=== PATIENT | female | born 1935 | race Caucasian/White ===

== ENCOUNTER 2017-03-27 09:31 | Emergency (ER) | payer OTHER ==
[2017-03-27 09:56] VITALS: BMI 31.4
[2017-03-27] MEDS ORDERED: SODIUM CHLORIDE 1,000 ML IV STA (10:22)
--- NOTE | 2017-03-27 10:27 | PDOC ---
History of Present Illness - General History Source: Patient Exam Limitations: No Limitations - History of Present Illness Initial Comments: 03/27/17 10:41 The patient is an 82 year old female with past medical history of hypertension, CAD, HI s/p stents and [employer] defibrillator who presents to the ED after feeling a shock from her defibrillator while in the shower this morning. The patient states that the shock occurred while she was in the shower after she felt lightheaded. She states that a similar episode occurred three years ago where the patient was reportedly shocked six times. In the ED, the patient is asymptomatic and has no complaints. She denies any illness, fever, chills, nausea, vomiting, diarrhea, cough, SOB, chest pain, or urinary symptoms. PCP: [facility] [employer] Teacher: Talon Marquis <Zakia Bar - Last Filed: 03/27/17 15:28> - General History Source: Patient, Old Records Exam Limitations: No Limitations <Jeremy Kc - Last Filed: 03/27/17 18:46> - General Chief Complaint: Tachycardia Stated Complaint: ANXIETY Time Seen by Provider: 03/27/17 09:46 Past History <Zakia Bar - Last Filed: 03/27/17 15:28> - Past Medical History Anemia: No Asthma: No Cancer: No Cardiac Disorders: Yes (mi 4/10 stents) CVA: Yes (2011) COPD: No CHF: No Dementia: No Diabetes: No GI Disorders: No Disorders: No HTN: Yes Hypercholesterolemia: Yes Liver Disease: No Seizures: No Thyroid Disease: No - Surgical History Abdominal Surgery: No Appendectomy: No Cardiac Surgery: Yes (defibrillator) Cholecystectomy: No Lung Surgery: No Neurologic Surgery: No Orthopedic Surgery: No - Immunization History Immunization Up to Date: Yes - Psycho/Social/Smoking Cessation Hx Anxiety: No Suicidal Ideation: No Smoking Status: No Smoking History: Never smoked Have you smoked in the past 12 months: No Number of Cigarettes Smoked Daily: 0 Information on smoking cessation initiated: No Hx Alcohol Use: No Drug/Substance Use Hx: No Substance Use Type: None Hx Substance Use Treatment: No <Jeremy Kc - Last Filed: 03/27/17 18:46> - Past Medical History Allergies/Adverse Reactions: Allergies Allergy/AdvReac Type Severity Reaction Status Date / Time No Known Allergies Allergy Verified 03/27/17 09:48 Home Medications: Ambulatory Orders Lisinopril [Prinivil -] 2.5 mg PO DAILY 11/23/15 Rivaroxaban [Xarelto -] 10 mg PO DAILY 11/23/15 Sennosides [Senna] 2 tab PO HS 11/23/15 Simvastatin [Zocor -] 10 mg PO HS 11/23/15 Spironolactone 25 mg PO DAILY 11/23/15 Magnesium Oxide 400 mg PO DAILY #30 tablet 11/27/15 Magnesium Oxide 400 mg PO BID #30 tablet 03/27/17 Metoprolol Succinate [Toprol XL -] 50 mg PO BID #60 tablet 03/27/17 Review of Systems - Review of Systems Able to Perform ROS?: Yes Comments:: 03/27/17 10:41 GENERAL/CONSTITUTIONAL: No fever or chills. No weakness. HEAD, EYES, EARS, NOSE AND THROAT: No change in vision. No ear pain or discharge. No sore throat. CARDIOVASCULAR: No chest pain or shortness of breath. RESPIRATORY: No cough, wheezing, or hemoptysis. GASTROINTESTINAL: No nausea, vomiting, diarrhea or constipation. GENITOURINARY: No dysuria, frequency, or change in urination. MUSCULOSKELETAL: No joint or muscle swelling or pain. No neck or back pain. SKIN: No rash NEUROLOGIC: No headache, vertigo, loss of consciousness, or change in strength/ sensation. ENDOCRINE: No increased thirst. No abnormal weight change. HEMATOLOGIC/LYMPHATIC: No anemia, easy bleeding, or history of blood clots. ALLERGIC/IMMUNOLOGIC: No hives or skin allergy. All Other Systems: Reviewed and Negative <Zakia Bar - Last Filed: 03/27/17 15:28> *Physical Exam - Vital Signs Last Vital Signs Temp Pulse Resp BP Pulse Ox 97.5 F L 113 H 16 113/94 93 L 03/27/17 09:35 03/27/17 09:35 03/27/17 09:35 03/27/17 09:35 03/27/17 09:35 - Physical Exam Comments: 03/27/17 10:43 GENERAL: Awake, alert, and fully oriented, in no acute distress HEAD: No signs of trauma EYES: PERRLA, EOMI, sclera anicteric, conjunctiva clear ENT: Auricles normal inspection, hearing grossly normal, nares patent, oropharynx clear without exudates. Moist mucosa NECK: Normal ROM, supple, no lymphadenopathy, JVD, or masses LUNGS: Breath sounds equal, clear to auscultation bilaterally. No wheezes, and no crackles HEART: Tachycardic, defibrillator, normal S1 and S2, no murmurs, rubs or gallops ABDOMEN: Soft, nontender, normoactive bowel sounds. No guarding, no rebound. No masses EXTREMITIES: Normal range of motion, no edema. No clubbing or cyanosis. No cords, erythema, or tenderness NEUROLOGICAL: Cranial nerves II through XII grossly intact. Normal speech, normal gait SKIN: Warm, Dry, normal turgor, no rashes or lesions noted. <Zakia Bar - Last Filed: 03/27/17 15:28> - Vital Signs Last Vital Signs Temp Pulse Resp BP Pulse Ox 97.5 F L 113 H 16 113/94 93 L 03/27/17 09:35 03/27/17 09:35 03/27/17 09:35 03/27/17 09:35 03/27/17 09:35 <Jeremy Kc - Last Filed: 03/27/17 18:46> Heart Score/ECG Review #1 ECG reviewed & interpreted by me at: 10:00 03/27/17 10:23 NSR 116, left axis deviation, LVH, Q wave V1-V4, avF (new from November 2015), no RUBEN/STD, QTC 439 msec <Jeremy Kc - Last Filed: 03/27/17 18:46> ED Treatment Course - LABORATORY CBC & Chemistry Diagram: 03/27/17 10:28 03/27/17 10:28 - RADIOLOGY Radiograph Interpretation: 03/27/17 12:05 Chest X-ray as reviewed by Dr. Kay reports no active pulmonary disease <Zakia Bar - Last Filed: 03/27/17 15:28> - LABORATORY CBC & Chemistry Diagram: 03/27/17 10:28 03/27/17 10:28 - RADIOLOGY Radiology Studies Ordered: Category Date Time Status CHEST X-RAY PORTABLE* [RAD] Stat Radiology 03/27/17 10:14 Ordered <Jeremy Kc - Last Filed: 03/27/17 18:46> Medical Decision Making - Medical Decision Making 03/27/17 10:20 Phone call placed to [employer] [facility]. A termite control representative will be alerted and will call us at [phone]. 10:35 Phone call received from termite control representative from [employer] who will be arriving at 2:00 pm to inspect the defibrillator. 03/27/17 15:28 Another phone call placed to [employer]. Awaiting call back from termite control representative. <Zakia Bar - Last Filed: 03/27/17 15:28> - Medical Decision Making 03/27/17 10:24 A portion of this note was documented by scribe services under my direction. I have reviewed the details of the note, within reason, and agree with the documentation with the following case summary and management plan written by me. Patient treated in the ED. Nursing notes are reviewed and incorporated into the medical decision-making. Vital signs reviewed. Peripheral IV access obtained by the nurse, laboratory studies are drawn and sent, reviewed and interpreted by myself. Vital Signs Temp Pulse Resp BP Pulse Ox 97.5 F L 113 H 16 113/94 93 L 03/27/17 09:35 03/27/17 09:35 03/27/17 09:35 03/27/17 09:35 03/27/17 09:35 82-year-old female with past medical history of hypertension, coronary disease status post HI and stents, [employer] pacemaker and defibrillator presents with reported shock of the defibrillator. Patient reports that she was showering [place] she felt a shock. She denied chest pain or shortness of breath. Denies recent illnesses, fevers, chills, cough, vomiting. Reports cancer medications. She follows up with etl manager DR. Concepcion. EKG demonstrates new changes from November 2015. However, we'll need to send troponin and touch base with patient's etl manager. Given the potential shock, we'll contact to the company to interrogate the pacemaker and to send blood work including lites like troponin. Chest x-ray. ekg monitor tech. Disposition pending workup and patient's etl manager discussion. 03/27/17 18:34 CBC, BMP 03/27/17 10:28 03/27/17 10:28 CMP Sodium 142 mmol/L (136-145) 03/27/17 10:28 Potassium 4.8 mmol/L (3.5-5.1) 03/27/17 10:28 Chloride 107 mmol/L (98-107) 03/27/17 10:28 Carbon Dioxide 26 mmol/L (21-32) 03/27/17 10:28 Anion Gap 9 (8-16) 03/27/17 10:28 BUN 15 mg/dL (7-18) D 03/27/17 10:28 Creatinine 0.9 mg/dL (0.55-1.02) 03/27/17 10:28 Creat Clearance w eGFR > 60 (>60) 03/27/17 10:28 Random Glucose 117 mg/dL (74-106) H 03/27/17 10:28 Calcium 9.0 mg/dL (8.5-10.1) 03/27/17 10:28 Phosphorus 2.9 mg/dL (2.5-4.9) D 03/27/17 10:28 Magnesium 1.7 mg/dL (1.8-2.4) L 03/27/17 10:28 Total Bilirubin 0.8 mg/dL (0.2-1.0) D 03/27/17 10:28 AST 38 U/L (15-37) H D 03/27/17 10:28 ALT 18 U/L (12-78) 03/27/17 10:28 Alkaline Phosphatase 108 U/L (45-117) 03/27/17 10:28 Creatine Kinase 87 IU/L (26-192) 03/27/17 15:14 Troponin I < 0.02 ng/ml (0.00-0.05) 03/27/17 15:14 Total Protein 6.7 g/dl (6.4-8.2) 03/27/17 10:28 Albumin 3.2 g/dl (3.4-5.0) L 03/27/17 10:28 The patient was interrogated which demonstrated tachycardia that initially was over paced but shocked. This was noted by the termite control representative. I had spoken in reviewed the case with Dr. Marquis. He suspects and the represent a suspects that this may be an atrial tachycardia but even if ventricular rhythm, patient has a defibrillator. Patient has [address] Marquis requests that we increase her metoprolol 50 mg extended release daily 2 twice a day. Also requests that we write a prescription for magnesium oxide and have her follow-up as an outpatient. The etl manager did stop by and see the patient. The patient family will pick up man the patient and the patient is agreeable to go home. I discussed the physical exam findings, ancillary test results and final diagnoses with the patient. I answered all of the patient's questions. The patient was satisfied with the care received and felt comfortable with the discharge plan and treatment plan. The patient will call their primary care physician within 24 hours to arrange follow-up and will return to the Emergency Department with any new, persistant or worsening symptoms. <Jeremy Kc - Last Filed: 03/27/17 18:46> *DC/Admit/Observation/Transfer - Attestations Scribe Attestion: 03/27/17 10:45 Documentation prepared by Zakia Bar, acting as medical surgery nurse for Jeremy Kc MD. <Zakia Bar - Last Filed: 03/27/17 15:28> - Discharge Dispostion Admit: No <Jeremy Kc - Last Filed: 03/27/17 18:46> Diagnosis at time of Disposition: Defibrillator discharge - Discharge Dispostion Disposition: HOME Condition at time of disposition: Good - Prescriptions Prescriptions: Magnesium Oxide 400 mg PO BID #30 tablet Metoprolol Succinate [Toprol XL -] 50 mg PO BID #60 tablet - Referrals Referrals: Juju Chanel MD [Primary Care Provider] - Talon Marquis MD [Staff Physician] - - Patient Instructions Printed Discharge Instructions: DI for Automatic Cardioverter/Defibrillator Implantation Additional Instructions: Your defibrillator did fire once. Dr. Marquis came and examined you. At this time, you are safe and cleared for discharge. Dr. Marquis is increasing your dose of metoprolol to 50 mg every 12 hours. Please also take your magnesium oxide pills as well. Please call and schedule an appointment with Dr. Marquis.
[2017-03-27 10:49] LABS: BASOPHIL 0.3 % (0-2.0); EOSINOPHIL 0.7 % (0-4.5); MCH 29.3 pg (25.7-33.7); MCHC 33.2 g/dl (32.0-36.0); MEAN CELL VOLUME 88.2 fl (80-96); MEAN PLT VOLUME 8.5 fl (7.5-11.1); NEUTROPHILS 75.7 % (42.8-82.8); PLATELET COUNT 204 K/MM3 (134-434); RDW 13.9 % (11.6-15.6); WHITE BLOOD COUNT 9.1 K/mm3 (4.0-10.0)
[2017-03-27 11:18] LABS: ALBUMIN 3.2 g/dl (3.4-5.0); ANION GAP 9 (8-16); CO2 26 mmol/L (21-32); CREATININE 0.9 mg/dL (0.55-1.02); GLUCOSE,RANDOM 117 mg/dL (74-106); PHOSPHOROUS 2.9 mg/dL (2.5-4.9); SGPT/ALT 18 U/L (12-78)
[2017-03-27 11:22] LABS: ALK PHOS 108 U/L (45-117); BILIRUBIN,TOTAL 0.8 mg/dL (0.2-1.0); TOT PROT 6.7 g/dl (6.4-8.2); TROPONIN I < 0.02 ng/ml (0.00-0.05)
[2017-03-27 11:25] LABS: INR 1.11 (0.82-1.09); MAGNESIUM 1.7 mg/dL (1.8-2.4); PROTHROMBIN TIME (PATIENT) 12.2 SEC (9.98-11.88); SGOT/AST 38 U/L (15-37)
[2017-03-27 11:52] LABS: URINE APPEARANCE SLCLOUDY; URINE BILIRUBIN NEGATIVE (NEGATIVE); URINE BLOOD NEGATIVE (NEGATIVE); URINE COLOR AMBER; URINE GLUCOSE (UA) NEGATIVE (NEGATIVE); URINE KETONE NEGATIVE (NEGATIVE); URINE NITRITE NEGATIVE (NEGATIVE)
[2017-03-27 12:14] LABS: URINE LEUK ESTERASE 2+ (NEGATIVE); URINE PROTEIN 1+ (NEGATIVE)
[2017-03-27 12:29] LABS: URINE BACTERIA RARE /hpf (NONE SEEN); URINE MUCUS MANY; URINE WBC 7 /hpf (3-5)
--- NOTE | 2017-03-27 13:50 | EKG ---
Test Reason : Blood Pressure : / mmHG Vent. Rate : 116 BPM Atrial Rate : 116 BPM P-R Int : 180 ms QRS Dur : 078 ms QT Int : 316 ms P-R-T Axes : 020 -40 070 degrees QTc Int : 439 ms SINUS TACHYCARDIA LEFT ANTERIOR FASCICULAR BLOCK MINIMAL VOLTAGE CRITERIA FOR LVH, MAY BE NORMAL VARIANT ANTEROSEPTAL INFARCT , AGE UNDETERMINED ST-T ABNORMALITIES ABNORMAL ECG WHEN COMPARED WITH ECG OF 02-DEC-2015 16:38, ANTEROSEPTAL INFARCT IS NOW PRESENT ST-T ABNORMALITIES IN aVL REPEAT TRACING INDICATED Confirmed by SEB DAVILA MD ([id number]) on 03/27/2017 1:50:28 PM Referred By: Confirmed By:SEB DAVILA MD
[2017-03-27] MEDS ORDERED: MAGNESIUM SULF 50% (8.12 MEQ/2 ML-1 GM VIAL) IVPB ONE (14:27)
[2017-03-27] MEDS ORDERED: MAGNESIUM SULF 50% (8.12 MEQ/2 ML-1 GM VIAL) ONE (14:54)
[2017-03-27 16:17] LABS: TROPONIN I < 0.02 ng/ml (0.00-0.05)
[2017-03-27 18:51] VITALS: BP 115/67; PULSE 76; TEMP 97.6
--- NOTE | 2017-03-28 01:04 | CON.CARD ---
Consult Consult Specialty:: cardiology Reason for Consultation:: ?ICD shock - History of Present Illness History of Present Illness: The patient is an 82 year old female with past medical history of hypertension, CAD, [place] s/p stents; severe systolic CHF--> [employer] defibrillator who presents to the ED after feeling a shock from her defibrillator while in the shower this morning. The patient states that the shock occurred while she was in the shower after she felt lightheaded. She states that a similar episode occurred three years ago where the patient was reportedly shocked six times. In the ED, the patient is asymptomatic and has no complaints. She denies any illness, fever, chills, nausea, vomiting, diarrhea, cough, SOB, chest pain, or urinary symptoms. PCP: [facility] [employer] Maker: Talon Marquis - History Source History Provided By: Patient, Medical Record Limitations to Obtaining History: No Limitations - Past Medical History Cardio/Vascular: Yes: AFIB, CAD (s/p stent), CHF (s/p AICD), HTN, Hyperlipdemia Reproductive: Yes: Postmenopausal ...: No - Past Surgical History Past Surgical History: Yes: AICD, Permanent Pacemaker, Stent - Alcohol/Substance Use Hx Alcohol Use: No - Smoking History Smoking history: Never smoked Have you smoked in the past 12 months: No Aproximately how many cigarettes per day: 0 - Social History Usual Living Arrangement: Alone ADL: Independent History of Recent Travel: No Home Medications - Allergies Allergies/Adverse Reactions: Allergies Allergy/AdvReac Type Severity Reaction Status Date / Time No Known Allergies Allergy Verified 03/27/17 09:48 - Home Medications Home Medications: Ambulatory Orders Lisinopril [Prinivil -] 2.5 mg PO DAILY 11/23/15 Rivaroxaban [Xarelto -] 10 mg PO DAILY 11/23/15 Sennosides [Senna] 2 tab PO HS 11/23/15 Simvastatin [Zocor -] 10 mg PO HS 11/23/15 Spironolactone 25 mg PO DAILY 11/23/15 Magnesium Oxide 400 mg PO DAILY #30 tablet 11/27/15 Magnesium Oxide 400 mg PO BID #30 tablet 03/27/17 Metoprolol Succinate [Toprol XL -] 50 mg PO BID #60 tablet 03/27/17 Family Disease History - Family Disease History Family History: Denies Review of Systems - Review of Systems Constitutional: reports: Weakness Eyes: reports: No Symptoms HENT: reports: No Symptoms, Ringing in Ears Cardiovascular: reports: Other (shock from ICD) Respiratory: reports: No Symptoms Gastrointestinal: reports: No Symptoms Genitourinary: reports: No Symptoms Breasts: reports: No Symptoms Reported Musculoskeletal: reports: Muscle Weakness Integumentary: reports: No Symptoms Neurological: reports: No Symptoms Endocrine: reports: No Symptoms Hematology/Lymphatic: reports: No Symptoms Psychiatric: reports: Anxiety, Depression - Risk Factors Known Risk Factors: Yes: Age, Physical Inactivity, Other (severe systolic CHF--> ICD; CAD-->PCI) Vital Signs: Vital Signs Temperature 97.6 F 03/27/17 18:49 Pulse Rate 76 03/27/17 18:49 Respiratory Rate 16 03/27/17 18:49 Blood Pressure 115/67 03/27/17 18:49 O2 Sat by Pulse Oximetry (%) 99 03/27/17 18:49 Constitutional: Yes: Anxious Eyes: Yes: WNL HENT: Yes: WNL Neck: Yes: WNL Respiratory: Yes: WNL Gastrointestinal: Yes: Soft Renal/: No: Anuria Cardiovascular: Yes: Regular Rate and Rhythm JVD: No Carotid Bruit: No PMI: Displaced Heart Sounds: Yes: S1, Split S2 Murmur: Yes: Systolic Murmur, Grade 2 Musculoskeletal: Yes: Joint Stiffness Extremities: Yes: WNL Edema: No Peripheral Pulses WNL: Yes Integumentary: Yes: WNL Neurological: Yes: Alert, Oriented, Weakness Psychiatric: Yes: Other - Other Data Labs, Other Data: CBC, BMP 03/27/17 10:28 03/27/17 10:28 INR, PTT INR 1.11 (0.82-1.09) 03/27/17 10:28 Troponin, BNP 03/27/17 03/27/17 10:28 15:14 Troponin I < 0.02 < 0.02 Troponin, BNP 03/27/17 03/27/17 10:28 15:14 Troponin I < 0.02 < 0.02 Abnormal Lab Results 03/27/17 03/27/17 10:28 11:00 Random Glucose 117 H Magnesium 1.7 L AST 38 H D Albumin 3.2 L Urine Protein 1+ H Urine Urobilinogen 2.0 H Ur Leukocyte Esterase 2+ H Ejection Fraction %: LVEF < 40 % Imaging - Results Chest X-ray: Image Reviewed (no acute pathology) EKG: Image Reviewed (sinus tachycardia; LAFB) Problem List - Problems (1) Cardiac arrhythmia Code(s): I49.9 - CARDIAC ARRHYTHMIA, UNSPECIFIED Qualifiers: Arrhythmia type: unspecified cardiac arrhythmia Qualified Code(s): I49.9 - Cardiac arrhythmia, unspecified (2) Chronic systolic (congestive) heart failure Assessment/Plan: On metoprolol and lisinopril. Add spironolactone if BUN/Cr and electrolytes allow. Code(s): I50.22 - CHRONIC SYSTOLIC (CONGESTIVE) HEART FAILURE (3) Defibrillator discharge Assessment/Plan: TNI < 0.02 x 2. single chamber VVI/ICD interrogation: shock received during prolonged arrhythmia that was likely PSVT, not VT or VF. Magnesium was low (1.7) Plan: Modify parameters/thresholds to attempt to prevent further shocks on non- ventricular arrhythmia. Increase metoprolol ER from 50 to 100 mg daily. Continue lisinopril, and increase dose in the future as tolerated. Decrease weight; increase exercise. Replete magnesium; check all electrolytes, and maintain serial checks when outpatient. Code(s): Z45.02 - ENCNTR FOR ADJUST AND MGMT OF AUTOMATIC IMPLNTBL CARD DEFIB (4) HTN (hypertension) Code(s): I10 - ESSENTIAL (PRIMARY) HYPERTENSION (5) Hyperlipidemia Code(s): E78.5 - HYPERLIPIDEMIA, UNSPECIFIED (6) Intertrochanteric fracture of left hip Code(s): S72.142A - DISPLACED INTERTROCHANTERIC FRACTURE OF LEFT FEMUR, INIT Qualifiers: Encounter type: initial encounter Fracture type: closed Qualified Code(s): S72.142A - Displaced intertrochanteric fracture of left femur, initial encounter for closed fracture
[2017-03-28 16:58] LABS: FREE T4 1.74 ng/dl (0.76-1.46)
== END 2017-03-27 20:43 | disposition home or self-care (01) ==
LOC: JER 09:31
PROC: 3E0337Z Introduction of Electrolytic and Water Balance Substance into Peripheral Vein, Percutaneous Approach (ICD-10-PCS; principal; 2017-03-27)
PROC: 3E033GC Introduction of Other Therapeutic Substance into Peripheral Vein, Percutaneous Approach (ICD-10-PCS; 2017-03-27)
DX: Z45.02 Encounter for adjustment and management of automatic implantable cardiac defibrillator (principal); I25.2 Old myocardial infarction; I25.10 Atherosclerotic heart disease of native coronary artery without angina pectoris; I11.0 Hypertensive heart disease with heart failure; Z95.5 Presence of coronary angioplasty implant and graft; E78.5 Hyperlipidemia, unspecified; Z86.73 Personal history of transient ischemic attack (TIA), and cerebral infarction without residual deficits
CPT/HCPCS: 36415; 71010-TC; 80053; 81003; 81015; 82550; 83735; 84100; 84439; 84484; 85025; 85610; 85730; 93005; 93010; 96361; 96374; 99285-25

== ENCOUNTER 2017-12-31 | Observation (INO) | payer OTHER | END 2017-12-31 15:00 | disposition home or self-care (01) | PROVIDERS: ADMIT Internal Medicine | PROC: 3E033GC Introduction of Other Therapeutic Substance into Peripheral Vein, Percutaneous Approach (ICD-10-PCS; principal; 2017-12-31) | CPT/HCPCS: 36415; 71045-TC-FY; 80053; 82550; 83735; 84443; 84484; 85025; 85610; 93005; 93010; 96374; 99285-25; G0378 ==

== ENCOUNTER 2018-02-11 11:44 | Inpatient (IN) | payer OTHER ==
[2018-02-11] MEDS ORDERED: DEXAMETHASONE SOD PHOSPHATE 10 MG/1 ML VIAL ONE (11:53)
[2018-02-11] MEDS ORDERED: ALBUTEROL SO4 2.5/IPRATROPIUM 0.5 INH SOL 3 ML VIAL.NEB. NEB ONE ×2 (11:53→13:24)
--- NOTE | 2018-02-11 12:44 | PDOC ---
History of Present Illness - General Chief Complaint: Shortness of Breath Stated Complaint: Shortness of Breath Time Seen by Provider: 02/11/18 12:02 - History of Present Illness Initial Comments: 02/11/18 13:24 The patient is an 83 year old female with a history of afib, HTN, HLD, CHF who presents for evaluation of SOB. The patient is accompanied by family who assist in providing the history. They note that the patient began experiencing severe SOB earlier today prompting her presentation to the ED for further evaluation. EMS was called and the patient received 2 duonebs, 10mg decadron, and 2g of Magnesium en route to the ED with improvement in her symptoms. The patient denies a history of COPD, or asthma and is not a smoker. She otherwise denies fevers, chills, cough, chest pain, nausea, vomiting, abdominal pain, or changes with urination or bowel movements. Past History - Past Medical History Allergies/Adverse Reactions: Allergies Allergy/AdvReac Type Severity Reaction Status Date / Time No Known Allergies Allergy Verified 02/11/18 11:51 Home Medications: Ambulatory Orders Atorvastatin Ca [Lipitor] 20 mg PO DAILY 12/30/17 Escitalopram Oxalate [Lexapro -] 10 mg PO DAILY 12/30/17 Magnesium 250 mg PO BID 12/30/17 Metoprolol Succinate 50 mg PO DAILY 12/30/17 Rivaroxaban [Xarelto -] 10 mg PO DAILY 12/30/17 Linaclotide [Linzess] 72 mcg PO DAILY 02/11/18 Omeprazole 20 mg PO DAILY 02/11/18 Ranitidine [Zantac -] 150 mg PO DAILY 02/11/18 Anemia: No Asthma: No Cancer: No Cardiac Disorders: Yes (mi 12/11 stents, defibrillator) CVA: Yes (2011) COPD: No CHF: No Dementia: No Diabetes: No GI Disorders: No Disorders: No HTN: Yes Hypercholesterolemia: Yes Liver Disease: No Seizures: No Thyroid Disease: No - Surgical History Abdominal Surgery: No Appendectomy: No Cardiac Surgery: Yes (defibrillator) Cholecystectomy: No Lung Surgery: No Neurologic Surgery: No Orthopedic Surgery: No - Immunization History Immunization Up to Date: Yes - Suicide/Smoking/Psychosocial Hx Smoking Status: No Smoking History: Never smoked Have you smoked in the past 12 months: No Number of Cigarettes Smoked Daily: 0 Information on smoking cessation initiated: No Hx Alcohol Use: No Drug/Substance Use Hx: No Substance Use Type: None Hx Substance Use Treatment: No Review of Systems - Review of Systems Comments:: 02/11/18 13:27 Constitutional: No fevers, chills, fatigue, malaise HEENT: No Rhinorrhea, nasal congestion, visual changes Cardiovascular: No chest pain, syncope, palpitations, lightheadedness Respiratory: SOB. No Cough, Hemoptysis, Gastrointestinal: No Abdominal pain, Nausea, Vomiting, Constipation, Diarrhea, Melena Genitourinary: No Dysuria, Frequency, Urgency, Hesitancy, Hematuria, Flank pain Musculoskeletal: No Myalgia, arthralgia Skin: No rashes, itching, bruising, pallor Neurologic: No Headache, Dizziness, Numbness, Weakness, or Tingling Psychiatric: No Hallucinations. No SI or HI *Physical Exam - Vital Signs Last Vital Signs Temp Pulse Resp BP Pulse Ox 98 F 91 H 22 126/72 91 L 02/11/18 11:51 02/11/18 11:51 02/11/18 11:51 02/11/18 11:51 02/11/18 11:51 - Physical Exam Comments: 02/11/18 13:31 General Appearance: Nourished. No Apparent Distress HEENT: EOMI, FELIX. No Pharyngeal Erythema, Tonsillar Exudate, Tonsillar Erythema Neck: No Cervical Lymphadenopathy Respiratory/Chest: Lungs Clear, Normal Breath Sounds. Crackles noted at the left lower lung base. No Rhonchi, Wheezing Cardiovascular: Tachycardic and irregularly irregular. No Murmur, Gallops, Rubs Gastrointestinal/Abdominal: Normal Bowel Sounds, Soft. No Guarding, Rebound, Tenderness Musculoskeletal: No CVA Tenderness Extremity: Normal Capillary Refill Integumentary: Normal Color, Dry, Warm Neurologic: Fully Oriented, Alert, Normal Mood/Affect, Normal Response, Heart Score/ECG Review #1 ECG reviewed & interpreted by me at: 13:27 (Afib with RVR with a rate of 110) General ECG Interpretation: Normal Intervals, No acute ischemic changes ED Treatment Course - LABORATORY CBC & Chemistry Diagram: 02/11/18 13:25 02/11/18 13:25 - RADIOLOGY Radiology Studies Ordered: Category Date Time Status CHEST X-RAY PORTABLE* [RAD] Stat Radiology 02/11/18 12:12 Completed Medical Decision Making - Medical Decision Making 02/11/18 13:31 The patient is an 83 year old female with a history of afib, HTN, HLD, CHF who presents for evaluation of SOB. Differential includes but is not limited to: ACS, Afib, Pneumonia, Infectious, Metabolic Derangement. The patient was noted to be in afib with RVR here in the ED with a rate of 110. She notes that she did not take her metoprolol today and we will treat her with her home dose of metoprolol. Chest plain film demonstrates a possible left lower lobe infiltrate as read by our radiologist. We will obtain a cbc, cmp, bnp, troponin , blood cultures to evaluate further for possible etiologies. We will continue to monitor and reassess while here in the ED. 02/11/18 23:31 CBC, cmp, bnp, troponin are unremarkable. Chest plain film demonstrates a possible left lower lobe infiltrate as read by our radiologist. The patient's symptoms are likely due to afib with rvr and pneumonia. She will require admission for further management at this time. We discussed the case with the admitting team who accepted the patient for admission. We placed a page out for Dr. Marquis the patient's rail setter. *DC/Admit/Observation/Transfer Diagnosis at time of Disposition: Shortness of breath, Atrial fibrillation with RVR Pneumonia Qualifiers: Pneumonia type: due to unspecified organism Laterality: unspecified laterality Lung location: unspecified part of lung Qualified Code(s): J18.9 - Pneumonia, unspecified organism - Discharge Dispostion Condition at time of disposition: Stable Decision to Admit order: Yes - Referrals - Patient Instructions - Post Discharge Activity
[2018-02-11] MEDS ORDERED: DEXAMETHASONE SOD PHOSPHATE 10 MG/1 ML VIAL IVPUSH ONE (13:24)
[2018-02-11 13:45] LABS: BASO % 0.6 % (0-2.0); HEMATOCRIT 38.6 % (32.4-45.2); HEMOGLOBIN 12.5 GM/dL (10.7-15.3); LYMPH % 12.5 % (8-40); MCH 27.4 pg (25.7-33.7); MCHC 32.4 g/dl (32.0-36.0); MEAN CELL VOLUME 84.7 fl (80-96); MEAN PLT VOLUME 8.8 fl (7.5-11.1); MONO % 2.6 % (3.8-10.2); NEUT % 84.3 % (42.8-82.8); PLATELET COUNT 241 K/MM3 (134-434); RBC 4.56 M/mm3 (3.60-5.2); RDW 14.6 % (11.6-15.6); WHITE BLOOD COUNT 7.1 K/mm3 (4.0-10.0)
[2018-02-11] MEDS ORDERED: VANCOMYCIN 1,250 MG in DEXTROSE 5%-WATER - 250 ML IVPB ONE (13:59)
[2018-02-11] MEDS ORDERED: PIPERACILLIN/TAZOB 4.5 GM 4.5 GM in DEXTROSE 5%-WATER 100 ML IVPB ONE (13:59)
[2018-02-11] MEDS ORDERED: PIPERACILLIN/TAZOB 4.5 GM 4.5 GM/100 ML BAG IVPB ONE (14:07)
[2018-02-11 14:20] LABS: ALBUMIN 3.5 g/dl (3.4-5.0); ANION GAP 9 (8-16); BILIRUBIN,TOTAL 0.8 mg/dL (0.2-1.0); BLOOD UREA NITROGEN 26 mg/dL (7-18); CALCIUM 8.4 mg/dL (8.5-10.1); CHLORIDE 110 mmol/L (98-107); CO2 21 mmol/L (21-32); CREATININE 0.9 mg/dL (0.55-1.02); GLUCOSE,RANDOM 121 mg/dL (74-106); POTASSIUM 4.4 mmol/L (3.5-5.1); SGOT/AST 149 U/L (15-37); SGPT/ALT 117 U/L (12-78); SODIUM 140 mmol/L (136-145); TOT PROT 6.6 g/dl (6.4-8.2)
[2018-02-11 14:23] LABS: ALK PHOS 166 U/L (45-117); N-TERMINAL BNP 3414.23 pg/ml (5-450)
--- NOTE | 2018-02-11 14:51 | PDOC ---
Attending Attestation - Resident Resident Name: Ramesh Kaminski - ED Attending Attestation I have performed the following: I have examined & evaluated the patient, The case was reviewed & discussed with the resident, I agree w/resident's findings & plan, Exceptions are as noted - HPI HPI: 02/11/18 15:08 The patient is an 83-year-old female, with a past medical history of afib, CAD, CHF, HTN, hyperlipidemia, who presents to the ED with shortness of breath that began earlier today. The patient states that she was unable to catch her breath and called EMS. While en route to the ED, the patient received 2 duonebs, 10mg decadron, and 2g magnesium. The patient denies having these symptoms in the past. Pt reports feeling very warm during interview, rectal temp 100. The patient denies any chills, cough, CP, nausea, vomiting, diarrhea, or abdominal pain. Reports compliance with medications but ran out of xarelto 3 days ago. Did not take metoprolol yet today. Allergies: NKA - Physicial Exam PE: 02/11/18 15:09 GENERAL: Awake, alert, and fully oriented, in no acute distress HEAD: No signs of trauma EYES: PERRLA, EOMI, sclera anicteric, conjunctiva clear ENT: Auricles normal inspection, hearing grossly normal, nares patent, oropharynx clear without exudates. Moist mucosa NECK: Normal ROM, supple, no lymphadenopathy, JVD, or masses LUNGS: (+)Crackles and diminshed BS at the left lung base. No wheezes. HEART: tachy, irregularly irregular, normal S1 and S2, no murmurs, rubs or gallops ABDOMEN: Soft, nontender, normoactive bowel sounds. No guarding, no rebound. No masses EXTREMITIES: Normal range of motion, no edema. No clubbing or cyanosis. No cords, erythema, or tenderness BACK: No midline spinal tenderness in cervical/thoracic/lumbar region NEUROLOGICAL: Normal speech, cranial nerves intact, negative pronator drift, 5/ 5 strength in all 4 extremities, normal sensation to light touch in all 4 extremities, normal cerebellar exam, normal gait, normal reflexes and tone SKIN: Warm, Dry, normal turgor, no rashes or lesions noted. - Medical Decision Making 02/11/18 15:10 83yo F w MMP presents to the ED with SOB, subjective fevers. Vitals with temp 100, tachycardia 117, O2 sat 91%. Exam with L base crackles and diminished BS. Concern for PNA, given fever, sob, exam. CXR with possible L sided infiltrate. DDx also includes CHF vs CAD vs PE - unlikely PE as pt has only missed 2 days of xarelto (her pharmacy could not refill on Sunday). Will cover for HCAP given recent admission, and admit. Heart Score/ECG Review #1 02/11/18 15:13 Twelve-lead EKG was performed and reviewed by me. Atrial fibrillation with rapid ventricular response, rate 119. Normal axis. No ST elevations.
[2018-02-11] MEDS ORDERED: ALBUTEROL SO4 2.5/IPRATROPIUM 0.5 INH SOL 3 ML VIAL.NEB. NEB PRN (16:21)
--- NOTE | 2018-02-11 16:22 | HP ---
Admitting History and Physical - Primary Care Physician PCP: Alfred Duarte - Admission Chief Complaint: sob History of Present Illness: pt seen/ examined in er chart reviewed case discussed with er resident/ attending pt found to be in rapid afib-- missed doses of meds also given broad spectrum abx for pneumonia pt feels better to be admitted to tele History Source: Patient, Family Member, Medical Record - Past Medical History Cardiovascular: Yes: AFIB, CAD (s/p stent), CHF (s/p AICD), HTN, Hyperlipdemia - Past Surgical History Past Surgical History: Yes: AICD, Permanent Pacemaker, Stent - Smoking History Smoking history: Never smoked Have you smoked in the past 12 months: No Aproximately how many cigarettes per day: 0 - Alcohol/Substance Use Hx Alcohol Use: No - Social History ADL: Independent History of Recent Travel: No Home Medications - Allergies Allergies/Adverse Reactions: Allergies Allergy/AdvReac Type Severity Reaction Status Date / Time No Known Allergies Allergy Verified 02/11/18 11:51 - Home Medications Home Medications: Ambulatory Orders Atorvastatin Ca [Lipitor] 20 mg PO DAILY 12/30/17 Escitalopram Oxalate [Lexapro -] 10 mg PO DAILY 12/30/17 Magnesium 250 mg PO BID 12/30/17 Metoprolol Succinate 50 mg PO DAILY 12/30/17 Rivaroxaban [Xarelto -] 10 mg PO DAILY 12/30/17 Linaclotide [Linzess] 72 mcg PO DAILY 02/11/18 Omeprazole 20 mg PO DAILY 02/11/18 Ranitidine [Zantac -] 150 mg PO DAILY 02/11/18 Review of Systems - Review of Systems Constitutional: reports: Weakness Eyes: reports: No Symptoms Neck: reports: No Symptoms Cardiovascular: reports: Shortness of Breath Respiratory: reports: SOB Gastrointestinal: reports: No Symptoms Genitourinary: reports: No Symptoms Neurological: reports: No Symptoms Physical Examination Vital Signs: Vital Signs Temperature 100 F H 02/11/18 13:31 Pulse Rate 110 H 02/11/18 14:42 Respiratory Rate 20 02/11/18 14:42 Blood Pressure 108/65 02/11/18 14:42 O2 Sat by Pulse Oximetry (%) 97 02/11/18 14:42 Constitutional: Yes: No Distress, Calm, Obese Eyes: Yes: Conjunctiva Clear Neck: Yes: Supple Cardiovascular: Yes: Pulse Irregular Respiratory: Yes: Diminished Gastrointestinal: Yes: Soft Edema: No Neurological: Yes: Alert Psychiatric: Yes: Alert Labs: CBC, BMP 02/11/18 13:25 02/11/18 13:25 Imaging - Results Chest X-ray: Report Reviewed EKG: Report Reviewed Problem List - Problems (1) Elevated LFTs Code(s): R79.89 - OTHER SPECIFIED ABNORMAL FINDINGS OF BLOOD CHEMISTRY (2) Atrial fibrillation with RVR Code(s): I48.91 - UNSPECIFIED ATRIAL FIBRILLATION (3) Pneumonia Code(s): J18.9 - PNEUMONIA, UNSPECIFIED ORGANISM Qualifiers: Pneumonia type: due to unspecified organism Laterality: unspecified laterality Lung location: unspecified part of lung Qualified Code(s): J18.9 - Pneumonia, unspecified organism (4) Shortness of breath Code(s): R06.02 - SHORTNESS OF BREATH (5) HTN (hypertension) Code(s): I10 - ESSENTIAL (PRIMARY) HYPERTENSION (6) Hyperlipidemia Code(s): E78.5 - HYPERLIPIDEMIA, UNSPECIFIED Assessment/Plan admit to tele meds / orders written abx nebulizer treatment not in copd exac/ or chf Hold Statin due to elevated lfts monitor cardiology already consulted by er will follow time spend approx 38 min in examining/ documenting.
--- NOTE | 2018-02-11 16:25 | EKG ---
Test Reason : Blood Pressure : / mmHG Vent. Rate : 119 BPM Atrial Rate : 136 BPM P-R Int : 000 ms QRS Dur : 074 ms QT Int : 338 ms P-R-T Axes : 000 -22 173 degrees QTc Int : 475 ms ATRIAL FIBRILLATION WITH RAPID VENTRICULAR RESPONSE WITH PREMATURE VENTRICULAR OR ABERRANTLY CONDUCTED COMPLEXES SEPTAL INFARCT (CITED ON OR BEFORE 27-MAR-2017) ABNORMAL ECG WHEN COMPARED WITH ECG OF 30-DEC-2017 14:04, ATRIAL FIBRILLATION HAS REPLACED SINUS RHYTHM Confirmed by STEVENSON FOWLER MD ([id number]) on 02/11/2018 4:24:59 PM Referred By: Confirmed By:STEVENSON FOWLER MD
[2018-02-11] MEDS: RIVAROXABAN 10 MG TABLET PO SCH (18:02)
[2018-02-11 18:38] VITALS: BMI 33.5
--- NOTE | 2018-02-11 20:27 | CON.CARD ---
Consult Consult Specialty:: Cardiology Reason for Consultation:: af - History of Present Illness History of Present Illness: The patient is an 83 year old female with a history of afib, HTN, HLD, CHF who presents for evaluation of SOB. The patient is accompanied by family who assist in providing the history. They note that the patient began experiencing severe SOB earlier today prompting her presentation to the ED for further evaluation. EMS was called and the patient received 2 duonebs, 10mg decadron, and 2g of Magnesium en route to the ED with improvement in her symptoms. The patient denies a history of COPD, or asthma and is not a smoker. She otherwise denies fevers, chills, cough, chest pain, nausea, vomiting, abdominal pain, or changes with urination or bowel movements. [facility] Proximal LAD stent (JACE) 01/10 during admission for ID s/p ICD 02/10 atrial fibrillation Congestive heart failure (systolic); s/p coronary stent and ICD depression HTN hypercholesterolemia insomnia Myocardial infarction 01/10; led to prox LAD stent; one month later, she felt a shock from the life-vest she was wearing because of severe LV dysfunction, resulting in ICD implant 02/10 obesity sedentary lifestyle - History Source History Provided By: Patient, Medical Record - Past Medical History Cardio/Vascular: Yes: AFIB, CAD (s/p stent), CHF (s/p AICD), HTN, Hyperlipdemia - Past Surgical History Past Surgical History: Yes: AICD, Permanent Pacemaker, Stent - Alcohol/Substance Use Hx Alcohol Use: No - Smoking History Smoking history: Never smoked Have you smoked in the past 12 months: No Aproximately how many cigarettes per day: 0 - Social History Usual Living Arrangement: Alone ADL: Independent History of Recent Travel: No Home Medications - Allergies Allergies/Adverse Reactions: Allergies Allergy/AdvReac Type Severity Reaction Status Date / Time No Known Allergies Allergy Verified 02/11/18 11:51 - Home Medications Home Medications: Ambulatory Orders Atorvastatin Ca [Lipitor] 20 mg PO DAILY 12/30/17 Escitalopram Oxalate [Lexapro -] 10 mg PO DAILY 12/30/17 Magnesium 250 mg PO BID 12/30/17 Metoprolol Succinate 50 mg PO DAILY 12/30/17 Rivaroxaban [Xarelto -] 10 mg PO DAILY 12/30/17 Linaclotide [Linzess] 72 mcg PO DAILY 02/11/18 Omeprazole 20 mg PO DAILY 02/11/18 Ranitidine [Zantac -] 150 mg PO DAILY 02/11/18 Review of Systems - Review of Systems Constitutional: reports: No Symptoms Eyes: reports: No Symptoms HENT: reports: No Symptoms Neck: reports: No Symptoms Cardiovascular: reports: Shortness of Breath Respiratory: reports: SOB, SOB on Exertion Gastrointestinal: reports: No Symptoms Genitourinary: reports: No Symptoms Breasts: reports: No Symptoms Reported Musculoskeletal: reports: No Symptoms Integumentary: reports: No Symptoms Neurological: reports: No Symptoms Endocrine: reports: No Symptoms Hematology/Lymphatic: reports: No Symptoms Psychiatric: reports: No Symptoms Vital Signs: Vital Signs Temperature 98.6 F 02/11/18 20:11 Pulse Rate 101 H 02/11/18 20:11 Respiratory Rate 20 02/11/18 20:11 Blood Pressure 104/76 02/11/18 20:11 O2 Sat by Pulse Oximetry (%) 95 02/11/18 20:20 Constitutional: Yes: Well Nourished, No Distress, Calm Eyes: Yes: WNL, Conjunctiva Clear, EOM Intact HENT: Yes: WNL, Atraumatic, Normocephalic Neck: Yes: WNL, Supple, Trachea Midline Respiratory: Yes: WNL, Regular, CTA Bilaterally Gastrointestinal: Yes: WNL, Normal Bowel Sounds Renal/: Yes: WNL Cardiovascular: Yes: Pulse Irregular Musculoskeletal: Yes: WNL Extremities: Yes: WNL Integumentary: Yes: WNL Neurological: Yes: WNL, Alert, Oriented ...Motor Strength: WNL Psychiatric: Yes: WNL, Alert, Oriented - Other Data Labs, Other Data: CBC, BMP 02/11/18 13:25 02/11/18 13:25 Troponin, BNP 02/11/18 13:25 Troponin I < 0.02 B-Natriuretic Peptide 3414.23 H Troponin, BNP 02/11/18 13:25 Troponin I < 0.02 B-Natriuretic Peptide 3414.23 H Imaging - Results Chest X-ray: Image Reviewed (no i/e) EKG: Image Reviewed (af rvr septal infarct) Problem List - Problems (1) Atrial fibrillation with RVR Code(s): I48.91 - UNSPECIFIED ATRIAL FIBRILLATION (2) Elevated LFTs Code(s): R79.89 - OTHER SPECIFIED ABNORMAL FINDINGS OF BLOOD CHEMISTRY (3) Pneumonia Code(s): J18.9 - PNEUMONIA, UNSPECIFIED ORGANISM Qualifiers: Pneumonia type: due to unspecified organism Laterality: unspecified laterality Lung location: unspecified part of lung Qualified Code(s): J18.9 - Pneumonia, unspecified organism (4) Shortness of breath Code(s): R06.02 - SHORTNESS OF BREATH (5) Afib Code(s): I48.91 - UNSPECIFIED ATRIAL FIBRILLATION (6) Cardiac arrhythmia Code(s): I49.9 - CARDIAC ARRHYTHMIA, UNSPECIFIED Qualifiers: Arrhythmia type: unspecified cardiac arrhythmia Qualified Code(s): I49.9 - Cardiac arrhythmia, unspecified (7) Chronic systolic (congestive) heart failure Code(s): I50.22 - CHRONIC SYSTOLIC (CONGESTIVE) HEART FAILURE (8) Defibrillator discharge Code(s): Z45.02 - ENCNTR FOR ADJUST AND MGMT OF AUTOMATIC IMPLNTBL CARD DEFIB (9) Discomfort in chest Code(s): R07.89 - OTHER CHEST PAIN (10) HTN (hypertension) Code(s): I10 - ESSENTIAL (PRIMARY) HYPERTENSION (11) Hyperlipidemia Code(s): E78.5 - HYPERLIPIDEMIA, UNSPECIFIED (12) Intertrochanteric fracture of left hip Code(s): S72.142A - DISPLACED INTERTROCHANTERIC FRACTURE OF LEFT FEMUR, INIT Qualifiers: Encounter type: initial encounter Fracture type: closed Qualified Code(s) : S72.142A - Displaced intertrochanteric fracture of left femur, initial encounter for closed fracture (13) On amiodarone therapy Code(s): Z79.899 - OTHER SPIRITUAL COUNSELOR (CURRENT) DRUG THERAPY (14) Palpitations Code(s): R00.2 - PALPITATIONS Assessment/Plan atrial fibrillation with RVR Proximal LAD stent (JACE) 01/10 during admission for ID s/p ICD 02/10 Congestive heart failure (systolic); s/p coronary stent and ICD depression HTN hypercholesterolemia insomnia Myocardial infarction 01/10; led to prox LAD stent; one month later, she felt a shock from the life-vest she was wearing because of severe LV dysfunction, resulting in ICD implant 02/10 obesity sedentary lifestyle Plan telemetry rate controll cont AC
[2018-02-11] MEDS ORDERED: PATIENT'S OWN MEDICATION (NON-FORMULARY) (Magnesium [Magnesium] 250 MG) PO SCH (22:00)
[2018-02-12 07:20] LABS: BASO % 0.2 % (0-2.0); HEMATOCRIT 37.5 % (32.4-45.2); HEMOGLOBIN 12.3 GM/dL (10.7-15.3); LYMPH % 11.8 % (8-40); MCH 27.7 pg (25.7-33.7); MCHC 32.8 g/dl (32.0-36.0); MEAN CELL VOLUME 84.5 fl (80-96); MEAN PLT VOLUME 9.1 fl (7.5-11.1); MONO % 5.5 % (3.8-10.2); NEUT % 82.5 % (42.8-82.8); PLATELET COUNT 234 K/MM3 (134-434); RBC 4.43 M/mm3 (3.60-5.2); RDW 14.2 % (11.6-15.6); WHITE BLOOD COUNT 9.3 K/mm3 (4.0-10.0)
[2018-02-12 07:52] LABS: CHLORIDE 108 mmol/L (98-107); POTASSIUM 4.6 mmol/L (3.5-5.1); SODIUM 141 mmol/L (136-145)
[2018-02-12 08:25] LABS: ALBUMIN 3.2 g/dl (3.4-5.0); ALK PHOS 142 U/L (45-117); ANION GAP 11 (8-16); BILIRUBIN,TOTAL 0.7 mg/dL (0.2-1.0); BLOOD UREA NITROGEN 32 mg/dL (7-18); CALCIUM 8.6 mg/dL (8.5-10.1); CO2 22 mmol/L (21-32); CREATININE 0.9 mg/dL (0.55-1.02); GLUCOSE,RANDOM 139 mg/dL (74-106); MAGNESIUM 2.1 mg/dL (1.8-2.4); SGOT/AST 96 U/L (15-37); SGPT/ALT 103 U/L (12-78); TOT PROT 6.3 g/dl (6.4-8.2)
[2018-02-12] MEDS ORDERED: PT OWN MED DRAWER 7, Y5N ONE ×2 (09:19→17:02)
[2018-02-12] MEDS: ESCITALOPRAM OXALATE 10 MG TABLET (FP) PO SCH (09:40)
[2018-02-12] MEDS: AZITHROMYCIN IVPB 500 MG in DEXTROSE 5%-WATER - 250 ML IVPB SCH (09:41)
[2018-02-12] MEDS: RANITIDINE HCL 150 MG TABLET (FP) PO SCH (09:41)
[2018-02-12] MEDS ORDERED: PATIENT'S OWN MEDICATION (NON-FORMULARY) (Linaclotide [Linzess] 72 MCG) PO SCH (10:00)
--- NOTE | 2018-02-12 10:42 | PN ---
Progress Note, Physician Chief Complaint: No complaints No SOB, no dizziness, no palpitations wants to go home - Current Medication List Current Medications: Active Medications Albuterol/Ipratropium (Duoneb -) 1 amp NEB Q6H PRN PRN Reason: SHORTNESS OF BREATH Escitalopram Oxalate (Lexapro -) 10 mg PO DAILY [facility] Last Admin: 02/12/18 09:40 Dose: 10 mg Azithromycin 500 mg/ Dextrose 250 mls @ 250 mls/hr IVPB DAILY [facility] Last Admin: 02/12/18 09:41 Dose: 250 mls/hr Ceftriaxone Sodium 1 gm/ (Dextrose) 100 mls @ 200 mls/hr IVPB DAILY [facility]; Protocol Metoprolol Succinate (Toprol Xl -) 50 mg PO DAILY [facility] Last Admin: 02/12/18 09:40 Dose: 50 mg Non-Formulary Medication (Linaclotide [Linzess]) 72 mcg PO DAILY [facility] Non-Formulary Medication (Magnesium [Magnesium]) 250 mg PO BID [facility] Ranitidine HCl (Zantac -) 150 mg PO DAILY [facility] Last Admin: 02/12/18 09:41 Dose: 150 mg Rivaroxaban (Xarelto -) 10 mg PO DAILY@1800 [facility] Last Admin: 02/11/18 18:02 Dose: 10 mg - Objective Vital Signs: Vital Signs Temperature 98 F 02/12/18 08:32 Pulse Rate 107 H 02/12/18 08:32 Respiratory Rate 20 02/12/18 08:32 Blood Pressure 104/72 02/12/18 08:32 O2 Sat by Pulse Oximetry (%) 97 02/12/18 08:29 Constitutional: Yes: No Distress, Calm Cardiovascular: Yes: Pulse Irregular Respiratory: Yes: Diminished Gastrointestinal: Yes: Normal Bowel Sounds, Soft. No: Tenderness Edema: No Labs: CBC, BMP 02/12/18 06:00 02/12/18 06:00 Problem List - Problems (1) Atrial fibrillation with RVR Code(s): I48.91 - UNSPECIFIED ATRIAL FIBRILLATION (2) Elevated LFTs Code(s): R79.89 - OTHER SPECIFIED ABNORMAL FINDINGS OF BLOOD CHEMISTRY (3) Pneumonia Code(s): J18.9 - PNEUMONIA, UNSPECIFIED ORGANISM Qualifiers: Pneumonia type: due to unspecified organism Laterality: unspecified laterality Lung location: unspecified part of lung Qualified Code(s): J18.9 - Pneumonia, unspecified organism (4) Shortness of breath Code(s): R06.02 - SHORTNESS OF BREATH Assessment/Plan PLAN Rate is controlled with Toprol On Xarelto Check liver sono for elevated LFT-- likely due to statins which a e on hold Urine antigens negative continue with antibiotics tele monitoring Cardiology eval noted
--- NOTE | 2018-02-12 11:54 | PN ---
Progress Note, Physician Chief Complaint: Pt A&Ox3; no shortness of breath or chest pain; no palpitations. History of Present Illness: The patient is an 83 year old female with a history of afib, HTN, HLD, CHF who presents for evaluation of SOB. The patient is accompanied by family who assist in providing the history. They note that the patient began experiencing severe SOB earlier today prompting her presentation to the ED for further evaluation. EMS was called and the patient received 2 duonebs, 10mg decadron, and 2g of Magnesium en route to the ED with improvement in her symptoms. The patient denies a history of COPD, or asthma and is not a smoker. She otherwise denies fevers, chills, cough, chest pain, nausea, vomiting, abdominal pain, or changes with urination or bowel movements. - Current Medication List Current Medications: Active Medications Albuterol/Ipratropium (Duoneb -) 1 amp NEB Q6H PRN PRN Reason: SHORTNESS OF BREATH Escitalopram Oxalate (Lexapro -) 10 mg PO DAILY [facility] Last Admin: 02/12/18 09:40 Dose: 10 mg Azithromycin 500 mg/ Dextrose 250 mls @ 250 mls/hr IVPB DAILY [facility] Last Admin: 02/12/18 09:41 Dose: 250 mls/hr Ceftriaxone Sodium 1 gm/ (Dextrose) 100 mls @ 200 mls/hr IVPB DAILY [facility]; Protocol Metoprolol Succinate (Toprol Xl -) 50 mg PO DAILY [facility] Last Admin: 02/12/18 09:40 Dose: 50 mg Non-Formulary Medication (Linaclotide [Linzess]) 72 mcg PO DAILY [facility] Non-Formulary Medication (Magnesium [Magnesium]) 250 mg PO BID [facility] Ranitidine HCl (Zantac -) 150 mg PO DAILY [facility] Last Admin: 02/12/18 09:41 Dose: 150 mg Rivaroxaban (Xarelto -) 10 mg PO DAILY@1800 [facility] Last Admin: 02/11/18 18:02 Dose: 10 mg - Objective Vital Signs: Vital Signs Temperature 98 F 02/12/18 08:32 Pulse Rate 107 H 02/12/18 08:32 Respiratory Rate 20 02/12/18 08:32 Blood Pressure 104/72 02/12/18 08:32 O2 Sat by Pulse Oximetry (%) 97 02/12/18 08:29 Constitutional: Yes: Calm Eyes: Yes: WNL HENT: Yes: WNL Neck: Yes: WNL Cardiovascular: Yes: Pulse Irregular, S1 (varies in intensity), S2 Respiratory: Yes: Diminished (right base) Gastrointestinal: Yes: Soft, Abdomen, Obese ...Rectal Exam: Yes: Deferred Genitourinary: No: Anuria Breast(s): Yes: WNL Musculoskeletal: Yes: Muscle Weakness Extremities: Yes: Cool Edema: Yes Edema: LLE: Trace, RLE: Trace Peripheral Pulses WNL: Yes Neurological: Yes: WNL Psychiatric: Yes: Other (anxiety) Labs: CBC, BMP 02/12/18 06:00 02/12/18 06:00 Problem List - Problems (1) Atrial fibrillation with RVR Assessment/Plan: on metoprolol ER for HR control. On rivaroxaban; would change to 20 mg daily (Cr Cl is adequate). Code(s): I48.91 - UNSPECIFIED ATRIAL FIBRILLATION (2) Pneumonia Code(s): J18.9 - PNEUMONIA, UNSPECIFIED ORGANISM Qualifiers: Pneumonia type: due to unspecified organism Laterality: unspecified laterality Lung location: unspecified part of lung Qualified Code(s): J18.9 - Pneumonia, unspecified organism (3) Shortness of breath Code(s): R06.02 - SHORTNESS OF BREATH (4) HTN (hypertension) Assessment/Plan: on metoprolol, lisinopril, and furosemide. If LVEF remains significantly reduced, would start spironolactone. Code(s): I10 - ESSENTIAL (PRIMARY) HYPERTENSION (5) Hyperlipidemia Assessment/Plan: f/u lipid panel Code(s): E78.5 - HYPERLIPIDEMIA, UNSPECIFIED (6) Acute on chronic systolic (congestive) heart failure Assessment/Plan: On metoprolol. Add lisinopril 2.5 mg daily. F/u BUN/Cr, electrolytes, daily weight, Is and Os. ECHO pending. Code(s): I50.23 - ACUTE ON CHRONIC SYSTOLIC (CONGESTIVE) HEART FAILURE
[2018-02-12] MEDS: LISINOPRIL 5 MG TABLET (FP) PO SCH (13:21)
[2018-02-12] MEDS: RIVAROXABAN 10 MG TABLET PO SCH (17:04)
[2018-02-13 07:03] LABS: CHLORIDE 107 mmol/L (98-107); POTASSIUM 4.3 mmol/L (3.5-5.1); SODIUM 143 mmol/L (136-145)
[2018-02-13 07:16] LABS: ALBUMIN 3.1 g/dl (3.4-5.0); ALK PHOS 135 U/L (45-117); ANION GAP 10 (8-16); BILIRUBIN,TOTAL 0.5 mg/dL (0.2-1.0); BLOOD UREA NITROGEN 38 mg/dL (7-18); CALCIUM 8.5 mg/dL (8.5-10.1); CO2 26 mmol/L (21-32); GLUCOSE,RANDOM 84 mg/dL (74-106); SGOT/AST 117 U/L (15-37); SGPT/ALT 119 U/L (12-78); TOT PROT 5.9 g/dl (6.4-8.2)
[2018-02-13] MEDS ORDERED: PT OWN MED DRAWER 7, Y5N ONE ×2 (09:31→10:57)
--- NOTE | 2018-02-13 09:40 | EKG ---
Test Reason : Blood Pressure : / mmHG Vent. Rate : 107 BPM Atrial Rate : 101 BPM P-R Int : 000 ms QRS Dur : 076 ms QT Int : 346 ms P-R-T Axes : 000 -18 -47 degrees QTc Int : 461 ms ATRIAL FIBRILLATION WITH RAPID VENTRICULAR RESPONSE SEPTAL INFARCT (CITED ON OR BEFORE 27-MAR-2017) ABNORMAL ECG WHEN COMPARED WITH ECG OF 11-FEB-2018 11:55, NO SIGNIFICANT CHANGE WAS FOUND Confirmed by ELIZABETH GOSS MD ([id number]) on 02/13/2018 9:40:10 AM Referred By: HENRY YOUNG DR Confirmed By:ELIZABETH GOSS MD
[2018-02-13] MEDS: RANITIDINE HCL 150 MG TABLET (FP) PO SCH (09:44)
[2018-02-13] MEDS: LISINOPRIL 5 MG TABLET (FP) PO SCH (09:44)
[2018-02-13] MEDS: ESCITALOPRAM OXALATE 10 MG TABLET (FP) PO SCH (09:44)
--- NOTE | 2018-02-13 11:29 | PN ---
Progress Note, Physician Chief Complaint: Had a short episode of Vtach this morning No distress no pain No SOB Has cough+ - Current Medication List Current Medications: Active Medications Albuterol/Ipratropium (Duoneb -) 1 amp NEB Q6H PRN PRN Reason: SHORTNESS OF BREATH Last Admin: 02/12/18 13:36 Dose: 1 amp Escitalopram Oxalate (Lexapro -) 10 mg PO DAILY [facility] Last Admin: 02/13/18 09:44 Dose: 10 mg Azithromycin 500 mg/ Dextrose 250 mls @ 250 mls/hr IVPB DAILY [facility] Last Admin: 02/12/18 09:41 Dose: 250 mls/hr Ceftriaxone Sodium 1 gm/ (Dextrose) 100 mls @ 200 mls/hr IVPB DAILY [facility]; Protocol Lisinopril (Prinivil) 2.5 mg PO DAILY [facility] Last Admin: 02/13/18 09:44 Dose: 2.5 mg Metoprolol Succinate (Toprol Xl -) 50 mg PO DAILY [facility] Last Admin: 02/13/18 09:44 Dose: 50 mg Non-Formulary Medication (Linaclotide [Linzess]) 72 mcg PO DAILY [facility] Non-Formulary Medication (Magnesium [Magnesium]) 250 mg PO BID [facility] Ranitidine HCl (Zantac -) 150 mg PO DAILY [facility] Last Admin: 02/13/18 09:44 Dose: 150 mg Rivaroxaban (Xarelto -) 20 mg PO DAILY@1800 [facility] Spironolactone (Aldactone -) 12.5 mg PO DAILY [facility] - Objective Vital Signs: Vital Signs Temperature 98.7 F 02/13/18 08:29 Pulse Rate 77 02/13/18 08:29 Respiratory Rate 18 02/13/18 09:00 Blood Pressure 104/48 02/13/18 08:29 O2 Sat by Pulse Oximetry (%) 99 02/13/18 09:00 Constitutional: Yes: No Distress Cardiovascular: Yes: Pulse Irregular Respiratory: Yes: Diminished Gastrointestinal: Yes: Normal Bowel Sounds, Soft. No: Tenderness Edema: No Labs: CBC, BMP 02/12/18 06:00 02/13/18 05:30 Problem List - Problems (1) Atrial fibrillation with RVR Code(s): I48.91 - UNSPECIFIED ATRIAL FIBRILLATION (2) Elevated LFTs Code(s): R79.89 - OTHER SPECIFIED ABNORMAL FINDINGS OF BLOOD CHEMISTRY (3) Pneumonia Code(s): J18.9 - PNEUMONIA, UNSPECIFIED ORGANISM Qualifiers: Pneumonia type: due to unspecified organism Laterality: unspecified laterality Lung location: unspecified part of lung Qualified Code(s): J18.9 - Pneumonia, unspecified organism (4) Shortness of breath Code(s): R06.02 - SHORTNESS OF BREATH Assessment/Plan PLAN Rate control with Toprol On Xarelto abd luciao noted-- pt is asymptomatic Urine antigens negative continue with antibiotics tele monitoring Cardiology eval noted
[2018-02-13 13:20] LABS: CHOLESTEROL 124 mg/dL (50-200); HDL CHOLESTEROL 36 mg/dL (40-60); TRIGLYCERIDES 105 mg/dL (35-160)
--- NOTE | 2018-02-13 13:55 | PN ---
Progress Note, Physician History of Present Illness: The patient is an 83 year old female with a history of afib, HTN, HLD, CHF who presents for evaluation of SOB. The patient is accompanied by family who assist in providing the history. They note that the patient began experiencing severe SOB earlier today prompting her presentation to the ED for further evaluation. EMS was called and the patient received 2 duonebs, 10mg decadron, and 2g of Magnesium en route to the ED with improvement in her symptoms. The patient denies a history of COPD, or asthma and is not a smoker. She otherwise denies fevers, chills, cough, chest pain, nausea, vomiting, abdominal pain, or changes with urination or bowel movements. [facility] Proximal LAD stent (JACE) 01/10 during admission for [place] s/p ICD 02/10 atrial fibrillation Congestive heart failure (systolic); s/p coronary stent and ICD depression HTN hypercholesterolemia insomnia Myocardial infarction 01/10; led to prox LAD stent; one month later, she felt a shock from the life-vest she was wearing because of severe LV dysfunction, resulting in ICD implant 02/10 obesity sedentary lifestyle - Current Medication List Current Medications: Active Medications Albuterol/Ipratropium (Duoneb -) 1 amp NEB Q6H PRN PRN Reason: SHORTNESS OF BREATH Last Admin: 02/12/18 13:36 Dose: 1 amp Escitalopram Oxalate (Lexapro -) 10 mg PO DAILY [facility] Last Admin: 02/13/18 09:44 Dose: 10 mg Azithromycin 500 mg/ Dextrose 250 mls @ 250 mls/hr IVPB DAILY [facility] Last Admin: 02/12/18 09:41 Dose: 250 mls/hr Ceftriaxone Sodium 1 gm/ (Dextrose) 50 mls @ 100 mls/hr IVPB DAILY [facility]; Protocol Lisinopril (Prinivil) 2.5 mg PO DAILY [facility] Last Admin: 02/13/18 09:44 Dose: 2.5 mg Metoprolol Succinate (Toprol Xl -) 50 mg PO DAILY [facility] Last Admin: 02/13/18 09:44 Dose: 50 mg Ranitidine HCl (Zantac -) 150 mg PO DAILY [facility] Last Admin: 02/13/18 09:44 Dose: 150 mg Rivaroxaban (Xarelto -) 20 mg PO DAILY@1800 [facility] Spironolactone (Aldactone -) 12.5 mg PO DAILY [facility] - Objective Vital Signs: Vital Signs Temperature 98.7 F 02/13/18 08:29 Pulse Rate 77 02/13/18 08:29 Respiratory Rate 18 02/13/18 09:00 Blood Pressure 104/48 02/13/18 08:29 O2 Sat by Pulse Oximetry (%) 99 02/13/18 09:00 Eyes: Yes: WNL, Conjunctiva Clear, EOM Intact HENT: Yes: WNL, Atraumatic, Normocephalic Neck: Yes: WNL, Supple, Trachea Midline Cardiovascular: Yes: Pulse Irregular, S1, S2 Respiratory: Yes: WNL, Regular, CTA Bilaterally Gastrointestinal: Yes: WNL, Normal Bowel Sounds Genitourinary: Yes: WNL Musculoskeletal: Yes: WNL Extremities: Yes: WNL Edema: No Integumentary: Yes: WNL Neurological: Yes: WNL, Alert, Oriented ...Motor Strength: WNL Psychiatric: Yes: WNL Labs: CBC, BMP 02/12/18 06:00 02/13/18 05:30 Problem List - Problems (1) Atrial fibrillation with RVR Code(s): I48.91 - UNSPECIFIED ATRIAL FIBRILLATION (2) Elevated LFTs Code(s): R79.89 - OTHER SPECIFIED ABNORMAL FINDINGS OF BLOOD CHEMISTRY (3) Pneumonia Code(s): J18.9 - PNEUMONIA, UNSPECIFIED ORGANISM Qualifiers: Pneumonia type: due to unspecified organism Laterality: unspecified laterality Lung location: unspecified part of lung Qualified Code(s): J18.9 - Pneumonia, unspecified organism (4) Shortness of breath Code(s): R06.02 - SHORTNESS OF BREATH (5) Afib Code(s): I48.91 - UNSPECIFIED ATRIAL FIBRILLATION (6) Cardiac arrhythmia Code(s): I49.9 - CARDIAC ARRHYTHMIA, UNSPECIFIED Qualifiers: Arrhythmia type: unspecified cardiac arrhythmia Qualified Code(s): I49.9 - Cardiac arrhythmia, unspecified (7) Chronic systolic (congestive) heart failure Code(s): I50.22 - CHRONIC SYSTOLIC (CONGESTIVE) HEART FAILURE (8) Defibrillator discharge Code(s): Z45.02 - ENCNTR FOR ADJUST AND MGMT OF AUTOMATIC IMPLNTBL CARD DEFIB (9) Discomfort in chest Code(s): R07.89 - OTHER CHEST PAIN (10) HTN (hypertension) Code(s): I10 - ESSENTIAL (PRIMARY) HYPERTENSION (11) Hyperlipidemia Code(s): E78.5 - HYPERLIPIDEMIA, UNSPECIFIED (12) Intertrochanteric fracture of left hip Code(s): S72.142A - DISPLACED INTERTROCHANTERIC FRACTURE OF LEFT FEMUR, INIT Qualifiers: Encounter type: initial encounter Fracture type: closed Qualified Code(s) : S72.142A - Displaced intertrochanteric fracture of left femur, initial encounter for closed fracture (13) On amiodarone therapy Code(s): Z79.899 - OTHER ENGAGEMENT SPECIALIST (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 On rivaroxaban; would change to 20 mg daily (Cr Cl is adequate). Code(s): I48.91 - UNSPECIFIED ATRIAL FIBRILLATION (2) Pneumonia Code(s): J18.9 - PNEUMONIA, UNSPECIFIED ORGANISM Qualifiers: Pneumonia type: due to unspecified organism Laterality: unspecified laterality Lung location: unspecified part of lung Qualified Code(s): J18.9 - Pneumonia, unspecified organism (3) Shortness of breath Code(s): R06.02 - SHORTNESS OF BREATH (4) HTN (hypertension) Assessment/Plan: on metoprolol, lisinopril, and furosemide. If LVEF remains significantly reduced, would start spironolactone. Code(s): I10 - ESSENTIAL (PRIMARY) HYPERTENSION (5) Hyperlipidemia Assessment/Plan: f/u lipid panel Code(s): E78.5 - HYPERLIPIDEMIA, UNSPECIFIED (6) Acute on chronic systolic (congestive) heart failure Assessment/Plan: On metoprolol. Add lisinopril 2.5 mg daily. F/u BUN/Cr, electrolytes, daily weight, Is and Os. ECHO pending. Code(s): I50.23 - ACUTE ON CHRONIC SYSTOLIC (CONGESTIVE) HEART FAILURE
[2018-02-13] MEDS: SPIRONOLACTONE 25 MG TABLET (FP) PO SCH (14:08)
[2018-02-13] MEDS: AZITHROMYCIN IVPB 500 MG in DEXTROSE 5%-WATER - 250 ML IVPB SCH (14:09)
[2018-02-13] MEDS: CEFTRIAXONE 1 GM in DEXTROSE 5%-WATER - 50 ML IVPB SCH (14:09)
[2018-02-13] MEDS: RIVAROXABAN 20 MG TABLET PO SCH (18:05)
[2018-02-14 08:57] LABS: ALK PHOS 174 U/L (45-117); ANION GAP 8 (8-16); BILIRUBIN,TOTAL 0.5 mg/dL (0.2-1.0); BLOOD UREA NITROGEN 34 mg/dL (7-18); CALCIUM 8.4 mg/dL (8.5-10.1); CHLORIDE 109 mmol/L (98-107); CO2 26 mmol/L (21-32); CREATININE 0.8 mg/dL (0.55-1.02); GLUCOSE,RANDOM 87 mg/dL (74-106); POTASSIUM 4.2 mmol/L (3.5-5.1); SGOT/AST 148 U/L (15-37); SGPT/ALT 159 U/L (12-78); SODIUM 143 mmol/L (136-145); TOT PROT 5.7 g/dl (6.4-8.2)
[2018-02-14] MEDS ORDERED: cefTRIAXone SODIUM 1 GM VIAL ONE (09:08)
[2018-02-14] MEDS ORDERED: DEXTROSE 5%-WATER - 50 ML IVPB ONE (09:08)
[2018-02-14] MEDS ORDERED: PT OWN MED DRAWER 7, Y5N ONE (09:08)
[2018-02-14] MEDS: CEFTRIAXONE 1 GM in DEXTROSE 5%-WATER - 50 ML IVPB SCH (09:57)
[2018-02-14] MEDS: AZITHROMYCIN IVPB 500 MG in DEXTROSE 5%-WATER - 250 ML IVPB SCH (09:58)
[2018-02-14] MEDS: ESCITALOPRAM OXALATE 10 MG TABLET (FP) PO SCH (09:59)
[2018-02-14] MEDS: RANITIDINE HCL 150 MG TABLET (FP) PO SCH (09:59)
[2018-02-14] MEDS: LISINOPRIL 5 MG TABLET (FP) PO SCH (10:00)
[2018-02-14] MEDS: SPIRONOLACTONE 25 MG TABLET (FP) PO SCH (10:00)
--- NOTE | 2018-02-14 11:09 | PN ---
Progress Note, Physician Chief Complaint: feels SOB today coughing+ - Current Medication List Current Medications: Active Medications Albuterol/Ipratropium (Duoneb -) 1 amp NEB Q6H PRN PRN Reason: SHORTNESS OF BREATH Last Admin: 02/12/18 13:36 Dose: 1 amp Escitalopram Oxalate (Lexapro -) 10 mg PO DAILY [facility] Last Admin: 02/14/18 09:59 Dose: 10 mg Azithromycin 500 mg/ Dextrose 250 mls @ 250 mls/hr IVPB DAILY [facility] Last Admin: 02/14/18 09:58 Dose: 250 mls/hr Ceftriaxone Sodium 1 gm/ (Dextrose) 50 mls @ 100 mls/hr IVPB DAILY [facility]; Protocol Last Admin: 02/14/18 09:57 Dose: 100 mls/hr Lisinopril (Prinivil) 2.5 mg PO DAILY [facility] Last Admin: 02/13/18 09:44 Dose: 2.5 mg Metoprolol Succinate (Toprol Xl -) 50 mg PO DAILY [facility] Last Admin: 02/13/18 09:44 Dose: 50 mg Ranitidine HCl (Zantac -) 150 mg PO DAILY [facility] Last Admin: 02/14/18 09:59 Dose: 150 mg Rivaroxaban (Xarelto -) 20 mg PO DAILY@1800 [facility] Last Admin: 02/13/18 18:05 Dose: 20 mg Spironolactone (Aldactone -) 12.5 mg PO DAILY [facility] Last Admin: 02/13/18 14:08 Dose: 12.5 mg - Objective Vital Signs: Vital Signs Temperature 97.8 F 02/14/18 10:00 Pulse Rate 60 02/14/18 10:00 Respiratory Rate 18 02/14/18 10:00 Blood Pressure 97/48 02/14/18 10:00 O2 Sat by Pulse Oximetry (%) 94 L 02/13/18 20:52 Constitutional: Yes: No Distress Cardiovascular: Yes: Regular Rate and Rhythm Respiratory: Yes: Diminished, Rales Gastrointestinal: Yes: Normal Bowel Sounds, Soft. No: Tenderness Edema: No Labs: CBC, BMP 02/12/18 06:00 02/14/18 06:00 Problem List - Problems (1) Atrial fibrillation with RVR Code(s): I48.91 - UNSPECIFIED ATRIAL FIBRILLATION (2) Elevated LFTs Code(s): R79.89 - OTHER SPECIFIED ABNORMAL FINDINGS OF BLOOD CHEMISTRY (3) Pneumonia Code(s): J18.9 - PNEUMONIA, UNSPECIFIED ORGANISM Qualifiers: Pneumonia type: due to unspecified organism Laterality: unspecified laterality Lung location: unspecified part of lung Qualified Code(s): J18.9 - Pneumonia, unspecified organism (4) Shortness of breath Code(s): R06.02 - SHORTNESS OF BREATH Assessment/Plan PLAN Rate control with Toprol On Xarelto LFT elevated-- GI eval abd sono noted-- pt is asymptomatic Start IV Lasix check renal function Echo noted Urine antigens negative continue with antibiotics tele monitoring
[2018-02-14] MEDS: FUROSEMIDE 40 MG/4 ML INJECTABLE VIAL IVPUSH SCH (12:00)
[2018-02-14] MEDS: RIVAROXABAN 20 MG TABLET PO SCH (18:03)
--- NOTE | 2018-02-14 22:29 | CON.GI ---
Consult Consult Specialty:: Gastroenterology Referred by:: Bebe Ma MD Reason for Consultation:: Abnormal LFTs - History of Present Illness Chief Complaint: Palpitations History of Present Illness: 83F BIBA for dyspnea and found to be in AYDE. She denies abdominal pain and liver disease. Sonogram reveals gallstones and a slightly dilated CBD. She tells me that she had an EGD and colonoscopy with Dr Levi and referred me to him for the results as she cannot recall them. She is on Linzess and ranitidine - History Source History Provided By: Patient Limitations to Obtaining History: Language Barrier - Past Medical History Cardio/Vascular: Yes: AFIB (AICD), CAD (s/p LAD JACE stent 02/10), CHF (severe hypokinesis), HTN, Hyperlipdemia, PR (02/10), Mitral Insufficiency Hepatobiliary: Yes: Cholelithiasis - Past Surgical History Past Surgical History: Yes: AICD, Colonoscopy, Permanent Pacemaker, Stent, Upper Endoscopy Additional Surgical History: Left hip fracture gamma nail 10/19 - Alcohol/Substance Use Hx Alcohol Use: No - Smoking History Smoking history: Never smoked Have you smoked in the past 12 months: No Aproximately how many cigarettes per day: 0 - Social History Usual Living Arrangement: Alone ADL: Independent History of Recent Travel: No Home Medications - Allergies Allergies/Adverse Reactions: Allergies Allergy/AdvReac Type Severity Reaction Status Date / Time No Known Allergies Allergy Verified 02/11/18 11:51 - Home Medications Home Medications: Ambulatory Orders Atorvastatin Ca [Lipitor] 20 mg PO DAILY 12/30/17 Escitalopram Oxalate [Lexapro -] 10 mg PO DAILY 12/30/17 Magnesium 250 mg PO BID 12/30/17 Metoprolol Succinate 50 mg PO DAILY 12/30/17 Rivaroxaban [Xarelto -] 10 mg PO DAILY 12/30/17 Linaclotide [Linzess] 72 mcg PO DAILY 02/11/18 Omeprazole 20 mg PO DAILY 02/11/18 Ranitidine [Zantac -] 150 mg PO DAILY 02/11/18 Family Disease History - Family Disease History Family History: Unable to Obtain (language barrier) Review of Systems Unable to obtain ROS, reason: language barrier Physical Exam-GI Vital Signs: Vital Signs Temperature 97.8 F 02/14/18 17:00 Pulse Rate 82 02/14/18 17:00 Respiratory Rate 20 02/14/18 17:00 Blood Pressure 107/77 02/14/18 17:00 O2 Sat by Pulse Oximetry (%) 93 L 02/14/18 09:00 CBC,CMP WBC 9.3 K/mm3 (4.0-10.0) D 02/12/18 06:00 RBC 4.43 M/mm3 (3.60-5.2) 02/12/18 06:00 Hgb 12.3 GM/dL (10.7-15.3) 02/12/18 06:00 Hct 37.5 % (32.4-45.2) 02/12/18 06:00 MCV 84.5 fl (80-96) 02/12/18 06:00 MCH 27.7 pg (25.7-33.7) 02/12/18 06:00 MCHC 32.8 g/dl (32.0-36.0) 02/12/18 06:00 RDW 14.2 % (11.6-15.6) 02/12/18 06:00 Plt Count 234 K/MM3 (134-434) 02/12/18 06:00 MPV 9.1 fl (7.5-11.1) 02/12/18 06:00 Absolute Neuts (auto) 7.7 # 02/12/18 06:00 Neutrophils % 82.5 % (42.8-82.8) 02/12/18 06:00 Lymphocytes % 11.8 % (8-40) 02/12/18 06:00 Monocytes % 5.5 % (3.8-10.2) D 02/12/18 06:00 Eosinophils % 0.0 % (0-4.5) 02/12/18 06:00 Basophils % 0.2 % (0-2.0) 02/12/18 06:00 Nucleated RBC % 0 % (0-0) 02/12/18 06:00 Sodium 143 mmol/L (136-145) 02/14/18 06:00 Potassium 4.2 mmol/L (3.5-5.1) 02/14/18 06:00 Chloride 109 mmol/L (98-107) H 02/14/18 06:00 Carbon Dioxide 26 mmol/L (21-32) 02/14/18 06:00 Anion Gap 8 (8-16) 02/14/18 06:00 BUN 34 mg/dL (7-18) H 02/14/18 06:00 Creatinine 0.8 mg/dL (0.55-1.02) 02/14/18 06:00 Creat Clearance w eGFR > 60 (>60) 02/14/18 06:00 Random Glucose 87 mg/dL (74-106) 02/14/18 06:00 Calcium 8.4 mg/dL (8.5-10.1) L 02/14/18 06:00 Magnesium 2.1 mg/dL (1.8-2.4) 02/12/18 06:00 Total Bilirubin 0.5 mg/dL (0.2-1.0) 02/14/18 06:00 AST 148 U/L (15-37) H 02/14/18 06:00 ALT 159 U/L (12-78) H 02/14/18 06:00 Alkaline Phosphatase 174 U/L (45-117) H 02/14/18 06:00 Creatine Kinase 69 IU/L (26-192) 02/12/18 06:00 Troponin I 0.00 ng/ml (0.00-0.05) 02/12/18 06:00 B-Natriuretic Peptide 3414.23 pg/ml (5-450) H 02/11/18 13:25 Total Protein 5.7 g/dl (6.4-8.2) L 02/14/18 06:00 Albumin 3.0 g/dl (3.4-5.0) L 02/14/18 06:00 Triglycerides Cancelled 02/13/18 09:45 Cholesterol Cancelled 02/13/18 09:45 Total LDL Cholesterol Cancelled 02/13/18 09:45 HDL Cholesterol Cancelled 02/13/18 09:45 TSH 0.87 uIU/ml (0.358-3.74) 02/12/18 12:00 Free T4 1.62 ng/dl (0.76-1.46) H 02/12/18 12:00 Current Medications Generic Name Dose Route Start Last Admin Trade Name Freq PRN Reason Stop Dose Admin Albuterol/Ipratropium 1 amp 02/11/18 16:21 02/12/18 13:36 Duoneb - NEB 1 amp Q6H PRN Administration SHORTNESS OF BREATH Azithromycin 500 mg 02/15/18 10:00 Zithromax - PO DAILY [facility] Escitalopram Oxalate 10 mg 02/12/18 10:00 02/14/18 09:59 Lexapro - PO 10 mg DAILY [facility] Administration Furosemide 40 mg 02/14/18 11:30 02/14/18 12:00 Lasix Injection - IVPUSH 40 mg DAILY [facility] Administration Ceftriaxone Sodium 1 gm/ 50 mls @ 100 mls/hr 02/13/18 12:30 02/14/18 09:57 Dextrose IVPB 100 mls/hr DAILY [facility] Administration Protocol Lisinopril 2.5 mg 02/12/18 13:00 02/14/18 10:00 Prinivil PO Not Given DAILY [facility] Metoprolol Succinate 50 mg 02/12/18 10:00 02/14/18 13:06 Toprol Xl - PO 50 mg DAILY [facility] Administration Ranitidine HCl 150 mg 02/12/18 10:00 02/14/18 09:59 Zantac - PO 150 mg DAILY [facility] Administration Rivaroxaban 20 mg 02/13/18 18:00 02/14/18 18:03 Xarelto - PO 20 mg DAILY@1800 [facility] D Administration Spironolactone 12.5 mg 02/13/18 11:15 02/14/18 10:00 Aldactone - PO Not Given DAILY [facility] Constitutional: Yes: No Distress Eyes: Yes: Conjunctiva Clear HENT: Yes: Normocephalic Neck: Yes: Supple Cardiovascular: Yes: Pulse Irregular, Murmur (2/6 ROSSY at apex), Other (left lateral subclavian AICD) Respiratory: Yes: CTA Bilaterally Gastrointestinal Inspection: Yes: Distention ...Auscultate: Yes: Normoactive Bowel Sounds ...Palpate: Yes: Soft, Other (nontender) ...Rectal Exam: Yes: Deferred (refused as she told me Dr Levi does this for her) Neurological: Yes: Alert Labs: CBC, BMP 02/12/18 06:00 02/14/18 06:00 Laboratory Tests 02/11/18 02/12/18 02/13/18 13:25 06:00 05:30 Total Bilirubin 0.8 D AST 149 H 96 H 117 H ALT 117 H 103 H 119 H Alkaline Phosphatase 166 H 142 H 135 H Albumin 02/14/18 06:00 Total Bilirubin 0.5 AST 148 H ALT 159 H Alkaline Phosphatase 174 H Albumin 3.0 L Imaging - Results Ultrasound: Report Reviewed (Aimee Vieira Name: NATHALY AD[facility] DEPARTMENT OF RADIOLOGY Phys: Bebe Ma MD : 1935 Age: 83 Sex: F [facility] Acct: [id number] Loc: [address] Exam Date: 02/12/18 Status: [place] [address] Unit Number: [id number] EXAM#: TYPE/EXAM: RESULT: 104 US/ABDOMEN US -LIMITED Elevated liver function tests. Right upper abdomen ultrasound. The liver is within normal limits in size measuring 16.5 cm in sagittal length with slight increase echotexture. Gallbladder is adequately distended without intraluminal stones and without wall thickening or pericholecystic free fluid. No intrahepatic bile duct dilatation is seen. Dilated common bile duct measuring 8 mm. The right kidney measures 11 cm sagittal length and appears unremarkable. Visualized portion of the pancreas appears unremarkable Visualized portion of the proximal abdominal aorta and inferior vena cava appear unremarkable. Normal flow in the main portal vein. Impression: Gallstones without sonographic evidence of acute cholecystitis. Dilated common bile duct measuring 8 mm that may be within normal limits in size considering the patient's age. Correlate clinically for further evaluation. Right pleural effusion IMPRESSION: Unremarkable examination . Reported By: Manuel Shepard MD 02/12/18 [id number] Technologist: Kinga Burks Transcribed Date/Time: 02/12/182314 Braze Operator: Manuel Shepard Printed Date/Time: By: Signed by: Manuel Shepard Signed on: 12-Feb-2018 23:16) Problem List - Problems (1) Elevated LFTs Assessment/Plan: Although she has gallstones and a dilated duct I suspect that these slight LFT abnormalities are more likely due to congestive hepatopathy as her AYDE further compromised her already severe congestive heart failure. This could be a reactive hepatopathy to the right lower basilar pneumonia reported on CXR. Unfortunately her AICD precludes having an MRCP to exclude CBD stones so if biliary colic ensues or the LFTs continue to rise a CT should be obtained as this may reveal CBD stones. Unfortunately we do not offer EUS. ERCP will be reserved for strong clinical suspicion of CBD stones or cholangitis given her comorbid conditions and the need to interrupt her anticoagulation. I will order studies to look for other hepatitis etiologies that can be obtained as an inpatient. Please consult Dr Levi when he returns from vacation as Nathaly has expressed her clinical relationship with him. Dr. Feliciano will be covering tomorrow and Dr Serrano on 02/16 & 02/17. Code(s): R79.89 - OTHER SPECIFIED ABNORMAL FINDINGS OF BLOOD CHEMISTRY (2) Gallstone Code(s): K80.20 - CALCULUS OF GALLBLADDER W/O CHOLECYSTITIS W/O OBSTRUCTION Qualifiers: Cholecystitis presence: without cholecystitis (3) Dilated bile duct Code(s): K83.8 - OTHER SPECIFIED DISEASES OF BILIARY TRACT
[2018-02-15 07:06] LABS: ANION GAP 7 (8-16); BLOOD UREA NITROGEN 26 mg/dL (7-18); CALCIUM 8.4 mg/dL (8.5-10.1); CHLORIDE 107 mmol/L (98-107); CO2 29 mmol/L (21-32); CREATININE 0.8 mg/dL (0.55-1.02); GLUCOSE,RANDOM 98 mg/dL (74-106); SODIUM 143 mmol/L (136-145)
[2018-02-15] MEDS ORDERED: cefTRIAXone SODIUM 1 GM VIAL ONE (09:58)
[2018-02-15] MEDS ORDERED: DEXTROSE 5%-WATER - 50 ML IVPB ONE (09:59)
[2018-02-15] MEDS: RANITIDINE HCL 150 MG TABLET (FP) PO SCH (10:01)
[2018-02-15] MEDS: ESCITALOPRAM OXALATE 10 MG TABLET (FP) PO SCH (10:02)
[2018-02-15] MEDS: AZITHROMYCIN 250 MG TABLET PO SCH (10:03)
[2018-02-15] MEDS: POLYETHYLENE GLYCOL 3350 119 GM BTL PO SCH ×2 (10:03→10:12)
[2018-02-15] MEDS: CEFTRIAXONE 1 GM in DEXTROSE 5%-WATER - 50 ML IVPB SCH (10:03)
[2018-02-15] MEDS: FUROSEMIDE 40 MG/4 ML INJECTABLE VIAL IVPUSH SCH (10:12)
[2018-02-15] MEDS: LISINOPRIL 5 MG TABLET (FP) PO SCH (10:16)
[2018-02-15] MEDS: SPIRONOLACTONE 25 MG TABLET (FP) PO SCH (10:16)
--- NOTE | 2018-02-15 10:19 | PN ---
Progress Note (short form) - Note Progress Note: Pt seen/ examined. chart reviewed awake. comfortable not fully cooperative with exam denies pain all f/u noted Vital Signs Temp 98 F 02/15/18 09:00 Pulse 99 H 02/15/18 09:00 Resp 20 02/15/18 09:00 BP 98/55 02/15/18 09:00 Pulse Ox 95 02/15/18 09:00 Intake & Output 02/14/18 02/14/18 02/15/18 11:59 23:59 11:59 Intake Total 310 180 Balance 310 180 Weight 178 lb 8 oz Intake: IV 10 saline lock 10 Oral 300 180 Other: Voiding Method Toilet Toilet Toilet # Unmeasured Voids Void 2 1 Bowel Movement Yes Weight Measurement Method Standing Scale Active Medications Albuterol/Ipratropium (Duoneb -) 1 amp NEB Q6H PRN PRN Reason: SHORTNESS OF BREATH Last Admin: 02/12/18 13:36 Dose: 1 amp Azithromycin (Zithromax -) 500 mg PO DAILY [facility] Last Admin: 02/15/18 10:03 Dose: 500 mg Escitalopram Oxalate (Lexapro -) 10 mg PO DAILY [facility] Last Admin: 02/15/18 10:02 Dose: 10 mg Furosemide (Lasix Injection -) 40 mg IVPUSH DAILY [facility] Last Admin: 02/15/18 10:12 Dose: Not Given Ceftriaxone Sodium 1 gm/ (Dextrose) 50 mls @ 100 mls/hr IVPB DAILY [facility]; Protocol Last Admin: 02/15/18 10:03 Dose: 100 mls/hr Lisinopril (Prinivil) 2.5 mg PO DAILY [facility] Last Admin: 02/15/18 10:16 Dose: 2.5 mg Metoprolol Succinate (Toprol Xl -) 50 mg PO DAILY [facility] Last Admin: 02/15/18 10:16 Dose: 50 mg Polyethylene Glycol (Miralax (For Daily Use) -) 17 gm PO DAILY [facility] Last Admin: 02/15/18 10:12 Dose: Not Given Ranitidine HCl (Zantac -) 150 mg PO DAILY [facility] Last Admin: 02/15/18 10:01 Dose: 150 mg Rivaroxaban (Xarelto -) 20 mg PO DAILY@1800 [facility] Last Admin: 02/14/18 18:03 Dose: 20 mg Spironolactone (Aldactone -) 12.5 mg PO DAILY [facility] Last Admin: 02/15/18 10:16 Dose: 12.5 mg CBC,CMP WBC 9.3 K/mm3 (4.0-10.0) D 02/12/18 06:00 RBC 4.43 M/mm3 (3.60-5.2) 02/12/18 06:00 Hgb 12.3 GM/dL (10.7-15.3) 02/12/18 06:00 Hct 37.5 % (32.4-45.2) 02/12/18 06:00 MCV 84.5 fl (80-96) 02/12/18 06:00 MCH 27.7 pg (25.7-33.7) 02/12/18 06:00 MCHC 32.8 g/dl (32.0-36.0) 02/12/18 06:00 RDW 14.2 % (11.6-15.6) 02/12/18 06:00 Plt Count 234 K/MM3 (134-434) 02/12/18 06:00 MPV 9.1 fl (7.5-11.1) 02/12/18 06:00 Absolute Neuts (auto) 7.7 # 02/12/18 06:00 Neutrophils % 82.5 % (42.8-82.8) 02/12/18 06:00 Lymphocytes % 11.8 % (8-40) 02/12/18 06:00 Monocytes % 5.5 % (3.8-10.2) D 02/12/18 06:00 Eosinophils % 0.0 % (0-4.5) 02/12/18 06:00 Basophils % 0.2 % (0-2.0) 02/12/18 06:00 Nucleated RBC % 0 % (0-0) 02/12/18 06:00 Sodium 143 mmol/L (136-145) 02/15/18 05:30 Potassium 4.0 mmol/L (3.5-5.1) 02/15/18 05:30 Chloride 107 mmol/L (98-107) 02/15/18 05:30 Carbon Dioxide 29 mmol/L (21-32) 02/15/18 05:30 Anion Gap 7 (8-16) L 02/15/18 05:30 BUN 26 mg/dL (7-18) H 02/15/18 05:30 Creatinine 0.8 mg/dL (0.55-1.02) 02/15/18 05:30 Creat Clearance w eGFR > 60 (>60) 02/14/18 06:00 Random Glucose 98 mg/dL (74-106) 02/15/18 05:30 Calcium 8.4 mg/dL (8.5-10.1) L 02/15/18 05:30 Magnesium 2.1 mg/dL (1.8-2.4) 02/12/18 06:00 Ferritin 16.3 ng/ml (6.9-282.5) 02/15/18 05:30 Total Bilirubin 0.5 mg/dL (0.2-1.0) 02/14/18 06:00 AST 148 U/L (15-37) H 02/14/18 06:00 ALT 159 U/L (12-78) H 02/14/18 06:00 Alkaline Phosphatase 174 U/L (45-117) H 02/14/18 06:00 Creatine Kinase 69 IU/L (26-192) 02/12/18 06:00 Troponin I 0.00 ng/ml (0.00-0.05) 02/12/18 06:00 C-Reactive Protein 0.5 MG/DL (0.00-0.3) H 02/15/18 05:30 B-Natriuretic Peptide 3414.23 pg/ml (5-450) H 02/11/18 13:25 Total Protein 5.7 g/dl (6.4-8.2) L 02/14/18 06:00 Albumin 3.0 g/dl (3.4-5.0) L 02/14/18 06:00 Triglycerides Cancelled 02/13/18 09:45 Cholesterol Cancelled 02/13/18 09:45 Total LDL Cholesterol Cancelled 02/13/18 09:45 HDL Cholesterol Cancelled 02/13/18 09:45 TSH 0.87 uIU/ml (0.358-3.74) 02/12/18 12:00 Free T4 1.62 ng/dl (0.76-1.46) H 02/12/18 12:00 Microbiology 02/11/18 13:31 Blood Culture - Preliminary Blood - Peripheral Venous NO GROWTH OBTAINED AFTER 72 HOURS, INCUBATION TO CONTINUE FOR 2 DAYS. 02/11/18 13:31 Blood Culture - Preliminary Blood - Peripheral Venous NO GROWTH OBTAINED AFTER 72 HOURS, INCUBATION TO CONTINUE FOR 2 DAYS. cxr -- noted Physical Constitutional: Yes: No Distress. comfortable Cardiovascular: Yes: Regular Rate and Rhythm Respiratory: Yes: Diminished . Gastrointestinal: Yes: Normal Bowel Sounds, Soft. No: Tenderness Edema: No Problem List - Problems (1) Atrial fibrillation with RVR Code(s): I48.91 - UNSPECIFIED ATRIAL FIBRILLATION (2) Elevated LFTs Code(s): R79.89 - OTHER SPECIFIED ABNORMAL FINDINGS OF BLOOD CHEMISTRY (3) Pneumonia Code(s): J18.9 - PNEUMONIA, UNSPECIFIED ORGANISM Qualifiers: Pneumonia type: due to unspecified organism Laterality: unspecified laterality Lung location: unspecified part of lung Qualified Code(s): J18.9 - Pneumonia, unspecified organism (4) Shortness of breath Code(s): R06.02 - SHORTNESS OF BREATH Assessment/Plan clinically stable Rate control with Toprol On Xarelto LFT elevated-- GI eval- noted will request Dr. Serrano to follow continue with antibiotics monitor labs d/c tele- if ok with cardiology daily oob - chair. will follow discusased with nursing stafff Problem List - Problems (1) Elevated LFTs Code(s): R79.89 - OTHER SPECIFIED ABNORMAL FINDINGS OF BLOOD CHEMISTRY (2) Atrial fibrillation with RVR Code(s): I48.91 - UNSPECIFIED ATRIAL FIBRILLATION (3) Pneumonia Code(s): J18.9 - PNEUMONIA, UNSPECIFIED ORGANISM Qualifiers: Pneumonia type: due to unspecified organism Laterality: unspecified laterality Lung location: unspecified part of lung Qualified Code(s): J18.9 - Pneumonia, unspecified organism (4) Shortness of breath Code(s): R06.02 - SHORTNESS OF BREATH (5) HTN (hypertension) Code(s): I10 - ESSENTIAL (PRIMARY) HYPERTENSION (6) Hyperlipidemia Code(s): E78.5 - HYPERLIPIDEMIA, UNSPECIFIED
--- NOTE | 2018-02-15 10:43 | PN ---
Progress Note, Physician Chief Complaint: Pt A&Ox3;no cheat pain or dyspnea; no palpitations. History of Present Illness: The patient is an 83 year old female with a history of afib, HTN, HLD, CHF who presents for evaluation of SOB. The patient is accompanied by family who assist in providing the history. They note that the patient began experiencing severe SOB earlier today prompting her presentation to the ED for further evaluation. EMS was called and the patient received 2 duonebs, 10mg decadron, and 2g of Magnesium en route to the ED with improvement in her symptoms. The patient denies a history of COPD, or asthma and is not a smoker. She otherwise denies fevers, chills, cough, chest pain, nausea, vomiting, abdominal pain, or changes with urination or bowel movements. - Current Medication List Current Medications: Active Medications Albuterol/Ipratropium (Duoneb -) 1 amp NEB Q6H PRN PRN Reason: SHORTNESS OF BREATH Last Admin: 02/12/18 13:36 Dose: 1 amp Azithromycin (Zithromax -) 500 mg PO DAILY [facility] Last Admin: 02/15/18 10:03 Dose: 500 mg Escitalopram Oxalate (Lexapro -) 10 mg PO DAILY [facility] Last Admin: 02/15/18 10:02 Dose: 10 mg Furosemide (Lasix Injection -) 40 mg IVPUSH DAILY [facility] Last Admin: 02/15/18 10:12 Dose: Not Given Ceftriaxone Sodium 1 gm/ (Dextrose) 50 mls @ 100 mls/hr IVPB DAILY [facility]; Protocol Last Admin: 02/15/18 10:03 Dose: 100 mls/hr Lisinopril (Prinivil) 2.5 mg PO DAILY [facility] Last Admin: 02/15/18 10:16 Dose: 2.5 mg Metoprolol Succinate (Toprol Xl -) 50 mg PO DAILY [facility] Last Admin: 02/15/18 10:16 Dose: 50 mg Polyethylene Glycol (Miralax (For Daily Use) -) 17 gm PO DAILY [facility] Last Admin: 02/15/18 10:12 Dose: Not Given Ranitidine HCl (Zantac -) 150 mg PO DAILY [facility] Last Admin: 02/15/18 10:01 Dose: 150 mg Rivaroxaban (Xarelto -) 20 mg PO DAILY@1800 [facility] Last Admin: 02/14/18 18:03 Dose: 20 mg Spironolactone (Aldactone -) 12.5 mg PO DAILY [facility] Last Admin: 02/15/18 10:16 Dose: 12.5 mg - Objective Vital Signs: Vital Signs Temperature 98 F 02/15/18 09:00 Pulse Rate 99 H 02/15/18 09:00 Respiratory Rate 20 02/15/18 09:00 Blood Pressure 98/55 02/15/18 09:00 O2 Sat by Pulse Oximetry (%) 95 02/15/18 09:00 Constitutional: Yes: No Distress Eyes: Yes: WNL HENT: Yes: WNL Neck: Yes: WNL Cardiovascular: Yes: Rub Respiratory: Yes: Regular Gastrointestinal: Yes: Soft, Abdomen, Obese ...Rectal Exam: Yes: Deferred Genitourinary: No: Anuria Breast(s): Yes: WNL Musculoskeletal: Yes: Muscle Weakness Extremities: Yes: WNL Edema: No Peripheral Pulses WNL: Yes Integumentary: Yes: WNL Neurological: Yes: WNL Psychiatric: Yes: Other Labs: CBC, BMP 02/12/18 06:00 02/15/18 05:30 Abnormal Lab Results 02/15/18 02/15/18 05:30 05:30 Anion Gap 7 L BUN 26 H Calcium 8.4 L C-Reactive Protein 0.5 H Problem List - Problems (1) Atrial fibrillation with RVR Assessment/Plan: on metoprolol ER for HR control. On rivaroxaban 20 mg daily. Code(s): I48.91 - UNSPECIFIED ATRIAL FIBRILLATION (2) Pneumonia Assessment/Plan: on antibiotics. Code(s): J18.9 - PNEUMONIA, UNSPECIFIED ORGANISM Qualifiers: Pneumonia type: due to unspecified organism Laterality: unspecified laterality Lung location: unspecified part of lung Qualified Code(s): J18.9 - Pneumonia, unspecified organism (3) Shortness of breath Code(s): R06.02 - SHORTNESS OF BREATH (4) HTN (hypertension) Assessment/Plan: on metoprolol, lisinopril, and furosemide. On spironolactone.for markedly reduced LVEF. Code(s): I10 - ESSENTIAL (PRIMARY) HYPERTENSION (5) Hyperlipidemia Assessment/Plan: statin; keep LDL cholesterol < 70 mg/dL. Code(s): E78.5 - HYPERLIPIDEMIA, UNSPECIFIED (6) Acute on chronic systolic (congestive) heart failure Assessment/Plan: On metoprolol. Add lisinopril 2.5 mg daily; aldactone. F/u BUN/Cr, electrolytes, daily weight, Is and Os. ECHO : LVEF severely reduced. Code(s): I50.23 - ACUTE ON CHRONIC SYSTOLIC (CONGESTIVE) HEART FAILURE
--- NOTE | 2018-02-15 11:54 | PN ---
Progress Note, Physician History of Present Illness: The patient is an 83 year old female with a history of afib, HTN, HLD, CHF who presents for evaluation of SOB. The patient is accompanied by family who assist in providing the history. They note that the patient began experiencing severe SOB earlier today prompting her presentation to the ED for further evaluation. EMS was called and the patient received 2 duonebs, 10mg decadron, and 2g of Magnesium en route to the ED with improvement in her symptoms. The patient denies a history of COPD, or asthma and is not a smoker. She otherwise denies fevers, chills, cough, chest pain, nausea, vomiting, abdominal pain, or changes with urination or bowel movements. PMH Proximal LAD stent (JACE) 01/10 during admission for [place] s/p ICD 02/10 atrial fibrillation Congestive heart failure (systolic); s/p coronary stent and ICD depression HTN hypercholesterolemia insomnia Myocardial infarction 01/10; led to prox LAD stent; one month later, she felt a shock from the life-vest she was wearing because of severe LV dysfunction, resulting in ICD implant 02/10 obesity sedentary lifestyle - Current Medication List Current Medications: Active Medications Albuterol/Ipratropium (Duoneb -) 1 amp NEB Q6H PRN PRN Reason: SHORTNESS OF BREATH Last Admin: 02/12/18 13:36 Dose: 1 amp Azithromycin (Zithromax -) 500 mg PO DAILY [facility] Last Admin: 02/15/18 10:03 Dose: 500 mg Escitalopram Oxalate (Lexapro -) 10 mg PO DAILY [facility] Last Admin: 02/15/18 10:02 Dose: 10 mg Furosemide (Lasix Injection -) 40 mg IVPUSH DAILY [facility] Last Admin: 02/15/18 10:12 Dose: Not Given Ceftriaxone Sodium 1 gm/ (Dextrose) 50 mls @ 100 mls/hr IVPB DAILY [facility]; Protocol Last Admin: 02/15/18 10:03 Dose: 100 mls/hr Lisinopril (Prinivil) 2.5 mg PO DAILY [facility] Last Admin: 02/15/18 10:16 Dose: 2.5 mg Metoprolol Succinate (Toprol Xl -) 50 mg PO DAILY [facility] Last Admin: 02/15/18 10:16 Dose: 50 mg Polyethylene Glycol (Miralax (For Daily Use) -) 17 gm PO DAILY [facility] Last Admin: 02/15/18 10:12 Dose: Not Given Ranitidine HCl (Zantac -) 150 mg PO DAILY [facility] Last Admin: 02/15/18 10:01 Dose: 150 mg Rivaroxaban (Xarelto -) 20 mg PO DAILY@1800 [facility] Last Admin: 02/14/18 18:03 Dose: 20 mg Spironolactone (Aldactone -) 12.5 mg PO DAILY [facility] Last Admin: 02/15/18 10:16 Dose: 12.5 mg - Objective Vital Signs: Vital Signs Temperature 98 F 02/15/18 09:00 Pulse Rate 99 H 02/15/18 09:00 Respiratory Rate 20 02/15/18 09:00 Blood Pressure 98/55 02/15/18 09:00 O2 Sat by Pulse Oximetry (%) 95 02/15/18 09:00 Eyes: Yes: WNL, Conjunctiva Clear, EOM Intact HENT: Yes: WNL, Atraumatic, Normocephalic Neck: Yes: WNL, Supple, Trachea Midline Cardiovascular: Yes: Pulse Irregular, S1, S2 Respiratory: Yes: WNL, Regular, CTA Bilaterally Gastrointestinal: Yes: WNL, Normal Bowel Sounds Genitourinary: Yes: WNL Musculoskeletal: Yes: WNL Extremities: Yes: WNL Edema: No Integumentary: Yes: WNL Neurological: Yes: WNL, Alert, Oriented ...Motor Strength: WNL Psychiatric: Yes: WNL Labs: CBC, BMP 02/12/18 06:00 02/15/18 05:30 Problem List - Problems (1) Atrial fibrillation with RVR Code(s): I48.91 - UNSPECIFIED ATRIAL FIBRILLATION (2) Elevated LFTs Code(s): R79.89 - OTHER SPECIFIED ABNORMAL FINDINGS OF BLOOD CHEMISTRY (3) Pneumonia Code(s): J18.9 - PNEUMONIA, UNSPECIFIED ORGANISM Qualifiers: Pneumonia type: due to unspecified organism Laterality: unspecified laterality Lung location: unspecified part of lung Qualified Code(s): J18.9 - Pneumonia, unspecified organism (4) Shortness of breath Code(s): R06.02 - SHORTNESS OF BREATH (5) Afib Code(s): I48.91 - UNSPECIFIED ATRIAL FIBRILLATION (6) Cardiac arrhythmia Code(s): I49.9 - CARDIAC ARRHYTHMIA, UNSPECIFIED Qualifiers: Arrhythmia type: unspecified cardiac arrhythmia Qualified Code(s): I49.9 - Cardiac arrhythmia, unspecified (7) Chronic systolic (congestive) heart failure Code(s): I50.22 - CHRONIC SYSTOLIC (CONGESTIVE) HEART FAILURE (8) Defibrillator discharge Code(s): Z45.02 - ENCNTR FOR ADJUST AND MGMT OF AUTOMATIC IMPLNTBL CARD DEFIB (9) Discomfort in chest Code(s): R07.89 - OTHER CHEST PAIN (10) HTN (hypertension) Code(s): I10 - ESSENTIAL (PRIMARY) HYPERTENSION (11) Hyperlipidemia Code(s): E78.5 - HYPERLIPIDEMIA, UNSPECIFIED (12) Intertrochanteric fracture of left hip Code(s): S72.142A - DISPLACED INTERTROCHANTERIC FRACTURE OF LEFT FEMUR, INIT Qualifiers: Encounter type: initial encounter Fracture type: closed Qualified Code(s) : S72.142A - Displaced intertrochanteric fracture of left femur, initial encounter for closed fracture (13) On amiodarone therapy Code(s): Z79.899 - OTHER ASSISTED (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 On rivaroxaban 20 mg daily. Code(s): I48.91 - UNSPECIFIED ATRIAL FIBRILLATION (2) Pneumonia Assessment/Plan: on antibiotics. Code(s): J18.9 - PNEUMONIA, UNSPECIFIED ORGANISM Qualifiers: Pneumonia type: due to unspecified organism Laterality: unspecified laterality Lung location: unspecified part of lung Qualified Code(s): J18.9 - Pneumonia, unspecified organism (3) Shortness of breath Code(s): R06.02 - SHORTNESS OF BREATH (4) HTN (hypertension) Assessment/Plan: on metoprolol, lisinopril, and furosemide. On spironolactone.for markedly reduced LVEF. Code(s): I10 - ESSENTIAL (PRIMARY) HYPERTENSION (5) Hyperlipidemia Assessment/Plan: statin; keep LDL cholesterol < 70 mg/dL. Code(s): E78.5 - HYPERLIPIDEMIA, UNSPECIFIED (6) Acute on chronic systolic (congestive) heart failure Assessment/Plan: On metoprolol. Add lisinopril 2.5 mg daily; aldactone. F/u BUN/Cr, electrolytes, daily weight, Is and Os. ECHO : LVEF severely reduced. Code(s): I50.23 - ACUTE ON CHRONIC SYSTOLIC (CONGESTIVE) HEART FAILURE
--- NOTE | 2018-02-15 11:58 | PN ---
Progress Note (short form) - Note Progress Note: Please see Dr. Cardoza's consultation dated 02/14/18.
[2018-02-15 13:26] LABS: ALBUMIN 3.1 g/dl (3.4-5.0); BILIRUBIN,DIRECT 0.3 mg/dL (0.0-0.2); BILIRUBIN,TOTAL 0.5 mg/dL (0.2-1.0); TOT PROT 5.9 g/dl (6.4-8.2)
[2018-02-15] MEDS: RIVAROXABAN 20 MG TABLET PO SCH (17:25)
[2018-02-16 07:21] LABS: BILIRUBIN,DIRECT 0.2 mg/dL (0.0-0.2); BILIRUBIN,TOTAL 0.7 mg/dL (0.2-1.0); TOT PROT 5.8 g/dl (6.4-8.2)
--- NOTE | 2018-02-16 08:49 | PN ---
Progress Note, Physician History of Present Illness: The patient is an 83 year old female with a history of afib, HTN, HLD, CHF who presents for evaluation of SOB. The patient is accompanied by family who assist in providing the history. They note that the patient began experiencing severe SOB earlier today prompting her presentation to the ED for further evaluation. EMS was called and the patient received 2 duonebs, 10mg decadron, and 2g of Magnesium en route to the ED with improvement in her symptoms. The patient denies a history of COPD, or asthma and is not a smoker. She otherwise denies fevers, chills, cough, chest pain, nausea, vomiting, abdominal pain, or changes with urination or bowel movements. PMH Proximal LAD stent (JACE) 01/10 during admission for [place] s/p ICD 02/10 atrial fibrillation Congestive heart failure (systolic); s/p coronary stent and ICD depression HTN hypercholesterolemia insomnia Myocardial infarction 01/10; led to prox LAD stent; one month later, she felt a shock from the life-vest she was wearing because of severe LV dysfunction, resulting in ICD implant 02/10 obesity sedentary lifestyle - Current Medication List Current Medications: Active Medications Albuterol/Ipratropium (Duoneb -) 1 amp NEB Q6H PRN PRN Reason: SHORTNESS OF BREATH Last Admin: 02/12/18 13:36 Dose: 1 amp Azithromycin (Zithromax -) 500 mg PO DAILY [facility] Last Admin: 02/15/18 10:03 Dose: 500 mg Escitalopram Oxalate (Lexapro -) 10 mg PO DAILY [facility] Last Admin: 02/15/18 10:02 Dose: 10 mg Furosemide (Lasix Injection -) 40 mg IVPUSH DAILY [facility] Last Admin: 02/15/18 10:12 Dose: Not Given Ceftriaxone Sodium 1 gm/ (Dextrose) 50 mls @ 100 mls/hr IVPB DAILY [facility]; Protocol Last Admin: 02/15/18 10:03 Dose: 100 mls/hr Lisinopril (Prinivil) 2.5 mg PO DAILY [facility] Last Admin: 02/15/18 10:16 Dose: 2.5 mg Metoprolol Succinate (Toprol Xl -) 50 mg PO DAILY [facility] Last Admin: 02/15/18 10:16 Dose: 50 mg Polyethylene Glycol (Miralax (For Daily Use) -) 17 gm PO DAILY [facility] Last Admin: 02/15/18 10:12 Dose: Not Given Ranitidine HCl (Zantac -) 150 mg PO DAILY [facility] Last Admin: 02/15/18 10:01 Dose: 150 mg Rivaroxaban (Xarelto -) 20 mg PO DAILY@1800 [facility] Last Admin: 02/15/18 17:25 Dose: 20 mg Spironolactone (Aldactone -) 12.5 mg PO DAILY [facility] Last Admin: 02/15/18 10:16 Dose: 12.5 mg - Objective Vital Signs: Vital Signs Temperature 98.4 F 02/16/18 08:07 Pulse Rate 110 H 02/16/18 08:07 Respiratory Rate 18 02/16/18 08:07 Blood Pressure 92/45 02/16/18 08:07 O2 Sat by Pulse Oximetry (%) 93 L 02/16/18 08:06 Eyes: Yes: WNL, Conjunctiva Clear, EOM Intact HENT: Yes: WNL, Atraumatic, Normocephalic Neck: Yes: WNL, Supple, Trachea Midline Cardiovascular: Yes: Pulse Irregular, S1, S2 Respiratory: Yes: WNL, Regular, CTA Bilaterally Gastrointestinal: Yes: WNL, Normal Bowel Sounds Genitourinary: Yes: WNL Musculoskeletal: Yes: WNL Extremities: Yes: WNL Edema: No Integumentary: Yes: WNL Neurological: Yes: WNL, Alert, Oriented ...Motor Strength: WNL Psychiatric: Yes: WNL Labs: CBC, BMP 02/12/18 06:00 02/15/18 05:30 Problem List - Problems (1) Atrial fibrillation with RVR Code(s): I48.91 - UNSPECIFIED ATRIAL FIBRILLATION (2) Elevated LFTs Code(s): R79.89 - OTHER SPECIFIED ABNORMAL FINDINGS OF BLOOD CHEMISTRY (3) Pneumonia Code(s): J18.9 - PNEUMONIA, UNSPECIFIED ORGANISM Qualifiers: Pneumonia type: due to unspecified organism Laterality: unspecified laterality Lung location: unspecified part of lung Qualified Code(s): J18.9 - Pneumonia, unspecified organism (4) Shortness of breath Code(s): R06.02 - SHORTNESS OF BREATH (5) Afib Code(s): I48.91 - UNSPECIFIED ATRIAL FIBRILLATION (6) Cardiac arrhythmia Code(s): I49.9 - CARDIAC ARRHYTHMIA, UNSPECIFIED Qualifiers: Arrhythmia type: unspecified cardiac arrhythmia Qualified Code(s): I49.9 - Cardiac arrhythmia, unspecified (7) Chronic systolic (congestive) heart failure Code(s): I50.22 - CHRONIC SYSTOLIC (CONGESTIVE) HEART FAILURE (8) Defibrillator discharge Code(s): Z45.02 - ENCNTR FOR ADJUST AND MGMT OF AUTOMATIC IMPLNTBL CARD DEFIB (9) Discomfort in chest Code(s): R07.89 - OTHER CHEST PAIN (10) HTN (hypertension) Code(s): I10 - ESSENTIAL (PRIMARY) HYPERTENSION (11) Hyperlipidemia Code(s): E78.5 - HYPERLIPIDEMIA, UNSPECIFIED (12) Intertrochanteric fracture of left hip Code(s): S72.142A - DISPLACED INTERTROCHANTERIC FRACTURE OF LEFT FEMUR, INIT Qualifiers: Encounter type: initial encounter Fracture type: closed Qualified Code(s) : S72.142A - Displaced intertrochanteric fracture of left femur, initial encounter for closed fracture (13) On amiodarone therapy Code(s): Z79.899 - OTHER SENIOR CARE (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 On rivaroxaban 20 mg daily. Code(s): I48.91 - UNSPECIFIED ATRIAL FIBRILLATION (2) Pneumonia Assessment/Plan: on antibiotics. Code(s): J18.9 - PNEUMONIA, UNSPECIFIED ORGANISM Qualifiers: Pneumonia type: due to unspecified organism Laterality: unspecified laterality Lung location: unspecified part of lung Qualified Code(s): J18.9 - Pneumonia, unspecified organism (3) Shortness of breath Code(s): R06.02 - SHORTNESS OF BREATH (4) HTN (hypertension) Assessment/Plan: on metoprolol, lisinopril, and furosemide. On spironolactone.for markedly reduced LVEF. Code(s): I10 - ESSENTIAL (PRIMARY) HYPERTENSION (5) Hyperlipidemia Assessment/Plan: statin; keep LDL cholesterol < 70 mg/dL. Code(s): E78.5 - HYPERLIPIDEMIA, UNSPECIFIED (6) Acute on chronic systolic (congestive) heart failure Assessment/Plan: On metoprolol. Add lisinopril 2.5 mg daily; aldactone. F/u BUN/Cr, electrolytes, daily weight, Is and Os. ECHO : LVEF severely reduced. Code(s): I50.23 - ACUTE ON CHRONIC SYSTOLIC (CONGESTIVE) HEART FAILURE
[2018-02-16] MEDS ORDERED: cefTRIAXone SODIUM 1 GM VIAL ONE (09:11)
[2018-02-16] MEDS ORDERED: DEXTROSE 5%-WATER - 50 ML IVPB ONE (09:12)
[2018-02-16] MEDS: LISINOPRIL 5 MG TABLET (FP) PO SCH (09:16)
[2018-02-16] MEDS: AZITHROMYCIN 250 MG TABLET PO SCH (09:16)
[2018-02-16] MEDS: ESCITALOPRAM OXALATE 10 MG TABLET (FP) PO SCH (09:16)
[2018-02-16] MEDS: RANITIDINE HCL 150 MG TABLET (FP) PO SCH (09:16)
[2018-02-16] MEDS: POLYETHYLENE GLYCOL 3350 119 GM BTL PO SCH (09:17)
[2018-02-16] MEDS: SPIRONOLACTONE 25 MG TABLET (FP) PO SCH (09:17)
[2018-02-16] MEDS: FUROSEMIDE 40 MG/4 ML INJECTABLE VIAL IVPUSH SCH (09:17)
[2018-02-16] MEDS: CEFTRIAXONE 1 GM in DEXTROSE 5%-WATER - 50 ML IVPB SCH (09:19)
--- NOTE | 2018-02-16 11:13 | PN ---
Progress Note (short form) - Note Progress Note: Pt seen/ examined . feels ok mood pleasant today tachy-- sometimes in 150s Vital Signs Temp 98.4 F 02/16/18 08:07 Pulse 110 H 02/16/18 08:07 Resp 18 02/16/18 08:07 BP 92/45 02/16/18 08:07 Pulse Ox 93 L 02/16/18 08:06 Intake & Output 02/15/18 02/15/18 02/16/18 11:59 23:59 11:59 Intake Total 180 700 Balance 180 700 Weight 178 lb 8 oz 177 lb Intake: IV 10 saline lock 10 IVPB 50 Oral 180 640 Other: Voiding Method Toilet Toilet Toilet # Unmeasured Voids Void 1 1 1 Bowel Movement Yes Weight Measurement Method Standing Scale Standing Scale Active Medications Albuterol/Ipratropium (Duoneb -) 1 amp NEB Q6H PRN PRN Reason: SHORTNESS OF BREATH Last Admin: 02/12/18 13:36 Dose: 1 amp Azithromycin (Zithromax -) 500 mg PO DAILY [facility] Last Admin: 02/16/18 09:16 Dose: 500 mg Escitalopram Oxalate (Lexapro -) 10 mg PO DAILY [facility] Last Admin: 02/16/18 09:16 Dose: 10 mg Furosemide (Lasix Injection -) 40 mg IVPUSH DAILY [facility] Last Admin: 02/16/18 09:17 Dose: Not Given Ceftriaxone Sodium 1 gm/ (Dextrose) 50 mls @ 100 mls/hr IVPB DAILY [facility]; Protocol Last Admin: 02/16/18 09:19 Dose: 100 mls/hr Lisinopril (Prinivil) 2.5 mg PO DAILY [facility] Last Admin: 02/16/18 09:16 Dose: 2.5 mg Metoprolol Succinate (Toprol Xl -) 75 mg PO DAILY [facility] Polyethylene Glycol (Miralax (For Daily Use) -) 17 gm PO DAILY [facility] Last Admin: 02/16/18 09:17 Dose: Not Given Ranitidine HCl (Zantac -) 150 mg PO DAILY [facility] Last Admin: 02/16/18 09:16 Dose: 150 mg Rivaroxaban (Xarelto -) 20 mg PO DAILY@1800 [facility] Last Admin: 02/15/18 17:25 Dose: 20 mg Spironolactone (Aldactone -) 12.5 mg PO DAILY [facility] Last Admin: 02/16/18 09:17 Dose: 12.5 mg CBC, BMP 02/12/18 06:00 02/15/18 05:30 Physical Constitutional: Yes: No Distress. comfortable Cardiovascular: Yes: Regular Rate and Rhythm Respiratory: Yes: Diminished at bases Gastrointestinal: Yes: Normal Bowel Sounds, Soft. No: Tenderness Edema: No Problem List - Problems (1) Atrial fibrillation with RVR Code(s): I48.91 - UNSPECIFIED ATRIAL FIBRILLATION (2) Elevated LFTs Code(s): R79.89 - OTHER SPECIFIED ABNORMAL FINDINGS OF BLOOD CHEMISTRY (3) Pneumonia Code(s): J18.9 - PNEUMONIA, UNSPECIFIED ORGANISM Qualifiers: Pneumonia type: due to unspecified organism Laterality: unspecified laterality Lung location: unspecified part of lung Qualified Code(s): J18.9 - Pneumonia, unspecified organism (4) Shortness of breath Code(s): R06.02 - SHORTNESS OF BREATH Assessment/Plan clinically stable Rate control with Toprol increase metoprolol On Xarelto LFT better continue with antibiotics monitor labs will follow discussed with nursing staff Problem List - Problems (1) Elevated LFTs Code(s): R79.89 - OTHER SPECIFIED ABNORMAL FINDINGS OF BLOOD CHEMISTRY (2) Atrial fibrillation with RVR Code(s): I48.91 - UNSPECIFIED ATRIAL FIBRILLATION (3) Pneumonia Code(s): J18.9 - PNEUMONIA, UNSPECIFIED ORGANISM Qualifiers: Pneumonia type: due to unspecified organism Laterality: unspecified laterality Lung location: unspecified part of lung Qualified Code(s): J18.9 - Pneumonia, unspecified organism (4) Shortness of breath Code(s): R06.02 - SHORTNESS OF BREATH (5) HTN (hypertension) Code(s): I10 - ESSENTIAL (PRIMARY) HYPERTENSION (6) Hyperlipidemia Code(s): E78.5 - HYPERLIPIDEMIA, UNSPECIFIED
[2018-02-16] MEDS ORDERED: INSULIN (NOVOLOG) ASPART 100 UNITS/ML 10ML VIAL ONE (11:53)
[2018-02-16 16:13] LABS: HBSAG SCREEN Negative (Negative); HEP A AB, IGM Negative (Negative); HEP B CORE AB, TOT Negative (Negative)
[2018-02-16] MEDS: RIVAROXABAN 20 MG TABLET PO SCH (17:26)
[2018-02-17 06:37] LABS: SERUM IRON SATURATION 8 % (15-55); TOTAL IRON BINDING CAPACITY 351 ug/dL (250-450); UIBC 322 ug/dL (118-369)
[2018-02-17 08:17] LABS: ALBUMIN 2.9 g/dl (3.4-5.0); BILIRUBIN,DIRECT 0.2 mg/dL (0.0-0.2); BILIRUBIN,TOTAL 0.6 mg/dL (0.2-1.0); TOT PROT 5.6 g/dl (6.4-8.2)
--- NOTE | 2018-02-17 09:05 | PN ---
Progress Note, Physician History of Present Illness: The patient is an 83 year old female with a history of afib, HTN, HLD, CHF who presents for evaluation of SOB. The patient is accompanied by family who assist in providing the history. They note that the patient began experiencing severe SOB earlier today prompting her presentation to the ED for further evaluation. EMS was called and the patient received 2 duonebs, 10mg decadron, and 2g of Magnesium en route to the ED with improvement in her symptoms. The patient denies a history of COPD, or asthma and is not a smoker. She otherwise denies fevers, chills, cough, chest pain, nausea, vomiting, abdominal pain, or changes with urination or bowel movements. [facility] Proximal LAD stent (JACE) 01/10 during admission for PR s/p ICD 02/10 atrial fibrillation Congestive heart failure (systolic); s/p coronary stent and ICD depression HTN hypercholesterolemia insomnia Myocardial infarction 01/10; led to prox LAD stent; one month later, she felt a shock from the life-vest she was wearing because of severe LV dysfunction, resulting in ICD implant 02/10 obesity sedentary lifestyle - Current Medication List Current Medications: Active Medications Azithromycin (Zithromax -) 500 mg PO DAILY [facility] Last Admin: 02/16/18 09:16 Dose: 500 mg Escitalopram Oxalate (Lexapro -) 10 mg PO DAILY [facility] Last Admin: 02/16/18 09:16 Dose: 10 mg Furosemide (Lasix Injection -) 40 mg IVPUSH DAILY [facility] Last Admin: 02/16/18 09:17 Dose: Not Given Ceftriaxone Sodium 1 gm/ (Dextrose) 50 mls @ 100 mls/hr IVPB DAILY [facility]; Protocol Last Admin: 02/16/18 09:19 Dose: 100 mls/hr Lisinopril (Prinivil) 2.5 mg PO DAILY [facility] Last Admin: 02/16/18 09:16 Dose: 2.5 mg Metoprolol Succinate (Toprol Xl -) 75 mg PO DAILY [facility] Polyethylene Glycol (Miralax (For Daily Use) -) 17 gm PO DAILY [facility] Last Admin: 02/16/18 09:17 Dose: Not Given Ranitidine HCl (Zantac -) 150 mg PO DAILY [facility] Last Admin: 02/16/18 09:16 Dose: 150 mg Rivaroxaban (Xarelto -) 20 mg PO DAILY@1800 [facility] Last Admin: 02/16/18 17:26 Dose: 20 mg Spironolactone (Aldactone -) 12.5 mg PO DAILY [facility] Last Admin: 02/16/18 09:17 Dose: 12.5 mg - Objective Vital Signs: Vital Signs Temperature 98.2 F 02/17/18 08:52 Pulse Rate 110 H 02/17/18 08:52 Respiratory Rate 16 02/17/18 08:52 Blood Pressure 110/84 02/17/18 08:52 O2 Sat by Pulse Oximetry (%) 94 L 02/16/18 20:27 Eyes: Yes: WNL, Conjunctiva Clear, EOM Intact HENT: Yes: WNL, Atraumatic, Normocephalic Neck: Yes: WNL, Supple, Trachea Midline Cardiovascular: Yes: Pulse Irregular, S1, S2 Respiratory: Yes: WNL, Regular, CTA Bilaterally Gastrointestinal: Yes: WNL, Normal Bowel Sounds Genitourinary: Yes: WNL Musculoskeletal: Yes: WNL Extremities: Yes: WNL Edema: No Integumentary: Yes: WNL Neurological: Yes: WNL, Alert, Oriented ...Motor Strength: WNL Psychiatric: Yes: WNL Labs: CBC, BMP 02/12/18 06:00 02/15/18 05:30 Problem List - Problems (1) Atrial fibrillation with RVR Code(s): I48.91 - UNSPECIFIED ATRIAL FIBRILLATION (2) Elevated LFTs Code(s): R79.89 - OTHER SPECIFIED ABNORMAL FINDINGS OF BLOOD CHEMISTRY (3) Pneumonia Code(s): J18.9 - PNEUMONIA, UNSPECIFIED ORGANISM Qualifiers: Pneumonia type: due to unspecified organism Laterality: unspecified laterality Lung location: unspecified part of lung Qualified Code(s): J18.9 - Pneumonia, unspecified organism (4) Shortness of breath Code(s): R06.02 - SHORTNESS OF BREATH (5) Afib Code(s): I48.91 - UNSPECIFIED ATRIAL FIBRILLATION (6) Cardiac arrhythmia Code(s): I49.9 - CARDIAC ARRHYTHMIA, UNSPECIFIED Qualifiers: Arrhythmia type: unspecified cardiac arrhythmia Qualified Code(s): I49.9 - Cardiac arrhythmia, unspecified (7) Chronic systolic (congestive) heart failure Code(s): I50.22 - CHRONIC SYSTOLIC (CONGESTIVE) HEART FAILURE (8) Defibrillator discharge Code(s): Z45.02 - ENCNTR FOR ADJUST AND MGMT OF AUTOMATIC IMPLNTBL CARD DEFIB (9) Discomfort in chest Code(s): R07.89 - OTHER CHEST PAIN (10) HTN (hypertension) Code(s): I10 - ESSENTIAL (PRIMARY) HYPERTENSION (11) Hyperlipidemia Code(s): E78.5 - HYPERLIPIDEMIA, UNSPECIFIED (12) Intertrochanteric fracture of left hip Code(s): S72.142A - DISPLACED INTERTROCHANTERIC FRACTURE OF LEFT FEMUR, INIT Qualifiers: Encounter type: initial encounter Fracture type: closed Qualified Code(s) : S72.142A - Displaced intertrochanteric fracture of left femur, initial encounter for closed fracture (13) On amiodarone therapy Code(s): 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 On rivaroxaban 20 mg daily. Code(s): I48.91 - UNSPECIFIED ATRIAL FIBRILLATION (2) Pneumonia Assessment/Plan: on antibiotics. Code(s): J18.9 - PNEUMONIA, UNSPECIFIED ORGANISM Qualifiers: Pneumonia type: due to unspecified organism Laterality: unspecified laterality Lung location: unspecified part of lung Qualified Code(s): J18.9 - Pneumonia, unspecified organism (3) Shortness of breath Code(s): R06.02 - SHORTNESS OF BREATH (4) HTN (hypertension) Assessment/Plan: on metoprolol, lisinopril, and furosemide. On spironolactone.for markedly reduced LVEF. Code(s): I10 - ESSENTIAL (PRIMARY) HYPERTENSION (5) Hyperlipidemia Assessment/Plan: statin; keep LDL cholesterol < 70 mg/dL. Code(s): E78.5 - HYPERLIPIDEMIA, UNSPECIFIED (6) Acute on chronic systolic (congestive) heart failure Assessment/Plan: On metoprolol. Add lisinopril 2.5 mg daily; aldactone. F/u BUN/Cr, electrolytes, daily weight, Is and Os. ECHO : LVEF severely reduced. Code(s): I50.23 - ACUTE ON CHRONIC SYSTOLIC (CONGESTIVE) HEART FAILURE
[2018-02-17] MEDS ORDERED: cefTRIAXone SODIUM 1 GM VIAL ONE (09:06)
[2018-02-17] MEDS ORDERED: DEXTROSE 5%-WATER - 50 ML IVPB ONE (09:06)
[2018-02-17] MEDS: SPIRONOLACTONE 25 MG TABLET (FP) PO SCH (09:09)
[2018-02-17] MEDS: ESCITALOPRAM OXALATE 10 MG TABLET (FP) PO SCH (09:09)
[2018-02-17] MEDS: AZITHROMYCIN 250 MG TABLET PO SCH (09:09)
[2018-02-17] MEDS: RANITIDINE HCL 150 MG TABLET (FP) PO SCH (09:10)
[2018-02-17] MEDS: LISINOPRIL 5 MG TABLET (FP) PO SCH (09:10)
[2018-02-17] MEDS: CEFTRIAXONE 1 GM in DEXTROSE 5%-WATER - 50 ML IVPB SCH (09:10)
[2018-02-17] MEDS: POLYETHYLENE GLYCOL 3350 119 GM BTL PO SCH (09:16)
[2018-02-17] MEDS: FUROSEMIDE 40 MG/4 ML INJECTABLE VIAL IVPUSH SCH (09:17)
--- NOTE | 2018-02-17 11:38 | PN ---
Progress Note (short form) - Note Progress Note: Pt seen/ examined . feels ok comfortable remains tachy Vital Signs Temp 98.2 F 02/17/18 08:52 Pulse 110 H 02/17/18 08:52 Resp 16 02/17/18 08:52 BP 110/84 02/17/18 08:52 Pulse Ox 94 L 02/16/18 20:27 Intake & Output 02/16/18 02/16/18 02/17/18 11:59 23:59 11:59 Intake Total 560 Balance 560 Weight 177 lb 176 lb 14.4 oz Intake: IV 10 saline lock 10 IVPB 50 Oral 500 Other: Voiding Method Toilet Toilet # Unmeasured Voids Void 1 2 Bowel Movement Yes Weight Measurement Method Standing Scale Standing Scale Active Medications Albuterol/Ipratropium (Duoneb -) 1 amp NEB Q6H PRN PRN Reason: SHORTNESS OF BREATH Last Admin: 02/12/18 13:36 Dose: 1 amp Azithromycin (Zithromax -) 500 mg PO DAILY [facility] Last Admin: 02/16/18 09:16 Dose: 500 mg Escitalopram Oxalate (Lexapro -) 10 mg PO DAILY [facility] Last Admin: 02/16/18 09:16 Dose: 10 mg Furosemide (Lasix Injection -) 40 mg IVPUSH DAILY [facility] Last Admin: 02/16/18 09:17 Dose: Not Given Ceftriaxone Sodium 1 gm/ (Dextrose) 50 mls @ 100 mls/hr IVPB DAILY [facility]; Protocol Last Admin: 02/16/18 09:19 Dose: 100 mls/hr Lisinopril (Prinivil) 2.5 mg PO DAILY [facility] Last Admin: 02/16/18 09:16 Dose: 2.5 mg Metoprolol Succinate (Toprol Xl -) 75 mg PO DAILY [facility] Polyethylene Glycol (Miralax (For Daily Use) -) 17 gm PO DAILY [facility] Last Admin: 02/16/18 09:17 Dose: Not Given Ranitidine HCl (Zantac -) 150 mg PO DAILY [facility] Last Admin: 02/16/18 09:16 Dose: 150 mg Rivaroxaban (Xarelto -) 20 mg PO DAILY@1800 [facility] Last Admin: 02/15/18 17:25 Dose: 20 mg Spironolactone (Aldactone -) 12.5 mg PO DAILY [facility] Last Admin: 02/16/18 09:17 Dose: 12.5 mg CBC, BMP 02/12/18 06:00 02/15/18 05:30 Physical Constitutional: Yes: No Distress. comfortable. Cardiovascular: Yes: Regular Rate and Rhythm Respiratory: Yes: Diminished at bases Gastrointestinal: Yes: Normal Bowel Sounds, Soft. No: Tenderness Edema: No Problem List - Problems (1) Atrial fibrillation with RVR Code(s): I48.91 - UNSPECIFIED ATRIAL FIBRILLATION (2) Elevated LFTs Code(s): R79.89 - OTHER SPECIFIED ABNORMAL FINDINGS OF BLOOD CHEMISTRY (3) Pneumonia Code(s): J18.9 - PNEUMONIA, UNSPECIFIED ORGANISM Qualifiers: Pneumonia type: due to unspecified organism Laterality: unspecified laterality Lung location: unspecified part of lung Qualified Code(s): J18.9 - Pneumonia, unspecified organism (4) Shortness of breath Code(s): R06.02 - SHORTNESS OF BREATH Assessment/Plan clinically stable Rate control with Toprol-- increase to 50 mg bid continue other meds LFT better continue with antibiotics monitor labs will follow Problem List - Problems (1) Elevated LFTs Code(s): R79.89 - OTHER SPECIFIED ABNORMAL FINDINGS OF BLOOD CHEMISTRY (2) Atrial fibrillation with RVR Code(s): I48.91 - UNSPECIFIED ATRIAL FIBRILLATION (3) Pneumonia Code(s): J18.9 - PNEUMONIA, UNSPECIFIED ORGANISM Qualifiers: Pneumonia type: due to unspecified organism Laterality: unspecified laterality Lung location: unspecified part of lung Qualified Code(s): J18.9 - Pneumonia, unspecified organism (4) Shortness of breath Code(s): R06.02 - SHORTNESS OF BREATH (5) HTN (hypertension) Code(s): I10 - ESSENTIAL (PRIMARY) HYPERTENSION (6) Hyperlipidemia Code(s): E78.5 - HYPERLIPIDEMIA, UNSPECIFIED
[2018-02-17] MEDS ORDERED: INSULIN (NOVOLOG) ASPART 100 UNITS/ML 10ML VIAL ONE (15:30)
[2018-02-17] MEDS ORDERED: INSULIN (NOVOLOG) ASPART 100 UNITS/ML 10ML VIAL SQ ONE (15:45)
[2018-02-17] MEDS: RIVAROXABAN 20 MG TABLET PO SCH (17:43)
[2018-02-18 06:26] LABS: BASO % 0.6 % (0-2.0); EOS % 1.9 % (0-4.5); HEMOGLOBIN 11.7 GM/dL (10.7-15.3); LYMPH % 34.5 % (8-40); MCH 27.4 pg (25.7-33.7); MCHC 32.6 g/dl (32.0-36.0); MEAN CELL VOLUME 84.1 fl (80-96); MEAN PLT VOLUME 8.6 fl (7.5-11.1); MONO % 9.2 % (3.8-10.2); NEUT % 53.8 % (42.8-82.8); PLATELET COUNT 227 K/MM3 (134-434); RBC 4.28 M/mm3 (3.60-5.2); RDW 14.3 % (11.6-15.6); WHITE BLOOD COUNT 6.7 K/mm3 (4.0-10.0)
[2018-02-18 06:52] LABS: CHLORIDE 108 mmol/L (98-107); POTASSIUM 4.3 mmol/L (3.5-5.1); SODIUM 142 mmol/L (136-145)
[2018-02-18 07:00] LABS: ALBUMIN 2.9 g/dl (3.4-5.0); ALK PHOS 116 U/L (45-117); ANION GAP 7 (8-16); BILIRUBIN,DIRECT 0.2 mg/dL (0.0-0.2); BILIRUBIN,TOTAL 0.6 mg/dL (0.2-1.0); BLOOD UREA NITROGEN 22 mg/dL (7-18); CALCIUM 8.4 mg/dL (8.5-10.1); CO2 27 mmol/L (21-32); CREATININE 0.7 mg/dL (0.55-1.02); GLUCOSE,RANDOM 92 mg/dL (74-106); SGOT/AST 34 U/L (15-37); SGPT/ALT 63 U/L (12-78); TOT PROT 5.7 g/dl (6.4-8.2)
[2018-02-18] MEDS ORDERED: DEXTROSE 5%-WATER - 50 ML IVPB ONE (10:00)
[2018-02-18] MEDS ORDERED: cefTRIAXone SODIUM 1 GM VIAL ONE (10:00)
[2018-02-18] MEDS: RANITIDINE HCL 150 MG TABLET (FP) PO SCH (10:09)
[2018-02-18] MEDS: AZITHROMYCIN 250 MG TABLET PO SCH (10:10)
[2018-02-18] MEDS: SPIRONOLACTONE 25 MG TABLET (FP) PO SCH (10:10)
[2018-02-18] MEDS: FUROSEMIDE 40 MG/4 ML INJECTABLE VIAL IVPUSH SCH (10:10)
[2018-02-18] MEDS: LISINOPRIL 5 MG TABLET (FP) PO SCH (10:10)
[2018-02-18] MEDS: CEFTRIAXONE 1 GM in DEXTROSE 5%-WATER - 50 ML IVPB SCH (10:11)
[2018-02-18] MEDS: POLYETHYLENE GLYCOL 3350 119 GM BTL PO SCH (10:11)
[2018-02-18] MEDS: ESCITALOPRAM OXALATE 10 MG TABLET (FP) PO SCH (10:11)
--- NOTE | 2018-02-18 10:29 | PN ---
Progress Note, Physician History of Present Illness: The patient is an 83 year old female with a history of afib, HTN, HLD, CHF who presents for evaluation of SOB. The patient is accompanied by family who assist in providing the history. They note that the patient began experiencing severe SOB earlier today prompting her presentation to the ED for further evaluation. EMS was called and the patient received 2 duonebs, 10mg decadron, and 2g of Magnesium en route to the ED with improvement in her symptoms. The patient denies a history of COPD, or asthma and is not a smoker. She otherwise denies fevers, chills, cough, chest pain, nausea, vomiting, abdominal pain, or changes with urination or bowel movements. [facility] Proximal LAD stent (JACE) 01/10 during admission for [place] s/p ICD 02/10 atrial fibrillation Congestive heart failure (systolic); s/p coronary stent and ICD depression HTN hypercholesterolemia insomnia Myocardial infarction 01/10; led to prox LAD stent; one month later, she felt a shock from the life-vest she was wearing because of severe LV dysfunction, resulting in ICD implant 02/10 obesity sedentary lifestyle - Current Medication List Current Medications: Active Medications Azithromycin (Zithromax -) 500 mg PO DAILY [facility] Last Admin: 02/18/18 10:10 Dose: 500 mg Escitalopram Oxalate (Lexapro -) 10 mg PO DAILY [facility] Last Admin: 02/18/18 10:11 Dose: 10 mg Furosemide (Lasix Injection -) 40 mg IVPUSH DAILY [facility] Last Admin: 02/18/18 10:10 Dose: Not Given Ceftriaxone Sodium 1 gm/ (Dextrose) 50 mls @ 100 mls/hr IVPB DAILY [facility]; Protocol Last Admin: 02/18/18 10:11 Dose: 100 mls/hr Lisinopril (Prinivil) 2.5 mg PO DAILY [facility] Last Admin: 02/18/18 10:10 Dose: 2.5 mg Metoprolol Succinate (Toprol Xl -) 50 mg PO BID [facility] Last Admin: 02/18/18 10:11 Dose: 50 mg Polyethylene Glycol (Miralax (For Daily Use) -) 17 gm PO DAILY [facility] Last Admin: 02/18/18 10:11 Dose: Not Given Ranitidine HCl (Zantac -) 150 mg PO DAILY [facility] Last Admin: 02/18/18 10:09 Dose: 150 mg Rivaroxaban (Xarelto -) 20 mg PO DAILY@1800 [facility] Last Admin: 02/17/18 17:43 Dose: 20 mg Spironolactone (Aldactone -) 12.5 mg PO DAILY [facility] Last Admin: 02/18/18 10:10 Dose: 12.5 mg - Objective Vital Signs: Vital Signs Temperature 97.8 F 02/18/18 05:00 Pulse Rate 89 02/18/18 05:00 Respiratory Rate 20 02/18/18 05:00 Blood Pressure 90/57 02/18/18 05:00 O2 Sat by Pulse Oximetry (%) 96 02/17/18 21:00 Eyes: Yes: WNL, Conjunctiva Clear, EOM Intact HENT: Yes: WNL, Atraumatic, Normocephalic Neck: Yes: WNL, Supple, Trachea Midline Cardiovascular: Yes: WNL, Regular Rate and Rhythm Respiratory: Yes: WNL, Regular, CTA Bilaterally Gastrointestinal: Yes: WNL, Normal Bowel Sounds Genitourinary: Yes: WNL Musculoskeletal: Yes: WNL Extremities: Yes: WNL Edema: No Integumentary: Yes: WNL Neurological: Yes: WNL, Alert, Oriented ...Motor Strength: WNL Psychiatric: Yes: WNL Labs: CBC, BMP 02/18/18 05:33 02/18/18 05:33 Problem List - Problems (1) Atrial fibrillation with RVR Code(s): I48.91 - UNSPECIFIED ATRIAL FIBRILLATION (2) Elevated LFTs Code(s): R79.89 - OTHER SPECIFIED ABNORMAL FINDINGS OF BLOOD CHEMISTRY (3) Pneumonia Code(s): J18.9 - PNEUMONIA, UNSPECIFIED ORGANISM Qualifiers: Pneumonia type: due to unspecified organism Laterality: unspecified laterality Lung location: unspecified part of lung Qualified Code(s): J18.9 - Pneumonia, unspecified organism (4) Shortness of breath Code(s): R06.02 - SHORTNESS OF BREATH (5) Afib Code(s): I48.91 - UNSPECIFIED ATRIAL FIBRILLATION (6) Cardiac arrhythmia Code(s): I49.9 - CARDIAC ARRHYTHMIA, UNSPECIFIED Qualifiers: Arrhythmia type: unspecified cardiac arrhythmia Qualified Code(s): I49.9 - Cardiac arrhythmia, unspecified (7) Chronic systolic (congestive) heart failure Code(s): I50.22 - CHRONIC SYSTOLIC (CONGESTIVE) HEART FAILURE (8) Defibrillator discharge Code(s): Z45.02 - ENCNTR FOR ADJUST AND MGMT OF AUTOMATIC IMPLNTBL CARD DEFIB (9) Discomfort in chest Code(s): R07.89 - OTHER CHEST PAIN (10) HTN (hypertension) Code(s): I10 - ESSENTIAL (PRIMARY) HYPERTENSION (11) Hyperlipidemia Code(s): E78.5 - HYPERLIPIDEMIA, UNSPECIFIED (12) Intertrochanteric fracture of left hip Code(s): S72.142A - DISPLACED INTERTROCHANTERIC FRACTURE OF LEFT FEMUR, INIT Qualifiers: Encounter type: initial encounter Fracture type: closed Qualified Code(s) : S72.142A - Displaced intertrochanteric fracture of left femur, initial encounter for closed fracture (13) On amiodarone therapy Code(s): Z79.899 - 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 On rivaroxaban 20 mg daily. Code(s): I48.91 - UNSPECIFIED ATRIAL FIBRILLATION (2) Pneumonia Assessment/Plan: on antibiotics. Code(s): J18.9 - PNEUMONIA, UNSPECIFIED ORGANISM Qualifiers: Pneumonia type: due to unspecified organism Laterality: unspecified laterality Lung location: unspecified part of lung Qualified Code(s): J18.9 - Pneumonia, unspecified organism (3) Shortness of breath Code(s): R06.02 - SHORTNESS OF BREATH (4) HTN (hypertension) Assessment/Plan: on metoprolol, lisinopril, and furosemide. On spironolactone.for markedly reduced LVEF. Code(s): I10 - ESSENTIAL (PRIMARY) HYPERTENSION (5) Hyperlipidemia Assessment/Plan: statin; keep LDL cholesterol < 70 mg/dL. Code(s): E78.5 - HYPERLIPIDEMIA, UNSPECIFIED (6) Acute on chronic systolic (congestive) heart failure Assessment/Plan: On metoprolol. Add lisinopril 2.5 mg daily; aldactone. F/u BUN/Cr, electrolytes, daily weight, Is and Os. ECHO : LVEF severely reduced. Code(s): I50.23 - ACUTE ON CHRONIC SYSTOLIC (CONGESTIVE) HEART FAILURE
--- NOTE | 2018-02-18 15:03 | DS ---
Physical Examination Vital Signs: Vital Signs Temperature 98.0 F 02/18/18 09:00 Pulse Rate 92 H 02/18/18 09:00 Respiratory Rate 20 02/18/18 09:00 Blood Pressure 93/56 02/18/18 09:00 O2 Sat by Pulse Oximetry (%) 97 02/18/18 09:00 Findings/Remarks: feels well no complains wants to go home denies cp/ sob. hr better controlled Constitutional: Yes: No Distress, Calm, Obese Eyes: Yes: Conjunctiva Clear Neck: Yes: Supple Cardiovascular: Yes: Pulse Irregular Respiratory: Yes: CTA Bilaterally Gastrointestinal: Yes: Soft Edema: No Neurological: Yes: Alert Psychiatric: Yes: Alert Labs: CBC, BMP 02/18/18 05:33 02/18/18 05:33 Discharge Summary Reason For Visit: SOB,PNA,ATRIAL FIBRILLATION Current Active Problems Acute on chronic systolic (congestive) heart failure (Acute) Atrial fibrillation with RVR (Acute) Dilated bile duct (Acute) Elevated LFTs (Acute) Gallstone (Acute) Pneumonia (Acute) Shortness of breath (Acute) Hospital Course: pt with extensive cardiac history admitted due to sob work up showed rapid afib/ pneumonia treated with abx and diuretics meds adjusted echo showed severe lv dysfunction Pt stabilized hr better controlled on tolprol xl 50 mg bid now will d/c off abx-- got enough f/u cxr in 4 weeks to clear documented advised discussed with nursing staff also meds reconcilled jenna/ aldactone / lasix added e prescribed to phaqrmacy. STATIN HELD due to elevated lfts-- normalizing now Consider restarting in near future if lfts stay normalized time spend 40 min in examining/ documenting and coordating care. Condition: Stable - Instructions Disposition: HOME - Home Medications Comprehensive Discharge Medication List: Ambulatory Orders Escitalopram Oxalate [Lexapro -] 10 mg PO DAILY 12/30/17 Magnesium 250 mg PO BID 12/30/17 Rivaroxaban [Xarelto -] 10 mg PO DAILY 12/30/17 Linaclotide [Linzess] 72 mcg PO DAILY 02/11/18 Omeprazole 20 mg PO DAILY 02/11/18 Furosemide [Lasix -] 40 mg PO DAILY #30 tablet 02/18/18 Lisinopril [Prinivil] 2.5 mg PO DAILY #30 tablet 02/18/18 Metoprolol Succinate [Toprol XL -] 50 mg PO BID tab.sr.24h 02/18/18 Polyethylene Glycol 3350 [Miralax 119 gm Btl -] 17 gm PO DAILY bottle 02/18/18 Spironolactone [Aldactone -] 12.5 mg PO DAILY 30 Days #30 tablet 02/18/18
[2018-02-18 15:05] VITALS: BP 87/52; PULSE 88; TEMP 97.8
[2018-02-19 00:07] LABS: TRANSGLUTAMINASE IGA < 2 U/mL (0-3); TRANSGLUTAMINASE IGG < 2 U/mL (0-5)
[2018-02-20 10:11] LABS: ALPHA 2 MACROGLOBULINS,QN 205 mg/dL (110-276); ALT(SGPT)P5P 109 IU/L (0-40); CHOLESTEROL TOTAL 139 mg/dL (100-199); FIBROSIS SCORE 0.59 (0.00-0.21); GGT= 164 IU/L (0-60); GLUCOSE SERUM 97 mg/dL (65-99); HEIGHT 74 in (.); WEIGHT- 184 LBS (.)
== END 2018-02-18 17:05 | disposition home or self-care (01) | DRG 291 ==
LOC: JER 11:44 → JERBED 15:14 → J4W 17:54
PROVIDERS: ADMIT Internal Medicine; ATTEND Internal Medicine
DX: I11.0 Hypertensive heart disease with heart failure (principal); J18.9 Pneumonia, unspecified organism; E78.5 Hyperlipidemia, unspecified; I50.23 Acute on chronic systolic (congestive) heart failure; I25.2 Old myocardial infarction; E78.00 Pure hypercholesterolemia, unspecified; I48.91 Unspecified atrial fibrillation; I25.10 Atherosclerotic heart disease of native coronary artery without angina pectoris; I34.0 Nonrheumatic mitral (valve) insufficiency; F32.9 Major depressive disorder, single episode, unspecified; K83.8 Other specified diseases of biliary tract; K80.20 Calculus of gallbladder without cholecystitis without obstruction; R79.89 Other specified abnormal findings of blood chemistry; G47.00 Insomnia, unspecified; E66.9 Obesity, unspecified; Z68.32 Body mass index [BMI] 32.0-32.9, adult; Z95.810 Presence of automatic (implantable) cardiac defibrillator; Z95.5 Presence of coronary angioplasty implant and graft
CPT/HCPCS: 36415; 71045-TC-FY; 76705-TC; 80048; 80053; 80061; 80076; 82172; 82247; 82465; 82550; 82728; 82947; 82977; 83010; 83516; 83540; 83550; 83721; 83735; 83880; 83883; 84439; 84443; 84450; 84460; 84478; 84484; 85025; 86140; 86704; 86706; 86708; 86738; 87040; 87340; 87522; 87899; 93005; 93010; 93306-TC; 94640; 99283-25; J7620

== ENCOUNTER 2018-02-21 10:09 | Inpatient (IN) | payer OTHER ==
--- NOTE | 2018-02-21 10:32 | PDOC ---
History of Present Illness - General History Source: Patient Exam Limitations: No Limitations - History of Present Illness Initial Comments: 02/21/18 12:25 The patient is a 83 year old female with past medical history of [place] (12/11 stents , defibrillator), AFib, CHF (s/p AICD), HTN, CVA (2009), and HLD presents to the emergency department with shortness of breath. The patient states she woke up today feeling ok, a little after she experienced an onset of shortness of breath. The patient states she checked her blood pressure, secondary to low pressure rate the patient skipped her metoprolol medication today. 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 Denies fever, chills, cough or a headache. Denies orthopnea or chest pain. Denies abdominal pain or back pain. Denies nausea or vomiting. Denies diarrhea or constipation. Denies dysuria, hematuria, frequency or urgency to urinate. Denies vertigo or dizziness. Denies weakness, numbness, tingling or loss of sensation. Allergies: NKDA Social history: None reported. Surgical history: AICD, Permanent Pacemaker, Stent PCP: Alfred Peacock. <Larissa Trinidad - Last Filed: 02/21/18 12:25> <Alma Rosa Thakur - Last Filed: 02/21/18 17:11> - General Chief Complaint: Chest Pain Stated Complaint: CHEST PAIN Time Seen by Provider: 02/21/18 10:31 Past History <Larissa Trinidad - Last Filed: 02/21/18 12:25> - Past Medical History Anemia: No Asthma: No Cancer: No Cardiac Disorders: Yes (mi 4/10 stents, defibrillator) CVA: Yes (2011) COPD: No CHF: No Dementia: No Diabetes: No GI Disorders: No Disorders: No HTN: Yes Hypercholesterolemia: Yes Liver Disease: No Seizures: No Thyroid Disease: No - Surgical History Abdominal Surgery: No Appendectomy: No Cardiac Surgery: Yes (defibrillator) Cholecystectomy: No Lung Surgery: No Neurologic Surgery: No Orthopedic Surgery: No - Immunization History Immunization Up to Date: Yes - Suicide/Smoking/Psychosocial Hx Smoking Status: No Smoking History: Never smoked Have you smoked in the past 12 months: No Number of Cigarettes Smoked Daily: 0 Information on smoking cessation initiated: No Hx Alcohol Use: No Drug/Substance Use Hx: No Substance Use Type: None Hx Substance Use Treatment: No <Alma Rosa Thakur - Last Filed: 02/21/18 17:11> - Past Medical History Allergies/Adverse Reactions: Allergies Allergy/AdvReac Type Severity Reaction Status Date / Time No Known Allergies Allergy Verified 02/11/18 11:51 Home Medications: Ambulatory Orders Escitalopram Oxalate [Lexapro -] 10 mg PO DAILY 12/30/17 Magnesium 250 mg PO BID 12/30/17 Rivaroxaban [Xarelto -] 10 mg PO DAILY 12/30/17 Linaclotide [Linzess] 72 mcg PO DAILY 02/11/18 Omeprazole 20 mg PO DAILY 02/11/18 Furosemide [Lasix -] 40 mg PO DAILY #30 tablet 02/18/18 Lisinopril [Prinivil] 2.5 mg PO DAILY #30 tablet 02/18/18 Metoprolol Succinate [Toprol XL -] 50 mg PO BID tab.sr.24h 02/18/18 Polyethylene Glycol 3350 [Miralax 119 gm Btl -] 17 gm PO DAILY bottle 02/18/18 Spironolactone [Aldactone -] 12.5 mg PO DAILY 30 Days #30 tablet 02/18/18 Review of Systems - Review of Systems Able to Perform ROS?: Yes Comments:: 02/21/18 12:25 GENERAL/CONSTITUTIONAL: No fever or chills. No weakness. HEAD, EYES, EARS, NOSE AND THROAT: No change in vision. No ear pain or discharge. No sore throat. CARDIOVASCULAR: (+)shortness of breath. No chest pain. RESPIRATORY: No cough, wheezing, or hemoptysis. GASTROINTESTINAL: No nausea, vomiting, diarrhea or constipation. GENITOURINARY: No dysuria, frequency, or change in urination. MUSCULOSKELETAL: No joint or muscle swelling or pain. No neck or back pain. SKIN: No rash NEUROLOGIC: No headache, vertigo, loss of consciousness, or change in strength/ sensation. ENDOCRINE: No increased thirst. No abnormal weight change. HEMATOLOGIC/LYMPHATIC: No anemia, easy bleeding, or history of blood clots. ALLERGIC/IMMUNOLOGIC: No hives or skin allergy. <Larissa Trinidad - Last Filed: 02/21/18 12:25> *Physical Exam - Vital Signs Last Vital Signs Temp Pulse Resp BP Pulse Ox 97.8 F 106 H 22 99/66 93 L 02/21/18 10:25 02/21/18 11:25 02/21/18 10:25 02/21/18 11:25 02/21/18 10:25 - Physical Exam Comments: 02/21/18 12:26 GENERAL: Awake, alert, and fully oriented, (+) Mild respiratory distress HEAD: No signs of trauma EYES: PERRLA, EOMI, sclera anicteric, conjunctiva clear ENT: Auricles normal inspection, hearing grossly normal, nares patent, oropharynx clear without exudates. Moist mucosa NECK: Normal ROM, supple, no lymphadenopathy, JVD, or masses LUNGS: Breath sounds equal, clear to auscultation bilaterally. No wheezes, and no crackles HEART: (+) Tachycardia w/ irregular rhythm. normal S1 and S2, no murmurs, rubs or gallops ABDOMEN: Soft, nontender, normoactive bowel sounds. No guarding, no rebound. No masses EXTREMITIES: No edema. Normal range of motion, no edema. No clubbing or cyanosis. No cords, erythema, or tenderness NEUROLOGICAL: Cranial nerves II through XII grossly intact. Normal speech, normal gait SKIN: Warm, Dry, normal turgor, no rashes or lesions noted. <Larissa Trinidad - Last Filed: 02/21/18 12:25> - Vital Signs Last Vital Signs Temp Pulse Resp BP Pulse Ox 97.8 F 131 H 22 101/76 93 L 02/21/18 10:25 02/21/18 10:25 02/21/18 10:25 02/21/18 10:25 02/21/18 10:25 <Alma Rosa Thkaur - Last Filed: 02/21/18 17:11> ED Treatment Course - LABORATORY CBC & Chemistry Diagram: 02/21/18 10:50 02/21/18 10:50 - ADDITIONAL ORDERS Additional order review: Laboratory Results 02/21/18 10:50 Sodium 142 Potassium 4.1 Chloride 108 H Carbon Dioxide 24 Anion Gap 10 BUN 21 H Creatinine 0.8 Creat Clearance w eGFR > 60 Random Glucose 159 H Calcium 8.3 L Total Bilirubin 0.6 AST 29 ALT 46 Alkaline Phosphatase 125 H Creatine Kinase 65 Troponin I 0.07 H Total Protein 6.5 Albumin 3.3 L TSH 1.13 02/21/18 10:50 RBC 4.73 MCV 83.7 MCHC 32.2 RDW 14.4 MPV 8.6 Neutrophils % 72.6 D Lymphocytes % 18.8 D Monocytes % 7.4 Eosinophils % 0.6 Basophils % 0.6 - Medications Given in the ED: ED Medications Discontinued Medications Generic Name Dose Route Start Last Admin Trade Name Lambertoq PRN Reason Stop Dose Admin Diltiazem HCl 20 mg 02/21/18 10:38 02/21/18 10:49 Cardizem Injection - IVPUSH 02/21/18 10:39 20 mg ONCE ONE Administration Sodium Chloride 1,000 ml 02/21/18 10:38 02/21/18 11:03 Normal Saline - IV 02/21/18 10:39 Not Given ONCE ONE <Larissa Trinidad - Last Filed: 02/21/18 12:25> - LABORATORY CBC & Chemistry Diagram: 02/21/18 10:50 02/21/18 10:50 <Alma Rosa Thakur - Last Filed: 02/21/18 17:11> Medical Decision Making - Medical Decision Making 02/21/18 17:07 Pt presents to the ED complaining of palpitations and chest discomfort, and AICD firing 5 times. Non complaint with metoprolol at home secondary to low BP. Borderline hypotensive in the ED. RAte improved after cardizem. Labs are within normal limits except for slightly elevated troponin. Will admit to medicine for continued monitoring. Seen by Dr Marquis in the ED. <Alma Rosa Thakur - Last Filed: 02/21/18 17:11> *DC/Admit/Observation/Transfer - Attestations Scribe Attestion: 02/21/18 12:26 Documentation prepared by Larissa Trinidad, acting as center medical specialist for Alma Rosa Thakur MD. <Larissa Trinidad - Last Filed: 02/21/18 12:25> - Discharge Dispostion Decision to Admit order: Yes <Alma Rosa Thakur - Last Filed: 02/21/18 17:11> Diagnosis at time of Disposition: Atrial fibrillation with RVR - Discharge Dispostion Condition at time of disposition: Fair
[2018-02-21] MEDS ORDERED: dilTIAZem HCL 50 MG/10 ML - 10 ML VIAL ONE (10:34)
[2018-02-21] MEDS ORDERED: dilTIAZem HCL 50 MG/10 ML - 10 ML VIAL IVPUSH ONE (10:38)
[2018-02-21] MEDS ORDERED: SODIUM CHLORIDE 0.9% 500 ML INFUS.BAG IV ONE (10:38)
[2018-02-21] MEDS ORDERED: dilTIAZem HCL 125 MG/25 ML - 25 ML VIAL ONE (10:42)
[2018-02-21 11:00] LABS: BASO % 0.6 % (0-2.0); EOS % 0.6 % (0-4.5); HEMATOCRIT 39.6 % (32.4-45.2); HEMOGLOBIN 12.7 GM/dL (10.7-15.3); LYMPH % 18.8 % (8-40); MCH 26.9 pg (25.7-33.7); MCHC 32.2 g/dl (32.0-36.0); MEAN CELL VOLUME 83.7 fl (80-96); MEAN PLT VOLUME 8.6 fl (7.5-11.1); MONO % 7.4 % (3.8-10.2); NEUT % 72.6 % (42.8-82.8); PLATELET COUNT 244 K/MM3 (134-434); RBC 4.73 M/mm3 (3.60-5.2); RDW 14.4 % (11.6-15.6); WHITE BLOOD COUNT 7.6 K/mm3 (4.0-10.0)
[2018-02-21 11:22] LABS: ALBUMIN 3.3 g/dl (3.4-5.0); ALK PHOS 125 U/L (45-117); ANION GAP 10 (8-16); BILIRUBIN,TOTAL 0.6 mg/dL (0.2-1.0); BLOOD UREA NITROGEN 21 mg/dL (7-18); CALCIUM 8.3 mg/dL (8.5-10.1); CHLORIDE 108 mmol/L (98-107); CO2 24 mmol/L (21-32); CREATININE 0.8 mg/dL (0.55-1.02); GLUCOSE,RANDOM 159 mg/dL (74-106); POTASSIUM 4.1 mmol/L (3.5-5.1); SGOT/AST 29 U/L (15-37); SGPT/ALT 46 U/L (12-78); SODIUM 142 mmol/L (136-145); TOT PROT 6.5 g/dl (6.4-8.2)
--- NOTE | 2018-02-21 12:47 | CON.CARD ---
Consult Consult Specialty:: cardiology Reason for Consultation:: AF with RVR; ICD shocks - History of Present Illness History of Present Illness: The patient is a 83 year old female with past medical history of [place] (12/11 stents , defibrillator), AFib, severe LV dysfunction systolic CHF (s/p AICD), HTN, CVA (2009), anxiety, and HLD presents to the emergency department with shortness of breath. The patient states she woke up today feeling ok, a little after she experienced an onset of shortness of breath. The patient states she checked her blood pressure, secondary to low pressure rate the patient skipped her metoprolol medication today. 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 - History Source History Provided By: Patient, Medical Record - Past Medical History Cardio/Vascular: Yes: AFIB (), CAD (s/p LAD JACE stent 02/10), CHF (severe hypokinesis), HTN, Hyperlipdemia, PA (02/10), Mitral Insufficiency Hepatobiliary: Yes: Cholelithiasis Psych: Yes: Anxiety, Depression, Panic - Past Surgical History Past Surgical History: Yes: AICD, Colonoscopy, Stent, Upper Endoscopy - Alcohol/Substance Use Hx Alcohol Use: No - Smoking History Smoking history: Never smoked Have you smoked in the past 12 months: No Aproximately how many cigarettes per day: 0 - Social History Usual Living Arrangement: Alone ADL: Independent History of Recent Travel: No Home Medications - Allergies Allergies/Adverse Reactions: Allergies Allergy/AdvReac Type Severity Reaction Status Date / Time No Known Allergies Allergy Verified 02/11/18 11:51 - Home Medications Home Medications: Ambulatory Orders Escitalopram Oxalate [Lexapro -] 10 mg PO DAILY 12/30/17 Magnesium 250 mg PO BID 12/30/17 Rivaroxaban [Xarelto -] 10 mg PO DAILY 12/30/17 Linaclotide [Linzess] 72 mcg PO DAILY 02/11/18 Omeprazole 20 mg PO DAILY 02/11/18 Furosemide [Lasix -] 40 mg PO DAILY #30 tablet 02/18/18 Lisinopril [Prinivil] 2.5 mg PO DAILY #30 tablet 02/18/18 Metoprolol Succinate [Toprol XL -] 50 mg PO BID tab.sr.24h 02/18/18 Polyethylene Glycol 3350 [Miralax 119 gm Btl -] 17 gm PO DAILY bottle 02/18/18 Spironolactone [Aldactone -] 12.5 mg PO DAILY 30 Days #30 tablet 02/18/18 Family Disease History - Family Disease History Family History: Denies Review of Systems - Review of Systems Constitutional: reports: Weakness Eyes: reports: No Symptoms HENT: reports: No Symptoms Neck: reports: No Symptoms Cardiovascular: reports: Chest Pain (from ICD shocks), Palpitations Respiratory: reports: SOB on Exertion Gastrointestinal: reports: No Symptoms Genitourinary: reports: No Symptoms Breasts: reports: No Symptoms Reported Musculoskeletal: reports: Muscle Weakness Integumentary: reports: No Symptoms Neurological: reports: No Symptoms Endocrine: reports: No Symptoms Hematology/Lymphatic: reports: No Symptoms Psychiatric: reports: Anxiety, Depression, Panic - Risk Factors Known Risk Factors: Yes: Age, Hypertension, Physical Inactivity, Other (severe systolic LV dysfunction) Vital Signs: Vital Signs Temperature 97.8 F 02/21/18 10:25 Pulse Rate 106 H 02/21/18 11:25 Respiratory Rate 22 02/21/18 10:25 Blood Pressure 99/66 02/21/18 11:25 O2 Sat by Pulse Oximetry (%) 93 L 02/21/18 10:25 Constitutional: Yes: Anxious Eyes: Yes: WNL HENT: Yes: WNL Neck: Yes: WNL Respiratory: Yes: WNL Gastrointestinal: Yes: Soft Renal/: No: Anuria Cardiovascular: Yes: Pulse Irregular JVD: No Carotid Bruit: No PMI: Displaced Heart Sounds: Yes: S1 (varies in intensity), Split S2 Murmur: Yes: Systolic Murmur, Grade 2 Musculoskeletal: Yes: Muscle Weakness Extremities: Yes: Cool Edema: No Peripheral Pulses WNL: Yes Integumentary: Yes: WNL Neurological: Yes: Alert, Oriented, Weakness Psychiatric: Yes: Alert, Oriented, Other - Other Data Labs, Other Data: CBC, BMP 02/21/18 10:50 02/21/18 10:50 Troponin, BNP 02/21/18 10:50 Troponin I 0.07 H Troponin, BNP 02/21/18 10:50 Troponin I 0.07 H Echo: Report Reviewed Ejection Fraction %: LVEF < 40 % Imaging - Results EKG: Image Reviewed (AF with RVR) Problem List - Problems (1) Atrial fibrillation with RVR Assessment/Plan: noncompliant to metoprolol for the past 4 days (pt had thought that if her pressure was "low", she should not take the medication). Restart metoprolol Do not use diltiazem; she has poor LV function. F/u Electrolytes. F/u TNI. ICD interrogation (received "5 shocks"). Code(s): I48.91 - UNSPECIFIED ATRIAL FIBRILLATION (2) Acute on chronic systolic (congestive) heart failure Code(s): I50.23 - ACUTE ON CHRONIC SYSTOLIC (CONGESTIVE) HEART FAILURE (3) Defibrillator discharge Assessment/Plan: f/u ICD interrogation. Restart metoprolol Maintain electrolytes. Code(s): Z45.02 - ENCNTR FOR ADJUST AND MGMT OF AUTOMATIC IMPLNTBL CARD DEFIB (4) Hypomagnesemia Assessment/Plan: on Mg PO at home; f/u all electrolytes. Code(s): E83.42 - HYPOMAGNESEMIA
[2018-02-21] MEDS ORDERED: METOPROLOL TARTRATE 25 MG TABLET (FP) ONE ×2 (13:26→22:47)
[2018-02-21] MEDS ORDERED: METOPROLOL TARTRATE 25 MG TABLET (FP) PO ONE (13:30)
--- NOTE | 2018-02-21 15:33 | HP ---
Admitting History and Physical - Primary Care Physician PCP: Alfred Duarte G - Admission Chief Complaint: palpitations History of Present Illness: ER HISTORY Initial Comments: 02/21/18 12:25 The patient is a 83 year old female with past medical history of [place] (12/11 stents , defibrillator), AFib, CHF (s/p AICD), HTN, CVA (2009), and HLD presents to the emergency department with shortness of breath. The patient states she woke up today feeling ok, a little after she experienced an onset of shortness of breath. The patient states she checked her blood pressure, secondary to low pressure rate the patient skipped her metoprolol medication today. 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 Denies fever, chills, cough or a headache. Denies orthopnea or chest pain. Denies abdominal pain or back pain. Denies nausea or vomiting. Denies diarrhea or constipation. Denies dysuria, hematuria, frequency or urgency to urinate. Denies vertigo or dizziness. Denies weakness, numbness, tingling or loss of sensation. Allergies: NKDA Social history: None reported. Surgical history: AICD, Permanent Pacemaker, Stent PCP: Alfred Peacock. Pt examined by me in ER Spoke with ER attending Daughter at bedside pt denies dizziness, chest pain. Appears slightly SOB Palpitations+ She admits that last dose of Metoprolol was when she received it prior to being discharged from the hospital here 4 days ago.Found to be rapid Afib in ER. AICD shocked her 5 times today received Cardizem in the ER and BP decreased - systolic 88 History Source: Patient, Family Member Limitations to Obtaining History: No Limitations - Past Medical History Cardiovascular: Yes: AFIB (AICD), CAD (s/p LAD JACE stent 02/10), CHF (severe hypokinesis), HTN, Hyperlipdemia, SC (02/10), Mitral Insufficiency Hepatobiliary: Yes: Cholelithiasis - Past Surgical History Past Surgical History: Yes: AICD, Colonoscopy, Permanent Pacemaker, Stent, Upper Endoscopy - Smoking History Smoking history: Never smoked Have you smoked in the past 12 months: No Aproximately how many cigarettes per day: 0 - Alcohol/Substance Use Hx Alcohol Use: No - Social History ADL: Independent History of Recent Travel: No Home Medications - Allergies Allergies/Adverse Reactions: Allergies Allergy/AdvReac Type Severity Reaction Status Date / Time No Known Allergies Allergy Verified 02/11/18 11:51 - Home Medications Home Medications: Ambulatory Orders Escitalopram Oxalate [Lexapro -] 10 mg PO DAILY 12/30/17 Magnesium 250 mg PO BID 12/30/17 Rivaroxaban [Xarelto -] 10 mg PO DAILY 12/30/17 Linaclotide [Linzess] 72 mcg PO DAILY 02/11/18 Omeprazole 20 mg PO DAILY 02/11/18 Furosemide [Lasix -] 40 mg PO DAILY #30 tablet 02/18/18 Lisinopril [Prinivil] 2.5 mg PO DAILY #30 tablet 02/18/18 Metoprolol Succinate [Toprol XL -] 50 mg PO BID tab.sr.24h 02/18/18 Polyethylene Glycol 3350 [Miralax 119 gm Btl -] 17 gm PO DAILY bottle 02/18/18 Spironolactone [Aldactone -] 12.5 mg PO DAILY 30 Days #30 tablet 02/18/18 Review of Systems - Review of Systems Constitutional: denies: Chills, Fever Cardiovascular: reports: Palpitations, Shortness of Breath. denies: Chest Pain Neurological: denies: Dizziness Physical Examination Vital Signs: Vital Signs Temperature 97.8 F 02/21/18 10:25 Pulse Rate 120 H 02/21/18 13:14 Respiratory Rate 18 02/21/18 13:14 Blood Pressure 111/63 02/21/18 13:14 O2 Sat by Pulse Oximetry (%) 100 02/21/18 13:14 Constitutional: Yes: No Distress, Calm Cardiovascular: Yes: Tachycardia, Pulse Irregular Respiratory: Yes: CTA Bilaterally Gastrointestinal: Yes: Normal Bowel Sounds, Soft Labs: CBC, BMP 02/21/18 10:50 02/21/18 10:50 Imaging - Results Chest X-ray: Image Reviewed EKG: Image Reviewed (rapid Afib) Problem List - Problems (1) Atrial fibrillation with RVR Code(s): I48.91 - UNSPECIFIED ATRIAL FIBRILLATION (2) Cardiac arrhythmia Code(s): I49.9 - CARDIAC ARRHYTHMIA, UNSPECIFIED Qualifiers: Arrhythmia type: unspecified cardiac arrhythmia Qualified Code(s): I49.9 - Cardiac arrhythmia, unspecified (3) Defibrillator discharge Code(s): Z45.02 - ENCNTR FOR ADJUST AND MGMT OF AUTOMATIC IMPLNTBL CARD DEFIB (4) HTN (hypertension) Code(s): I10 - ESSENTIAL (PRIMARY) HYPERTENSION (5) Hyperlipidemia Code(s): E78.5 - HYPERLIPIDEMIA, UNSPECIFIED Assessment/Plan PLAN Cardiology eval Telemetry monitoring continue with Xarelto Pt received Cardizem in ER but BP became low, pt assymtomatic currently May need Digoxin-- Orientation And Mobility Instructor to decide check cardiac markers
--- NOTE | 2018-02-21 15:53 | EKG ---
Test Reason : Blood Pressure : / mmHG Vent. Rate : 136 BPM Atrial Rate : 096 BPM P-R Int : 000 ms QRS Dur : 072 ms QT Int : 300 ms P-R-T Axes : 000 -24 126 degrees QTc Int : 451 ms ATRIAL FIBRILLATION WITH RAPID VENTRICULAR RESPONSE WITH PREMATURE VENTRICULAR OR ABERRANTLY CONDUCTED COMPLEXES MINIMAL VOLTAGE CRITERIA FOR LVH, MAY BE NORMAL VARIANT SEPTAL INFARCT (CITED ON OR BEFORE 27-MAR-2017) ABNORMAL ECG WHEN COMPARED WITH ECG OF 13-FEB-2018 09:21, NONSPECIFIC T WAVE ABNORMALITY NO LONGER EVIDENT IN INFERIOR LEADS Confirmed by ARASELI LEE MD ([id number]) on 02/21/2018 3:52:38 PM Referred By: Confirmed By:ARASELI LEE MD
[2018-02-21] MEDS: RIVAROXABAN 10 MG TABLET PO SCH (18:45)
[2018-02-21] MEDS ORDERED: METOPROLOL TARTRATE 25 MG TABLET (FP) PO SCH (22:00)
[2018-02-21] MEDS ORDERED: MAGNESIUM OXIDE 400 MG TABLET (FP) ONE (22:46)
[2018-02-21] MEDS: MAGNESIUM OXIDE 400 MG TABLET (FP) PO SCH (22:51)
[2018-02-22 01:32] VITALS: BMI 29.9
[2018-02-22 08:03] LABS: BASO % 0.7 % (0-2.0); EOS % 1.2 % (0-4.5); HEMATOCRIT 36.1 % (32.4-45.2); HEMOGLOBIN 11.9 GM/dL (10.7-15.3); LYMPH % 26.6 % (8-40); MCH 27.4 pg (25.7-33.7); MCHC 32.9 g/dl (32.0-36.0); MEAN CELL VOLUME 83.3 fl (80-96); MEAN PLT VOLUME 8.7 fl (7.5-11.1); MONO % 7.6 % (3.8-10.2); NEUT % 63.9 % (42.8-82.8); PLATELET COUNT 222 K/MM3 (134-434); RBC 4.33 M/mm3 (3.60-5.2); RDW 14.8 % (11.6-15.6); WHITE BLOOD COUNT 6.5 K/mm3 (4.0-10.0)
[2018-02-22 09:26] LABS: ALBUMIN 3.1 g/dl (3.4-5.0); ANION GAP 9 (8-16); BLOOD UREA NITROGEN 20 mg/dL (7-18); CALCIUM 8.1 mg/dL (8.5-10.1); CHLORIDE 110 mmol/L (98-107); CO2 25 mmol/L (21-32); GLUCOSE,RANDOM 97 mg/dL (74-106); POTASSIUM 4.3 mmol/L (3.5-5.1); SGPT/ALT 38 U/L (12-78); SODIUM 144 mmol/L (136-145)
[2018-02-22 09:29] LABS: ALK PHOS 116 U/L (45-117); BILIRUBIN,TOTAL 0.6 mg/dL (0.2-1.0); CREATININE 0.8 mg/dL (0.55-1.02); SGOT/AST 31 U/L (15-37); TOT PROT 5.8 g/dl (6.4-8.2)
--- NOTE | 2018-02-22 09:33 | PN ---
Progress Note, Physician Chief Complaint: Pt A&Ox3; no chest pain or dyspnea; anxious. History of Present Illness: The patient is a 83 year old female with past medical history of [place] (12/11 stents , defibrillator), AFib, severe LV dysfunction systolic CHF (s/p AICD), HTN, CVA (2009), anxiety, and HLD presents to the emergency department with shortness of breath. The patient states she woke up today feeling ok, a little after she experienced an onset of shortness of breath. The patient states she checked her blood pressure, secondary to low pressure rate the patient skipped her metoprolol medication today. 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 - Current Medication List Current Medications: Active Medications Escitalopram Oxalate (Lexapro -) 10 mg PO DAILY [facility] Magnesium Oxide (Mag-Ox -) 400 mg PO BID [facility] Last Admin: 02/21/18 22:51 Dose: 400 mg Metoprolol Tartrate (Lopressor -) 12.5 mg PO BID [facility] Last Admin: 02/21/18 22:51 Dose: 12.5 mg Pantoprazole Sodium (Protonix -) 40 mg PO DAILY [facility] Rivaroxaban (Xarelto -) 10 mg PO 1800 [facility] Last Admin: 02/21/18 18:45 Dose: 10 mg - Objective Vital Signs: Vital Signs Temperature 97.8 F 02/22/18 07:09 Pulse Rate 101 H 02/22/18 07:09 Respiratory Rate 18 02/22/18 07:09 Blood Pressure 104/62 02/22/18 07:09 O2 Sat by Pulse Oximetry (%) 91 L 02/21/18 23:59 Constitutional: Yes: Anxious Eyes: Yes: WNL HENT: Yes: WNL Neck: Yes: WNL Cardiovascular: Yes: Regular Rate and Rhythm, Murmur Respiratory: Yes: WNL Gastrointestinal: Yes: Soft ...Rectal Exam: Yes: Deferred Genitourinary: No: Anuria Breast(s): Yes: WNL Musculoskeletal: Yes: Muscle Weakness Extremities: Yes: Cool Edema: No Peripheral Pulses WNL: Yes Integumentary: Yes: WNL Neurological: Yes: WNL Psychiatric: Yes: WNL Labs: CBC, BMP 02/22/18 06:30 Abnormal Lab Results 02/22/18 06:30 Chloride 110 H BUN 20 H Calcium 8.1 L Total Protein 5.8 L Albumin 3.1 L - ....Imaging Other: Image Reviewed (telemetry: AF with controlled VR) Problem List - Problems (1) Atrial fibrillation with RVR Assessment/Plan: noncompliant to metoprolol for the past 4 days (pt had thought that if her pressure was "low", she should not take the medication). Restarted metoprolol; increase as tolerated (was on metoprolol ER 50 mg ?bid). Do not use diltiazem; she has poor LV function. F/u Electrolytes. F/u TNI. ICD interrogation: pt received 6 shocks; AF and VT. Code(s): I48.91 - UNSPECIFIED ATRIAL FIBRILLATION (2) Acute on chronic systolic (congestive) heart failure Assessment/Plan: Continue metoprolol, lisinopril, and spironolactone. F/u BUN?Cr, electrolytes, Is and OS, daily weight. Code(s): I50.23 - ACUTE ON CHRONIC SYSTOLIC (CONGESTIVE) HEART FAILURE (3) Defibrillator discharge Assessment/Plan: ICD interrogation noted (6 shocks; AV with RVR; VT) Restart metoprolol Maintain electrolytes. Code(s): Z45.02 - ENCNTR FOR ADJUST AND MGMT OF AUTOMATIC IMPLNTBL CARD DEFIB
[2018-02-22] MEDS: PANTOPRAZOLE 40 MG TABLET (FP) PO SCH (10:05)
[2018-02-22] MEDS: MAGNESIUM OXIDE 400 MG TABLET (FP) PO SCH ×2 (10:05→21:36)
[2018-02-22] MEDS: LISINOPRIL 5 MG TABLET (FP) PO SCH (10:05)
[2018-02-22] MEDS: ESCITALOPRAM OXALATE 10 MG TABLET (FP) PO SCH (10:05)
--- NOTE | 2018-02-22 12:56 | PN ---
Progress Note (short form) - Note Progress Note: Pt seen/ examined. chart reviewed. well known to me from previous admission feels better decreased sob. denies cp. +ve troponin. Vital Signs Temp 97.8 F 02/22/18 10:00 Pulse 90 02/22/18 10:00 Resp 18 02/22/18 10:00 BP 127/81 02/22/18 10:00 Pulse Ox 96 02/22/18 10:00 Intake & Output 02/21/18 02/22/18 02/22/18 23:59 11:59 23:59 Intake Total 200 Balance 200 Weight 174 lb 8 oz Intake: Oral 200 Other: Voiding Method Toilet Toilet # Unmeasured Voids Void 1 Bowel Movement No Height 5 ft 4 in Body Mass Index (BMI) 29.9 Weight Measurement Method Standing Scale Active Medications Escitalopram Oxalate (Lexapro -) 10 mg PO DAILY [facility] Last Admin: 02/22/18 10:05 Dose: 10 mg Lisinopril (Prinivil) 2.5 mg PO DAILY [facility] Last Admin: 02/22/18 10:05 Dose: 2.5 mg Magnesium Oxide (Mag-Ox -) 400 mg PO BID [facility] Last Admin: 02/22/18 10:05 Dose: 400 mg Metoprolol Succinate (Toprol Xl -) 50 mg PO DAILY [facility] Last Admin: 02/22/18 10:05 Dose: 50 mg Pantoprazole Sodium (Protonix -) 40 mg PO DAILY [facility] Last Admin: 02/22/18 10:05 Dose: 40 mg Rivaroxaban (Xarelto -) 10 mg PO 1800 [facility] Last Admin: 02/21/18 18:45 Dose: 10 mg CBC, BMP 02/22/18 06:30 02/22/18 06:30 Abnormal Lab Results 02/21/18 02/21/18 02/21/18 16:21 17:40 21:30 Chloride BUN Calcium Magnesium 1.6 L Troponin I 0.29 H 0.20 H Total Protein Albumin 02/22/18 06:30 Chloride 110 H BUN 20 H Calcium 8.1 L Magnesium Troponin I Total Protein 5.8 L Albumin 3.1 L Physical Examination Constitutional: Yes: No Distress, Comfortable Cardiovascular: Yes: Tachycardia, Pulse Irregular Respiratory: Yes: Diminished at bases Gastrointestinal: Yes: Normal Bowel Sounds, Soft/ non tender Imaging - Results Chest X-ray: Image Reviewed EKG: Image Reviewed (rapid Afib) Problem List - Problems (1) Atrial fibrillation with RVR Code(s): I48.91 - UNSPECIFIED ATRIAL FIBRILLATION (2) Cardiac arrhythmia Code(s): I49.9 - CARDIAC ARRHYTHMIA, UNSPECIFIED Qualifiers: Arrhythmia type: unspecified cardiac arrhythmia Qualified Code(s): I49.9 - Cardiac arrhythmia, unspecified (3) Defibrillator discharge Code(s): Z45.02 - ENCNTR FOR ADJUST AND MGMT OF AUTOMATIC IMPLNTBL CARD DEFIB (4) HTN (hypertension) Code(s): I10 - ESSENTIAL (PRIMARY) HYPERTENSION (5) Hyperlipidemia Code(s): E78.5 - HYPERLIPIDEMIA, UNSPECIFIED Assessment/Plan clinically better positive troponins--- likely due to CHF and arrhythmia Cardiology to follow compliance is Major issue Monitor on telemetry today If stable--- consider discharge tomorrow We will follow Discussed with nursing staff also
[2018-02-22 13:07] LABS: MAGNESIUM 1.8 mg/dL (1.8-2.4); PHOSPHOROUS 3.5 mg/dL (2.5-4.9)
[2018-02-22] MEDS ORDERED: PT OWN MED DRAWER 7, Y5N ONE (17:10)
[2018-02-22] MEDS: RIVAROXABAN 10 MG TABLET PO SCH (17:49)
[2018-02-23] MEDS: LISINOPRIL 5 MG TABLET (FP) PO SCH (09:06)
[2018-02-23] MEDS: ESCITALOPRAM OXALATE 10 MG TABLET (FP) PO SCH (09:06)
[2018-02-23] MEDS: MAGNESIUM OXIDE 400 MG TABLET (FP) PO SCH (09:06)
[2018-02-23] MEDS: PANTOPRAZOLE 40 MG TABLET (FP) PO SCH (09:07)
--- NOTE | 2018-02-23 10:27 | PN ---
Progress Note, Physician Chief Complaint: Pt A&Ox3; no chest pain or dyspnea; anxious. History of Present Illness: The patient is a 83 year old female (faisal Miller), with past medical history of AR ( 12/2009: stents), AFib, severe LV dysfunction systolic CHF (s/p AICD), HTN, CVA (2009), anxiety, and HLD presents to the emergency department with shortness of breath. The patient states she woke up today feeling ok, a little after she experienced an onset of shortness of breath. The patient states she checked her blood pressure, secondary to low pressure rate the patient skipped her metoprolol medication today (and has not taken it since her return home 3 days ago). The patient states 1 hour [employer] her defibrillator went off 5 times. - Current Medication List Current Medications: Active Medications Escitalopram Oxalate (Lexapro -) 10 mg PO DAILY [facility] Last Admin: 02/23/18 09:06 Dose: 10 mg Lisinopril (Prinivil) 2.5 mg PO DAILY [facility] Last Admin: 02/23/18 09:06 Dose: 2.5 mg Magnesium Oxide (Mag-Ox -) 400 mg PO BID [facility] Last Admin: 02/23/18 09:06 Dose: 400 mg Metoprolol Succinate (Toprol Xl -) 50 mg PO DAILY [facility] Last Admin: 02/23/18 09:08 Dose: 50 mg Pantoprazole Sodium (Protonix -) 40 mg PO DAILY [facility] Last Admin: 02/23/18 09:07 Dose: 40 mg Rivaroxaban (Xarelto -) 10 mg PO 1800 [facility] Last Admin: 02/22/18 17:49 Dose: 10 mg - Objective Vital Signs: Vital Signs Temperature 98.2 F 02/22/18 21:37 Pulse Rate 94 H 02/22/18 21:37 Respiratory Rate 20 02/22/18 21:37 Blood Pressure 101/58 02/22/18 21:37 O2 Sat by Pulse Oximetry (%) 96 02/22/18 21:00 Constitutional: Yes: Anxious Eyes: Yes: WNL HENT: Yes: WNL Neck: Yes: WNL Cardiovascular: Yes: Pulse Irregular Respiratory: Yes: Regular Gastrointestinal: Yes: Soft ...Rectal Exam: Yes: Deferred Genitourinary: No: Anuria Breast(s): Yes: WNL Musculoskeletal: Yes: Muscle Weakness Extremities: Yes: Cool Edema: No Peripheral Pulses WNL: Yes Integumentary: Yes: WNL Neurological: Yes: WNL Psychiatric: Yes: Other Labs: CBC, BMP 02/22/18 06:30 02/22/18 06:30 Abnormal Lab Results 02/22/18 06:30 Chloride 110 H BUN 20 H Calcium 8.1 L Total Protein 5.8 L Albumin 3.1 L - ....Imaging Other: Image Reviewed (telemetry: AF with controlled VR) Problem List - Problems (1) Atrial fibrillation with RVR Assessment/Plan: The need to maintain daily compliance with metorpolol ER was emphasized. Continue lisinopril and spironolactone (may restart the latter as outpt). From a cardiac standpoint, pt may be followed as an outpatient. Code(s): I48.91 - UNSPECIFIED ATRIAL FIBRILLATION (2) Acute on chronic systolic (congestive) heart failure Assessment/Plan: Continue metoprolol, lisinopril, and spironolactone. F/u BUN/Cr, electrolytes, Is and OS, daily weight. Code(s): I50.23 - ACUTE ON CHRONIC SYSTOLIC (CONGESTIVE) HEART FAILURE (3) Defibrillator discharge Assessment/Plan: ICD interrogation: 6 shocks for AF with RVR, VT. Restarted metoprolol ER 50 mg daily; may increase if pt tolerates it and BP remains stable. Maintain electrolytes: Mg 2-2.3 (sned home on Mg oxide 400 mg bid), K 4-4.5, PO4 2.5-3.5. Continue lisinopril 2.5 mg daily and Aldactone 12.5 mg daily. Code(s): Z45.02 - ENCNTR FOR ADJUST AND MGMT OF AUTOMATIC IMPLNTBL CARD DEFIB (4) Hypomagnesemia Assessment/Plan: on Mg PO at home; f/u all electrolytes. Keep Mg 2-2.3 (continue maxiumum oral dose of Mg oxide, which pharmacist reports is 400 bid), K+ 4-4.5, and PO4 2.5-3.5. Code(s): E83.42 - HYPOMAGNESEMIA (5) Elevated troponin I level Assessment/Plan: mild elevation TNI post 6 ICD shocks; CK WNL. Code(s): R74.8 - ABNORMAL LEVELS OF OTHER SERUM ENZYMES
--- NOTE | 2018-02-23 10:39 | DS ---
Physical Examination Vital Signs: Vital Signs Temperature 98.2 F 02/22/18 21:37 Pulse Rate 94 H 02/22/18 21:37 Respiratory Rate 20 02/22/18 21:37 Blood Pressure 101/58 02/22/18 21:37 O2 Sat by Pulse Oximetry (%) 96 02/22/18 21:00 Labs: CBC, BMP 02/22/18 06:30 02/22/18 06:30 Discharge Summary Reason For Visit: PALPITATIONS Current Active Problems Atrial fibrillation with RVR (Acute) Elevated troponin I level (Acute) Hypomagnesemia (Acute) Condition: Fair - Instructions Referrals: Alfred Duarte MD [Primary Care Provider] - - Home Medications Comprehensive Discharge Medication List: Ambulatory Orders Escitalopram Oxalate [Lexapro -] 10 mg PO DAILY 12/30/17 Magnesium 250 mg PO BID 12/30/17 Rivaroxaban [Xarelto -] 10 mg PO DAILY 12/30/17 Linaclotide [Linzess] 72 mcg PO DAILY 02/11/18 Omeprazole 20 mg PO DAILY 02/11/18 Furosemide [Lasix -] 40 mg PO DAILY #30 tablet 02/18/18 Lisinopril [Prinivil] 2.5 mg PO DAILY #30 tablet 02/18/18 Metoprolol Succinate [Toprol XL -] 50 mg PO BID tab.sr.24h 02/18/18 Polyethylene Glycol 3350 [Miralax 119 gm Btl -] 17 gm PO DAILY bottle 02/18/18 Spironolactone [Aldactone -] 12.5 mg PO DAILY 30 Days #30 tablet 02/18/18
[2018-02-23 11:07] VITALS: BP 100/64; PULSE 84; TEMP 98.5
--- NOTE | 2018-02-25 21:53 | EKG ---
Test Reason : Blood Pressure : / mmHG Vent. Rate : 083 BPM Atrial Rate : 500 BPM P-R Int : 000 ms QRS Dur : 072 ms QT Int : 358 ms P-R-T Axes : 000 -25 155 degrees QTc Int : 420 ms ATRIAL FIBRILLATION SEPTAL INFARCT (CITED ON OR BEFORE 27-MAR-2017) ABNORMAL ECG WHEN COMPARED WITH ECG OF 21-FEB-2018 10:28, VENT. RATE HAS DECREASED BY 53 BPM Confirmed by ALEXI MAO, FRANKI ([id number]) on 02/25/2018 9:53:11 PM Referred By: Jayden RICO Confirmed By:FRANKI TRUONG MD
== END 2018-02-23 14:43 | disposition home or self-care (01) | DRG 308 ==
LOC: JER 10:09 → JERBED 12:28 → J4S 02-22 00:13
PROVIDERS: ADMIT Internal Medicine; ATTEND Internal Medicine
DX: I48.91 Unspecified atrial fibrillation (principal); I50.23 Acute on chronic systolic (congestive) heart failure; I10 Essential (primary) hypertension; E78.5 Hyperlipidemia, unspecified; I25.2 Old myocardial infarction; I11.0 Hypertensive heart disease with heart failure; F41.8 Other specified anxiety disorders; I34.0 Nonrheumatic mitral (valve) insufficiency; R74.8 Abnormal levels of other serum enzymes; I49.9 Cardiac arrhythmia, unspecified; K80.80 Other cholelithiasis without obstruction; E83.42 Hypomagnesemia; Z95.810 Presence of automatic (implantable) cardiac defibrillator; Z86.73 Personal history of transient ischemic attack (TIA), and cerebral infarction without residual deficits; Z45.02 Encounter for adjustment and management of automatic implantable cardiac defibrillator
CPT/HCPCS: 36415; 71045-TC-FY; 80053; 82550; 83735; 84100; 84443; 84484; 85025; 93005; 93010; 99285-25

== ENCOUNTER 2018-07-22 12:54 | Emergency (ER) | payer OTHER ==
[2018-07-22 13:05] VITALS: TEMP 96.4; BMI 31.4
--- NOTE | 2018-07-22 13:42 | PDOC ---
History of Present Illness - General Chief Complaint: Irregular Heart Beat Stated Complaint: CHEST PAIN Time Seen by Provider: 07/22/18 13:42 - History of Present Illness Initial Comments: 07/22/18 14:07 Ms. Rider is an 83 yo female w/ pmh of IN (s/p stents and debrillator placement ), afib (on xarelto), chf, htn, CVA (2009) HTN, and HLD, sent [facility] pcp office for rapid heart rate in the 140's. Patient admits to now-resolved dyspnea on exertion and palpitations while walking since this morning. . Past History - Past Medical History Allergies/Adverse Reactions: Allergies Allergy/AdvReac Type Severity Reaction Status Date / Time No Known Allergies Allergy Verified 07/22/18 13:05 Home Medications: Ambulatory Orders Escitalopram Oxalate [Lexapro -] 10 mg PO DAILY 12/30/17 Magnesium 250 mg PO BID 12/30/17 Rivaroxaban [Xarelto -] 10 mg PO DAILY 12/30/17 Linaclotide [Linzess] 72 mcg PO DAILY 02/11/18 Omeprazole 20 mg PO DAILY 02/11/18 Lisinopril [Prinivil] 2.5 mg PO DAILY #30 tablet 02/18/18 Polyethylene Glycol 3350 [Miralax 119 gm Btl -] 17 gm PO DAILY bottle 02/18/18 Dexlansoprazole [Dexilant] 60 mg PO DAILY 05/09/18 Magnesium Oxide 400 mg PO DAILY 05/09/18 Spironolactone [Aldactone -] 25 mg PO DAILY 05/09/18 Aspirin [ASA -] 81 mg PO DAILY tab.chew 05/13/18 Digoxin [Lanoxin -] 0.125 mg PO DAILY 30 Days #30 tablet 05/13/18 Furosemide [Lasix -] 40 mg PO DAILY #30 tablet 05/13/18 Metoprolol Succinate [Toprol XL -] 25 mg PO DAILY #0 tab.sr.24h 05/13/18 Anemia: No Asthma: No Cancer: No Cardiac Disorders: Yes (mi 12/11 stents, defibrillator) CVA: Yes (2011) COPD: No CHF: No Dementia: No Diabetes: No GI Disorders: No Disorders: No HTN: Yes Hypercholesterolemia: Yes Liver Disease: No Seizures: No Thyroid Disease: No - Surgical History Abdominal Surgery: No Appendectomy: No Cardiac Surgery: Yes (defibrillator) Cholecystectomy: No Lung Surgery: No Neurologic Surgery: No Orthopedic Surgery: No - Immunization History Immunization Up to Date: Yes - Suicide/Smoking/Psychosocial Hx Smoking Status: No Smoking History: Never smoked Have you smoked in the past 12 months: No Number of Cigarettes Smoked Daily: 0 Hx Alcohol Use: No Drug/Substance Use Hx: No Substance Use Type: None Hx Substance Use Treatment: No Cardiac Specific PMH - Complaint Specific PMHX Pacemaker: Yes Review of Systems - Review of Systems Able to Perform ROS?: Yes Is the patient limited Cameroonian proficient: No Constitutional: No: Symptoms Reported HEENTM: No: Symptoms Reported Respiratory: No: Symptoms reported Cardiac (ROS): Yes: Irregular Heart Rate, Palpitations ABD/GI: No: Symptoms Reported : No: Symptoms Reported Musculoskeletal: No: Symptoms Reported Integumentary: No: Symptoms Reported Neurological: No: Symptoms reported All Other Systems: Reviewed and Negative *Physical Exam - Vital Signs Last Vital Signs Temp Pulse Resp BP Pulse Ox 96.4 F L 115 H 16 110/62 99 07/22/18 13:01 07/22/18 19:30 07/22/18 19:30 07/22/18 19:30 07/22/18 19:30 - Physical Exam General Appearance: Yes: Nourished, Appropriately Dressed. No: Apparent Distress HEENT: positive: EOMI, FELIX, Normal ENT Inspection Neck: positive: Trachea midline, Normal Thyroid, Supple. negative: Tender Respiratory/Chest: positive: Lungs Clear, Normal Breath Sounds. negative: Chest Tender, Respiratory Distress Cardiovascular: positive: Tachycardia, Irregularly Irregular Gastrointestinal/Abdominal: positive: Normal Bowel Sounds, Flat, Soft. negative : Tender Neurologic: positive: Fully Oriented, Alert, Normal Mood/Affect, Normal Response , Motor Strength 5/5 ED Treatment Course - LABORATORY CBC & Chemistry Diagram: 07/22/18 15:00 07/22/18 15:00 - ADDITIONAL ORDERS Additional order review: Laboratory Results 07/22/18 07/22/18 07/22/18 15:00 15:00 15:00 PT with INR 13.10 H INR 1.11 H PTT (Actin FS) 25.5 Sodium 143 Potassium 4.4 Chloride 106 Carbon Dioxide 28 Anion Gap 9 BUN 24 H Creatinine 0.8 Creat Clearance w eGFR > 60 Random Glucose 86 Calcium 8.9 Total Bilirubin 0.6 AST 36 ALT 31 Alkaline Phosphatase 129 H Troponin I < 0.01 Total Protein 6.7 Albumin 3.6 Digoxin 0.13 L 07/22/18 15:00 RBC 4.95 MCV 78.3 L MCHC 32.3 RDW 19.3 H MPV 9.1 Neutrophils % 56.0 Lymphocytes % 35.1 D Monocytes % 7.6 Eosinophils % 0.8 D Basophils % 0.5 - RADIOLOGY Radiology Studies Ordered: Category Date Time Status CXRPORT [CHEST X-RAY PORTABLE*] [RAD] Stat Radiology 07/22/18 14:12 Completed - Medications Given in the ED: ED Medications Discontinued Medications Generic Name Dose Route Start Last Admin Trade Name Freq PRN Reason Stop Dose Admin Digoxin 0.125 mg 07/22/18 19:15 07/22/18 19:32 Lanoxin - PO 07/22/18 19:16 0.125 mg ONCE ONE Administration Metoprolol Tartrate 5 mg 07/22/18 14:57 07/22/18 15:15 Lopressor Injection - IVPUSH 07/22/18 14:58 5 mg ONCE ONE Administration Metoprolol Tartrate 10 mg 07/22/18 19:13 07/22/18 19:55 Lopressor Injection - IVPUSH 07/22/18 19:14 Not Given ONCE ONE Metoprolol Tartrate 5 mg 07/22/18 19:22 07/22/18 19:32 Lopressor Injection - IVPUSH 07/22/18 19:23 5 mg ONCE ONE Administration Medical Decision Making - Medical Decision Making 07/22/18 16:34 Patient with recurrent rapid afib. Pt asymptomatic with tachycardia c/w afib on EKG. Will treat with IV metoprolol , . No longer on digoxin as per Dr. Duarte. Will repeat labs after metoprolol. . If she improves, will DC home. None of the lasbs are back at this time. Calling lab twice to figure out as nurse sent everything 2 hours ago. 07/22/18 20:56 All labs wnl. Gave patient metoprolol IV 5mg x2 and digoxin. HR now 98. 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 Follow up with your flying squad worker within the next 3 days. Print Language: PASHTO - Post Discharge Activity
--- NOTE | 2018-07-22 14:23 | PDOC ---
Attending Attestation - HPI HPI: 07/22/18 14:29 83 y/o F with a significant past medical history of NC (s/p stents, defibrillator placement), afib (on xarelto), CHF, CVA (2010) HTN, and HLD who presents for evaluation of HANKS and palpitations for [address] Duarte for afib. <Negin Poe - Last Filed: 07/22/18 14:34> - Resident Resident Name: Lester Warner - ED Attending Attestation I have performed the following: I have examined & evaluated the patient, The case was reviewed & discussed with the resident, I agree w/resident's findings & plan, Exceptions are as noted - Physicial Exam PE: GENERAL: Awake, alert, and fully oriented, in no acute distress HEAD: No signs of trauma EYES: PERRLA, EOMI, sclera anicteric, conjunctiva clear ENT: Auricles normal inspection, hearing grossly normal, nares patent, oropharynx clear without exudates. Moist mucosa NECK: Normal ROM, supple, no lymphadenopathy, JVD, or masses LUNGS: Breath sounds equal, clear to auscultation bilaterally. No wheezes, and no crackles HEART: Irregularly irregular. ABDOMEN: Soft, nontender, normoactive bowel sounds. No guarding, no rebound. No masses EXTREMITIES: Normal range of motion, no edema. No clubbing or cyanosis. No cords, erythema, or tenderness NEUROLOGICAL: Cranial nerves II through XII grossly intact. Normal speech, normal gait SKIN: Warm, Dry, normal turgor, no rashes or lesions noted. - Medical Decision Making Pt asymptomatic with tachycardia c/w afib on EKG. Will treat with IV medication. No longer on digoxin as per Dr. Duarte. Will give metoprolol and cont to monitor. If she improves, will DC home. <Renee Waddell - Last Filed: 07/22/18 15:45> Attestations - Attestations Documentation prepared by Negin Poe, acting as medical instructor for Renee Waddell MD. <Negin Poe - Last Filed: 07/22/18 14:34>
[2018-07-22] MEDS ORDERED: METOPROLOL TARTRATE 5 MG/5 ML VIAL IVPUSH ONE ×3 (14:57→19:22)
[2018-07-22] MEDS ORDERED: METOPROLOL TARTRATE 5 MG/5 ML VIAL ONE ×2 (14:59→19:32)
[2018-07-22 17:37] LABS: BASO % 0.5 % (0-2.0); EOS % 0.8 % (0-4.5); HEMATOCRIT 38.8 % (32.4-45.2); HEMOGLOBIN 12.5 GM/dL (10.7-15.3); LYMPH % 35.1 % (8-40); MCH 25.3 pg (25.7-33.7); MCHC 32.3 g/dl (32.0-36.0); MEAN CELL VOLUME 78.3 fl (80-96); MEAN PLT VOLUME 9.1 fl (7.5-11.1); MONO % 7.6 % (3.8-10.2); PLATELET COUNT 243 K/MM3 (134-434); RBC 4.95 M/mm3 (3.60-5.2); RDW 19.3 % (11.6-15.6); WHITE BLOOD COUNT 6.9 K/mm3 (4.0-10.0)
[2018-07-22 18:14] LABS: INR 1.11 (0.83-1.09); PROTHROMBIN TIME (PATIENT) 13.1 SEC (9.7-13.0)
[2018-07-22 18:17] LABS: ACTIVATED PTT 25.5 SECONDS (25.2-36.5)
--- NOTE | 2018-07-22 18:21 | EKG ---
Test Reason : Blood Pressure : / mmHG Vent. Rate : 119 BPM Atrial Rate : 078 BPM P-R Int : 000 ms QRS Dur : 070 ms QT Int : 332 ms P-R-T Axes : 000 -31 132 degrees QTc Int : 467 ms ATRIAL FIBRILLATION WITH RAPID VENTRICULAR RESPONSE WITH PREMATURE VENTRICULAR OR ABERRANTLY CONDUCTED COMPLEXES LEFT AXIS DEVIATION MINIMAL VOLTAGE CRITERIA FOR LVH, MAY BE NORMAL VARIANT SEPTAL INFARCT (CITED ON OR BEFORE 27-MAR-2017) ABNORMAL ECG WHEN COMPARED WITH ECG OF 09-MAY-2018 16:43, NO SIGNIFICANT CHANGE WAS FOUND Confirmed by FRANKI TRUONG MD ([id number]) on 07/22/2018 6:20:56 PM Referred By: Confirmed By:FRANKI TRUONG MD
[2018-07-22 18:23] LABS: ALBUMIN 3.6 g/dl (3.4-5.0); ALK PHOS 129 U/L (45-117); ANION GAP 9 MMOL/L (8-16); BILIRUBIN,TOTAL 0.6 mg/dL (0.2-1); BLOOD UREA NITROGEN 24 mg/dL (7-18); CALCIUM 8.9 mg/dL (8.5-10.1); CHLORIDE 106 mmol/L (98-107); CO2 28 mmol/L (21-32); CREATININE 0.8 mg/dL (0.55-1.3); GLUCOSE,RANDOM 86 mg/dL (74-106); POTASSIUM 4.4 mmol/L (3.5-5.1); SGOT/AST 36 U/L (15-37); SGPT/ALT 31 U/L (13-61); SODIUM 143 mmol/L (136-145); TOT PROT 6.7 g/dl (6.4-8.2)
[2018-07-22] MEDS ORDERED: DIGOXIN 0.125 MG TABLET (FP) PO ONE (19:15)
--- NOTE | 2018-07-22 19:27 | CON.CARD ---
Consult - History of Present Illness History of Present Illness: 83 y/o F with a significant past medical history of PR (s/p stents, defibrillator placement), afib (on xarelto), CHF, CVA (2009) HTN, and HLD who presents for evaluation of HANKS and palpitations for [address] Duarte for afib. - Past Medical History Cardio/Vascular: Yes: AFIB (AICD), CAD (s/p LAD JACE stent 02/10), CHF (severe hypokinesis), HTN, Hyperlipdemia, PR (02/10), Mitral Insufficiency Hepatobiliary: Yes: Cholelithiasis Psych: Yes: Anxiety, Depression, Panic - Past Surgical History Past Surgical History: Yes: AICD, Colonoscopy, Stent, Upper Endoscopy - Alcohol/Substance Use Hx Alcohol Use: No - Smoking History Smoking history: Never smoked Have you smoked in the past 12 months: No Aproximately how many cigarettes per day: 0 - Social History Usual Living Arrangement: Alone ADL: Independent History of Recent Travel: No Home Medications - Allergies Allergies/Adverse Reactions: Allergies Allergy/AdvReac Type Severity Reaction Status Date / Time No Known Allergies Allergy Verified 07/22/18 13:05 - Home Medications Home Medications: Ambulatory Orders Escitalopram Oxalate [Lexapro -] 10 mg PO DAILY 12/30/17 Magnesium 250 mg PO BID 12/30/17 Rivaroxaban [Xarelto -] 10 mg PO DAILY 12/30/17 Linaclotide [Linzess] 72 mcg PO DAILY 02/11/18 Omeprazole 20 mg PO DAILY 02/11/18 Lisinopril [Prinivil] 2.5 mg PO DAILY #30 tablet 02/18/18 Polyethylene Glycol 3350 [Miralax 119 gm Btl -] 17 gm PO DAILY bottle 02/18/18 Dexlansoprazole [Dexilant] 60 mg PO DAILY 05/09/18 Magnesium Oxide 400 mg PO DAILY 05/09/18 Spironolactone [Aldactone -] 25 mg PO DAILY 05/09/18 Aspirin [ASA -] 81 mg PO DAILY tab.chew 05/13/18 Digoxin [Lanoxin -] 0.125 mg PO DAILY 30 Days #30 tablet 05/13/18 Furosemide [Lasix -] 40 mg PO DAILY #30 tablet 05/13/18 Metoprolol Succinate [Toprol XL -] 25 mg PO DAILY #0 tab.sr.24h 05/13/18 Vital Signs: Vital Signs Temperature 96.4 F L 07/22/18 13:01 Pulse Rate 117 H 07/22/18 13:01 Respiratory Rate 18 07/22/18 13:01 Blood Pressure 111/92 07/22/18 15:15 O2 Sat by Pulse Oximetry (%) 98 07/22/18 13:01 - Other Data Labs, Other Data: CBC, BMP 07/22/18 15:00 07/22/18 15:00 INR, PTT INR 1.11 (0.83-1.09) H 07/22/18 15:00 Troponin, BNP 07/22/18 15:00 Troponin I < 0.01 Troponin, BNP 07/22/18 15:00 Troponin I < 0.01
[2018-07-22] MEDS ORDERED: DIGOXIN 0.125 MG TABLET (FP) ONE (19:32)
[2018-07-22 20:56] VITALS: BP 112/68; PULSE 98
== END 2018-07-22 20:56 | disposition home or self-care (01) ==
LOC: JER 12:54
PROC: 3E033GC Introduction of Other Therapeutic Substance into Peripheral Vein, Percutaneous Approach (ICD-10-PCS; principal; 2018-07-22)
DX: I48.91 Unspecified atrial fibrillation (principal); Z79.01 Long term (current) use of anticoagulants; I25.10 Atherosclerotic heart disease of native coronary artery without angina pectoris; I11.0 Hypertensive heart disease with heart failure; Z95.5 Presence of coronary angioplasty implant and graft; I25.2 Old myocardial infarction; Z95.810 Presence of automatic (implantable) cardiac defibrillator; E78.00 Pure hypercholesterolemia, unspecified; E78.5 Hyperlipidemia, unspecified; Z86.73 Personal history of transient ischemic attack (TIA), and cerebral infarction without residual deficits
CPT/HCPCS: 36415; 71045-TC-FY; 80053; 80162; 84484; 85025; 85610; 85730; 93005; 93010; 96374; 96376; 99284-25

== ENCOUNTER 2018-08-05 11:09 | Inpatient (IN) | payer OTHER ==
[2018-08-05] MEDS ORDERED: dilTIAZem HCL 50 MG/10 ML - 10 ML VIAL IVPUSH ONE (11:55)
[2018-08-05] MEDS ORDERED: FUROSEMIDE 40 MG/4 ML INJECTABLE VIAL IVPUSH ONE (11:55)
[2018-08-05 12:12] LABS: BASO % 0.8 % (0-2.0); EOS % 0.6 % (0-4.5); HEMATOCRIT 35.7 % (32.4-45.2); HEMOGLOBIN 11.8 GM/dL (10.7-15.3); LYMPH % 24.5 % (8-40); MCH 25.5 pg (25.7-33.7); MCHC 32.9 g/dl (32.0-36.0); MEAN CELL VOLUME 77.3 fl (80-96); MEAN PLT VOLUME 8.5 fl (7.5-11.1); MONO % 7.8 % (3.8-10.2); NEUT % 66.3 % (42.8-82.8); PLATELET COUNT 244 K/MM3 (134-434); RBC 4.61 M/mm3 (3.60-5.2); RDW 18.7 % (11.6-15.6); WHITE BLOOD COUNT 6.3 K/mm3 (4.0-10.0)
[2018-08-05] MEDS ORDERED: dilTIAZem HCL 125 MG/25 ML - 25 ML VIAL ONE ×2 (12:28→12:57)
[2018-08-05] MEDS ORDERED: FUROSEMIDE 40 MG/4 ML INJECTABLE VIAL ONE (12:28)
--- NOTE | 2018-08-05 12:38 | PDOC ---
Attending Attestation - HPI HPI: 08/05/18 12:43 CC: SOB, Irregular heart beat. HPI: The patient is a 83 year old female, with a significant past medical history of GA (s/p stents, defibrillator placement), afib (on xarelto), CHF, CVA (2010) HTN , and HLD, who presents to the emergency department with, shortness of breath, irregular heartbeat, and elevated blood pressure. Allergies: NKDA Social history: None reported. Surgical history: AICD, Permanent Pacemaker, Stent PCP: Alfred Peacock. - Physicial Exam PE: 08/05/18 12:43 Exam: Vitals: Triage Vital signs reviewed General Appearance: no acute distress, well nourished well developed, Head: Atraumatic, normocephalic Neck: Supple;No Nuchal rigidity Chest Wall: Nontender Cardiac: Irregularly irregular. Lungs: Clear to auscultation bilateral, good air movement bilaterally, Abdomen: Soft, nondistended, normal bowel sounds, nontender to palpation Rectal: Exam deferred Extremities: 2+ pitting edema to the bilateral lower extremities Neuro: AOX3; Cranial Nerves 2-12 grossly intact, Strength intact to all extremities, Sensation intact to all extremities Psych: normal mood, normal affect <Jessica Neal - Last Filed: 08/05/18 12:43> - Resident Resident Name: Kwame Chaparro - ED Attending Attestation I have performed the following: I have examined & evaluated the patient, The case was reviewed & discussed with the resident, I agree w/resident's findings & plan, Exceptions are as noted - Critical Care Time Total Critical Care Time: 65 Critical Care Statement: The care of this patient involved high complexity decision making to prevent further life threatening deterioration of the patient 's condition and/or to evaluate & treat vital organ system(s) failure or risk of failure. - Medical Decision Making 08/05/18 16:32 Presented with urinary retention A. fib with RVR Lasix given for volume overload dyspnea and CHF exacerbation Patient given IV diltiazem and placed on IV diltiazem drip at 5 g Patient hemodynamically stable still in A. fib with RVR diltiazem drip increased to 10 g Reevaluation 3:30 PM patient's heart rate down between 80 and 90 still in A. fib but rate controlled patient's blood pressure is between 105 systolic and 1: 15 systolic Patient feels comfortable much better dyspnea is improving Good urinary output. Patient stable for telemetry admission Cardiology has been consult in. We'll admit to medicine for further management. <Dimitri Saldivar - Last Filed: 08/05/18 16:33> Attestations - Attestations 08/05/18 12:43 Documentation prepared by Jessica Neal, acting as medical biller/coder for Dimitri Saldivar MD. <Jessica Neal - Last Filed: 08/05/18 12:43>
[2018-08-05 12:39] LABS: INR 1.44 (0.83-1.09); PROTHROMBIN TIME (PATIENT) 17.1 SEC (9.7-13.0)
[2018-08-05 12:42] LABS: ACTIVATED PTT 27.3 SECONDS (25.2-36.5)
--- NOTE | 2018-08-05 12:42 | PDOC ---
History of Present Illness - General Chief Complaint: Irregular Heart Beat Stated Complaint: BLOOD PRESSURE PROBLEM Time Seen by Provider: 08/05/18 11:36 History Source: Patient Exam Limitations: No Limitations - History of Present Illness Initial Comments: 08/05/18 12:31 83 yo F with a hx of afib (on xarelto), CHF (on lasix), HI (s/p stents, defibrillator placement), CVA, HLD, and HTN presents to the emergency department with SOB and anuria for 1 day. Per the patient, she states that she intermittently takes lasix for LE edema bilaterally. She states her legs have been swelling lately and has increased abdominal girth. She denies the following : chest pain, nausea, vomiting, diaphoresis, dysuria, hematuria, and diarrhea. Past History - Past Medical History Allergies/Adverse Reactions: Allergies Allergy/AdvReac Type Severity Reaction Status Date / Time No Known Allergies Allergy Verified 08/05/18 12:06 Home Medications: Ambulatory Orders Magnesium 250 mg PO BID 12/30/17 Rivaroxaban [Xarelto -] 10 mg PO DAILY 12/30/17 Dexlansoprazole [Dexilant] 60 mg PO DAILY 05/09/18 Spironolactone [Aldactone -] 25 mg PO DAILY 05/09/18 Digoxin [Lanoxin -] 0.125 mg PO DAILY 30 Days #30 tablet 05/13/18 Metoprolol Succinate [Toprol XL -] 25 mg PO DAILY #0 tab.sr.24h 05/13/18 Atorvastatin Calcium [Lipitor] mg PO HS 08/05/18 Cholecalciferol (Vitamin D3) [Vitamin D3] 1,000 unit PO DAILY 08/05/18 Anemia: No Asthma: No Cancer: No Cardiac Disorders: Yes (mi 4/10 stents, defibrillator) CVA: Yes (2011) COPD: No CHF: No Dementia: No Diabetes: No GI Disorders: No Disorders: No HTN: Yes Hypercholesterolemia: Yes Liver Disease: No Seizures: No Thyroid Disease: No - Surgical History Abdominal Surgery: No Appendectomy: No Cardiac Surgery: Yes (defibrillator) Cholecystectomy: No Lung Surgery: No Neurologic Surgery: No Orthopedic Surgery: No - Immunization History Immunization Up to Date: Yes - Suicide/Smoking/Psychosocial Hx Smoking Status: No Smoking History: Unknown if ever smoked Have you smoked in the past 12 months: No Number of Cigarettes Smoked Daily: 0 Hx Alcohol Use: No Drug/Substance Use Hx: No Substance Use Type: None Hx Substance Use Treatment: No Review of Systems - Review of Systems Able to Perform ROS?: Yes Constitutional: Yes: Weakness. No: Chills, Diaphoresis, Fever HEENTM: No: Recent change in vision, Ear Pain, Nose Pain, Throat Pain, Mouth Pain Respiratory: Yes: Shortness of Breath, SOB at Rest. No: Cough, Hemoptysis Cardiac (ROS): Yes: Palpitations. No: Chest Pain, Lightheadedness, Syncope, Chest Tightness ABD/GI: No: Constipated, Diarrhea, Nausea, Rectal Bleeding, Vomiting, Tarry Stools : No: Burning, Dysuria, Hematuria Musculoskeletal: No: Back Pain Integumentary: No: Rash Neurological: No: Headache Psychiatric: No: Stressors Endocrine: No: Unexplained Weight Gain *Physical Exam - Vital Signs Last Vital Signs Temp Pulse Resp BP Pulse Ox 98.1 F 148 H 28 H 124/68 95 08/05/18 11:15 08/05/18 11:15 08/05/18 11:15 08/05/18 11:15 08/05/18 12:13 - Physical Exam General Appearance: Yes: Nourished, Appropriately Dressed, Obese. No: Alcohol on Breath, Intoxicated HEENT: positive: EOMI, FELIX, Normal Voice, Symmetrical. negative: Pale Conjunctivae, Scleral Icterus (R), Scleral Icterus (L) Neck: positive: Trachea midline. negative: Tender, Lymphadenopathy (R), Lymphadenopathy (L), Tender lateral, Tender midline Respiratory/Chest: positive: Decreased Breath Sounds. negative: Chest Tender, Lungs Clear, Respiratory Distress, Accessory Muscle Use Cardiovascular: positive: S1, S2, Tachycardia, Irregularly Irregular Gastrointestinal/Abdominal: positive: Normal Bowel Sounds, Flat, Soft. negative : Tender, Distended Lymphatic: negative: Adenopathy Musculoskeletal: positive: Normal Inspection. negative: CVA Tenderness, Vertebral Tenderness Extremity: positive: Normal Range of Motion, Pedal Edema, Swelling. negative: Calf Tenderness, Erythema Integumentary: positive: Normal Color, Dry, Warm, Swelling (swelling in the LE bilaterally). negative: Rash Neurologic: positive: health care law specialist II-XII NML intact, Fully Oriented, Alert, Normal Mood/ Affect, Normal Response, Motor Strength 5/5 Moderate Sedation - Procedure Monitoring Vital Signs: Procedure Monitoring Vital Signs Temperature 98.1 F 08/05/18 11:15 Pulse Rate 148 H 08/05/18 11:15 Respiratory Rate 28 H 08/05/18 11:15 Blood Pressure 124/68 08/05/18 11:15 O2 Sat by Pulse Oximetry (%) 95 08/05/18 12:13 Heart Score/ECG Review - ECG Intrepretation Comment:: 08/05/18 18:49 ventricular rate 133 bpm with QRS is 70 ms. QTC is 458 ms. Atrial fib with rvr and no ST elevations and depressions. ED Treatment Course - LABORATORY CBC & Chemistry Diagram: 08/05/18 12:00 08/05/18 12:00 - ADDITIONAL ORDERS Additional order review: 08/05/18 12:00 RBC 4.61 MCV 77.3 L MCHC 32.9 RDW 18.7 H MPV 8.5 Neutrophils % 66.3 Lymphocytes % 24.5 D Monocytes % 7.8 Eosinophils % 0.6 Basophils % 0.8 - RADIOLOGY Radiology Studies Ordered: Category Date Time Status CHEST X-RAY PORTABLE* [RAD] Stat Radiology 08/05/18 11:38 Ordered Medical Decision Making - Medical Decision Making 08/05/18 17:17 83 yo F with a hx of afib (on xarelto), CHF (on lasix), HI (s/p stents, defibrillator placement), CVA, HLD, and HTN presents to the emergency department with SOB and anuria for 1 day. Initial vitals: Initial Vital Signs Temp Pulse Resp BP Pulse Ox 98.1 F 148 H 28 H 124/68 95 08/05/18 11:15 08/05/18 11:15 08/05/18 11:15 08/05/18 11:15 08/05/18 11:15 work up: ddx: chf exacerbation vs dysrhythmia (afib with rvr given tachycardia and EKG) vs ACS (high HEART score given risk factors, age, presentation) vs PNA vs URI patient has worsening LE edema bilaterally in setting of intermittent use of lasix with worsening SOB with orthopnea likely due to CHF exacerbation but will rule out ACS. concurrently, ekg shows afib with rvr that could exacerbate underlying chf given pt has borderline hypotension orders: bnp, trops, cbc, cmp, tsh/free t4, cxr, ua/urine culture. treatment: lasix 40 mg and initially diltiazem 10 mg push Laboratory Tests 08/05/18 08/05/18 08/05/18 12:00 12:00 12:00 WBC 6.3 RBC 4.61 Hgb 11.8 Hct 35.7 MCV 77.3 L MCH 25.5 L MCHC 32.9 RDW 18.7 H Plt Count 244 MPV 8.5 Absolute Neuts (auto) 4.2 Neutrophils % 66.3 Lymphocytes % 24.5 D Monocytes % 7.8 Eosinophils % 0.6 Basophils % 0.8 Nucleated RBC % 0 PT with INR 17.10 H INR 1.44 H PTT (Actin FS) 27.3 Sodium 143 Potassium 4.4 Chloride 109 H Carbon Dioxide 26 Anion Gap 8 BUN 22 H Creatinine 0.8 Creat Clearance w eGFR > 60 Random Glucose 96 Calcium 8.6 Total Bilirubin 0.8 AST 42 H ALT 41 Alkaline Phosphatase 167 H Creatine Kinase 50 Troponin I < 0.02 B-Natriuretic Peptide 2895.3 H Total Protein 5.9 L Albumin 3.3 L TSH 1.68 Free T4 1.84 H Urine Color Urine Appearance Urine pH Ur Specific [place] Urine Protein Urine Glucose (UA) Urine Ketones Urine Blood Urine Nitrite Urine Bilirubin Urine Urobilinogen Ur Leukocyte Esterase Blood Type Antibody Screen 08/05/18 08/05/18 12:00 13:23 WBC RBC Hgb Hct MCV MCH MCHC RDW Plt Count MPV Absolute Neuts (auto) Neutrophils % Lymphocytes % Monocytes % Eosinophils % Basophils % Nucleated RBC % PT with INR INR PTT (Actin FS) Sodium Potassium Chloride Carbon Dioxide Anion Gap BUN Creatinine Creat Clearance w eGFR Random Glucose Calcium Total Bilirubin AST ALT Alkaline Phosphatase Creatine Kinase Troponin I B-Natriuretic Peptide Total Protein Albumin TSH Free T4 Urine Color Colorless Urine Appearance Clear Urine pH 7.0 D Ur Specific [place] 1.005 L Urine Protein Negative Urine Glucose (UA) Negative Urine Ketones Negative Urine Blood Negative Urine Nitrite Negative Urine Bilirubin Negative Urine Urobilinogen Negative Ur Leukocyte Esterase Negative Blood Type O POSITIVE Antibody Screen Negative trop was negative and EKG shows afib with rvr. BNP was elevated and her free t4 was slightly elevated in the setting of normal tsh. the following is the bps, bpm, and medications given: initial HR: 90-110 with bp at 122/74 at 12:37 pm. received 10 mg diltiazem IV push at 12:29 pm. 111/93 with 95-115 bpm at 1:45 pm. Given a drip starting at 5mg/hr. at 2:40 pm she had 121/69 bp with bpm 101 at 2:40 pm. adjusted drip to 10 mg/hr at 2:47 pm and has had stable. Will admit for further work up in setting of CHF exacerbation with afib rvr. Dispo: Admit *DC/Admit/Observation/Transfer - Referrals - Patient Instructions - Post Discharge Activity
[2018-08-05] MEDS ORDERED: DILTIAZEM INJECTION 125 MG in SODIUM CHLORIDE 100 ML IVPB SCH (12:45)
[2018-08-05 12:47] LABS: ALBUMIN 3.3 g/dl (3.4-5.0); ALK PHOS 167 U/L (45-117); ANION GAP 8 MMOL/L (8-16); BILIRUBIN,TOTAL 0.8 mg/dL (0.2-1); BLOOD UREA NITROGEN 22 mg/dL (7-18); CALCIUM 8.6 mg/dL (8.5-10.1); CHLORIDE 109 mmol/L (98-107); CO2 26 mmol/L (21-32); CREATININE 0.8 mg/dL (0.55-1.3); GLUCOSE,RANDOM 96 mg/dL (74-106); POTASSIUM 4.4 mmol/L (3.5-5.1); SGOT/AST 42 U/L (15-37); SGPT/ALT 41 U/L (13-61); SODIUM 143 mmol/L (136-145); TOT PROT 5.9 g/dl (6.4-8.2)
[2018-08-05] MEDS ORDERED: dilTIAZem HCL 50 MG/10 ML - 10 ML VIAL ONE (12:57)
[2018-08-05 13:38] LABS: URINE APPEARANCE CLEAR; URINE BILIRUBIN NEGATIVE (<2.0 mg/dL); URINE COLOR COLORLESS; URINE GLUCOSE (UA) NEGATIVE (NEGATIVE); URINE KETONE NEGATIVE (NEGATIVE); URINE LEUK ESTERASE NEGATIVE (NEGATIVE); URINE NITRITE NEGATIVE (NEGATIVE); URINE PROTEIN NEGATIVE (NEGATIVE); URINE UROBILINOGEN NEGATIVE mg/dL (0.2-1.0)
[2018-08-05 14:34] LABS: N-TERMINAL BNP 2895.3 pg/ml (5-450)
--- NOTE | 2018-08-05 17:09 | EKG ---
Test Reason : Blood Pressure : / mmHG Vent. Rate : 133 BPM Atrial Rate : 040 BPM P-R Int : 000 ms QRS Dur : 070 ms QT Int : 308 ms P-R-T Axes : 000 -22 135 degrees QTc Int : 458 ms ATRIAL FIBRILLATION WITH RAPID VENTRICULAR RESPONSE SEPTAL INFARCT (CITED ON OR BEFORE 27-MAR-2017) ABNORMAL ECG WHEN COMPARED WITH ECG OF 22-JUL-2018 14:02, NO SIGNIFICANT CHANGE WAS FOUND Confirmed by ALEXI MAO, FRANKI ([id number]) on 08/05/2018 5:08:59 PM Referred By: Confirmed By:FRANKI TRUONG MD
--- NOTE | 2018-08-05 18:57 | CON.CARD ---
Consult Reason for Consultation:: sob - History of Present Illness History of Present Illness: The patient is a 83 year old female, with a significant past medical history of VT (s/p stents, defibrillator placement), afib (on xarelto), CHF, CVA (2009) HTN , and HLD, who presents to the emergency department with, shortness of breath, irregular heartbeat, and elevated blood pressure. PMH Proximal LAD stent (JACE) 01/10 during admission for VT s/p ICD 02/10 atrial fibrillation Congestive heart failure (systolic); s/p coronary stent and ICD depression HTN hypercholesterolemia insomnia Myocardial infarction 01/10; led to prox LAD stent; one month later, she felt a shock from the life-vest she was wearing because of severe LV dysfunction, resulting in ICD implant 02/10 obesity sedentary lifestyle - History Source History Provided By: Patient, Medical Record - Past Medical History Cardio/Vascular: Yes: AFIB (AICD), CAD (s/p LAD JACE stent 02/10), CHF (severe hypokinesis), HTN, Hyperlipdemia, VT (02/10), Mitral Insufficiency Hepatobiliary: Yes: Cholelithiasis Psych: Yes: Anxiety, Depression, Panic - Past Surgical History Past Surgical History: Yes: AICD, Colonoscopy, Stent, Upper Endoscopy - Alcohol/Substance Use Hx Alcohol Use: No - Smoking History Smoking history: Unknown if ever smoked Have you smoked in the past 12 months: No Aproximately how many cigarettes per day: 0 - Social History Usual Living Arrangement: Alone ADL: Independent History of Recent Travel: No Home Medications - Allergies Allergies/Adverse Reactions: Allergies Allergy/AdvReac Type Severity Reaction Status Date / Time No Known Allergies Allergy Verified 08/05/18 12:06 - Home Medications Home Medications: Ambulatory Orders Magnesium 250 mg PO BID 12/30/17 Rivaroxaban [Xarelto -] 10 mg PO DAILY 12/30/17 Dexlansoprazole [Dexilant] 60 mg PO DAILY 05/09/18 Spironolactone [Aldactone -] 25 mg PO DAILY 05/09/18 Digoxin [Lanoxin -] 0.125 mg PO DAILY 30 Days #30 tablet 05/13/18 Metoprolol Succinate [Toprol XL -] 25 mg PO DAILY #0 tab.sr.24h 05/13/18 Atorvastatin Calcium [Lipitor] mg PO HS 08/05/18 Cholecalciferol (Vitamin D3) [Vitamin D3] 1,000 unit PO DAILY 08/05/18 Review of Systems - Review of Systems Constitutional: reports: No Symptoms Eyes: reports: No Symptoms HENT: reports: No Symptoms Neck: reports: No Symptoms Cardiovascular: reports: No Symptoms Respiratory: reports: SOB, SOB on Exertion Gastrointestinal: reports: No Symptoms Genitourinary: reports: No Symptoms Breasts: reports: No Symptoms Reported Musculoskeletal: reports: No Symptoms Integumentary: reports: No Symptoms Neurological: reports: No Symptoms Endocrine: reports: No Symptoms Hematology/Lymphatic: reports: No Symptoms Psychiatric: reports: No Symptoms Vital Signs: Vital Signs Temperature 98.1 F 08/05/18 11:15 Pulse Rate 86 08/05/18 16:46 Respiratory Rate 18 08/05/18 16:17 Blood Pressure 106/73 08/05/18 16:46 O2 Sat by Pulse Oximetry (%) 96 08/05/18 16:17 Constitutional: Yes: Well Nourished, No Distress, Calm Eyes: Yes: WNL, Conjunctiva Clear, EOM Intact HENT: Yes: WNL, Atraumatic, Normocephalic Neck: Yes: WNL, Supple, Trachea Midline Respiratory: Yes: WNL, Regular, CTA Bilaterally Gastrointestinal: Yes: WNL, Normal Bowel Sounds Renal/: Yes: WNL Cardiovascular: Yes: Pulse Irregular Musculoskeletal: Yes: WNL Extremities: Yes: WNL Integumentary: Yes: WNL Neurological: Yes: WNL, Alert, Oriented ...Motor Strength: WNL Psychiatric: Yes: WNL, Alert, Oriented - Other Data Labs, Other Data: CBC, BMP 08/05/18 12:00 08/05/18 12:00 INR, PTT INR 1.44 (0.83-1.09) H 08/05/18 12:00 Troponin, BNP 08/05/18 12:00 Troponin I < 0.02 B-Natriuretic Peptide 2895.3 H Troponin, BNP 08/05/18 12:00 Troponin I < 0.02 B-Natriuretic Peptide 2895.3 H Imaging - Results Chest X-ray: Image Reviewed (chf) EKG: Image Reviewed (af rvr) Problem List - Problems (1) Acute on chronic systolic (congestive) heart failure Code(s): I50.23 - ACUTE ON CHRONIC SYSTOLIC (CONGESTIVE) HEART FAILURE (2) Atrial fibrillation Code(s): I48.91 - UNSPECIFIED ATRIAL FIBRILLATION (3) Atrial fibrillation with RVR Code(s): I48.91 - UNSPECIFIED ATRIAL FIBRILLATION (4) CHF (congestive heart failure) Code(s): I50.9 - HEART FAILURE, UNSPECIFIED Qualifiers: Heart failure type: unspecified Heart failure chronicity: unspecified Qualified Code(s): I50.9 - Heart failure, unspecified (5) Cardiac arrhythmia Code(s): I49.9 - CARDIAC ARRHYTHMIA, UNSPECIFIED Qualifiers: Arrhythmia type: unspecified cardiac arrhythmia Qualified Code(s): I49.9 - Cardiac arrhythmia, unspecified (6) Defibrillator discharge Code(s): Z45.02 - ENCNTR FOR ADJUST AND MGMT OF AUTOMATIC IMPLNTBL CARD DEFIB (7) Dilated bile duct Code(s): K83.8 - OTHER SPECIFIED DISEASES OF BILIARY TRACT (8) Discomfort in chest Code(s): R07.89 - OTHER CHEST PAIN (9) Elevated LFTs Code(s): R79.89 - OTHER SPECIFIED ABNORMAL FINDINGS OF BLOOD CHEMISTRY (10) Elevated troponin I level Code(s): R74.8 - ABNORMAL LEVELS OF OTHER SERUM ENZYMES (11) Gallstone Code(s): K80.20 - CALCULUS OF GALLBLADDER W/O CHOLECYSTITIS W/O OBSTRUCTION Qualifiers: Cholecystitis presence: without cholecystitis (12) HTN (hypertension) Code(s): I10 - ESSENTIAL (PRIMARY) HYPERTENSION (13) Hyperlipidemia Code(s): E78.5 - HYPERLIPIDEMIA, UNSPECIFIED (14) Hypomagnesemia Code(s): E83.42 - HYPOMAGNESEMIA (15) Intertrochanteric fracture of left hip Code(s): S72.142A - DISPLACED INTERTROCHANTERIC FRACTURE OF LEFT FEMUR, INIT Qualifiers: Encounter type: initial encounter Fracture type: closed Qualified Code(s) : S72.142A - Displaced intertrochanteric fracture of left femur, initial encounter for closed fracture (16) On amiodarone therapy Code(s): Z79.899 - OTHER CUSTODIAL (CURRENT) DRUG THERAPY (17) Palpitations Code(s): R00.2 - PALPITATIONS (18) Pneumonia Code(s): J18.9 - PNEUMONIA, UNSPECIFIED ORGANISM Qualifiers: Pneumonia type: due to unspecified organism Laterality: unspecified laterality Lung location: unspecified part of lung Qualified Code(s): J18.9 - Pneumonia, unspecified organism (19) Shortness of breath Code(s): R06.02 - SHORTNESS OF BREATH Assessment/Plan 83yo woman with AF RVR, decompensated systolic CHF exacerbation, ? likely secondary to medication noncompliance at least moderate MR, pulm htn Proximal LAD stent (JACE) 01/10 during admission for VT s/p ICD 02/10 atrial fibrillation Congestive heart failure (systolic); s/p coronary stent and ICD depression HTN hypercholesterolemia insomnia Myocardial infarction 01/10; led to prox LAD stent; one month later, she felt a shock from the life-vest she was wearing because of severe LV dysfunction, resulting in ICD implant 02/10 obesity sedentary lifestyle Plan restart meds iv lasix telemetry cont AC rate control
--- NOTE | 2018-08-06 00:43 | HP ---
CHIEF COMPLAINT: Shortness of breath, leg swelling PCP: Felicia HISTORY OF PRESENT ILLNESS: 83 year old female, with a significant past medical history of UT (s/p stents, defibrillator placement), afib (on xarelto), CHF, CVA (2009) HTN, and HLD, presented to hospital c/o leg swelling b/l, shortness of breath which has worsening since Sunday. She denied any chest pain. Pt reports that she had run out of her furosemide recently and has not been taking it. ER course was notable for: (1) CXR (2) IV furosemide administration (3) Toprolol administration Recent Travel: no PAST MEDICAL HISTORY: as above PAST SURGICAL HISTORY: hip replacement Social History: Smoking: no Alcohol: no Drugs: no Family History: Allergies No Known Allergies Allergy (Verified 08/05/18 12:06) HOME MEDICATIONS: Home Medications Medication Instructions Recorded Magnesium 250 mg PO BID 12/30/17 Rivaroxaban [Xarelto -] 10 mg PO DAILY 12/30/17 Dexlansoprazole [Dexilant] 60 mg PO DAILY 05/09/18 Spironolactone [Aldactone -] 25 mg PO DAILY 05/09/18 Digoxin [Lanoxin -] 0.125 mg PO DAILY 30 Days #30 05/13/18 tablet Metoprolol Succinate [Toprol XL -] 25 mg PO DAILY #0 tab.sr.24h 05/13/18 Atorvastatin Calcium [Lipitor] mg PO HS 08/05/18 Cholecalciferol (Vitamin D3) 1,000 unit PO DAILY 08/05/18 [Vitamin D3] REVIEW OF SYSTEMS CONSTITUTIONAL: Absent: fever, chills, diaphoresis, generalized weakness, malaise, loss of appetite, weight change HEENT: Absent: rhinorrhea, nasal congestion, throat pain, throat swelling, difficulty swallowing, mouth swelling, ear pain, eye pain, visual changes CARDIOVASCULAR: Absent: chest pain, syncope, palpitations, lightheadedness, Present- irregular heart rate, peripheral edema RESPIRATORY: Absent: cough, wheezing, stridor, hemoptysis Present: shortness of breath, dyspnea with exertion, orthopnea, GASTROINTESTINAL: Absent: abdominal pain, abdominal distension, nausea, vomiting, diarrhea, constipation, melena, hematochezia GENITOURINARY: Absent: dysuria, frequency, urgency, hesitancy, hematuria, flank pain, genital pain MUSCULOSKELETAL: Absent: myalgia, arthralgia, joint swelling, back pain, neck pain SKIN: Absent: rash, itching, pallor HEMATOLOGIC/IMMUNOLOGIC: Absent: easy bleeding, easy bruising, lymphadenopathy, frequent infections ENDOCRINE: Absent: unexplained weight gain, unexplained weight loss, heat intolerance, cold intolerance NEUROLOGIC: Absent: headache, focal weakness or paresthesias, dizziness, unsteady gait, seizure, mental status changes, bladder or bowel incontinence PSYCHIATRIC: Absent: anxiety, depression, suicidal or homicidal ideation, hallucinations. PHYSICAL EXAMINATION Vital Signs - 24 hr 08/05/18 08/05/18 08/05/18 11:15 12:13 12:35 Temperature 98.1 F Pulse Rate 148 H Pulse Rate [ 122 H Apical] Pulse Rate [ Left Radial] Respiratory 28 H 20 Rate Blood Pressure 124/68 Blood Pressure 122/91 [Left Arm] O2 Sat by Pulse 95 95 Oximetry (%) 08/05/18 08/05/18 08/05/18 13:09 14:25 14:30 Temperature Pulse Rate 121 H 116 H Pulse Rate [ 116 H Apical] Pulse Rate [ Left Radial] Respiratory 16 Rate Blood Pressure 121/83 108/64 Blood Pressure 108/74 [Left Arm] O2 Sat by Pulse 96 Oximetry (%) 08/05/18 08/05/18 08/05/18 14:41 14:47 16:17 Temperature Pulse Rate 107 H 86 Pulse Rate [ 108 H 89 Apical] Pulse Rate [ Left Radial] Respiratory 18 Rate Blood Pressure 112/57 L Blood Pressure 121/69 106/73 [Left Arm] O2 Sat by Pulse 96 Oximetry (%) 08/05/18 08/05/18 16:46 20:41 Temperature 96.2 F L Pulse Rate Pulse Rate [ 86 Apical] Pulse Rate [ 78 Left Radial] Respiratory Rate Blood Pressure Blood Pressure 106/73 99/75 [Left Arm] O2 Sat by Pulse 92 L Oximetry (%) GENERAL: Awake, alert, and fully oriented, in no acute distress. HEAD: Normal with no signs of trauma. EYES: Pupils equal, round and reactive to light, extraocular movements intact, sclera anicteric, conjunctiva clear. No lid lag. EARS, NOSE, THROAT: Ears normal, nares patent, oropharynx clear without exudates. Moist mucous membranes. NECK: Normal range of motion, supple without lymphadenopathy, JVD, or masses. LUNGS: decreased breath sounds at bases b/l HEART:irregularly irregular rhythm ABDOMEN: Soft, nontender, not distended, normoactive bowel sounds, no guarding, no rebound, no masses. No hepatomegaly or splenomegaly. MUSCULOSKELETAL: Normal range of motion at all joints. No bony deformities or tenderness. No CVA tenderness. UPPER EXTREMITIES: 2+ pulses, warm, well-perfused. No cyanosis. No clubbing. No peripheral edema. LOWER EXTREMITIES: 2+ pulses, warm, well-perfused. No calf tenderness. 1+ peripheral edema b/l NEUROLOGICAL: Cranial nerves II-XII intact. Normal speech. Normal gait. PSYCHIATRIC: Cooperative. Good eye contact. Appropriate mood and affect. SKIN: Warm, dry, normal turgor, no rashes or lesions noted, normal capillary refill. Laboratory Results - last 24 hr 08/05/18 08/05/18 08/05/18 12:00 12:00 12:00 WBC 6.3 RBC 4.61 Hgb 11.8 Hct 35.7 MCV 77.3 L MCH 25.5 L MCHC 32.9 RDW 18.7 H Plt Count 244 MPV 8.5 Absolute Neuts (auto) 4.2 Neutrophils % 66.3 Lymphocytes % 24.5 D Monocytes % 7.8 Eosinophils % 0.6 Basophils % 0.8 Nucleated RBC % 0 PT with INR 17.10 H INR 1.44 H PTT (Actin FS) 27.3 Sodium 143 Potassium 4.4 Chloride 109 H Carbon Dioxide 26 Anion Gap 8 BUN 22 H Creatinine 0.8 Creat Clearance w eGFR > 60 Random Glucose 96 Calcium 8.6 Total Bilirubin 0.8 AST 42 H ALT 41 Alkaline Phosphatase 167 H Creatine Kinase 50 Troponin I < 0.02 B-Natriuretic Peptide 2895.3 H Total Protein 5.9 L Albumin 3.3 L TSH 1.68 Free T4 1.84 H Urine Color Urine Appearance Urine pH Ur Specific [place] Urine Protein Urine Glucose (UA) Urine Ketones Urine Blood Urine Nitrite Urine Bilirubin Urine Urobilinogen Ur Leukocyte Esterase Blood Type Antibody Screen 08/05/18 08/05/18 12:00 13:23 WBC RBC Hgb Hct MCV MCH MCHC RDW Plt Count MPV Absolute Neuts (auto) Neutrophils % Lymphocytes % Monocytes % Eosinophils % Basophils % Nucleated RBC % PT with INR INR PTT (Actin FS) Sodium Potassium Chloride Carbon Dioxide Anion Gap BUN Creatinine Creat Clearance w eGFR Random Glucose Calcium Total Bilirubin AST ALT Alkaline Phosphatase Creatine Kinase Troponin I B-Natriuretic Peptide Total Protein Albumin TSH Free T4 Urine Color Colorless Urine Appearance Clear Urine pH 7.0 D Ur Specific [place] 1.005 L Urine Protein Negative Urine Glucose (UA) Negative Urine Ketones Negative Urine Blood Negative Urine Nitrite Negative Urine Bilirubin Negative Urine Urobilinogen Negative Ur Leukocyte Esterase Negative Blood Type O POSITIVE Antibody Screen Negative CXR reviewed EKG reviewed ASSESSMENT/PLAN: #84yo woman with history of CAD, currently with CHF exacerbation. Likely acute on chronic systolic heart failure. Should trend troponins to r/o ACS given history of CAD. #Afib with controlled rate #dyslipidemia -echo -check mg -admit to telemetry -furosemide 40mg IVP bid -toprolol 25mg po daily -strict i/o -daily weights -2g Na diet -cardiology f/u -trend troponins -supplemental oxygen via nasal cannula -spironolactone -c/w lipitor -xarelto for afib- also for dvt ppx -add ACEi if no contraindications Visit type - Emergency Visit Emergency Visit: Yes ED Registration Date: 08/05/18 Care time: The patient presented to the Emergency Department on the above date and was hospitalized for further evaluation of their emergent condition. - New Patient This patient is new to me today: Yes Date on this admission: 08/06/18 - Critical Care Critical Care patient: No
[2018-08-06] MEDS ORDERED: metoPROLOL SUCCINATE 25 MG TAB.SR.24H (FP) PO ONE (01:07)
[2018-08-06] MEDS: FUROSEMIDE 40 MG/4 ML INJECTABLE VIAL IVPUSH SCH ×2 (07:00→14:37)
[2018-08-06 07:45] LABS: BASO % 0.9 % (0-2.0); EOS % 1.2 % (0-4.5); HEMATOCRIT 39.7 % (32.4-45.2); HEMOGLOBIN 12.2 GM/dL (10.7-15.3); LYMPH % 33.7 % (8-40); MCH 24.3 pg (25.7-33.7); MCHC 30.6 g/dl (32.0-36.0); MEAN CELL VOLUME 79.3 fl (80-96); MEAN PLT VOLUME 8.6 fl (7.5-11.1); MONO % 8.6 % (3.8-10.2); NEUT % 55.6 % (42.8-82.8); PLATELET COUNT 197 K/MM3 (134-434); RBC 5.01 M/mm3 (3.60-5.2); RDW 19.2 % (11.6-15.6); WHITE BLOOD COUNT 8.2 K/mm3 (4.0-10.0)
[2018-08-06 08:08] LABS: ALBUMIN 3.6 g/dl (3.4-5.0); ALK PHOS 167 U/L (45-117); ANION GAP 12 MMOL/L (8-16); BILIRUBIN,TOTAL 1.1 mg/dL (0.2-1); BLOOD UREA NITROGEN 27 mg/dL (7-18); CALCIUM 8.7 mg/dL (8.5-10.1); CHLORIDE 107 mmol/L (98-107); CO2 23 mmol/L (21-32); GLUCOSE,RANDOM 154 mg/dL (74-106); MAGNESIUM 1.8 mg/dL (1.8-2.4); POTASSIUM 4.4 mmol/L (3.5-5.1); SGOT/AST 39 U/L (15-37); SGPT/ALT 40 U/L (13-61); SODIUM 142 mmol/L (136-145); TOT PROT 6.4 g/dl (6.4-8.2)
[2018-08-06] MEDS: SPIRONOLACTONE 25 MG TABLET (FP) PO SCH (09:39)
[2018-08-06] MEDS: PANTOPRAZOLE 40 MG TABLET (FP) PO SCH (09:39)
[2018-08-06] MEDS ORDERED: LISINOPRIL 5 MG TABLET (FP) PO SCH (10:00)
[2018-08-06] MEDS ORDERED: DIGOXIN 0.125 MG TABLET (FP) PO SCH (10:00)
--- NOTE | 2018-08-06 11:48 | PN ---
Progress Note (short form) - Note Progress Note: Events noted She feels well Decreased SOB no chest pain , dizziness ambulating well Vital Signs - 24 hr 08/05/18 08/05/18 08/05/18 12:13 12:35 13:09 Temperature Pulse Rate 121 H Pulse Rate [ 122 H Apical] Pulse Rate [ Left Radial] Respiratory 20 Rate Blood Pressure 121/83 Blood Pressure 122/91 [Left Arm] O2 Sat by Pulse 95 Oximetry (%) 08/05/18 08/05/18 08/05/18 14:25 14:30 14:41 Temperature Pulse Rate 116 H Pulse Rate [ 116 H 108 H Apical] Pulse Rate [ Left Radial] Respiratory 16 Rate Blood Pressure 108/64 Blood Pressure 108/74 121/69 [Left Arm] O2 Sat by Pulse 96 Oximetry (%) 08/05/18 08/05/18 08/05/18 14:47 16:17 16:46 Temperature Pulse Rate 107 H 86 Pulse Rate [ 89 86 Apical] Pulse Rate [ Left Radial] Respiratory 18 Rate Blood Pressure 112/57 L Blood Pressure 106/73 106/73 [Left Arm] O2 Sat by Pulse 96 Oximetry (%) 08/05/18 08/05/18 08/06/18 20:41 21:00 02:09 Temperature 96.2 F L 98.1 F 97.5 F L Pulse Rate 81 82 Pulse Rate [ Apical] Pulse Rate [ 78 Left Radial] Respiratory 22 H 20 Rate Blood Pressure 112/67 92/44 L Blood Pressure 99/75 [Left Arm] O2 Sat by Pulse 92 L Oximetry (%) 08/06/18 08/06/18 08/06/18 09:00 09:39 11:37 Temperature 97.9 F Pulse Rate 114 H 114 H Pulse Rate [ Apical] Pulse Rate [ Left Radial] Respiratory 20 Rate Blood Pressure 115/69 Blood Pressure [Left Arm] O2 Sat by Pulse 96 96 Oximetry (%) Vital Signs - 24 hr 08/05/18 08/05/18 08/05/18 12:13 12:35 13:09 Temperature Pulse Rate 121 H Pulse Rate [ 122 H Apical] Pulse Rate [ Left Radial] Respiratory 20 Rate Blood Pressure 121/83 Blood Pressure 122/91 [Left Arm] O2 Sat by Pulse 95 Oximetry (%) 08/05/18 08/05/18 08/05/18 14:25 14:30 14:41 Temperature Pulse Rate 116 H Pulse Rate [ 116 H 108 H Apical] Pulse Rate [ Left Radial] Respiratory 16 Rate Blood Pressure 108/64 Blood Pressure 108/74 121/69 [Left Arm] O2 Sat by Pulse 96 Oximetry (%) 08/05/18 08/05/18 08/05/18 14:47 16:17 16:46 Temperature Pulse Rate 107 H 86 Pulse Rate [ 89 86 Apical] Pulse Rate [ Left Radial] Respiratory 18 Rate Blood Pressure 112/57 L Blood Pressure 106/73 106/73 [Left Arm] O2 Sat by Pulse 96 Oximetry (%) 08/05/18 08/05/18 08/06/18 20:41 21:00 02:09 Temperature 96.2 F L 98.1 F 97.5 F L Pulse Rate 81 82 Pulse Rate [ Apical] Pulse Rate [ 78 Left Radial] Respiratory 22 H 20 Rate Blood Pressure 112/67 92/44 L Blood Pressure 99/75 [Left Arm] O2 Sat by Pulse 92 L Oximetry (%) 08/06/18 08/06/18 08/06/18 09:00 09:39 11:37 Temperature 97.9 F Pulse Rate 114 H 114 H Pulse Rate [ Apical] Pulse Rate [ Left Radial] Respiratory 20 Rate Blood Pressure 115/69 Blood Pressure [Left Arm] O2 Sat by Pulse 96 96 Oximetry (%) Current Medications Generic Name Dose Route Start Last Admin Trade Name Freq PRN Reason Stop Dose Admin Atorvastatin Calcium 10 mg 08/06/18 22:00 Lipitor - PO HS MARIA D Digoxin 0.125 mg 08/06/18 10:00 08/06/18 09:39 Lanoxin - PO 0.125 mg DAILY MARIA D Administration Furosemide 40 mg 08/06/18 06:00 08/06/18 07:00 Lasix Injection - IVPUSH 40 mg BID@0600,1400 MARIA D Administration Pantoprazole Sodium 40 mg 08/06/18 10:00 08/06/18 09:39 Protonix - PO 40 mg DAILY MARIA D Administration Rivaroxaban 10 mg 08/06/18 18:00 Xarelto - PO DAILY@1800 MARIA D Spironolactone 25 mg 08/06/18 10:00 08/06/18 09:39 Aldactone - PO 25 mg DAILY MARIA D Administration Laboratory Results - last 24 hr 08/05/18 08/05/18 08/05/18 12:00 12:00 12:00 WBC 6.3 RBC 4.61 Hgb 11.8 Hct 35.7 MCV 77.3 L MCH 25.5 L MCHC 32.9 RDW 18.7 H Plt Count 244 MPV 8.5 Absolute Neuts (auto) 4.2 Neutrophils % 66.3 Lymphocytes % 24.5 D Monocytes % 7.8 Eosinophils % 0.6 Basophils % 0.8 Nucleated RBC % 0 PT with INR 17.10 H INR 1.44 H PTT (Actin FS) 27.3 Sodium 143 Potassium 4.4 Chloride 109 H Carbon Dioxide 26 Anion Gap 8 BUN 22 H Creatinine 0.8 Creat Clearance w eGFR > 60 Random Glucose 96 Calcium 8.6 Magnesium Total Bilirubin 0.8 AST 42 H ALT 41 Alkaline Phosphatase 167 H Creatine Kinase 50 Troponin I < 0.02 B-Natriuretic Peptide 2895.3 H Total Protein 5.9 L Albumin 3.3 L TSH 1.68 Free T4 1.84 H Urine Color Urine Appearance Urine pH Ur Specific [place] Urine Protein Urine Glucose (UA) Urine Ketones Urine Blood Urine Nitrite Urine Bilirubin Urine Urobilinogen Ur Leukocyte Esterase Digoxin Blood Type Antibody Screen 08/05/18 08/05/18 08/06/18 12:00 13:23 01:30 WBC RBC Hgb Hct MCV MCH MCHC RDW Plt Count MPV Absolute Neuts (auto) Neutrophils % Lymphocytes % Monocytes % Eosinophils % Basophils % Nucleated RBC % PT with INR INR PTT (Actin FS) Sodium Potassium Chloride Carbon Dioxide Anion Gap BUN Creatinine Creat Clearance w eGFR Random Glucose Calcium Magnesium Total Bilirubin AST ALT Alkaline Phosphatase Creatine Kinase 48 Troponin I < 0.02 B-Natriuretic Peptide Total Protein Albumin TSH Free T4 Urine Color Colorless Urine Appearance Clear Urine pH 7.0 D Ur Specific [place] 1.005 L Urine Protein Negative Urine Glucose (UA) Negative Urine Ketones Negative Urine Blood Negative Urine Nitrite Negative Urine Bilirubin Negative Urine Urobilinogen Negative Ur Leukocyte Esterase Negative Digoxin Blood Type O POSITIVE Antibody Screen Negative 08/06/18 08/06/18 08/06/18 06:55 06:55 06:55 WBC 8.2 RBC 5.01 Hgb 12.2 Hct 39.7 MCV 79.3 L MCH 24.3 L MCHC 30.6 L RDW 19.2 H Plt Count 197 MPV 8.6 Absolute Neuts (auto) 4.6 Neutrophils % 55.6 Lymphocytes % 33.7 D Monocytes % 8.6 Eosinophils % 1.2 D Basophils % 0.9 Nucleated RBC % 0 PT with INR INR PTT (Actin FS) Sodium 142 Potassium 4.4 Chloride 107 Carbon Dioxide 23 Anion Gap 12 BUN 27 H Creatinine 1.0 Creat Clearance w eGFR 53.21 Random Glucose 154 H Calcium 8.7 Magnesium 1.8 Total Bilirubin 1.1 H AST 39 H ALT 40 Alkaline Phosphatase 167 H Creatine Kinase 57 Troponin I < 0.02 B-Natriuretic Peptide Total Protein 6.4 Albumin 3.6 TSH Free T4 Urine Color Urine Appearance Urine pH Ur Specific [place] Urine Protein Urine Glucose (UA) Urine Ketones Urine Blood Urine Nitrite Urine Bilirubin Urine Urobilinogen Ur Leukocyte Esterase Digoxin 0.10 L Blood Type Antibody Screen S1 S2 Irregular Lungs clear Abd- soft, NT No edema PLAN Rapid Afib CHF decompensation HTN -- Rate control-- dig levels low- may need to incraese Digoxin-- will defer to Cardiology -- continue with Xarelto -- lasix BID -- monitor renal function -- OOB
--- NOTE | 2018-08-06 11:52 | PN ---
Problem List - Problems (1) Acute on chronic systolic (congestive) heart failure Code(s): I50.23 - ACUTE ON CHRONIC SYSTOLIC (CONGESTIVE) HEART FAILURE (2) Atrial fibrillation Code(s): I48.91 - UNSPECIFIED ATRIAL FIBRILLATION (3) Atrial fibrillation with RVR Code(s): I48.91 - UNSPECIFIED ATRIAL FIBRILLATION (4) CHF (congestive heart failure) Code(s): I50.9 - HEART FAILURE, UNSPECIFIED Qualifiers: Heart failure type: unspecified Heart failure chronicity: unspecified Qualified Code(s): I50.9 - Heart failure, unspecified (5) HTN (hypertension) Code(s): I10 - ESSENTIAL (PRIMARY) HYPERTENSION
--- NOTE | 2018-08-06 14:35 | PN ---
Progress Note, Physician Chief Complaint: Pt lying in bed; A&Ox3; no palpitations, SOB, chest pain. History of Present Illness: 83 yo woman (faisal Miller), with a hx of afib (on xarelto), systolci CHF (on lasix), [place] (s/p stents, defibrillator placement), CVA, HLD, HTN, anxiety/depression, who presents to the emergency department with SOB and anuria for 1 day. Per the patient, she states that she intermittently takes lasix for LE edema bilaterally. She states her legs have been swelling lately and has increased abdominal girth. She denies the following: chest pain, nausea, vomiting, diaphoresis, dysuria, hematuria, and diarrhea. - Current Medication List Current Medications: Active Medications Atorvastatin Calcium (Lipitor -) 10 mg PO HS [facility] Digoxin (Lanoxin -) 0.125 mg PO DAILY [facility] Last Admin: 08/06/18 09:39 Dose: 0.125 mg Furosemide (Lasix Injection -) 40 mg IVPUSH BID@0600,1400 [facility] Last Admin: 08/06/18 07:00 Dose: 40 mg Pantoprazole Sodium (Protonix -) 40 mg PO DAILY [facility] Last Admin: 08/06/18 09:39 Dose: 40 mg Rivaroxaban (Xarelto -) 10 mg PO DAILY@1800 [facility] Spironolactone (Aldactone -) 25 mg PO DAILY [facility] Last Admin: 08/06/18 09:39 Dose: 25 mg - Objective Vital Signs: Vital Signs Temperature 97.9 F 08/06/18 09:00 Pulse Rate 114 H 08/06/18 09:39 Respiratory Rate 20 08/06/18 09:00 Blood Pressure 115/69 08/06/18 09:00 O2 Sat by Pulse Oximetry (%) 96 08/06/18 11:37 Constitutional: Yes: Anxious Eyes: Yes: WNL HENT: Yes: WNL Neck: Yes: WNL Respiratory: Yes: Regular Gastrointestinal: Yes: Soft ...Rectal Exam: Yes: Deferred Genitourinary: No: Anuria Musculoskeletal: Yes: Muscle Weakness Extremities: Yes: Cool Edema: No Peripheral Pulses WNL: Yes Integumentary: Yes: WNL Neurological: Yes: Alert, Oriented, Weakness Psychiatric: Yes: Alert, Oriented Labs: CBC, BMP 08/06/18 06:55 08/06/18 06:55 INR, PTT INR 1.44 (0.83-1.09) H 08/05/18 12:00 Abnormal Lab Results 08/06/18 08/06/18 08/06/18 06:55 06:55 06:55 MCV 79.3 L MCH 24.3 L MCHC 30.6 L RDW 19.2 H BUN 27 H Random Glucose 154 H Total Bilirubin 1.1 H AST 39 H Alkaline Phosphatase 167 H Digoxin 0.10 L - ....Imaging X-ray: Image Reviewed (vascular congestion.) Other: Image Reviewed (Telemetry: AF; periods of RVR) Problem List - Problems (1) Acute on chronic systolic (congestive) heart failure Assessment/Plan: Restart beta jennifer: carvedilol 3.125 mg BId, and increase as tolerated (or metoprolol ER; was on 50-100 mg daily in the past) DIscontinue digoxin. On spironolactone. Start ACEI or ARB if BP remains stable on beta jennifer and Aldactone. BUN/Cr, electrolytes, daily weight, Is and Os. Code(s): I50.23 - ACUTE ON CHRONIC SYSTOLIC (CONGESTIVE) HEART FAILURE (2) Atrial fibrillation with RVR Assessment/Plan: On rivaroxaban for AC. Restart carvedilol for HR and systolic CHF. Code(s): I48.91 - UNSPECIFIED ATRIAL FIBRILLATION (3) HTN (hypertension) Code(s): I10 - ESSENTIAL (PRIMARY) HYPERTENSION (4) Hyperlipidemia Assessment/Plan: on atorvastatin 10 mg daioly; f/u LDL cholesterol, and keep < 70 mg/dL. Code(s): E78.5 - HYPERLIPIDEMIA, UNSPECIFIED (5) ICD (implantable cardioverter-defibrillator) in place Assessment/Plan: Pt reports no shocks. F/u latest interrogation. Code(s): Z95.810 - PRESENCE OF AUTOMATIC (IMPLANTABLE) CARDIAC DEFIBRILLATOR
[2018-08-06] MEDS ORDERED: CARVEDILOL 3.125 MG TABLET (FP) PO ONE (15:04)
[2018-08-06] MEDS ORDERED: PT OWN MED DRAWER 7, Y5N ONE (16:53)
[2018-08-06] MEDS: RIVAROXABAN 10 MG TABLET PO SCH (17:21)
[2018-08-06] MEDS: ATORVASTATIN CA 10 MG TABLET (FP) PO SCH (22:06)
[2018-08-06] MEDS: CARVEDILOL 3.125 MG TABLET (FP) PO SCH (22:06)
[2018-08-07] MEDS: FUROSEMIDE 40 MG/4 ML INJECTABLE VIAL IVPUSH SCH ×2 (05:58→14:46)
[2018-08-07 07:16] LABS: ANION GAP 9 MMOL/L (8-16); BLOOD UREA NITROGEN 29 mg/dL (7-18); CALCIUM 8.4 mg/dL (8.5-10.1); CHLORIDE 102 mmol/L (98-107); CO2 33 mmol/L (21-32); GLUCOSE,RANDOM 97 mg/dL (74-106); MAGNESIUM 1.7 mg/dL (1.8-2.4); N-TERMINAL BNP 2377.8 pg/ml (5-450); POTASSIUM 3.6 mmol/L (3.5-5.1); SODIUM 143 mmol/L (136-145)
[2018-08-07] MEDS: CARVEDILOL 3.125 MG TABLET (FP) PO SCH (09:33)
[2018-08-07] MEDS: PANTOPRAZOLE 40 MG TABLET (FP) PO SCH (09:33)
[2018-08-07] MEDS: SPIRONOLACTONE 25 MG TABLET (FP) PO SCH (09:33)
--- NOTE | 2018-08-07 11:35 | PN ---
Progress Note, Physician History of Present Illness: The patient is a 83 year old female, with a significant past medical history of [place] (s/p stents, defibrillator placement), afib (on xarelto), CHF, CVA (2009) HTN , and HLD, who presents to the emergency department with, shortness of breath, irregular heartbeat, and elevated blood pressure. PMH Proximal LAD stent (JACE) 01/10 during admission for [place] s/p ICD 02/10 atrial fibrillation Congestive heart failure (systolic); s/p coronary stent and ICD depression HTN hypercholesterolemia insomnia Myocardial infarction 01/10; led to prox LAD stent; one month later, she felt a shock from the life-vest she was wearing because of severe LV dysfunction, resulting in ICD implant 02/10 obesity sedentary lifestyle - Current Medication List Current Medications: Active Medications Atorvastatin Calcium (Lipitor -) 10 mg PO HS [facility] Last Admin: 08/06/18 22:06 Dose: 10 mg Carvedilol (Coreg -) 3.125 mg PO BID [facility] Last Admin: 08/07/18 09:33 Dose: 3.125 mg Furosemide (Lasix Injection -) 40 mg IVPUSH BID@0600,1400 [facility] Last Admin: 08/07/18 05:58 Dose: 40 mg Pantoprazole Sodium (Protonix -) 40 mg PO DAILY [facility] Last Admin: 08/07/18 09:33 Dose: 40 mg Rivaroxaban (Xarelto -) 10 mg PO DAILY@1800 [facility] Last Admin: 08/06/18 17:21 Dose: 10 mg Spironolactone (Aldactone -) 25 mg PO DAILY [facility] Last Admin: 08/07/18 09:33 Dose: 25 mg - Objective Vital Signs: Vital Signs Temperature 97.6 F 08/07/18 06:00 Pulse Rate 101 H 08/07/18 06:00 Respiratory Rate 19 08/07/18 06:00 Blood Pressure 97/61 08/07/18 06:00 O2 Sat by Pulse Oximetry (%) 96 08/06/18 21:00 Eyes: Yes: WNL, Conjunctiva Clear, EOM Intact HENT: Yes: WNL, Atraumatic, Normocephalic Neck: Yes: WNL, Supple, Trachea Midline Cardiovascular: Yes: Pulse Irregular, S1, S2 Respiratory: Yes: WNL, Regular, CTA Bilaterally Gastrointestinal: Yes: WNL, Normal Bowel Sounds Genitourinary: Yes: WNL Musculoskeletal: Yes: WNL Extremities: Yes: WNL Edema: No Integumentary: Yes: WNL Neurological: Yes: WNL, Alert, Oriented ...Motor Strength: WNL Psychiatric: Yes: WNL Labs: CBC, BMP 08/06/18 06:55 08/07/18 05:30 INR, PTT INR 1.44 (0.83-1.09) H 08/05/18 12:00 Problem List - Problems (1) Acute on chronic systolic (congestive) heart failure Code(s): I50.23 - ACUTE ON CHRONIC SYSTOLIC (CONGESTIVE) HEART FAILURE (2) Atrial fibrillation Code(s): I48.91 - UNSPECIFIED ATRIAL FIBRILLATION (3) Atrial fibrillation with RVR Code(s): I48.91 - UNSPECIFIED ATRIAL FIBRILLATION (4) CHF (congestive heart failure) Code(s): I50.9 - HEART FAILURE, UNSPECIFIED Qualifiers: Heart failure type: unspecified Heart failure chronicity: unspecified Qualified Code(s): I50.9 - Heart failure, unspecified (5) Cardiac arrhythmia Code(s): I49.9 - CARDIAC ARRHYTHMIA, UNSPECIFIED Qualifiers: Arrhythmia type: unspecified cardiac arrhythmia Qualified Code(s): I49.9 - Cardiac arrhythmia, unspecified (6) Defibrillator discharge Code(s): Z45.02 - ENCNTR FOR ADJUST AND MGMT OF AUTOMATIC IMPLNTBL CARD DEFIB (7) Dilated bile duct Code(s): K83.8 - OTHER SPECIFIED DISEASES OF BILIARY TRACT (8) Discomfort in chest Code(s): R07.89 - OTHER CHEST PAIN (9) Elevated LFTs Code(s): R79.89 - OTHER SPECIFIED ABNORMAL FINDINGS OF BLOOD CHEMISTRY (10) Elevated troponin I level Code(s): R74.8 - ABNORMAL LEVELS OF OTHER SERUM ENZYMES (11) Gallstone Code(s): K80.20 - CALCULUS OF GALLBLADDER W/O CHOLECYSTITIS W/O OBSTRUCTION Qualifiers: Cholecystitis presence: without cholecystitis (12) HTN (hypertension) Code(s): I10 - ESSENTIAL (PRIMARY) HYPERTENSION (13) Hyperlipidemia Code(s): E78.5 - HYPERLIPIDEMIA, UNSPECIFIED (14) Hypomagnesemia Code(s): E83.42 - HYPOMAGNESEMIA (15) Intertrochanteric fracture of left hip Code(s): S72.142A - DISPLACED INTERTROCHANTERIC FRACTURE OF LEFT FEMUR, INIT Qualifiers: Encounter type: initial encounter Fracture type: closed Qualified Code(s) : S72.142A - Displaced intertrochanteric fracture of left femur, initial encounter for closed fracture (16) On amiodarone therapy Code(s): Z79.899 - OTHER SHELTER (CURRENT) DRUG THERAPY (17) Palpitations Code(s): R00.2 - PALPITATIONS (18) Pneumonia Code(s): J18.9 - PNEUMONIA, UNSPECIFIED ORGANISM Qualifiers: Pneumonia type: due to unspecified organism Laterality: unspecified laterality Lung location: unspecified part of lung Qualified Code(s): J18.9 - Pneumonia, unspecified organism (19) Shortness of breath Code(s): R06.02 - SHORTNESS OF BREATH Assessment/Plan - Problems (1) Acute on chronic systolic (congestive) heart failure Assessment/Plan: Restart beta jennifer: carvedilol 3.125 mg BId. DIscontinue digoxin. On spironolactone. Start ACEI or ARB if BP remains stable on Coreg and Aldactone. BUN/Cr, electrolytes, daily weight, Is and Os. Code(s): I50.23 - ACUTE ON CHRONIC SYSTOLIC (CONGESTIVE) HEART FAILURE (2) Atrial fibrillation with RVR Assessment/Plan: On rivaroxaban for AC. Restart carvedilol for HR and systolic CHF. Code(s): I48.91 - UNSPECIFIED ATRIAL FIBRILLATION (3) HTN (hypertension) Code(s): I10 - ESSENTIAL (PRIMARY) HYPERTENSION (4) Hyperlipidemia Assessment/Plan: on atorvastatin 10 mg daioly; f/u LDL cholesterol, and keep < 70 mg/dL. Code(s): E78.5 - HYPERLIPIDEMIA, UNSPECIFIED (5) ICD (implantable cardioverter-defibrillator) in place Assessment/Plan: Pt reports no shocks. F/u latest interrogation. Code(s): Z95.810 - PRESENCE OF AUTOMATIC (IMPLANTABLE) CARDIAC DEFIBRILLATOR
[2018-08-07] MEDS: METOPROLOL TARTRATE 50 MG TABLET (FP) PO SCH ×2 (15:45→21:58)
--- NOTE | 2018-08-07 16:42 | ECHO ---
Name: SHAUN ADAMSON Exam:Adult Echocardiogram Study Date: 08/07/2018 02:02 PM Age: 83 yrs Reason For Study: EF MMode/2D Measurements & Calculations IVSd: 1.7 cm Ao root diam: 3.2 cm LVIDd: 3.9 cm LA dimension: 3.9 cm LVIDs: 3.1 cm LVPWd: 1.1 cm LVPWs: 1.2 cm EDV(Teich): 64.4 ml ESV(Teich): 39.1 ml TAPSE: 1.1 cm Doppler Measurements & Calculations Ao V2 max: 153.4 cm/sec AI max pierce: 314.3 cm/sec Ao max P.5 mmHg AI max P.5 mmHg AI P1/2t: 438.6 msec AI dec slope: 209.9 cm/sec2 LV V1 max P.5 mmHg MR max pierce: 459.1 cm/sec LV V1 max: 94.1 cm/sec MR max P.5 mmHg TR max pierce: 287.6 cm/sec PA V2 max: 105.9 cm/sec TR max P.7 mmHg PA max P.5 mmHg Med Peak E' Pierce: 4.9 cm/sec PI Vmax: 122.2 cm/sec Lat Peak E' Pierce: 8.2 cm/sec Procedure A two-dimensional transthoracic echocardiogram with color flow and Doppler was performed. Left Ventricle The left ventricle is grossly normal size. Left ventricular systolic function is severely reduced. Th ere is moderate global hypokinesis of the left ventricle. There is moderate to severe anterior wall hypokine sis. There is apical akinesis. There is apical septal wall akinesis. Right Ventricle The right ventricle is not well visualized. There is a pacemaker lead in the right ventricle. Atria The left atrium is severely dilated. The right atrium is moderately dilated. Mitral Valve There is mild mitral valve thickening. There is no mitral valve stenosis. There is moderate to severe mitral regurgitation. Tricuspid Valve There is mild tricuspid valve thickening. There is no tricuspid stenosis. There is moderate to severe tricuspid regurgitation. Right ventricular systolic pressure is elevated at 30-40mmHg. Aortic Valve The aortic valve is not well visualized. No hemodynamically significant valvular aortic stenosis. Mil d aortic regurgitation. Pulmonic Valve The pulmonic valve is not well visualized. Great Vessels The aortic root is normal size. Pericardium/Pleura There is no pericardial effusion. Interpretation Summary The left ventricle is grossly normal size. Left ventricular systolic function is severely reduced. There is moderate global hypokinesis of the left ventricle. There is moderate to severe anterior wall hypokinesis. There is apical akinesis. There is apical septal wall akinesis. Right ventricular systolic pressure is elevated at 30-40mmHg. The left atrium is severely dilated. The right atrium is moderately dilated. There is moderate to severe mitral regurgitation. There is a pacemaker lead in the right ventricle. Mild aortic regurgitation. There is moderate to severe tricuspid regurgitation. MD [place] 08/07/2018 04:42 PM
--- NOTE | 2018-08-07 17:40 | PN ---
Progress Note (short form) - Note Progress Note: Events noted She feels well Decreased SOB no chest pain , dizziness, no palpitations, wants to go home ambulating well Vital Signs - 24 hr 08/06/18 08/07/18 08/07/18 21:00 02:00 06:00 Temperature 98.1 F 97.7 F 97.6 F Pulse Rate 104 H 111 H 101 H Respiratory 18 20 19 Rate Blood Pressure 102/66 110/61 97/61 O2 Sat by Pulse 96 Oximetry (%) 08/07/18 08/07/18 10:00 14:00 Temperature 97.8 F 98.4 F Pulse Rate 128 H 118 H Respiratory 20 Rate Blood Pressure 98/66 85/63 L O2 Sat by Pulse 96 Oximetry (%) Current Medications Generic Name Dose Route Start Last Admin Trade Name Freq PRN Reason Stop Dose Admin Atorvastatin Calcium 10 mg 08/06/18 22:00 08/06/18 22:06 Lipitor - PO 10 mg HS MARIA D Administration Furosemide 40 mg 08/06/18 06:00 08/07/18 14:46 Lasix Injection - IVPUSH 40 mg BID@0600,1400 MARIA D Administration Metoprolol Tartrate 50 mg 08/07/18 13:30 08/07/18 15:45 Lopressor - PO 50 mg BID MARIA D Administration Pantoprazole Sodium 40 mg 08/06/18 10:00 08/07/18 09:33 Protonix - PO 40 mg DAILY MARIA D Administration Rivaroxaban 10 mg 08/06/18 18:00 08/06/18 17:21 Xarelto - PO 10 mg DAILY@1800 MARIA D Administration Spironolactone 25 mg 08/06/18 10:00 08/07/18 09:33 Aldactone - PO 25 mg DAILY MARIA D Administration Laboratory Results - last 24 hr 08/07/18 05:30 Sodium 143 Potassium 3.6 Chloride 102 Carbon Dioxide 33 H Anion Gap 9 BUN 29 H Creatinine 1.0 Creat Clearance w eGFR 53.21 Random Glucose 97 Calcium 8.4 L Magnesium 1.7 L B-Natriuretic Peptide 2377.8 H tachycardic S1 S2 Irregular Lungs clear Abd- soft, NT No edema PLAN Rapid Afib CHF decompensation HTN -- Rate not controlled-- dc digoxin per Cardiology, Lopressor being titrated -- continue with Xarelto -- lasix BID-- change to PO -- monitor renal function -- OOB Problem List - Problems (1) Acute on chronic systolic (congestive) heart failure Code(s): I50.23 - ACUTE ON CHRONIC SYSTOLIC (CONGESTIVE) HEART FAILURE (2) Atrial fibrillation Code(s): I48.91 - UNSPECIFIED ATRIAL FIBRILLATION (3) Atrial fibrillation with RVR Code(s): I48.91 - UNSPECIFIED ATRIAL FIBRILLATION (4) CHF (congestive heart failure) Code(s): I50.9 - HEART FAILURE, UNSPECIFIED Qualifiers: Heart failure type: unspecified Heart failure chronicity: unspecified Qualified Code(s): I50.9 - Heart failure, unspecified (5) HTN (hypertension) Code(s): I10 - ESSENTIAL (PRIMARY) HYPERTENSION
[2018-08-07] MEDS ORDERED: MAGNESIUM SULF 50% (8.12 MEQ/2 ML-1 GM VIAL) IVPB ONE (17:45)
[2018-08-07] MEDS: RIVAROXABAN 10 MG TABLET PO SCH (18:18)
[2018-08-07] MEDS: ATORVASTATIN CA 10 MG TABLET (FP) PO SCH (21:58)
[2018-08-08 07:35] LABS: ANION GAP 9 MMOL/L (8-16); BLOOD UREA NITROGEN 31 mg/dL (7-18); CALCIUM 8.6 mg/dL (8.5-10.1); CHLORIDE 102 mmol/L (98-107); CO2 30 mmol/L (21-32); GLUCOSE,RANDOM 112 mg/dL (74-106); MAGNESIUM 2.2 mg/dL (1.8-2.4); POTASSIUM 3.9 mmol/L (3.5-5.1); SODIUM 142 mmol/L (136-145)
[2018-08-08] MEDS ORDERED: LOSARTAN POTASSIUM 25 MG TABLET PO ONE (10:55)
[2018-08-08] MEDS: FUROSEMIDE 40 MG TABLET (FP) PO SCH (11:07)
[2018-08-08] MEDS: PANTOPRAZOLE 40 MG TABLET (FP) PO SCH (11:07)
[2018-08-08] MEDS: SPIRONOLACTONE 25 MG TABLET (FP) PO SCH (11:07)
[2018-08-08] MEDS: METOPROLOL TARTRATE 50 MG TABLET (FP) PO SCH ×2 (11:07→21:47)
--- NOTE | 2018-08-08 11:07 | PN ---
Progress Note (short form) - Note Progress Note: She feels well Decreased SOB no chest pain , dizziness, no palpitations, wants to go home ambulating well - steady HR better on Lopressor Vital Signs - 24 hr 08/07/18 08/07/18 08/07/18 14:00 17:00 21:00 Temperature 98.4 F 98.1 F Pulse Rate 118 H 127 H Respiratory 20 Rate Blood Pressure 85/63 L 101/61 O2 Sat by Pulse 95 Oximetry (%) 08/07/18 08/08/18 08/08/18 22:00 02:04 06:00 Temperature 97.6 F 97.8 F 97.6 F Pulse Rate 100 H 102 H 112 H Respiratory 18 18 18 Rate Blood Pressure 100/56 L 96/61 115/60 O2 Sat by Pulse Oximetry (%) Current Medications Generic Name Dose Route Start Last Admin Trade Name Freq PRN Reason Stop Dose Admin Atorvastatin Calcium 10 mg 08/06/18 22:00 08/07/18 21:58 Lipitor - PO 10 mg HS MARIA D Administration Furosemide 40 mg 08/08/18 10:00 Lasix - PO DAILY MARIA D Losartan Potassium 25 mg 08/09/18 10:00 Cozaar - PO DAILY MARIA D Metoprolol Tartrate 50 mg 08/07/18 13:30 08/07/18 21:58 Lopressor - PO 50 mg BID MARIA D Administration Pantoprazole Sodium 40 mg 08/06/18 10:00 08/07/18 09:33 Protonix - PO 40 mg DAILY MARIA D Administration Rivaroxaban 10 mg 08/06/18 18:00 08/07/18 18:18 Xarelto - PO 10 mg DAILY@1800 MARIA D Administration Spironolactone 25 mg 08/06/18 10:00 08/07/18 09:33 Aldactone - PO 25 mg DAILY MARIA D Administration Laboratory Results - last 24 hr 08/08/18 05:30 Sodium 142 Potassium 3.9 Chloride 102 Carbon Dioxide 30 Anion Gap 9 BUN 31 H Creatinine 1.0 Creat Clearance w eGFR 53.21 Random Glucose 112 H Calcium 8.6 Magnesium 2.2 S1 S2 Irregular Lungs clear Abd- soft, NT No edema PLAN Rapid Afib-- resolving CHF decompensation HTN -- Rate better controlled-- dc digoxin per Cardiology, Lopressor to continue -- continue with Xarelto -- lasix BID-- change to PO -- monitor renal function- stable -- added Losartan -- OOB -- dc planning Problem List - Problems (1) Acute on chronic systolic (congestive) heart failure Code(s): I50.23 - ACUTE ON CHRONIC SYSTOLIC (CONGESTIVE) HEART FAILURE (2) Atrial fibrillation Code(s): I48.91 - UNSPECIFIED ATRIAL FIBRILLATION (3) Atrial fibrillation with RVR Code(s): I48.91 - UNSPECIFIED ATRIAL FIBRILLATION (4) CHF (congestive heart failure) Code(s): I50.9 - HEART FAILURE, UNSPECIFIED Qualifiers: Qualified Code(s): I50.9 - Heart failure, unspecified (5) HTN (hypertension) Code(s): I10 - ESSENTIAL (PRIMARY) HYPERTENSION
--- NOTE | 2018-08-08 11:10 | PN ---
Progress Note, Physician Chief Complaint: Pt is A&Ox3; lying in bed; no chest pain, palpitations, SOB. History of Present Illness: 83 yo woman (faisal Miller), with a hx of afib (on xarelto), severe systolic LV dysfunction (on metoprolol, spironolactone; furosemide prn), [place] (s/p stents, defibrillator placement), CVA, HLD, HTN, , overweight, sedentary, anxiety/ depression, who presents to the emergency department with SOB and anuria for 1 day. Per the patient, she states that she intermittently takes lasix for LE edema bilaterally. She states her legs have been swelling lately and has increased abdominal girth. She denies the following: chest pain, nausea, vomiting, diaphoresis, dysuria, hematuria, and diarrhea. - Current Medication List Current Medications: Active Medications Atorvastatin Calcium (Lipitor -) 10 mg PO HS [facility] Last Admin: 08/07/18 21:58 Dose: 10 mg Furosemide (Lasix -) 40 mg PO DAILY [facility] Losartan Potassium (Cozaar -) 25 mg PO DAILY [facility] Metoprolol Tartrate (Lopressor -) 50 mg PO BID [facility] Last Admin: 08/07/18 21:58 Dose: 50 mg Pantoprazole Sodium (Protonix -) 40 mg PO DAILY [facility] Last Admin: 08/07/18 09:33 Dose: 40 mg Rivaroxaban (Xarelto -) 10 mg PO DAILY@1800 [facility] Last Admin: 08/07/18 18:18 Dose: 10 mg Spironolactone (Aldactone -) 25 mg PO DAILY [facility] Last Admin: 08/07/18 09:33 Dose: 25 mg - Objective Vital Signs: Vital Signs Temperature 97.6 F 08/08/18 06:00 Pulse Rate 112 H 08/08/18 06:00 Respiratory Rate 18 08/08/18 06:00 Blood Pressure 115/60 08/08/18 06:00 O2 Sat by Pulse Oximetry (%) 95 08/07/18 21:00 Constitutional: Yes: Anxious Eyes: Yes: WNL HENT: Yes: WNL Neck: Yes: WNL Cardiovascular: Yes: Pulse Irregular, S1 (varies in intentisy), S2 (split) Respiratory: Yes: Regular Gastrointestinal: Yes: Soft, Abdomen, Obese ...Rectal Exam: Yes: Deferred Genitourinary: No: Anuria Breast(s): Yes: WNL Musculoskeletal: Yes: Joint Stiffness, Muscle Weakness Extremities: Yes: Cool Edema: No Peripheral Pulses WNL: Yes Integumentary: Yes: WNL Neurological: Yes: Alert, Oriented, Weakness Psychiatric: Yes: Alert, Oriented, Other (anxiety/depression) Labs: CBC, BMP 08/06/18 06:55 08/08/18 05:30 INR, PTT INR 1.44 (0.83-1.09) H 08/05/18 12:00 - ....Imaging Other: Image Reviewed (telemetry:AF; periods of RVR) Problem List - Problems (1) Acute on chronic systolic (congestive) heart failure Assessment/Plan: Started metoprolol tartrate 50 mg bid. Started losartan 25 mg qd From cardiac perspective, if pt able to ambulate without marked increase in HR or development of arrythmia, pt may be followed as an outpatient. Code(s): I50.23 - ACUTE ON CHRONIC SYSTOLIC (CONGESTIVE) HEART FAILURE (2) Atrial fibrillation with RVR Assessment/Plan: On rivaroxaban for AC. On metoprolol for HR control. Telemetry: AF with controlled VR Code(s): I48.91 - UNSPECIFIED ATRIAL FIBRILLATION (3) HTN (hypertension) Code(s): I10 - ESSENTIAL (PRIMARY) HYPERTENSION (4) ICD (implantable cardioverter-defibrillator) in place Assessment/Plan: Pt reports no shocks. F/u latest interrogation. Code(s): Z95.810 - PRESENCE OF AUTOMATIC (IMPLANTABLE) CARDIAC DEFIBRILLATOR (5) Hyperlipidemia Assessment/Plan: on atorvastatin 10 mg daioly; f/u LDL cholesterol, and keep < 70 mg/dL. Code(s): E78.5 - HYPERLIPIDEMIA, UNSPECIFIED
[2018-08-08 14:22] VITALS: BMI 29.9
[2018-08-08] MEDS: RIVAROXABAN 10 MG TABLET PO SCH (18:40)
[2018-08-08] MEDS: ATORVASTATIN CA 10 MG TABLET (FP) PO SCH (21:47)
[2018-08-09] MEDS ORDERED: LOSARTAN POTASSIUM 25 MG TABLET PO SCH (10:00)
[2018-08-09] MEDS: METOPROLOL TARTRATE 50 MG TABLET (FP) PO SCH ×2 (10:57→21:04)
[2018-08-09] MEDS: FUROSEMIDE 40 MG TABLET (FP) PO SCH (10:59)
[2018-08-09] MEDS: PANTOPRAZOLE 40 MG TABLET (FP) PO SCH (11:00)
--- NOTE | 2018-08-09 12:07 | DS ---
Physical Examination Vital Signs: Vital Signs Temperature 98.0 F 08/09/18 06:00 Pulse Rate 103 H 08/09/18 06:00 Respiratory Rate 20 08/09/18 06:00 Blood Pressure 105/52 L 08/09/18 06:00 O2 Sat by Pulse Oximetry (%) 95 08/08/18 21:00 Findings/Remarks: pt seen/ examined feels good ambulatory wants to go home denies cp/sob. chart reviewed Constitutional: Yes: No Distress, Calm Eyes: Yes: Conjunctiva Clear Neck: Yes: Supple Cardiovascular: Yes: Pulse Irregular Respiratory: Yes: CTA Bilaterally Gastrointestinal: Yes: Normal Bowel Sounds, Soft Edema: LLE: Trace, RLE: Trace Neurological: Yes: Alert Psychiatric: Yes: Alert Labs: CBC, BMP 08/06/18 06:55 08/08/18 05:30 Discharge Summary Reason For Visit: ATRIAL FIBRILLATION W RAPID VENTRICULAR RESPONSE Current Active Problems ICD (implantable cardioverter-defibrillator) in place (Acute) Hospital Course: pt admitted for rapid afib admitted to tele cardiology followed meds adjusted much better stable for d/c f/u with pmd in one week f/u with cardiology as advised dc digoxin per Cardiology, meds reconcilled send to pharmacy as needed Discussed with nursing staff also as well as case technician-- d/c time approx 35 min in examining/ reviewing record/documenting and coordating care Condition: Stable - Instructions Diet, Activity, Other Instructions: f/u pmd in one week Referrals: Alfred Duarte MD [Primary Care Provider] - Disposition: HOME - Home Medications Comprehensive Discharge Medication List: Ambulatory Orders Magnesium 250 mg PO BID 12/30/17 Rivaroxaban [Xarelto -] 10 mg PO DAILY 12/30/17 Dexlansoprazole [Dexilant] 60 mg PO DAILY 05/09/18 Spironolactone [Aldactone -] 25 mg PO DAILY 05/09/18 Atorvastatin Calcium [Lipitor] mg PO HS 08/05/18 Cholecalciferol (Vitamin D3) [Vitamin D3] 1,000 unit PO DAILY 08/05/18 Furosemide [Lasix] 40 mg PO DAILY #30 tablet 08/09/18 Losartan Potassium [Cozaar -] 25 mg PO DAILY #30 tablet 08/09/18 Metoprolol Tartrate [Lopressor -] 50 mg PO BID #60 tablet 08/09/18 Pantoprazole Sodium [Protonix -] 40 mg PO DAILY #30 tablet.ec 08/09/18
--- NOTE | 2018-08-09 15:00 | PN ---
Progress Note, Physician Chief Complaint: Pt is A&Ox3; no chest pain, palpitations, SOB. History of Present Illness: 83 yo woman (faisal Miller), with a hx of afib (on xarelto), severe systolic LV dysfunction (on metoprolol, spironolactone, lasix), [place] (s/p stents, defibrillator placement), CVA, HLD, HTN, anxiety/depression, who presents to the emergency department with SOB and anuria for 1 day. Per the patient, she states that she intermittently takes lasix for LE edema bilaterally. She states her legs have been swelling lately and has increased abdominal girth. She denies the following: chest pain, nausea, vomiting, diaphoresis, dysuria, hematuria, and diarrhea. - Current Medication List Current Medications: Active Medications Atorvastatin Calcium (Lipitor -) 10 mg PO HS [facility] Last Admin: 08/08/18 21:47 Dose: 10 mg Furosemide (Lasix -) 40 mg PO DAILY [facility] Last Admin: 08/09/18 10:59 Dose: Not Given Losartan Potassium (Cozaar -) 25 mg PO DAILY [facility] Last Admin: 08/09/18 10:59 Dose: Not Given Metoprolol Tartrate (Lopressor -) 50 mg PO BID [facility] Last Admin: 08/09/18 10:57 Dose: 50 mg Pantoprazole Sodium (Protonix -) 40 mg PO DAILY [facility] Last Admin: 08/09/18 11:00 Dose: 40 mg Rivaroxaban (Xarelto -) 10 mg PO DAILY@1800 [facility] Last Admin: 08/08/18 18:40 Dose: 10 mg Spironolactone (Aldactone -) 25 mg PO DAILY [facility] Last Admin: 08/08/18 11:07 Dose: 25 mg - Objective Vital Signs: Vital Signs Temperature 97.5 F L 08/09/18 12:18 Pulse Rate 101 H 08/09/18 12:48 Respiratory Rate 18 08/09/18 12:48 Blood Pressure 96/40 L 08/09/18 12:48 O2 Sat by Pulse Oximetry (%) 95 08/09/18 09:00 Constitutional: Yes: Anxious Eyes: Yes: WNL HENT: Yes: WNL Neck: Yes: WNL Cardiovascular: Yes: S1 (varies in intensity), S2 Respiratory: Yes: WNL Gastrointestinal: Yes: Soft, Abdomen, Obese ...Rectal Exam: Yes: Deferred Genitourinary: No: Anuria Musculoskeletal: Yes: Muscle Weakness Extremities: Yes: Cool Edema: No Peripheral Pulses WNL: Yes Integumentary: Yes: WNL Neurological: Yes: Alert, Oriented, Weakness Psychiatric: Yes: Alert, Oriented Labs: CBC, BMP 08/06/18 06:55 08/08/18 05:30 INR, PTT INR 1.44 (0.83-1.09) H 08/05/18 12:00 - ....Imaging Other: Image Reviewed (telemetry: AF ; occasional RVR) Problem List - Problems (1) Acute on chronic systolic (congestive) heart failure Assessment/Plan: Started metoprolol tartrate 50 mg bid. Started losartan 25 mg qd; will decrease it (and spironolactone) to 12.5 mg daily due to relative hypotension (asymptoamtic). From cardiac perspective, if pt able to ambulate without marked increase in HR or development of arrythmia, pt may be followed as an outpatient. Code(s): I50.23 - ACUTE ON CHRONIC SYSTOLIC (CONGESTIVE) HEART FAILURE (2) Atrial fibrillation with RVR Assessment/Plan: On rivaroxaban for AC. On metoprolol for HR control. Telemetry: AF with controlled VR Code(s): I48.91 - UNSPECIFIED ATRIAL FIBRILLATION (3) HTN (hypertension) Assessment/Plan: on metoprolol, losartan, and spironolactone; furosemide prn. Dosages of losaran and spironolactone decreased due to periods of hypotension ( asymptomatic). Code(s): I10 - ESSENTIAL (PRIMARY) HYPERTENSION (4) ICD (implantable cardioverter-defibrillator) in place Assessment/Plan: Pt reports no shocks. F/u latest interrogation. Code(s): Z95.810 - PRESENCE OF AUTOMATIC (IMPLANTABLE) CARDIAC DEFIBRILLATOR (5) Hyperlipidemia Assessment/Plan: on atorvastatin 10 mg daioly; f/u LDL cholesterol, and keep < 70 mg/dL. Code(s): E78.5 - HYPERLIPIDEMIA, UNSPECIFIED
[2018-08-09] MEDS: SPIRONOLACTONE 25 MG TABLET (FP) PO SCH (18:49)
[2018-08-09] MEDS: ATORVASTATIN CA 10 MG TABLET (FP) PO SCH (22:08)
[2018-08-09] MEDS: RIVAROXABAN 10 MG TABLET PO SCH (22:08)
[2018-08-10] MEDS ORDERED: PT OWN MED DRAWER 7, Y5N ONE (09:18)
[2018-08-10] MEDS: FUROSEMIDE 40 MG TABLET (FP) PO SCH (09:49)
[2018-08-10] MEDS: PANTOPRAZOLE 40 MG TABLET (FP) PO SCH (09:49)
[2018-08-10] MEDS: SPIRONOLACTONE 25 MG TABLET (FP) PO SCH (09:49)
[2018-08-10] MEDS: METOPROLOL TARTRATE 50 MG TABLET (FP) PO SCH ×2 (09:49→21:33)
[2018-08-10] MEDS ORDERED: LOSARTAN POTASSIUM 25 MG TABLET PO SCH (10:00)
[2018-08-10] MEDS ORDERED: FUROSEMIDE 40 MG TABLET (FP) PO SCH (10:54)
--- NOTE | 2018-08-10 11:08 | PN ---
Progress Note (short form) - Note Progress Note: She feels well Decreased SOB no chest pain , dizziness, no palpitations, wants to go home ambulating well - steady discharge held yesterday as pt's BP was low Vital Signs - 24 hr 08/09/18 08/09/18 08/09/18 18:00 21:00 22:00 Temperature 97.8 F 98 F Pulse Rate 90 99 H Respiratory 17 18 18 Rate Blood Pressure 94/64 86/62 L O2 Sat by Pulse 95 Oximetry (%) 08/10/18 08/10/18 08/10/18 01:47 05:48 09:00 Temperature 98 F 97.8 F Pulse Rate 100 H 89 Respiratory 18 18 18 Rate Blood Pressure 108/61 100/54 L O2 Sat by Pulse 99 Oximetry (%) 08/10/18 08/10/18 10:00 11:35 Temperature 97.9 F Pulse Rate 93 H 121 H Respiratory 18 18 Rate Blood Pressure 88/48 L 124/51 L O2 Sat by Pulse Oximetry (%) Current Medications Generic Name Dose Route Start Last Admin Trade Name Lambertoq PRN Reason Stop Dose Admin Atorvastatin Calcium 10 mg 08/06/18 22:00 08/09/18 22:08 Lipitor - PO 10 mg HS [facility] Administration Furosemide 40 mg 08/10/18 11:00 Lasix - PO DAILY [facility] Metoprolol Tartrate 50 mg 08/07/18 13:30 08/10/18 09:49 Lopressor - PO 50 mg BID [facility] D Administration Pantoprazole Sodium 40 mg 08/06/18 10:00 08/10/18 09:49 Protonix - PO 40 mg DAILY [facility] Administration Rivaroxaban 10 mg 08/06/18 18:00 08/09/18 22:08 Xarelto - PO 10 mg DAILY@1800 [facility] Administration Spironolactone 12.5 mg 08/10/18 10:00 08/10/18 09:49 Aldactone - PO 12.5 mg DAILY [facility] Administration S1 S2 Irregular Lungs clear Abd- soft, NT No edema PLAN Rapid Afib-- better CHF decompensation HTN -- Rate better controlled -- continue with Xarelto -- spoke with Improvement Nurse today about pt's meds-- dc Losartan -- continue with other meds -- not in volume overload -- stable for dc home-- will need to follow up with Cardiology on Sunday in the office Problem List - Problems (1) Acute on chronic systolic (congestive) heart failure Code(s): I50.23 - ACUTE ON CHRONIC SYSTOLIC (CONGESTIVE) HEART FAILURE (2) Atrial fibrillation Code(s): I48.91 - UNSPECIFIED ATRIAL FIBRILLATION (3) Atrial fibrillation with RVR Code(s): I48.91 - UNSPECIFIED ATRIAL FIBRILLATION (4) CHF (congestive heart failure) Code(s): I50.9 - HEART FAILURE, UNSPECIFIED Qualifiers: Heart failure type: unspecified Heart failure chronicity: unspecified Qualified Code(s): I50.9 - Heart failure, unspecified (5) HTN (hypertension) Code(s): I10 - ESSENTIAL (PRIMARY) HYPERTENSION
[2018-08-10] MEDS: RIVAROXABAN 10 MG TABLET PO SCH ×2 (17:36→21:34)
--- NOTE | 2018-08-10 21:17 | EKG ---
Test Reason : Blood Pressure : / mmHG Vent. Rate : 100 BPM Atrial Rate : 122 BPM P-R Int : 000 ms QRS Dur : 076 ms QT Int : 344 ms P-R-T Axes : 000 -28 129 degrees QTc Int : 443 ms ATRIAL FIBRILLATION MINIMAL VOLTAGE CRITERIA FOR LVH, MAY BE NORMAL VARIANT SEPTAL INFARCT (CITED ON OR BEFORE 27-MAR-2017) ABNORMAL ECG WHEN COMPARED WITH ECG OF 05-AUG-2018 11:26, NO SIGNIFICANT CHANGE WAS FOUND Confirmed by ELIZABETH GOSS MD ([id number]) on 08/10/2018 9:17:12 PM Referred By: Leticia GARCIA Confirmed By:ELIZABETH GOSS MD
[2018-08-10] MEDS: ATORVASTATIN CA 10 MG TABLET (FP) PO SCH (21:33)
--- NOTE | 2018-08-11 09:35 | PN ---
Progress Note (short form) - Note Progress Note: She feels well Decreased SOB no chest pain , dizziness, no palpitations, wants to go home discharge held yesterday as pt's BP was low today heart rate 130's she was sleeping Vital Signs - 24 hr 08/10/18 08/10/18 08/10/18 10:00 11:35 17:00 Temperature 97.9 F 97.2 F L Pulse Rate 93 H 121 H 118 H Respiratory 18 18 20 Rate Blood Pressure 88/48 L 124/51 L 84/44 L O2 Sat by Pulse Oximetry (%) 08/10/18 08/11/18 08/11/18 20:32 01:33 05:09 Temperature 97.8 F 97.9 F 98 F Pulse Rate 102 H 107 H 94 H Respiratory 18 18 18 Rate Blood Pressure 72/48 L 78/46 L 107/52 L O2 Sat by Pulse 99 Oximetry (%) Current Medications Generic Name Dose Route Start Last Admin Trade Name Freq PRN Reason Stop Dose Admin Atorvastatin Calcium 10 mg 08/06/18 22:00 08/10/18 21:33 Lipitor - PO 10 mg HS [facility] D Administration Furosemide 40 mg 08/10/18 11:00 Lasix - PO DAILY [facility] Metoprolol Tartrate 50 mg 08/07/18 13:30 08/10/18 21:33 Lopressor - PO Not Given BID [facility] Pantoprazole Sodium 40 mg 08/06/18 10:00 08/10/18 09:49 Protonix - PO 40 mg DAILY [facility] Administration Rivaroxaban 10 mg 08/06/18 18:00 08/10/18 21:34 Xarelto - PO 10 mg DAILY@1800 [facility] D Administration Spironolactone 12.5 mg 08/10/18 10:00 08/10/18 09:49 Aldactone - PO 12.5 mg DAILY [facility] Administration S1 S2 Irregular Lungs clear Abd- soft, NT No edema PLAN Rapid Afib-- check EKg, place pt back on [employer] [address] production CHF decompensation HTN -- Rate not controlled -- continue with Xarelto -- Cardiology follow up -- continue with other meds -- not in volume overload -- hold discharge Problem List - Problems (1) Acute on chronic systolic (congestive) heart failure Code(s): I50.23 - ACUTE ON CHRONIC SYSTOLIC (CONGESTIVE) HEART FAILURE (2) Atrial fibrillation Code(s): I48.91 - UNSPECIFIED ATRIAL FIBRILLATION (3) Atrial fibrillation with RVR Code(s): I48.91 - UNSPECIFIED ATRIAL FIBRILLATION (4) CHF (congestive heart failure) Code(s): I50.9 - HEART FAILURE, UNSPECIFIED Qualifiers: Heart failure type: unspecified Heart failure chronicity: unspecified Qualified Code(s): I50.9 - Heart failure, unspecified (5) HTN (hypertension) Code(s): I10 - ESSENTIAL (PRIMARY) HYPERTENSION
[2018-08-11] MEDS: FUROSEMIDE 40 MG TABLET (FP) PO SCH (09:46)
[2018-08-11] MEDS: METOPROLOL TARTRATE 50 MG TABLET (FP) PO SCH ×3 (09:46→21:01)
[2018-08-11] MEDS: SPIRONOLACTONE 25 MG TABLET (FP) PO SCH (09:46)
[2018-08-11 10:21] LABS: ANION GAP 8 MMOL/L (8-16); BLOOD UREA NITROGEN 29 mg/dL (7-18); CALCIUM 8.6 mg/dL (8.5-10.1); CHLORIDE 106 mmol/L (98-107); CO2 29 mmol/L (21-32); GLUCOSE,RANDOM 148 mg/dL (74-106); MAGNESIUM 1.8 mg/dL (1.8-2.4); SODIUM 144 mmol/L (136-145)
--- NOTE | 2018-08-11 10:40 | PN ---
Progress Note (short form) - Note Progress Note: Subjective: --Patient was initially suppose to be discharged on 08/10 morning but had an episode of hypotension and remained overnight --Found to have SBP 70s yesterday, losartan stopped- patient remained asymptomatic --ECG with atrial fibrillaton with RVR- HR 120s Objective: Vital Signs 08/11/18 05:09 Temperature 98 F Pulse Rate 94 H Respiratory 18 Rate Blood Pressure 107/52 L General: well appearing elderly female sitting upright in NAD HEENT: NC/AT Cardiac: S1/S2, 2/6 systolic murmur loudest at LSB Pulm: clear breath sounds bilaterally. No rales. Ext: WWP. No edema. Abnormal Lab Results 08/11/18 10:00 BUN 29 H Random Glucose 148 H Laboratory Results - last 24 hr 08/11/18 10:00 Sodium 144 Potassium 4.0 Chloride 106 Carbon Dioxide 29 Anion Gap 8 BUN 29 H Creatinine 1.0 Creat Clearance w eGFR 53.21 Random Glucose 148 H Calcium 8.6 Magnesium 1.8 Active Medications Atorvastatin Calcium (Lipitor -) 10 mg PO HS [facility] Last Admin: 08/10/18 21:33 Dose: 10 mg Digoxin (Lanoxin -) 0.125 mg PO ONCE ONE Stop: 08/11/18 18:01 Digoxin (Lanoxin -) 0.125 mg PO ONCE ONE Stop: 08/12/18 00:01 Digoxin (Lanoxin -) 0.125 mg PO DAILY [facility] Furosemide (Lasix -) 40 mg PO DAILY [facility] Last Admin: 08/11/18 09:46 Dose: Not Given Metoprolol Tartrate (Lopressor -) 50 mg PO BID [facility] Last Admin: 08/11/18 09:46 Dose: Not Given Pantoprazole Sodium (Protonix -) 40 mg PO DAILY [facility] Last Admin: 08/11/18 10:49 Dose: 40 mg Rivaroxaban (Xarelto -) 10 mg PO DAILY@1800 [facility] Last Admin: 08/10/18 21:34 Dose: 10 mg Spironolactone (Aldactone -) 12.5 mg PO DAILY [facility] Last Admin: 08/11/18 09:46 Dose: Not Given A/P: 83 yo woman with a hx of afib (on xarelto), severe systolic LV dysfunction (on metoprolol, spironolactone, lasix), [place] (s/p stents, defibrillator placement), CVA, HLD, HTN, anxiety/depression. Patient to be discharged on 128 morning but found to be hypotensive and observed overnight with recurrent episode of hypotension and atrial fibrillation with RVR. #Heart Failure; continue lasix, aldactone. hold losartan. #Atrial fibrillation: rate: increase metoprolol 25mg to 37.5mg qid, dilt 120mg Rhythm: digoxin load 0.5mg followed by 0.125mg q6hrs X2 followed by 0.125mg qday AC: ivaroxaban --please place back on telemetry with goal HR<110 Of note, given heart failure would recommend transitioning to metoprolol and discontinuing the home oral diltiazem as medications are being tailored prior to discharge. #HL; continue atorvastatin Joel Lima MD
[2018-08-11] MEDS: PANTOPRAZOLE 40 MG TABLET (FP) PO SCH (10:49)
[2018-08-11] MEDS ORDERED: DIGOXIN 0.25 MG TABLET (FP) PO ONE (14:00)
[2018-08-11 14:18] LABS: BASO % 0.8 % (0-2.0); EOS % 0.8 % (0-4.5); HEMATOCRIT 42.3 % (32.4-45.2); HEMOGLOBIN 13.7 GM/dL (10.7-15.3); MCH 25.3 pg (25.7-33.7); MCHC 32.4 g/dl (32.0-36.0); MEAN CELL VOLUME 78.1 fl (80-96); MEAN PLT VOLUME 8.8 fl (7.5-11.1); MONO % 7.3 % (3.8-10.2); NEUT % 62.1 % (42.8-82.8); PLATELET COUNT 251 K/MM3 (134-434); RBC 5.41 M/mm3 (3.60-5.2); RDW 18.5 % (11.6-15.6); WHITE BLOOD COUNT 7.2 K/mm3 (4.0-10.0)
--- NOTE | 2018-08-11 17:16 | EKG ---
Test Reason : Blood Pressure : / mmHG Vent. Rate : 108 BPM Atrial Rate : 119 BPM P-R Int : 000 ms QRS Dur : 074 ms QT Int : 332 ms P-R-T Axes : 000 -27 149 degrees QTc Int : 444 ms ATRIAL FIBRILLATION WITH RAPID VENTRICULAR RESPONSE MINIMAL VOLTAGE CRITERIA FOR LVH, MAY BE NORMAL VARIANT SEPTAL INFARCT (CITED ON OR BEFORE 27-MAR-2017) T WAVE ABNORMALITY, CONSIDER LATERAL ISCHEMIA ABNORMAL ECG WHEN COMPARED WITH ECG OF 10-AUG-2018 09:37, NO SIGNIFICANT CHANGE WAS FOUND Confirmed by ELIZABETH GOSS MD ([id number]) on 08/11/2018 5:16:11 PM Referred By: Leticia GARCIA Confirmed By:ELIZABETH GOSS MD
[2018-08-11] MEDS ORDERED: PT OWN MED DRAWER 7, Y5N ONE (17:28)
[2018-08-11] MEDS: RIVAROXABAN 10 MG TABLET PO SCH (17:35)
[2018-08-11] MEDS ORDERED: DIGOXIN 0.125 MG TABLET (FP) PO ONE (18:00)
[2018-08-11] MEDS: ATORVASTATIN CA 10 MG TABLET (FP) PO SCH (21:01)
[2018-08-12] MEDS ORDERED: DIGOXIN 0.125 MG TABLET (FP) PO ONE
[2018-08-12 07:49] LABS: ANION GAP 6 MMOL/L (8-16); BLOOD UREA NITROGEN 29 mg/dL (7-18); CALCIUM 8.1 mg/dL (8.5-10.1); CHLORIDE 107 mmol/L (98-107); CO2 29 mmol/L (21-32); CREATININE 0.9 mg/dL (0.55-1.3); GLUCOSE,RANDOM 102 mg/dL (74-106); MAGNESIUM 1.7 mg/dL (1.8-2.4); POTASSIUM 4.3 mmol/L (3.5-5.1); SODIUM 142 mmol/L (136-145)
[2018-08-12] MEDS: SPIRONOLACTONE 25 MG TABLET (FP) PO SCH (10:00)
[2018-08-12] MEDS: METOPROLOL TARTRATE 50 MG TABLET (FP) PO SCH ×2 (10:00→21:40)
[2018-08-12] MEDS: FUROSEMIDE 40 MG TABLET (FP) PO SCH (10:09)
[2018-08-12] MEDS: DIGOXIN 0.125 MG TABLET (FP) PO SCH (10:09)
[2018-08-12] MEDS: PANTOPRAZOLE 40 MG TABLET (FP) PO SCH (10:09)
--- NOTE | 2018-08-12 12:46 | PN ---
Progress Note, Physician History of Present Illness: The patient is a 83 year old female, with a significant past medical history of [place] (s/p stents, defibrillator placement), afib (on xarelto), CHF, CVA (2009) HTN , and HLD, who presents to the emergency department with, shortness of breath, irregular heartbeat, and elevated blood pressure. PMH Proximal LAD stent (JACE) 01/10 during admission for [place] s/p ICD 02/10 atrial fibrillation Congestive heart failure (systolic); s/p coronary stent and ICD depression HTN hypercholesterolemia insomnia Myocardial infarction 01/10; led to prox LAD stent; one month later, she felt a shock from the life-vest she was wearing because of severe LV dysfunction, resulting in ICD implant 02/10 obesity sedentary lifestyle - Current Medication List Current Medications: Active Medications Atorvastatin Calcium (Lipitor -) 10 mg PO HS [facility] Last Admin: 08/11/18 21:01 Dose: 10 mg Digoxin (Lanoxin -) 0.125 mg PO DAILY [facility] Last Admin: 08/12/18 10:09 Dose: 0.125 mg Furosemide (Lasix -) 40 mg PO DAILY [facility] Last Admin: 08/12/18 10:09 Dose: 40 mg Metoprolol Tartrate (Lopressor -) 50 mg PO BID [facility] Last Admin: 08/11/18 21:01 Dose: Not Given Pantoprazole Sodium (Protonix -) 40 mg PO DAILY [facility] Last Admin: 08/12/18 10:09 Dose: 40 mg Rivaroxaban (Xarelto -) 10 mg PO DAILY@1800 [facility] Last Admin: 08/11/18 17:35 Dose: 10 mg Spironolactone (Aldactone -) 12.5 mg PO DAILY [facility] Last Admin: 08/11/18 09:46 Dose: Not Given - Objective Vital Signs: Vital Signs Temperature 97.8 F 08/12/18 06:10 Pulse Rate 98 H 08/12/18 10:09 Respiratory Rate 20 08/12/18 06:10 Blood Pressure 92/50 L 08/12/18 06:10 O2 Sat by Pulse Oximetry (%) 99 08/11/18 21:00 Eyes: Yes: WNL, Conjunctiva Clear, EOM Intact HENT: Yes: WNL, Atraumatic, Normocephalic Neck: Yes: WNL, Supple, Trachea Midline Cardiovascular: Yes: WNL, Pulse Irregular, S1, S2 Respiratory: Yes: WNL, Regular, CTA Bilaterally Gastrointestinal: Yes: WNL, Normal Bowel Sounds Genitourinary: Yes: WNL Musculoskeletal: Yes: WNL Extremities: Yes: WNL Edema: No Integumentary: Yes: WNL Neurological: Yes: WNL, Alert, Oriented ...Motor Strength: WNL Psychiatric: Yes: WNL Labs: CBC, BMP 08/11/18 13:15 08/12/18 05:30 INR, PTT INR 1.44 (0.83-1.09) H 08/05/18 12:00 Problem List - Problems (1) Acute on chronic systolic (congestive) heart failure Code(s): I50.23 - ACUTE ON CHRONIC SYSTOLIC (CONGESTIVE) HEART FAILURE (2) Atrial fibrillation Code(s): I48.91 - UNSPECIFIED ATRIAL FIBRILLATION (3) Atrial fibrillation with RVR Code(s): I48.91 - UNSPECIFIED ATRIAL FIBRILLATION (4) CHF (congestive heart failure) Code(s): I50.9 - HEART FAILURE, UNSPECIFIED Qualifiers: Heart failure type: unspecified Heart failure chronicity: unspecified Qualified Code(s): I50.9 - Heart failure, unspecified (5) Cardiac arrhythmia Code(s): I49.9 - CARDIAC ARRHYTHMIA, UNSPECIFIED Qualifiers: Arrhythmia type: unspecified cardiac arrhythmia Qualified Code(s): I49.9 - Cardiac arrhythmia, unspecified (6) Defibrillator discharge Code(s): Z45.02 - ENCNTR FOR ADJUST AND MGMT OF AUTOMATIC IMPLNTBL CARD DEFIB (7) Dilated bile duct Code(s): K83.8 - OTHER SPECIFIED DISEASES OF BILIARY TRACT (8) Discomfort in chest Code(s): R07.89 - OTHER CHEST PAIN (9) Elevated LFTs Code(s): R79.89 - OTHER SPECIFIED ABNORMAL FINDINGS OF BLOOD CHEMISTRY (10) Elevated troponin I level Code(s): R74.8 - ABNORMAL LEVELS OF OTHER SERUM ENZYMES (11) Gallstone Code(s): K80.20 - CALCULUS OF GALLBLADDER W/O CHOLECYSTITIS W/O OBSTRUCTION Qualifiers: Cholecystitis presence: without cholecystitis (12) HTN (hypertension) Code(s): I10 - ESSENTIAL (PRIMARY) HYPERTENSION (13) Hyperlipidemia Code(s): E78.5 - HYPERLIPIDEMIA, UNSPECIFIED (14) Hypomagnesemia Code(s): E83.42 - HYPOMAGNESEMIA (15) Intertrochanteric fracture of left hip Code(s): S72.142A - DISPLACED INTERTROCHANTERIC FRACTURE OF LEFT FEMUR, INIT Qualifiers: Encounter type: initial encounter Fracture type: closed Qualified Code(s) : S72.142A - Displaced intertrochanteric fracture of left femur, initial encounter for closed fracture (16) On amiodarone therapy Code(s): Z79.899 - OTHER CORRECTION (CURRENT) DRUG THERAPY (17) Palpitations Code(s): R00.2 - PALPITATIONS (18) Pneumonia Code(s): J18.9 - PNEUMONIA, UNSPECIFIED ORGANISM Qualifiers: Pneumonia type: due to unspecified organism Laterality: unspecified laterality Lung location: unspecified part of lung Qualified Code(s): J18.9 - Pneumonia, unspecified organism (19) Shortness of breath Code(s): R06.02 - SHORTNESS OF BREATH Assessment/Plan 83 yo woman with a hx of afib (on xarelto), severe systolic LV dysfunction (on metoprolol, spironolactone, lasix), [place] (s/p stents, defibrillator placement), CVA, HLD, HTN, anxiety/depression. Patient to be discharged on 128 morning but found to be hypotensive and observed overnight with recurrent episode of hypotension and atrial fibrillation with RVR. #Heart Failure; continue lasix, aldactone. hold losartan. #Atrial fibrillation: rate: increase metoprolol 25mg to 37.5mg qid, dilt 120mg Rhythm: digoxin load 0.5mg followed by 0.125mg q6hrs X2 followed by 0.125mg qday AC: ivaroxaban --please place back on telemetry with goal HR<110 Of note, given heart failure would recommend transitioning to metoprolol and discontinuing the home oral diltiazem as medications are being tailored prior to discharge. #HL; continue atorvastatin
--- NOTE | 2018-08-12 13:24 | PN ---
Progress Note (short form) - Note Progress Note: pt seen/ examined all f/u noted alert/ awake wants to go home. hr remains uncontrolled denies cp. Vital Signs Temp 97.8 F 08/12/18 10:00 Pulse 98 H 08/12/18 10:09 Resp 18 08/12/18 10:00 BP 107/54 L 08/12/18 10:00 Pulse Ox 99 08/11/18 21:00 Intake & Output 08/11/18 08/12/18 08/12/18 23:59 11:59 23:59 Intake Total 660 100 Balance 660 100 Weight 164 lb 12.8 oz Intake: Oral 660 100 Other: Voiding Method Toilet Toilet # Unmeasured Voids Void 2 5 Weight Measurement Method Standing Scale Active Medications Atorvastatin Calcium (Lipitor -) 10 mg PO HS [facility] Last Admin: 08/11/18 21:01 Dose: 10 mg Digoxin (Lanoxin -) 0.125 mg PO DAILY [facility] Last Admin: 08/12/18 10:09 Dose: 0.125 mg Furosemide (Lasix -) 40 mg PO DAILY [facility] Last Admin: 08/12/18 10:09 Dose: 40 mg Metoprolol Tartrate (Lopressor -) 50 mg PO BID [facility] Last Admin: 08/11/18 21:01 Dose: Not Given Pantoprazole Sodium (Protonix -) 40 mg PO DAILY [facility] Last Admin: 08/12/18 10:09 Dose: 40 mg Rivaroxaban (Xarelto -) 10 mg PO DAILY@1800 [facility] Last Admin: 08/11/18 17:35 Dose: 10 mg Spironolactone (Aldactone -) 12.5 mg PO DAILY [facility] Last Admin: 08/11/18 09:46 Dose: Not Given CBC, BMP 08/11/18 13:15 08/12/18 05:30 Abnormal Lab Results 08/11/18 08/12/18 13:15 05:30 RBC 5.41 H MCV 78.1 L MCH 25.3 L RDW 18.5 H Anion Gap 6 L BUN 29 H Calcium 8.1 L Magnesium 1.7 L Physical exam Awake/ comfortable S1 S2 Irregular Lungs clear Abd- soft, NT No edema PLAN Rapid Afib--not well controlled cardiology adjusting meds CHF decompensation HTN -- Rate not controlled -- continue with Xarelto -- -- continue with other meds -- not in volume overload -- monitor on tele -- will follow -discussed with nursing staff also Problem List - Problems (1) ICD (implantable cardioverter-defibrillator) in place Code(s): Z95.810 - PRESENCE OF AUTOMATIC (IMPLANTABLE) CARDIAC DEFIBRILLATOR (2) Atrial fibrillation with RVR Code(s): I48.91 - UNSPECIFIED ATRIAL FIBRILLATION (3) HTN (hypertension) Code(s): I10 - ESSENTIAL (PRIMARY) HYPERTENSION (4) Hypomagnesemia Code(s): E83.42 - HYPOMAGNESEMIA
[2018-08-12] MEDS: MAGNESIUM OXIDE 400 MG TABLET (FP) PO SCH ×2 (16:00→21:41)
[2018-08-12] MEDS: RIVAROXABAN 10 MG TABLET PO SCH (18:26)
[2018-08-12] MEDS: ATORVASTATIN CA 10 MG TABLET (FP) PO SCH (21:41)
[2018-08-13 09:29] VITALS: BP 126/76; TEMP 98
[2018-08-13] MEDS: SPIRONOLACTONE 25 MG TABLET (FP) PO SCH (09:38)
[2018-08-13] MEDS: PANTOPRAZOLE 40 MG TABLET (FP) PO SCH (09:38)
[2018-08-13] MEDS: DIGOXIN 0.125 MG TABLET (FP) PO SCH (09:39)
[2018-08-13] MEDS: METOPROLOL TARTRATE 50 MG TABLET (FP) PO SCH (09:39)
[2018-08-13] MEDS: MAGNESIUM OXIDE 400 MG TABLET (FP) PO SCH (09:39)
[2018-08-13] MEDS: FUROSEMIDE 40 MG TABLET (FP) PO SCH (09:39)
[2018-08-13 09:40] VITALS: PULSE 116
--- NOTE | 2018-08-13 12:08 | PN ---
Problem List - Problems (1) Acute on chronic systolic (congestive) heart failure Code(s): I50.23 - ACUTE ON CHRONIC SYSTOLIC (CONGESTIVE) HEART FAILURE (2) Atrial fibrillation Code(s): I48.91 - UNSPECIFIED ATRIAL FIBRILLATION (3) Atrial fibrillation with RVR Code(s): I48.91 - UNSPECIFIED ATRIAL FIBRILLATION (4) CHF (congestive heart failure) Code(s): I50.9 - HEART FAILURE, UNSPECIFIED Qualifiers: Qualified Code(s): I50.9 - Heart failure, unspecified (5) HTN (hypertension) Code(s): I10 - ESSENTIAL (PRIMARY) HYPERTENSION
--- NOTE | 2018-08-13 12:10 | PN ---
Progress Note, Physician Chief Complaint: Pt is A&Ox3; no chest pain, palpitations, SOB. History of Present Illness: 83 yo woman (faisal Miller), with a hx of afib (on xarelto), severe systolic LV dysfunction (on metoprolol, spironolactone, lasix), PR (s/p stents, defibrillator placement), CVA, HLD, HTN, anxiety/depression, who presents to the emergency department with SOB and anuria for 1 day. Per the patient, she states that she intermittently takes lasix for LE edema bilaterally. She states her legs have been swelling lately and has increased abdominal girth. She denies the following: chest pain, nausea, vomiting, diaphoresis, dysuria, hematuria, and diarrhea. - Current Medication List Current Medications: Active Medications Atorvastatin Calcium (Lipitor -) 10 mg PO HS [facility] Last Admin: 08/12/18 21:41 Dose: 10 mg Digoxin (Lanoxin -) 0.125 mg PO DAILY [facility] Last Admin: 08/13/18 09:39 Dose: 0.125 mg Furosemide (Lasix -) 40 mg PO DAILY [facility] Last Admin: 08/13/18 09:39 Dose: 40 mg Magnesium Oxide (Mag-Ox -) 400 mg PO BID [facility] Last Admin: 08/13/18 09:39 Dose: 400 mg Metoprolol Tartrate (Lopressor -) 50 mg PO BID [facility] Last Admin: 08/13/18 09:39 Dose: 50 mg Pantoprazole Sodium (Protonix -) 40 mg PO DAILY [facility] Last Admin: 08/13/18 09:38 Dose: 40 mg Rivaroxaban (Xarelto -) 10 mg PO DAILY@1800 [facility] Last Admin: 08/12/18 18:26 Dose: 10 mg Spironolactone (Aldactone -) 12.5 mg PO DAILY [facility] Last Admin: 08/13/18 09:38 Dose: 12.5 mg - Objective Vital Signs: Vital Signs Temperature 98.0 F 08/13/18 09:28 Pulse Rate 116 H 08/13/18 09:39 Respiratory Rate 18 08/13/18 09:28 Blood Pressure 126/76 08/13/18 09:28 O2 Sat by Pulse Oximetry (%) 94 L 08/12/18 21:00 Constitutional: Yes: Obese Eyes: Yes: WNL Labs: CBC, BMP 08/11/18 13:15 08/12/18 05:30 INR, PTT INR 1.44 (0.83-1.09) H 08/05/18 12:00 Problem List - Problems (1) Acute on chronic systolic (congestive) heart failure Assessment/Plan: Continue metoprolol tartrate 50 mg bid, spironolactone, and losartan. On digoxin; keep level 0.5-1.0. From cardiac perspective, pt may be followed as an outpatient. Code(s): I50.23 - ACUTE ON CHRONIC SYSTOLIC (CONGESTIVE) HEART FAILURE (2) Atrial fibrillation with RVR Assessment/Plan: On rivaroxaban for AC. On metoprolol for HR control. Telemetry: AF with controlled VR; january f/u as outpatient. Code(s): I48.91 - UNSPECIFIED ATRIAL FIBRILLATION (3) HTN (hypertension) Code(s): I10 - ESSENTIAL (PRIMARY) HYPERTENSION (4) ICD (implantable cardioverter-defibrillator) in place Code(s): Z95.810 - PRESENCE OF AUTOMATIC (IMPLANTABLE) CARDIAC DEFIBRILLATOR (5) Hyperlipidemia Code(s): E78.5 - HYPERLIPIDEMIA, UNSPECIFIED (6) Hypomagnesemia Assessment/Plan: replete, and keep 2-2.4. Code(s): E83.42 - HYPOMAGNESEMIA
== END 2018-08-13 13:09 | disposition home or self-care (01) | DRG 308 ==
LOC: JER 11:09 → JERBED 14:36 → J4W 21:46
PROVIDERS: ADMIT Internal Medicine; ATTEND Internal Medicine
DX: I48.91 Unspecified atrial fibrillation (principal); I50.23 Acute on chronic systolic (congestive) heart failure; I11.0 Hypertensive heart disease with heart failure; E83.42 Hypomagnesemia; F32.9 Major depressive disorder, single episode, unspecified; G47.00 Insomnia, unspecified; E66.9 Obesity, unspecified; Z95.810 Presence of automatic (implantable) cardiac defibrillator; Z91.14 Patient's other noncompliance with medication regimen; E78.5 Hyperlipidemia, unspecified; I27.20 Pulmonary hypertension, unspecified; I34.0 Nonrheumatic mitral (valve) insufficiency; Z68.29 Body mass index [BMI] 29.0-29.9, adult; Z79.01 Long term (current) use of anticoagulants; F41.9 Anxiety disorder, unspecified; I25.2 Old myocardial infarction
CPT/HCPCS: 36415; 71045-TC-FY; 80048; 80053; 80162; 81003; 82550; 83735; 83880; 84439; 84443; 84484; 85025; 85610; 85730; 86850; 86900; 86901; 87086; 93005; 93010; 93306-TC; 99284-25

== ENCOUNTER 2018-12-28 12:52 | Inpatient (IN) | payer OTHER ==
--- NOTE | 2018-12-28 14:14 | PDOC ---
History of Present Illness <Renee Waddell - Last Filed: 12/28/18 16:00> - History of Present Illness Initial Comments: 83F with a PMH of IA (s/p stents, defibrillator placement), afib (on xarelto), CHF, CVA (2009) HTN, and HLD, who presents to the emergency department with, shortness of breath. Patient states she has had worsening shortness of breath for the past week. She reports adherence to her medication regimen. Patient has leg swelling which has also worsened. She takes a 'water pill,' one tablet in the morning and one at night. She is not able to tell me which dose and does not have the medication bottle with her. Has not had increased fluid intake. In fact, complains that her mouth is often dry. No chest pain. No cough. No hemoptysis, no recent surgical history, no recent immobilization, no hormone use , no history of DVT or PE. Patient lives by herself and has a home health aide come Sunday through Sunday. No fever or chills. PCP: Alfred Peacock. Cardio: Dr. Marquis <Renee Joshi - Last Filed: 12/28/18 17:09> - General Chief Complaint: Shortness of Breath Stated Complaint: SHORTNESS OF BREATH Time Seen by Provider: 12/28/18 14:14 Past History <Renee Waddell - Last Filed: 12/28/18 16:00> - Past Medical History Anemia: No Asthma: No Cancer: No Cardiac Disorders: Yes (mi 4/10 stents, defibrillator) CVA: Yes (2011) COPD: No CHF: No Dementia: No Diabetes: No GI Disorders: No Disorders: No HTN: Yes Hypercholesterolemia: Yes Liver Disease: No Seizures: No Thyroid Disease: No - Surgical History Abdominal Surgery: No Appendectomy: No Cardiac Surgery: Yes (defibrillator) Cholecystectomy: No Lung Surgery: No Neurologic Surgery: No Orthopedic Surgery: No - Immunization History Immunization Up to Date: Yes - Suicide/Smoking/Psychosocial Hx Smoking Status: No Smoking History: Never smoked Have you smoked in the past 12 months: No Number of Cigarettes Smoked Daily: 0 Information on smoking cessation initiated: No Hx Alcohol Use: No Drug/Substance Use Hx: No Substance Use Type: None Hx Substance Use Treatment: No <Renee Joshi Last Filed: 12/28/18 17:09> - Past Medical History Allergies/Adverse Reactions: Allergies Allergy/AdvReac Type Severity Reaction Status Date / Time No Known Allergies Allergy Verified 12/28/18 13:22 Home Medications: Ambulatory Orders Rivaroxaban [Xarelto -] 10 mg PO DAILY 12/30/17 Cholecalciferol (Vitamin D3) [Vitamin D3] 1,000 unit PO DAILY 08/05/18 Digoxin [Lanoxin -] 0.125 mg PO DAILY #30 tablet 08/13/18 Atorvastatin Ca [Lipitor] 1 tab PO HS 12/28/18 Famotidine [Pepcid] 1 tab PO BID 12/28/18 Furosemide [Lasix] 40 mg PO BID 12/28/18 Magnesium Oxide [Magnesium] 1 tab PO DAILY 12/28/18 Metoclopramide HCl [Reglan] 1 tab PO TID 12/28/18 Metoprolol Succinate [Toprol Xl] 1 tab PO BID 12/28/18 Spironolactone [Aldactone -] 25 mg PO DAILY 12/28/18 Review of Systems - Review of Systems Comments:: Constitutional: no fever, no chills HEENT: no throat pain, no dysphagia Cardiovascular: no chest pain, no palpitations Respiratory: no cough, +shortness of breath Gastrointestinal: no abdominal pain, no nausea Genitourinary: no dysuria, no frequency Musculoskeletal: no myalgia, no arthralgia Skin: no rash, no itching Neurologic: no headache, no weakness <Renee Joshi - Last Filed: 12/28/18 17:09> *Physical Exam - Vital Signs Last Vital Signs Temp Pulse Resp BP Pulse Ox 98.0 F 82 16 104/73 100 12/28/18 12:53 12/28/18 12:53 12/28/18 12:53 12/28/18 12:53 12/28/18 12:53 <Renee Waddell - Last Filed: 12/28/18 16:00> - Vital Signs Last Vital Signs Temp Pulse Resp BP Pulse Ox 98.0 F 82 16 104/73 100 12/28/18 12:53 12/28/18 12:53 12/28/18 12:53 12/28/18 12:53 12/28/18 12:53 - Physical Exam Comments: General: Awake, alert, and fully oriented, in no acute distress Head: No signs of trauma Eyes: EOMI, sclera anicteric ENT: Dry mucus membranes Neck: Normal ROM, supple Lungs: Rales present at the left lung base Cardio: Regular rhythm, S1 and S2 present Abdomen: Soft, nontender. No guarding, no rebound, no masses Extremities: Normal range of motion, Distal pulses present, 2+ pitting edema in BLE, No calf tenderness SKIN: Warm, Dry, normal turgor Neurologic: Cranial nerves II through XII grossly intact. Normal speech <Renee Joshi - Last Filed: 12/28/18 17:09> ED Treatment Course - LABORATORY CBC & Chemistry Diagram: 12/28/18 15:08 12/28/18 15:08 - ADDITIONAL ORDERS Additional order review: Laboratory Results 12/28/18 15:08 PT with INR Cancelled INR Cancelled PTT (Actin FS) Cancelled 12/28/18 15:08 RBC 5.38 H MCV 73.5 L MCHC 30.8 L RDW 22.3 H MPV 9.2 Neutrophils % 54.7 Lymphocytes % 33.6 Monocytes % 10.5 H Eosinophils % 0.4 Basophils % 0.8 <Renee Waddell - Last Filed: 12/28/18 16:00> - LABORATORY CBC & Chemistry Diagram: 12/28/18 15:08 12/28/18 15:08 <Renee Joshi - Last Filed: 12/28/18 17:09> Medical Decision Making - Medical Decision Making 83F with a PMH of IA (s/p stents, defibrillator placement), afib (on xarelto), CHF, CVA (2009) HTN, and HLD, who presents to the emergency department with shortness of breath. DDX including but not limited to CHF exacerbation, AFib with RVR, PE, PNA, Anemia CBC, CMP, Tpn, BNP EKG: rate 94, QTc 497, Afib with PVCs, LAD CXR shows defibrillator, blunted diaphragmatic angles, similar to previous radiographs CBC WBC 6.1 K/mm3 (4.0-10.0) 12/28/18 15:08 RBC 5.38 M/mm3 (3.60-5.2) H 12/28/18 15:08 Hgb 12.2 GM/dL (10.7-15.3) 12/28/18 15:08 Hct 39.5 % (32.4-45.2) 12/28/18 15:08 MCV 73.5 fl (80-96) L 12/28/18 15:08 MCH 22.7 pg (25.7-33.7) L 12/28/18 15:08 MCHC 30.8 g/dl (32.0-36.0) L 12/28/18 15:08 RDW 22.3 % (11.6-15.6) H 12/28/18 15:08 Plt Count 172 K/MM3 (134-434) D 12/28/18 15:08 MPV 9.2 fl (7.5-11.1) 12/28/18 15:08 Absolute Neuts (auto) 3.3 K/mm3 (1.5-8.0) 12/28/18 15:08 Neutrophils % 54.7 % (42.8-82.8) 12/28/18 15:08 Lymphocytes % 33.6 % (8-40) 12/28/18 15:08 Monocytes % 10.5 % (3.8-10.2) H 12/28/18 15:08 Eosinophils % 0.4 % (0-4.5) 12/28/18 15:08 Basophils % 0.8 % (0-2.0) 12/28/18 15:08 Nucleated RBC % 0 % (0-0) 12/28/18 15:08 No anemia or luekocytosis Call from lab: Hemolyzed PTT 12/28/18 15:42 CMP Sodium 148 mmol/L (136-145) H 12/28/18 15:08 Potassium 3.6 mmol/L (3.5-5.1) 12/28/18 15:08 Chloride 108 mmol/L (98-107) H 12/28/18 15:08 Carbon Dioxide 31 mmol/L (21-32) 12/28/18 15:08 Anion Gap 8 MMOL/L (8-16) 12/28/18 15:08 BUN 31 mg/dL (7-18) H 12/28/18 15:08 Creatinine 1.2 mg/dL (0.55-1.3) 12/28/18 15:08 Creat Clearance w eGFR 43.12 (>60) 12/28/18 15:08 Random Glucose 92 mg/dL (74-106) 12/28/18 15:08 Calcium 8.9 mg/dL (8.5-10.1) 12/28/18 15:08 Total Bilirubin 1.6 mg/dL (0.2-1) H 12/28/18 15:08 AST 32 U/L (15-37) 12/28/18 15:08 ALT 22 U/L (13-61) 12/28/18 15:08 Alkaline Phosphatase 249 U/L (45-117) H 12/28/18 15:08 Troponin I < 0.02 ng/ml (0.00-0.05) 12/28/18 15:08 B-Natriuretic Peptide 5569.1 pg/ml (5-450) H 12/28/18 15:08 Total Protein 6.2 g/dl (6.4-8.2) L 12/28/18 15:08 Albumin 3.3 g/dl (3.4-5.0) L 12/28/18 15:08 BNP elevated (highest she has ever been) Tpn undetectable Plan to admit for CHF exacerbation 40 lasix ordered 12/28/18 16:56 Discussed case with inpatient team who accepted patient for admission under Dr. Otero. 12/28/18 17:08 <Renee Joshi - Last Filed: 12/28/18 17:09> *DC/Admit/Observation/Transfer <Renee Waddell - Last Filed: 12/28/18 16:00> - Discharge Dispostion Decision to Admit order: Yes <Renee Joshi - Last Filed: 12/28/18 17:09> Diagnosis at time of Disposition: Acute on chronic systolic (congestive) heart failure - Discharge Dispostion Condition at time of disposition: Guarded - Referrals Referrals: Alfred Duarte MD [Primary Care Provider] - - Patient Instructions - Post Discharge Activity
[2018-12-28 15:28] LABS: BASO % 0.8 % (0-2.0); EOS % 0.4 % (0-4.5); HEMATOCRIT 39.5 % (32.4-45.2); HEMOGLOBIN 12.2 GM/dL (10.7-15.3); LYMPH % 33.6 % (8-40); MCH 22.7 pg (25.7-33.7); MCHC 30.8 g/dl (32.0-36.0); MEAN CELL VOLUME 73.5 fl (80-96); MEAN PLT VOLUME 9.2 fl (7.5-11.1); MONO % 10.5 % (3.8-10.2); NEUT % 54.7 % (42.8-82.8); PLATELET COUNT 172 K/MM3 (134-434); RBC 5.38 M/mm3 (3.60-5.2); RDW 22.3 % (11.6-15.6); WHITE BLOOD COUNT 6.1 K/mm3 (4.0-10.0)
--- NOTE | 2018-12-28 15:54 | PDOC ---
Documentation entered by Raemsh Wiggins SCRIBE, acting as scribe for Renee Waddell MD. Renee Waddell MD: This documentation has been prepared by the bereketeFeliciano Daniel, SCRIBE, under my direction and personally reviewed by me in its entirety. I confirm that the documentation accurately reflects all work, treatment, procedures, and medical decision making performed by me. Attending Attestation - Resident Resident Name: Renee Joshi - ED Attending Attestation I have performed the following: I have examined & evaluated the patient, The case was reviewed & discussed with the resident, I agree w/resident's findings & plan, Exceptions are as noted - HPI HPI: 12/28/18 15:35 The patient is a 83 year old female with a past medical history of afib (on xarelto), PR (s/p stents and defibrillator), CHF (on lasix), CVA (2010), HTN, and HLD here today for evaluation of shortness of breath. The patient reports that her shortness of breath began 1 week ago and has been getting worse since then. Patient attributes her shortness of breath to her cardiac conditions. Patient denies headache, lightheadedness. Denies fever, chills. Denies chest pain. Denies nausea, vomiting, diarrhea, abdominal pain. Allergies: NKA Social history: Patient denies tobacco use. PCP: Alfred Duarte - Physicial Exam PE: GENERAL: Awake, alert, and fully oriented, in no acute distress HEAD: No signs of trauma EYES: PERRLA, EOMI, sclera anicteric, conjunctiva clear ENT: Auricles normal inspection, hearing grossly normal, nares patent, oropharynx clear without exudates. Moist mucosa NECK: Normal ROM, supple, no lymphadenopathy, JVD, or masses LUNGS: Breath sounds equal, clear to auscultation bilaterally. No wheezes, and no crackles HEART: Regular rate and rhythm, normal S1 and S2, no murmurs, rubs or gallops ABDOMEN: Soft, nontender, normoactive bowel sounds. No guarding, no rebound. No masses EXTREMITIES: Normal range of motion, 2+ pitting edema to shins B/L. No clubbing or cyanosis. No cords, erythema, or tenderness NEUROLOGICAL: Cranial nerves II through XII grossly intact. Normal speech. Motor and sensation intact SKIN: Warm, Dry, normal turgor, no rashes or lesions noted. - Medical Decision Making Pt with progressively worsening SOB, HANKS, associated with fluid retention, leg swelling. She states she has been compliant with her medications. She also states they were recently changed but does not know what was changed. Will contact her pharmacy to confirm.
[2018-12-28 16:49] LABS: ALBUMIN 3.3 g/dl (3.4-5.0); ALK PHOS 249 U/L (45-117); ANION GAP 8 MMOL/L (8-16); BILIRUBIN,TOTAL 1.6 mg/dL (0.2-1); BLOOD UREA NITROGEN 31 mg/dL (7-18); CALCIUM 8.9 mg/dL (8.5-10.1); CHLORIDE 108 mmol/L (98-107); CO2 31 mmol/L (21-32); CREATININE 1.2 mg/dL (0.55-1.3); GLUCOSE,RANDOM 92 mg/dL (74-106); N-TERMINAL BNP 5569.1 pg/ml (5-450); POTASSIUM 3.6 mmol/L (3.5-5.1); SGOT/AST 32 U/L (15-37); SGPT/ALT 22 U/L (13-61); SODIUM 148 mmol/L (136-145); TOT PROT 6.2 g/dl (6.4-8.2)
[2018-12-28] MEDS ORDERED: FUROSEMIDE 40 MG/4 ML INJECTABLE VIAL IVPUSH ONE (16:50)
[2018-12-28] MEDS ORDERED: FUROSEMIDE 40 MG/4 ML INJECTABLE VIAL ONE (17:22)
[2018-12-28 17:26] LABS: ANISOCYTOSIS 3+; MACROCYTOSIS 1+; OVALOCYTE 1+; PLATELET ESTIMATE ADEQUATE
--- NOTE | 2018-12-28 17:46 | HP ---
CHIEF COMPLAINT:shortness of breath PCP:Edmundo HISTORY OF PRESENT ILLNESS: The patient is a 83 year old female with a past medical history of afib (on xarelto), ND (s/p stents and defibrillator), CHF (on lasix), CVA (2010), HTN, and HLD here today for evaluation of shortness of breath. The patient reports that her shortness of breath began 1 week ago and has been getting worse since then. Patient attributes her shortness of breath to her cardiac conditions. ER course was notable for: (1) high bmp (2)afib (3)h/o admission in hosptial in August 2018 Recent Travel: PAST MEDICAL HISTORY: afib (on xarelto), ND (s/p stents and defibrillator), CHF (on lasix), CVA (2010 ), HTN, and HLD PAST SURGICAL HISTORY: stents and defibrillators Social History: Smoking:none Alcohol:none Drugs: none Family History: Allergies No Known Allergies Allergy (Verified 12/28/18 13:22) HOME MEDICATIONS: Home Medications Medication Instructions Recorded Rivaroxaban [Xarelto -] 10 mg PO DAILY 12/30/17 Cholecalciferol (Vitamin D3) 1,000 unit PO DAILY 08/05/18 [Vitamin D3] Digoxin [Lanoxin -] 0.125 mg PO DAILY #30 tablet 08/13/18 Atorvastatin Ca [Lipitor] 1 tab PO HS 12/28/18 Famotidine [Pepcid] 1 tab PO BID 12/28/18 Furosemide [Lasix] 40 mg PO BID 12/28/18 Magnesium Oxide [Magnesium] 1 tab PO DAILY 12/28/18 Metoclopramide HCl [Reglan] 1 tab PO TID 12/28/18 Metoprolol Succinate [Toprol Xl] 1 tab PO BID 12/28/18 Spironolactone [Aldactone -] 25 mg PO DAILY 12/28/18 REVIEW OF SYSTEMS CONSTITUTIONAL: Absent: fever, chills, diaphoresis, generalized weakness, malaise, loss of appetite, weight change HEENT: Absent: rhinorrhea, nasal congestion, throat pain, throat swelling, difficulty swallowing, mouth swelling, ear pain, eye pain, visual changes CARDIOVASCULAR: Absent: chest pain, syncope, palpitations, irregular heart rate, lightheadedness , peripheral edema RESPIRATORY: Absent: cough, dyspnea with exertion, orthopnea, wheezing, stridor, hemoptysis GASTROINTESTINAL: Absent: abdominal pain, abdominal distension, nausea, vomiting, diarrhea, constipation, melena, hematochezia GENITOURINARY: Absent: dysuria, frequency, urgency, hesitancy, hematuria, flank pain, genital pain , Present shortness of breath, MUSCULOSKELETAL: Absent: myalgia, arthralgia, joint swelling, back pain, neck pain SKIN: Absent: rash, itching, pallor HEMATOLOGIC/IMMUNOLOGIC: Absent: easy bleeding, easy bruising, lymphadenopathy, frequent infections ENDOCRINE: Absent: unexplained weight gain, unexplained weight loss, heat intolerance, cold intolerance NEUROLOGIC: Absent: headache, focal weakness or paresthesias, dizziness, unsteady gait, seizure, mental status changes, bladder or bowel incontinence PSYCHIATRIC: Absent: anxiety, depression, suicidal or homicidal ideation, hallucinations. PHYSICAL EXAMINATION Vital Signs - 24 hr 12/28/18 12:53 Temperature 98.0 F Pulse Rate 82 Respiratory 16 Rate Blood Pressure 104/73 O2 Sat by Pulse 100 Oximetry (%) GENERAL: Awake, alert, and fully oriented, in no acute distress. HEAD: Normal with no signs of trauma. EYES: Pupils equal, round and reactive to light, extraocular movements intact, sclera anicteric, conjunctiva clear. No lid lag. EARS, NOSE, THROAT: Ears normal, nares patent, oropharynx clear without exudates. Moist mucous membranes. NECK: Normal range of motion, supple without lymphadenopathy, JVD, or masses. LUNGS: Breath sounds equal, clear to auscultation bilaterally. No wheezes, and no crackles. No accessory muscle use. HEART: irregular rhythm, normal S1 and S2 with murmur systolic and 2/6 , rub or gallop. ABDOMEN: Soft, nontender, not distended, normoactive bowel sounds, no guarding, no rebound, no masses. No hepatomegaly or splenomegaly. MUSCULOSKELETAL: Normal range of motion at all joints. No bony deformities or tenderness. No CVA tenderness. UPPER EXTREMITIES: 2+ pulses, warm, well-perfused. No cyanosis. No clubbing. No peripheral edema. LOWER EXTREMITIES: peripheral edema ++. NEUROLOGICAL: Cranial nerves II-XII intact. Normal speech. Normal gait. PSYCHIATRIC: Cooperative. Good eye contact. Appropriate mood and affect. SKIN: Warm, dry, normal turgor, no rashes or lesions noted, normal capillary refill. Laboratory Results - last 24 hr 12/28/18 12/28/18 12/28/18 15:08 15:08 15:08 WBC 6.1 RBC 5.38 H Hgb 12.2 Hct 39.5 MCV 73.5 L MCH 22.7 L MCHC 30.8 L RDW 22.3 H Plt Count 172 D MPV 9.2 Absolute Neuts (auto) 3.3 Neutrophils % 54.7 Lymphocytes % 33.6 Monocytes % 10.5 H Eosinophils % 0.4 Basophils % 0.8 Nucleated RBC % 0 Hypochromia 2+ Platelet Estimate Adequate Anisocytosis 3+ Microcytosis 2+ Macrocytosis 1+ Ovalocytes 1+ PT with INR Cancelled INR Cancelled PTT (Actin FS) Cancelled Sodium 148 H Potassium 3.6 Chloride 108 H Carbon Dioxide 31 Anion Gap 8 BUN 31 H Creatinine 1.2 Creat Clearance w eGFR 43.12 Random Glucose 92 Calcium 8.9 Total Bilirubin 1.6 H AST 32 ALT 22 Alkaline Phosphatase 249 H Troponin I < 0.02 B-Natriuretic Peptide 5569.1 H Total Protein 6.2 L Albumin 3.3 L Digoxin 0.07 L ASSESSMENT/PLAN:The patient is a 83 year old female with a past medical history of afib (on xarelto), ND (s/p stents and defibrillator), CHF (on lasix), CVA ( 2009), HTN, and HLD here today for evaluation of shortness of breath furosemide 40mg IVP bid Atorvastatin Calcium (Lipitor -) 40 mg PO HS [facility] Cholecalciferol (Vitamin D3 -) 1,000 unit PO DAILY [facility] Furosemide (Lasix Injection -) 40 mg IVPUSH BID@0600,1400 [facility] D Magnesium Oxide (Mag-Ox -) 400 mg PO DAILY [facility] Metoprolol Succinate (Toprol Xl -) 100 mg PO BID [facility] Non-Formulary Medication (Famotidine [Pepcid]) 1 tab PO BID [facility] Non-Formulary Medication (Metoclopramide Hcl [Reglan]) 1 tab PO TID [facility] Rivaroxaban (Xarelto -) 10 mg PO DAILY [facility] Spironolactone (Aldactone -) 25 mg PO DAILY [facility] D -strict i/o -daily weights -2g Na diet -trend troponins -supplemental oxygen via nasal cannula -spironolactone - lipitor -xarelto for afib- also for dvt ppx Visit type - Emergency Visit Emergency Visit: Yes ED Registration Date: 12/28/18 Care time: The patient presented to the Emergency Department on the above date and was hospitalized for further evaluation of their emergent condition. - New Patient This patient is new to me today: Yes Date on this admission: 12/28/18 - Critical Care Critical Care patient: No
[2018-12-28] MEDS ORDERED: METOCLOPRAMIDE HCL 10 MG TABLET (FP) PO ONE (18:44)
[2018-12-28] MEDS ORDERED: RANITIDINE HCL 150 MG TABLET (FP) ONE (18:44)
[2018-12-28] MEDS: RANITIDINE HCL 150 MG TABLET (FP) PO SCH (18:51)
[2018-12-28] MEDS: METOCLOPRAMIDE HCL 10 MG TABLET (FP) PO SCH (18:51)
[2018-12-29] MEDS: ATORVASTATIN CA 40 MG TABLET (FP) PO SCH ×2 (03:06→21:56)
[2018-12-29 03:48] VITALS: BMI 30.2
[2018-12-29] MEDS: FUROSEMIDE 40 MG/4 ML INJECTABLE VIAL IVPUSH SCH ×2 (05:47→13:36)
[2018-12-29] MEDS: METOCLOPRAMIDE HCL 10 MG TABLET (FP) PO SCH ×3 (06:07→16:13)
[2018-12-29] MEDS: MAGNESIUM OXIDE 400 MG TABLET (FP) PO SCH (09:18)
[2018-12-29] MEDS: CHOLECALCIFEROL (VITAMIN D3) 1,000 UNIT TABLET (FP) PO SCH (09:18)
[2018-12-29] MEDS: SPIRONOLACTONE 25 MG TABLET (FP) PO SCH (09:18)
[2018-12-29] MEDS: RANITIDINE HCL 150 MG TABLET (FP) PO SCH (09:18)
[2018-12-29] MEDS: RIVAROXABAN 10 MG TABLET PO SCH (10:13)
--- NOTE | 2018-12-29 10:29 | PN ---
Physical Exam: SUBJECTIVE: Patient seen and examined she is much better has no sob legs are much better no cp or sob or palpitations OBJECTIVE: Vital Signs Period Temp Pulse Resp BP Sys/Aranda Pulse Ox Last 24 Hr 97.6 F-98.0 F 82-106 16-20 102-123/60-85 95-100 GENERAL: The patient is awake, alert, and fully oriented, in no acute distress. HEAD: Normal with no signs of trauma. EYES: PERRL, extraocular movements intact, sclera anicteric, conjunctiva clear. No ptosis. ENT: Ears normal, nares patent, oropharynx clear without exudates, moist mucous membranes. NECK: Trachea midline, full range of motion, supple. LUNGS: Breath sounds equal, clear to auscultation bilaterally, no wheezes, no crackles, no accessory muscle use. HEART: irregular rate and rhythm, S1, S2 without murmur, rub or gallop. ABDOMEN: Soft, nontender, nondistended, normoactive bowel sounds, no guarding, no rebound, no hepatosplenomegaly, no masses. EXTREMITIES: 2+ pulses, warm, well-perfused, trace edema. NEUROLOGICAL: Cranial nerves II through XII grossly intact. Normal speech, gait not observed. PSYCH: Normal mood, normal affect. SKIN: Warm, dry, normal turgor, no rashes or lesions noted Laboratory Results - last 24 hr CBC, BMP 12/28/18 15:08 12/28/18 15:08 Current Medications Atorvastatin Calcium (Lipitor -) 40 mg PO HS [facility] Last Admin: 12/29/18 03:06 Dose: Not Given Cholecalciferol (Vitamin D3 -) 1,000 unit PO DAILY [facility] Last Admin: 12/29/18 09:18 Dose: 1,000 unit Furosemide (Lasix Injection -) 40 mg IVPUSH BID@0600,1400 [facility] Last Admin: 12/29/18 05:47 Dose: 40 mg Magnesium Oxide (Mag-Ox -) 400 mg PO DAILY [facility] Last Admin: 12/29/18 09:18 Dose: 400 mg Metoclopramide HCl (Reglan -) 10 mg PO TIDAC [facility] Last Admin: 12/29/18 10:14 Dose: 10 mg Metoprolol Succinate (Toprol Xl -) 100 mg PO BID [facility] Last Admin: 12/29/18 09:19 Dose: 100 mg Ranitidine HCl (Zantac -) 150 mg PO DAILY [facility] Last Admin: 12/29/18 09:18 Dose: 150 mg Rivaroxaban (Xarelto -) 10 mg PO DAILY [facility] Last Admin: 12/29/18 10:13 Dose: 10 mg Spironolactone (Aldactone -) 25 mg PO DAILY [facility] Last Admin: 12/29/18 09:18 Dose: 25 mg ASSESSMENT/PLAN: Problem List - Problems (1) Acute on chronic systolic (congestive) heart failure Assessment/Plan: she is better than yesterday , her shortness of breath is better and her legs are less swollen and her labs are better cotinue iv lasix Code(s): I50.23 - ACUTE ON CHRONIC SYSTOLIC (CONGESTIVE) HEART FAILURE (2) Atrial fibrillation Assessment/Plan: she is much better and will continue xarelto and her other meds Code(s): I48.91 - UNSPECIFIED ATRIAL FIBRILLATION (3) Hyperlipidemia Assessment/Plan: stable continue statins Code(s): E78.5 - HYPERLIPIDEMIA, UNSPECIFIED Visit type - Emergency Visit Emergency Visit: Yes ED Registration Date: 12/28/18 Care time: The patient presented to the Emergency Department on the above date and was hospitalized for further evaluation of their emergent condition. - New Patient This patient is new to me today: No - Critical Care Critical Care patient: No - Discharge Referral Referred to [facility] No
--- NOTE | 2018-12-29 15:30 | EKG ---
Test Reason : Blood Pressure : / mmHG Vent. Rate : 094 BPM Atrial Rate : 098 BPM P-R Int : 000 ms QRS Dur : 074 ms QT Int : 398 ms P-R-T Axes : 000 -32 121 degrees QTc Int : 497 ms ATRIAL FIBRILLATION WITH PREMATURE VENTRICULAR OR ABERRANTLY CONDUCTED COMPLEXES LEFT AXIS DEVIATION SEPTAL INFARCT (CITED ON OR BEFORE 27-MAR-2017) ABNORMAL ECG WHEN COMPARED WITH ECG OF 11-AUG-2018 10:42, QT HAS LENGTHENED PVC NOW SEEN Confirmed by STEVENSON FOWLER MD ([id number]) on 12/29/2018 3:30:42 PM Referred By: Confirmed By:STEVENSON FOWLER MD
[2018-12-29] MEDS ORDERED: MELATONIN 5 MG TABLETS PO ONE (23:40)
[2018-12-30] MEDS: FUROSEMIDE 40 MG/4 ML INJECTABLE VIAL IVPUSH SCH ×2 (06:36→13:26)
[2018-12-30] MEDS: METOCLOPRAMIDE HCL 10 MG TABLET (FP) PO SCH ×3 (06:36→16:50)
[2018-12-30] MEDS ORDERED: PT OWN MED DRAWER 7, Y5N ONE (08:45)
[2018-12-30] MEDS: MAGNESIUM OXIDE 400 MG TABLET (FP) PO SCH (09:17)
[2018-12-30] MEDS: RANITIDINE HCL 150 MG TABLET (FP) PO SCH (09:17)
[2018-12-30] MEDS: RIVAROXABAN 10 MG TABLET PO SCH (09:17)
[2018-12-30] MEDS: CHOLECALCIFEROL (VITAMIN D3) 1,000 UNIT TABLET (FP) PO SCH (09:17)
[2018-12-30] MEDS: SPIRONOLACTONE 25 MG TABLET (FP) PO SCH (09:22)
--- NOTE | 2018-12-30 10:34 | PN ---
Progress Note, Physician History of Present Illness: pt seen/ examined chart reviewed awake/ comfortable still feels sob denies cp afebrile - Current Medication List Current Medications: Active Medications Atorvastatin Calcium (Lipitor -) 40 mg PO HS [facility] Last Admin: 12/29/18 21:56 Dose: 40 mg Cholecalciferol (Vitamin D3 -) 1,000 unit PO DAILY [facility] Last Admin: 12/30/18 09:17 Dose: 1,000 unit Furosemide (Lasix Injection -) 40 mg IVPUSH BID@0600,1400 [facility] Last Admin: 12/30/18 06:36 Dose: 40 mg Magnesium Oxide (Mag-Ox -) 400 mg PO DAILY [facility] Last Admin: 12/30/18 09:17 Dose: 400 mg Metoclopramide HCl (Reglan -) 10 mg PO TIDAC [facility] Last Admin: 12/30/18 06:36 Dose: 10 mg Metoprolol Succinate (Toprol Xl -) 100 mg PO BID [facility] Last Admin: 12/30/18 09:22 Dose: 50 mg Ranitidine HCl (Zantac -) 150 mg PO DAILY [facility] Last Admin: 12/30/18 09:17 Dose: 150 mg Rivaroxaban (Xarelto -) 10 mg PO DAILY [facility] Last Admin: 12/30/18 09:17 Dose: 10 mg Spironolactone (Aldactone -) 25 mg PO DAILY [facility] Last Admin: 12/30/18 09:22 Dose: Not Given - Objective Vital Signs: Vital Signs Temperature 97.5 F L 12/30/18 10:00 Pulse Rate 97 H 12/30/18 10:00 Respiratory Rate 20 12/30/18 10:00 Blood Pressure 100/52 L 12/30/18 10:00 O2 Sat by Pulse Oximetry (%) 98 12/29/18 21:00 Constitutional: Yes: No Distress, Anxious Eyes: Yes: Conjunctiva Clear Neck: Yes: Supple Cardiovascular: Yes: Pulse Irregular Respiratory: Yes: Diminished Gastrointestinal: Yes: Soft, Abdomen, Obese Edema: LLE: 1+, RLE: 1+ Neurological: Yes: Alert Psychiatric: Yes: Alert Labs: CBC, BMP 12/28/18 15:08 12/28/18 15:08 INR, PTT INR Cancelled 12/28/18 15:08 - ....Imaging Chest X-ray: Report Reviewed Problem List - Problems (1) Acute on chronic systolic (congestive) heart failure Code(s): I50.23 - ACUTE ON CHRONIC SYSTOLIC (CONGESTIVE) HEART FAILURE (2) Atrial fibrillation Code(s): I48.91 - UNSPECIFIED ATRIAL FIBRILLATION (3) HTN (hypertension) Code(s): I10 - ESSENTIAL (PRIMARY) HYPERTENSION (4) ICD (implantable cardioverter-defibrillator) in place Code(s): Z95.810 - PRESENCE OF AUTOMATIC (IMPLANTABLE) CARDIAC DEFIBRILLATOR Assessment/Plan clinically better continue present care echo 08/20 reviewed will consult cardiology also nebulizer prn oob - chair Monitor lytes will follow
--- NOTE | 2018-12-30 12:47 | CON.CARD ---
Consult Consult Specialty:: Cardiology Reason for Consultation:: sob - History of Present Illness History of Present Illness: The patient is a 83 year old female with a past medical history of afib (on xarelto), [place] (s/p stents and defibrillator), CHF (on lasix), CVA (2009), HTN, and HLD here today for evaluation of shortness of breath. The patient reports that her shortness of breath began 1 week ago and has been getting worse since then. Patient attributes her shortness of breath to her cardiac conditions. Patient denies headache, lightheadedness. Denies fever, chills. Denies chest pain. Denies nausea, vomiting, diarrhea, abdominal pain. Allergies: NKA Social history: Patient denies tobacco use. PCP: Alfred Duarte [facility] Proximal LAD stent (JACE) 01/10 during admission for [place] s/p ICD 02/10 atrial fibrillation Congestive heart failure (systolic); s/p coronary stent and ICD depression HTN hypercholesterolemia insomnia Myocardial infarction 01/10; led to prox LAD stent; one month later, she felt a shock from the life-vest she was wearing because of severe LV dysfunction, resulting in ICD implant 02/10 obesity sedentary lifestyle - History Source History Provided By: Patient, Medical Record - Past Medical History Cardio/Vascular: Yes: AFIB (AICD), CAD (s/p LAD JACE stent 02/10), CHF (severe hypokinesis), HTN, Hyperlipdemia, [place] (02/10), Mitral Insufficiency Hepatobiliary: Yes: Cholelithiasis ...: No Psych: Yes: Anxiety, Depression, Panic - Past Surgical History Past Surgical History: Yes: AICD, Colonoscopy, Stent, Upper Endoscopy - Alcohol/Substance Use Hx Alcohol Use: No - Smoking History Smoking history: Never smoked Have you smoked in the past 12 months: No Aproximately how many cigarettes per day: 0 - Social History Usual Living Arrangement: Alone ADL: Independent History of Recent Travel: No Home Medications - Allergies Allergies/Adverse Reactions: Allergies Allergy/AdvReac Type Severity Reaction Status Date / Time No Known Allergies Allergy Verified 12/28/18 13:22 - Home Medications Home Medications: Ambulatory Orders Rivaroxaban [Xarelto -] 10 mg PO DAILY 12/30/17 Cholecalciferol (Vitamin D3) [Vitamin D3] 1,000 unit PO DAILY 08/05/18 Digoxin [Lanoxin -] 0.125 mg PO DAILY #30 tablet 08/13/18 Atorvastatin Ca [Lipitor] 1 tab PO HS 12/28/18 Famotidine [Pepcid] 1 tab PO BID 12/28/18 Furosemide [Lasix] 40 mg PO BID 12/28/18 Magnesium Oxide [Magnesium] 1 tab PO DAILY 12/28/18 Metoclopramide HCl [Reglan] 1 tab PO TID 12/28/18 Metoprolol Succinate [Toprol Xl] 1 tab PO BID 12/28/18 Spironolactone [Aldactone -] 25 mg PO DAILY 12/28/18 Review of Systems - Review of Systems Constitutional: reports: No Symptoms Eyes: reports: No Symptoms HENT: reports: No Symptoms Neck: reports: No Symptoms Cardiovascular: reports: No Symptoms, Edema, Shortness of Breath Respiratory: reports: SOB, SOB on Exertion Gastrointestinal: reports: No Symptoms Genitourinary: reports: No Symptoms Breasts: reports: No Symptoms Reported Musculoskeletal: reports: No Symptoms Integumentary: reports: No Symptoms Neurological: reports: No Symptoms Endocrine: reports: No Symptoms Hematology/Lymphatic: reports: No Symptoms Psychiatric: reports: No Symptoms Vital Signs: Vital Signs Temperature 97.5 F L 12/30/18 10:00 Pulse Rate 97 H 12/30/18 10:00 Respiratory Rate 20 12/30/18 10:00 Blood Pressure 100/52 L 12/30/18 10:00 O2 Sat by Pulse Oximetry (%) 100 12/30/18 09:00 Constitutional: Yes: Well Nourished, No Distress, Calm Eyes: Yes: WNL, Conjunctiva Clear, EOM Intact HENT: Yes: WNL, Atraumatic, Normocephalic Neck: Yes: WNL, Supple, Trachea Midline Respiratory: Yes: Rales Gastrointestinal: Yes: WNL, Normal Bowel Sounds Renal/: Yes: WNL Cardiovascular: Yes: Pulse Irregular Musculoskeletal: Yes: WNL Extremities: Yes: WNL Edema: Yes Edema: LLE: 1+, RLE: 1+ Integumentary: Yes: WNL Neurological: Yes: WNL, Alert, Oriented ...Motor Strength: WNL Psychiatric: Yes: WNL, Alert, Oriented - Other Data Labs, Other Data: CBC, BMP 12/28/18 15:08 12/28/18 15:08 INR, PTT INR Cancelled 12/28/18 15:08 Laboratory Tests 12/28/18 12/28/18 12/28/18 15:08 15:08 15:08 WBC 6.1 RBC 5.38 H Hgb 12.2 Hct 39.5 MCV 73.5 L MCH 22.7 L MCHC 30.8 L RDW 22.3 H Plt Count 172 D MPV 9.2 Absolute Neuts (auto) 3.3 Neutrophils % 54.7 Lymphocytes % 33.6 Monocytes % 10.5 H Eosinophils % 0.4 Basophils % 0.8 Nucleated RBC % 0 Hypochromia 2+ Platelet Estimate Adequate Anisocytosis 3+ Microcytosis 2+ Macrocytosis 1+ Ovalocytes 1+ PT with INR Cancelled INR Cancelled PTT (Actin FS) Cancelled Sodium 148 H Potassium 3.6 Chloride 108 H Carbon Dioxide 31 Anion Gap 8 BUN 31 H Creatinine 1.2 Creat Clearance w eGFR 43.12 Random Glucose 92 Calcium 8.9 Total Bilirubin 1.6 H AST 32 ALT 22 Alkaline Phosphatase 249 H Creatine Kinase Troponin I < 0.02 B-Natriuretic Peptide 5569.1 H Total Protein 6.2 L Albumin 3.3 L Digoxin 0.07 L 12/28/18 20:45 WBC RBC Hgb Hct MCV MCH MCHC RDW Plt Count MPV Absolute Neuts (auto) Neutrophils % Lymphocytes % Monocytes % Eosinophils % Basophils % Nucleated RBC % Hypochromia Platelet Estimate Anisocytosis Microcytosis Macrocytosis Ovalocytes PT with INR INR PTT (Actin FS) Sodium Potassium Chloride Carbon Dioxide Anion Gap BUN Creatinine Creat Clearance w eGFR Random Glucose Calcium Total Bilirubin AST ALT Alkaline Phosphatase Creatine Kinase 47 Troponin I < 0.02 B-Natriuretic Peptide Total Protein Albumin Digoxin Imaging - Results Chest X-ray: Image Reviewed (cm no i/e) EKG: Image Reviewed (af rep abn) Problem List - Problems (1) Acute on chronic systolic (congestive) heart failure Code(s): I50.23 - ACUTE ON CHRONIC SYSTOLIC (CONGESTIVE) HEART FAILURE (2) Hyperlipidemia Code(s): E78.5 - HYPERLIPIDEMIA, UNSPECIFIED (3) Atrial fibrillation Code(s): I48.91 - UNSPECIFIED ATRIAL FIBRILLATION (4) Atrial fibrillation with RVR Code(s): I48.91 - UNSPECIFIED ATRIAL FIBRILLATION (5) CHF (congestive heart failure) Code(s): I50.9 - HEART FAILURE, UNSPECIFIED Qualifiers: Heart failure type: unspecified Heart failure chronicity: unspecified Qualified Code(s): I50.9 - Heart failure, unspecified (6) Cardiac arrhythmia Code(s): I49.9 - CARDIAC ARRHYTHMIA, UNSPECIFIED Qualifiers: Arrhythmia type: unspecified cardiac arrhythmia Qualified Code(s): I49.9 - Cardiac arrhythmia, unspecified (7) Defibrillator discharge Code(s): Z45.02 - ENCNTR FOR ADJUST AND MGMT OF AUTOMATIC IMPLNTBL CARD DEFIB (8) Dilated bile duct Code(s): K83.8 - OTHER SPECIFIED DISEASES OF BILIARY TRACT (9) Discomfort in chest Code(s): R07.89 - OTHER CHEST PAIN (10) Elevated LFTs Code(s): R79.89 - OTHER SPECIFIED ABNORMAL FINDINGS OF BLOOD CHEMISTRY (11) Elevated troponin I level Code(s): R74.8 - ABNORMAL LEVELS OF OTHER SERUM ENZYMES (12) Gallstone Code(s): K80.20 - CALCULUS OF GALLBLADDER W/O CHOLECYSTITIS W/O OBSTRUCTION Qualifiers: Cholecystitis presence: without cholecystitis (13) HTN (hypertension) Code(s): I10 - ESSENTIAL (PRIMARY) HYPERTENSION (14) Hyperlipidemia Code(s): E78.5 - HYPERLIPIDEMIA, UNSPECIFIED (15) Hypomagnesemia Code(s): E83.42 - HYPOMAGNESEMIA (16) ICD (implantable cardioverter-defibrillator) in place Code(s): Z95.810 - PRESENCE OF AUTOMATIC (IMPLANTABLE) CARDIAC DEFIBRILLATOR (17) Intertrochanteric fracture of left hip Code(s): S72.142A - DISPLACED INTERTROCHANTERIC FRACTURE OF LEFT FEMUR, INIT Qualifiers: Encounter type: initial encounter Fracture type: closed Qualified Code(s) : S72.142A - Displaced intertrochanteric fracture of left femur, initial encounter for closed fracture (18) On amiodarone therapy Code(s): Z79.899 - OTHER [facility] (CURRENT) DRUG THERAPY (19) Palpitations Code(s): R00.2 - PALPITATIONS (20) Pneumonia Code(s): J18.9 - PNEUMONIA, UNSPECIFIED ORGANISM Qualifiers: Pneumonia type: due to unspecified organism Laterality: unspecified laterality Lung location: unspecified part of lung Qualified Code(s): J18.9 - Pneumonia, unspecified organism (21) Shortness of breath Code(s): R06.02 - SHORTNESS OF BREATH Assessment/Plan 83 year old female with a past medical history of afib (on xarelto), [place] (s/p stents and defibrillator), CHF (on lasix), CVA (2009), HTN, and HLD here today for evaluation of shortness of breath.dx with decompensated chf plan iv lasic cont ac for af
[2018-12-30 16:11] LABS: ANION GAP 8 MMOL/L (8-16); BLOOD UREA NITROGEN 37 mg/dL (7-18); CALCIUM 8.2 mg/dL (8.5-10.1); CHLORIDE 109 mmol/L (98-107); CO2 31 mmol/L (21-32); CREATININE 1.2 mg/dL (0.55-1.3); GLUCOSE,RANDOM 122 mg/dL (74-106); POTASSIUM 3.5 mmol/L (3.5-5.1); SODIUM 148 mmol/L (136-145)
[2018-12-30] MEDS: ATORVASTATIN CA 40 MG TABLET (FP) PO SCH (21:42)
[2018-12-31] MEDS: FUROSEMIDE 40 MG/4 ML INJECTABLE VIAL IVPUSH SCH (06:50)
[2018-12-31] MEDS: METOCLOPRAMIDE HCL 10 MG TABLET (FP) PO SCH ×3 (06:58→16:31)
[2018-12-31 07:37] LABS: ALK PHOS 227 U/L (45-117); ANION GAP 7 MMOL/L (8-16); BILIRUBIN,TOTAL 1.4 mg/dL (0.2-1); BLOOD UREA NITROGEN 41 mg/dL (7-18); CALCIUM 8.2 mg/dL (8.5-10.1); CHLORIDE 108 mmol/L (98-107); CO2 33 mmol/L (21-32); CREATININE 1.1 mg/dL (0.55-1.3); GLUCOSE,RANDOM 112 mg/dL (74-106); POTASSIUM 3.4 mmol/L (3.5-5.1); SGOT/AST 29 U/L (15-37); SGPT/ALT 19 U/L (13-61); SODIUM 148 mmol/L (136-145); TOT PROT 5.6 g/dl (6.4-8.2)
[2018-12-31 07:42] LABS: BASO % 0.4 % (0-2.0); EOS % 1.8 % (0-4.5); HEMATOCRIT 36.2 % (32.4-45.2); HEMOGLOBIN 11.1 GM/dL (10.7-15.3); LYMPH % 27.2 % (8-40); MCH 22.2 pg (25.7-33.7); MCHC 30.6 g/dl (32.0-36.0); MEAN CELL VOLUME 72.3 fl (80-96); MEAN PLT VOLUME 9.6 fl (7.5-11.1); MONO % 10.9 % (3.8-10.2); NEUT % 59.7 % (42.8-82.8); PLATELET COUNT 176 K/MM3 (134-434); RDW 22.1 % (11.6-15.6); WHITE BLOOD COUNT 6.4 K/mm3 (4.0-10.0)
[2018-12-31] MEDS: MAGNESIUM OXIDE 400 MG TABLET (FP) PO SCH (09:02)
[2018-12-31] MEDS: CHOLECALCIFEROL (VITAMIN D3) 1,000 UNIT TABLET (FP) PO SCH (09:02)
[2018-12-31] MEDS: RIVAROXABAN 10 MG TABLET PO SCH (09:02)
[2018-12-31] MEDS: RANITIDINE HCL 150 MG TABLET (FP) PO SCH (09:02)
--- NOTE | 2018-12-31 11:56 | PN ---
Progress Note, Physician History of Present Illness: The patient is an 83 year old female (faisal Miller) with a past medical history of afib (on xarelto), [place] (s/p stents and defibrillator), severe systolic CHF,, CVA (2010), HTN, and HLD, here today for evaluation of shortness of breath. The patient reports that her shortness of breath began 1 week ago and has been getting worse since then. Patient attributes her shortness of breath to her cardiac conditions. Patient denies headache, lightheadedness. Denies fever, chills. Denies chest pain. Denies nausea, vomiting, diarrhea, abdominal pain. - Current Medication List Current Medications: Active Medications Atorvastatin Calcium (Lipitor -) 40 mg PO HS [facility] Last Admin: 12/30/18 21:42 Dose: 40 mg Cholecalciferol (Vitamin D3 -) 1,000 unit PO DAILY [facility] Last Admin: 12/31/18 09:02 Dose: 1,000 unit Furosemide (Lasix Injection -) 40 mg IVPUSH BID@0600,1400 [facility] Last Admin: 12/31/18 06:50 Dose: 40 mg Magnesium Oxide (Mag-Ox -) 400 mg PO DAILY [facility] Last Admin: 12/31/18 09:02 Dose: 400 mg Metoclopramide HCl (Reglan -) 10 mg PO TIDAC [facility] Last Admin: 12/31/18 06:58 Dose: Not Given Metoprolol Succinate (Toprol Xl -) 100 mg PO BID [facility] Last Admin: 12/30/18 21:43 Dose: Not Given Ranitidine HCl (Zantac -) 150 mg PO DAILY [facility] Last Admin: 12/31/18 09:02 Dose: 150 mg Rivaroxaban (Xarelto -) 10 mg PO DAILY [facility] Last Admin: 12/31/18 09:02 Dose: 10 mg Spironolactone (Aldactone -) 25 mg PO DAILY [facility] Last Admin: 12/30/18 09:22 Dose: Not Given - Objective Vital Signs: Vital Signs Temperature 97.6 F 12/31/18 10:00 Pulse Rate 86 12/31/18 10:00 Respiratory Rate 20 12/31/18 10:00 Blood Pressure 105/62 12/31/18 10:00 O2 Sat by Pulse Oximetry (%) 99 12/31/18 09:00 Constitutional: Yes: Anxious Eyes: Yes: WNL HENT: Yes: WNL Neck: Yes: WNL Cardiovascular: Yes: S1 (varies in intensity), S2 Respiratory: Yes: Regular Gastrointestinal: Yes: Soft ...Rectal Exam: Yes: Deferred Genitourinary: No: Anuria Breast(s): Yes: WNL Musculoskeletal: Yes: Joint Stiffness, Muscle Weakness Extremities: Yes: Cool Labs: CBC, BMP 12/31/18 06:00 12/31/18 06:00 INR, PTT INR Cancelled 12/28/18 15:08 Problem List - Problems (1) Hypokalemia Assessment/Plan: replete, and keep level 4.0-4.5. Keep magnesium level 2.0-2.4 (many need to increase magnesium oxide to 400 mg bid as outpt, and follow level periodically). Keep PO4 2.5-4.9 Code(s): E87.6 - HYPOKALEMIA (2) Acute on chronic systolic (congestive) heart failure Assessment/Plan: On metoprolol ER (will change back to the 50 mg bid pt was taking at home; f/u HR and BP). On lisinopril (can change to PO bid now); restart lisinopril 2.5 mg dailyl. Continue spironolactone 25 mg daily. F?u BUn/Cr, daily weight, Is and Os, electrolytes (see "hyokalemia"). Code(s): I50.23 - ACUTE ON CHRONIC SYSTOLIC (CONGESTIVE) HEART FAILURE (3) Hyperlipidemia Assessment/Plan: on atrovastatin. Code(s): E78.5 - HYPERLIPIDEMIA, UNSPECIFIED (4) Atrial fibrillation Assessment/Plan: On metoprolol EER 50 mg bid for HR control. Increase rivaroxaban to 20 mg daily for anticoagulation (checked w2ith pharmacist; pt's renal status is adequate for the 20 mg dose). Code(s): I48.91 - UNSPECIFIED ATRIAL FIBRILLATION (5) HTN (hypertension) Code(s): I10 - ESSENTIAL (PRIMARY) HYPERTENSION (6) ICD (implantable cardioverter-defibrillator) in place Code(s): Z95.810 - PRESENCE OF AUTOMATIC (IMPLANTABLE) CARDIAC DEFIBRILLATOR
[2018-12-31] MEDS ORDERED: LISINOPRIL 5 MG TABLET (FP) PO ONE (12:15)
--- NOTE | 2018-12-31 12:37 | PN ---
Progress Note (short form) - Note Progress Note: events noted pt feels well no distress Vital Signs - 24 hr 12/30/18 12/30/18 12/30/18 18:00 21:00 22:00 Temperature 97.5 F L 97.8 F Pulse Rate 112 H 100 H Respiratory 20 22 H Rate Blood Pressure 100/72 96/44 L O2 Sat by Pulse 98 Oximetry (%) 12/31/18 12/31/18 12/31/18 05:59 09:00 10:00 Temperature 97.6 F 97.6 F Pulse Rate 100 H 86 Respiratory 20 20 20 Rate Blood Pressure 102/67 105/62 O2 Sat by Pulse 99 Oximetry (%) 12/31/18 12/31/18 13:43 17:04 Temperature 97.5 F L 97.5 F L Pulse Rate 122 H 109 H Respiratory 20 18 Rate Blood Pressure 107/65 102/68 O2 Sat by Pulse Oximetry (%) Current Medications Generic Name Dose Route Start Last Admin Trade Name Freq PRN Reason Stop Dose Admin Atorvastatin Calcium 40 mg 12/28/18 22:00 12/30/18 21:42 Lipitor - PO 40 mg HS MARIA D Administration Cholecalciferol 1,000 unit 12/29/18 10:00 12/31/18 09:02 Vitamin D3 - PO 1,000 unit DAILY [facility] Administration Furosemide 40 mg 12/31/18 14:00 12/31/18 15:03 Lasix - PO 40 mg BID@0600,1400 MAR[facility] D Administration Lisinopril 2.5 mg 01/01/19 10:00 Prinivil PO DAILY [facility] Magnesium Oxide 400 mg 12/29/18 10:00 12/31/18 09:02 Mag-Ox - PO 400 mg DAILY [facility] Administration Metoclopramide HCl 10 mg 12/28/18 18:00 12/31/18 16:31 Reglan - PO 10 mg TIDAC [facility] Administration Metoprolol Succinate 50 mg 12/31/18 12:52 Toprol Xl - PO BID [facility] Ranitidine HCl 150 mg 12/28/18 18:00 12/31/18 09:02 Zantac - PO 150 mg DAILY [facility] Administration Rivaroxaban 20 mg 01/01/19 18:00 Xarelto PO DAILY@1800 [facility] Spironolactone 25 mg 12/31/18 12:57 Aldactone - PO DAILY [facility] Laboratory Results - last 24 hr 12/31/18 12/31/18 12/31/18 06:00 06:00 12:25 WBC 6.4 RBC 5.00 Hgb 11.1 Hct 36.2 MCV 72.3 L MCH 22.2 L MCHC 30.6 L RDW 22.1 H Plt Count 176 MPV 9.6 Absolute Neuts (auto) 3.8 Neutrophils % 59.7 Lymphocytes % 27.2 Monocytes % 10.9 H Eosinophils % 1.8 D Basophils % 0.4 Nucleated RBC % 0 Sodium 148 H Potassium 3.4 L Chloride 108 H Carbon Dioxide 33 H Anion Gap 7 L BUN 41 H Creatinine 1.1 Creat Clearance w eGFR 47.67 Random Glucose 112 H Calcium 8.2 L Magnesium 1.9 Total Bilirubin 1.4 H AST 29 ALT 19 Alkaline Phosphatase 227 H Total Protein 5.6 L Albumin 3.0 L TSH 2.53 Free T4 1.63 H S1 S2 Irregular Lungs no crackles no JVD on nasal O2 Abd-soft, obese, NT edema trace CHF decompensation Afib HTN Hypokalmeia -- replace potassium -- spoke with Cardiology -- check Magnesium levels -- keep Potassium around 4 -- change iv lasix to PO -- monitor response -- reparatory eval for home O2 assessment -- full dose anticoagulation Problem List - Problems (1) Acute on chronic systolic (congestive) heart failure Code(s): I50.23 - ACUTE ON CHRONIC SYSTOLIC (CONGESTIVE) HEART FAILURE (2) Hyperlipidemia Code(s): E78.5 - HYPERLIPIDEMIA, UNSPECIFIED (3) Hypokalemia Code(s): E87.6 - HYPOKALEMIA (4) Atrial fibrillation Code(s): I48.91 - UNSPECIFIED ATRIAL FIBRILLATION (5) CHF (congestive heart failure) Code(s): I50.9 - HEART FAILURE, UNSPECIFIED Qualifiers: Heart failure type: unspecified Heart failure chronicity: unspecified Qualified Code(s): I50.9 - Heart failure, unspecified (6) Cardiac arrhythmia Code(s): I49.9 - CARDIAC ARRHYTHMIA, UNSPECIFIED Qualifiers: Arrhythmia type: unspecified cardiac arrhythmia Qualified Code(s): I49.9 - Cardiac arrhythmia, unspecified
[2018-12-31] MEDS ORDERED: POTASSIUM CHLORIDE ORAL LIQUID 20 MEQ/15 ML PO ONE (12:55)
[2018-12-31] MEDS ORDERED: SPIRONOLACTONE 25 MG TABLET (FP) PO SCH (12:57)
[2018-12-31] MEDS ORDERED: SPIRONOLACTONE 25 MG TABLET (FP) PO ONE (13:03)
[2018-12-31] MEDS ORDERED: RIVAROXABAN 10 MG TABLET PO ONE (13:30)
[2018-12-31 13:32] LABS: MAGNESIUM 1.9 mg/dL (1.8-2.4)
[2018-12-31] MEDS: SPIRONOLACTONE 25 MG TABLET (FP) PO SCH (13:59)
[2018-12-31] MEDS: FUROSEMIDE 40 MG TABLET (FP) PO SCH (15:03)
[2018-12-31] MEDS: ATORVASTATIN CA 40 MG TABLET (FP) PO SCH (22:05)
[2019-01-01] MEDS: METOCLOPRAMIDE HCL 10 MG TABLET (FP) PO SCH ×3 (06:24→16:39)
[2019-01-01] MEDS: FUROSEMIDE 40 MG TABLET (FP) PO SCH ×2 (06:25→13:22)
[2019-01-01] MEDS: RANITIDINE HCL 150 MG TABLET (FP) PO SCH (09:09)
[2019-01-01] MEDS: MAGNESIUM OXIDE 400 MG TABLET (FP) PO SCH (09:09)
[2019-01-01] MEDS: CHOLECALCIFEROL (VITAMIN D3) 1,000 UNIT TABLET (FP) PO SCH (09:09)
[2019-01-01 09:16] LABS: ANION GAP 7 MMOL/L (8-16); BLOOD UREA NITROGEN 39 mg/dL (7-18); CALCIUM 8.8 mg/dL (8.5-10.1); CHLORIDE 108 mmol/L (98-107); CO2 30 mmol/L (21-32); CREATININE 1.1 mg/dL (0.55-1.3); GLUCOSE,RANDOM 144 mg/dL (74-106); MAGNESIUM 1.8 mg/dL (1.8-2.4); POTASSIUM 4.1 mmol/L (3.5-5.1); SODIUM 145 mmol/L (136-145)
[2019-01-01] MEDS ORDERED: LISINOPRIL 5 MG TABLET (FP) PO SCH ×2 (10:00)
--- NOTE | 2019-01-01 11:20 | DS ---
Physical Examination Vital Signs: Vital Signs Temperature 98 F 01/01/19 08:37 Pulse Rate 115 H 01/01/19 08:37 Respiratory Rate 20 01/01/19 09:00 Blood Pressure 90/54 L 01/01/19 08:37 O2 Sat by Pulse Oximetry (%) 99 01/01/19 09:00 Constitutional: Yes: No Distress, Calm Cardiovascular: Yes: Pulse Irregular Respiratory: Yes: Diminished Gastrointestinal: Yes: Normal Bowel Sounds. No: Tenderness Edema: No Labs: CBC, BMP 12/31/18 06:00 01/01/19 08:28 Discharge Summary Reason For Visit: ACUTE ON CHRONIC SYSTOLIC CONGESTIVE HEART Current Active Problems Acute on chronic systolic (congestive) heart failure (Acute) Hyperlipidemia (Acute) Hypokalemia (Acute) Hospital Course: Admitted for acute CHF - systolic and hypernatremia Was evaluated by Cardiology-- On Iv lasix Pt is better Stable for dc home on PO lasix and Aldactone follow up with Cardiology 1 week Condition: Improved - Instructions Disposition: HOME - Home Medications Comprehensive Discharge Medication List: Ambulatory Orders Cholecalciferol (Vitamin D3) [Vitamin D3] 1,000 unit PO DAILY 08/05/18 Digoxin [Lanoxin -] 0.125 mg PO DAILY #30 tablet 08/13/18 Atorvastatin Ca [Lipitor] 1 tab PO HS 12/28/18 Famotidine [Pepcid] 1 tab PO BID 12/28/18 Furosemide [Lasix] 40 mg PO BID 12/28/18 Magnesium Oxide [Magnesium] 1 tab PO DAILY 12/28/18 Metoclopramide HCl [Reglan] 1 tab PO TID 12/28/18 Metoprolol Succinate [Toprol Xl] 1 tab PO BID 12/28/18 Spironolactone [Aldactone -] 25 mg PO DAILY 12/28/18 Furosemide [Lasix -] 40 mg PO BID@0600,1400 #60 tablet 01/01/19 Rivaroxaban [Xarelto -] 20 mg PO DAILY@1800 #30 tablet 01/01/19
--- NOTE | 2019-01-01 11:32 | PN ---
Progress Note, Physician History of Present Illness: The patient is a 83 year old female with a past medical history of afib (on xarelto), RI (s/p stents and defibrillator), CHF (on lasix), CVA (2009), HTN, and HLD here today for evaluation of shortness of breath. The patient reports that her shortness of breath began 1 week ago and has been getting worse since then. Patient attributes her shortness of breath to her cardiac conditions. Patient denies headache, lightheadedness. Denies fever, chills. Denies chest pain. Denies nausea, vomiting, diarrhea, abdominal pain. Allergies: NKA Social history: Patient denies tobacco use. PCP: Alfred Duarte [facility] Proximal LAD stent (JACE) 01/10 during admission for RI s/p ICD 02/10 atrial fibrillation Congestive heart failure (systolic); s/p coronary stent and ICD depression HTN hypercholesterolemia insomnia Myocardial infarction 01/10; led to prox LAD stent; one month later, she felt a shock from the life-vest she was wearing because of severe LV dysfunction, resulting in ICD implant 02/10 obesity sedentary lifestyle - Current Medication List Current Medications: Active Medications Atorvastatin Calcium (Lipitor -) 40 mg PO HS [facility] Last Admin: 12/31/18 22:05 Dose: 40 mg Cholecalciferol (Vitamin D3 -) 1,000 unit PO DAILY [facility] Last Admin: 01/01/19 09:09 Dose: 1,000 unit Furosemide (Lasix -) 40 mg PO BID@0600,1400 [facility] Last Admin: 01/01/19 06:25 Dose: 40 mg Lisinopril (Prinivil) 2.5 mg PO DAILY [facility] Last Admin: 01/01/19 11:24 Dose: 2.5 mg Magnesium Oxide (Mag-Ox -) 400 mg PO DAILY [facility] Last Admin: 01/01/19 09:09 Dose: 400 mg Metoclopramide HCl (Reglan -) 10 mg PO TIDAC [facility] Last Admin: 01/01/19 06:24 Dose: Not Given Metoprolol Succinate (Toprol Xl -) 50 mg PO BID [facility] Last Admin: 01/01/19 11:24 Dose: 50 mg Ranitidine HCl (Zantac -) 150 mg PO DAILY [facility] Last Admin: 01/01/19 09:09 Dose: 150 mg Rivaroxaban (Xarelto) 20 mg PO DAILY@1800 [facility] Spironolactone (Aldactone -) 25 mg PO DAILY [facility] Last Admin: 01/01/19 11:24 Dose: 25 mg - Objective Vital Signs: Vital Signs Temperature 98 F 01/01/19 08:37 Pulse Rate 115 H 01/01/19 08:37 Respiratory Rate 20 01/01/19 09:00 Blood Pressure 96/66 01/01/19 11:20 O2 Sat by Pulse Oximetry (%) 99 01/01/19 09:00 Eyes: Yes: WNL, Conjunctiva Clear, EOM Intact HENT: Yes: WNL, Atraumatic, Normocephalic Neck: Yes: WNL, Supple, Trachea Midline Cardiovascular: Yes: Pulse Irregular Respiratory: Yes: WNL, Regular, CTA Bilaterally Gastrointestinal: Yes: WNL, Normal Bowel Sounds Genitourinary: Yes: WNL Musculoskeletal: Yes: WNL Extremities: Yes: WNL Edema: No Integumentary: Yes: WNL Neurological: Yes: WNL, Alert, Oriented ...Motor Strength: WNL Psychiatric: Yes: WNL Labs: CBC, BMP 12/31/18 06:00 01/01/19 08:28 INR, PTT INR Cancelled 12/28/18 15:08 Problem List - Problems (1) Acute on chronic systolic (congestive) heart failure Code(s): I50.23 - ACUTE ON CHRONIC SYSTOLIC (CONGESTIVE) HEART FAILURE (2) Hyperlipidemia Code(s): E78.5 - HYPERLIPIDEMIA, UNSPECIFIED (3) Atrial fibrillation Code(s): I48.91 - UNSPECIFIED ATRIAL FIBRILLATION (4) Atrial fibrillation with RVR Code(s): I48.91 - UNSPECIFIED ATRIAL FIBRILLATION (5) CHF (congestive heart failure) Code(s): I50.9 - HEART FAILURE, UNSPECIFIED Qualifiers: Heart failure type: unspecified Heart failure chronicity: unspecified Qualified Code(s): I50.9 - Heart failure, unspecified (6) Cardiac arrhythmia Code(s): I49.9 - CARDIAC ARRHYTHMIA, UNSPECIFIED Qualifiers: Arrhythmia type: unspecified cardiac arrhythmia Qualified Code(s): I49.9 - Cardiac arrhythmia, unspecified (7) Defibrillator discharge Code(s): Z45.02 - ENCNTR FOR ADJUST AND MGMT OF AUTOMATIC IMPLNTBL CARD DEFIB (8) Dilated bile duct Code(s): K83.8 - OTHER SPECIFIED DISEASES OF BILIARY TRACT (9) Discomfort in chest Code(s): R07.89 - OTHER CHEST PAIN (10) Elevated LFTs Code(s): R79.89 - OTHER SPECIFIED ABNORMAL FINDINGS OF BLOOD CHEMISTRY (11) Elevated troponin I level Code(s): R74.8 - ABNORMAL LEVELS OF OTHER SERUM ENZYMES (12) Gallstone Code(s): K80.20 - CALCULUS OF GALLBLADDER W/O CHOLECYSTITIS W/O OBSTRUCTION Qualifiers: Cholecystitis presence: without cholecystitis (13) HTN (hypertension) Code(s): I10 - ESSENTIAL (PRIMARY) HYPERTENSION (14) Hyperlipidemia Code(s): E78.5 - HYPERLIPIDEMIA, UNSPECIFIED (15) Hypomagnesemia Code(s): E83.42 - HYPOMAGNESEMIA (16) ICD (implantable cardioverter-defibrillator) in place Code(s): Z95.810 - PRESENCE OF AUTOMATIC (IMPLANTABLE) CARDIAC DEFIBRILLATOR (17) Intertrochanteric fracture of left hip Code(s): S72.142A - DISPLACED INTERTROCHANTERIC FRACTURE OF LEFT FEMUR, INIT Qualifiers: Encounter type: initial encounter Fracture type: closed Qualified Code(s) : S72.142A - Displaced intertrochanteric fracture of left femur, initial encounter for closed fracture (18) On amiodarone therapy Code(s): Z79.899 - OTHER GROUP HOME (CURRENT) DRUG THERAPY (19) Palpitations Code(s): R00.2 - PALPITATIONS (20) Pneumonia Code(s): J18.9 - PNEUMONIA, UNSPECIFIED ORGANISM Qualifiers: Pneumonia type: due to unspecified organism Laterality: unspecified laterality Lung location: unspecified part of lung Qualified Code(s): J18.9 - Pneumonia, unspecified organism (21) Shortness of breath Code(s): R06.02 - SHORTNESS OF BREATH Assessment/Plan - Problems (1) Hypokalemia Assessment/Plan: replete, and keep level 4.0-4.5. Keep magnesium level 2.0-2.4 (many need to increase magnesium oxide to 400 mg bid as outpt, and follow level periodically). Keep PO4 2.5-4.9 Code(s): E87.6 - HYPOKALEMIA (2) Acute on chronic systolic (congestive) heart failure Assessment/Plan: On metoprolol ER (will change back to the 50 mg bid pt was taking at home; f/u HR and BP). On lisinopril (can change to PO bid now); restart lisinopril 2.5 mg dailyl. Continue spironolactone 25 mg daily. F?u BUn/Cr, daily weight, Is and Os, electrolytes (see "hyokalemia"). Code(s): I50.23 - ACUTE ON CHRONIC SYSTOLIC (CONGESTIVE) HEART FAILURE (3) Hyperlipidemia Assessment/Plan: on atrovastatin. Code(s): E78.5 - HYPERLIPIDEMIA, UNSPECIFIED (4) Atrial fibrillation Assessment/Plan: On metoprolol EER 50 mg bid for HR control. Increase rivaroxaban to 20 mg daily for anticoagulation (checked w2ith pharmacist; pt's renal status is adequate for the 20 mg dose). Code(s): I48.91 - UNSPECIFIED ATRIAL FIBRILLATION (5) HTN (hypertension) Code(s): I10 - ESSENTIAL (PRIMARY) HYPERTENSION (6) ICD (implantable cardioverter-defibrillator) in place Code(s): Z95.810 - PRESENCE OF AUTOMATIC (IMPLANTABLE) CARDIAC DEFIBRILLATOR
[2019-01-01 17:42] VITALS: BP 109/63; PULSE 118; TEMP 97.4
[2019-01-01] MEDS ORDERED: RIVAROXABAN 20 MG TABLET PO SCH (18:00)
== END 2019-01-01 19:19 | disposition home or self-care (01) | DRG 292 ==
LOC: JER 12:52 → JERBED 17:07 → J7W 22:52
PROVIDERS: ADMIT Internal Medicine; ATTEND Internal Medicine
DX: I11.0 Hypertensive heart disease with heart failure (principal); E87.0 Hyperosmolality and hypernatremia; E78.5 Hyperlipidemia, unspecified; I50.23 Acute on chronic systolic (congestive) heart failure; E87.6 Hypokalemia; I48.91 Unspecified atrial fibrillation; F32.9 Major depressive disorder, single episode, unspecified; G47.00 Insomnia, unspecified; I25.2 Old myocardial infarction; Z86.73 Personal history of transient ischemic attack (TIA), and cerebral infarction without residual deficits; E66.9 Obesity, unspecified; Z68.30 Body mass index [BMI] 30.0-30.9, adult; Z95.810 Presence of automatic (implantable) cardiac defibrillator
CPT/HCPCS: 36415; 71045-TC-FY; 80048; 80053; 80162; 82550; 83735; 83880; 84439; 84443; 84484; 85025; 93005; 93010; 94010; 94761; 97116-GP; 97161-GP; 99284-25

== ENCOUNTER 2019-10-27 09:14 | Inpatient (IN) | payer OTHER ==
--- NOTE | 2019-10-27 09:28 | PDOC ---
History of Present Illness - General Chief Complaint: Diarrhea Stated Complaint: DEHYDRATED Time Seen by Provider: 10/27/19 09:26 Past History - Past Medical History Allergies/Adverse Reactions: Allergies Allergy/AdvReac Type Severity Reaction Status Date / Time No Known Allergies Allergy Verified 10/27/19 09:24 Home Medications: Ambulatory Orders Carvedilol [Coreg -] 12.5 mg PO BID 10/27/19 Digoxin [Lanoxin -] 0.125 mg PO ASDIR 10/27/19 Furosemide 40 mg PO BID 10/27/19 Levothyroxine [Synthroid -] 25 mcg PO DAILY 10/27/19 Magnesium 400 mg PO DAILY 10/27/19 Rivaroxaban [Xarelto -] 20 mg PO DAILY 10/27/19 Rosuvastatin [Crestor -] 10 mg PO DAILY 10/27/19 Spironolactone 25 mg PO DAILY 10/27/19 Anemia: No Asthma: No Cancer: No Cardiac Disorders: Yes (mi 12/11 stents, defibrillator) CVA: Yes (2011) COPD: No CHF: No Dementia: No Diabetes: No GI Disorders: No Disorders: No HTN: Yes Hypercholesterolemia: Yes Liver Disease: No Seizures: No Thyroid Disease: No - Surgical History Abdominal Surgery: No Appendectomy: No Cardiac Surgery: Yes (defibrillator) Cholecystectomy: No Lung Surgery: No Neurologic Surgery: No Orthopedic Surgery: No - Immunization History Immunization Up to Date: Yes - Psycho Social/Smoking Cessation Hx Smoking Status: No Smoking History: Never smoked Have you smoked in the past 12 months: No Number of Cigarettes Smoked Daily: 0 Information on smoking cessation initiated: No Hx Alcohol Use: No Drug/Substance Use Hx: No Substance Use Type: None Hx Substance Use Treatment: No *Physical Exam - Vital Signs Last Vital Signs Temp Pulse Resp BP Pulse Ox 101.5 F H 110 H 18 94/58 L 97 10/27/19 09:18 10/27/19 09:18 10/27/19 09:18 10/27/19 09:18 10/27/19 09:18 Procedures - Central Line Central Line Lumen: triple Central Line Position: internal jugular (L) Anesthesia: 1% Lidocaine Amount of anesthesia (ccs): 1 Complications: none Post Central Line Insertion: sutured, good blood return, position confirmed w/ CXR ED Treatment Course - LABORATORY CBC & Chemistry Diagram: 10/27/19 10:00 10/27/19 10:46 Medical Decision Making - Medical Decision Making 10/27/19 12:10 HPI: 84yo F hx CAD/NC (s/p stents and defibrillator placement ~11yrs ago), afib (on xarelto), CHF (severe reduced systolic function), CVA (2009, no residual deficits), HTN, and HLD BIBA from [facility] found unresponsive with diarrhea, emesis, fever, and hypotension 70/50, with improvement in mental status and BP to 90/70 s/p 900cc NS enroute. Per daughter, pt was last seen normal on Sunday, but she also talked to the pt yesterday on the phone at 1700 and she sounded normal and said she was fine. LAWYER Sun-Sun 8a-1p. LAWYER found pt this AM at 0800 unresponsive on couch, unable to talk and having laboured breathing, covered in emesis and diarrhea. LAWYER told daughter that pt had emesis and diarrhea since Sunday. Pt states she ate something off on Sunday but denies emesis or diarrhea or pain or any sx other than feeling tired. Denies prior abdominal surgeries, abdominal pain, blood in stool. Daughter endorses slight yellow discolouration of pt's skin. No meds given today. Denies recent travel. [phone] Marilin (daughter) PCP - Felicia Golden ROS: Constitutional: Positive for fever, fatigue. Negative for chills, diaphoresis. HENT: Negative for sore throat, rhinorrhea, congestion. Eyes: Negative for visual disturbance. Respiratory: Negative for shortness of breath, cough, and wheezing. Cardiovascular: Negative for chest pain, palpitations, and leg swelling. Gastrointestinal: Positive for diarrhea, vomiting. Negative for abdominal pain, blood in stool, constipation Genitourinary: Negative for dysuria, flank pain, and hematuria. Musculoskeletal: Negative for myalgias, back pain, and neck pain. Skin: Negative for rash. Neurological: Negative for light-headedness, dizziness, vertigo, syncope, weakness, numbness and headaches. Psychiatric/Behavioral: Positive for lethargy and confusion. Negative for behavioral problems. PE: Gen: Alert, NAD, tired-appearing but easily arousable HEENT: PERRL, EOMI, dry MM, NCAT. No conjunctival pallor. Sclera are icteric. CV: Regular rate and rhythm. No murmurs, rubs, or gallops. PULM: No resp distress. CTAB but difficult to assess 2/2 weak inspiratory effort , no wheezes, rales, or rhonchi. ABD: soft, ND, diffuse TTP abdomen with guarding, no rebound tenderness, no CVA tenderness. BACK: No TTP of c/t/l-spine. No step-offs or deformities. MSK: No bony deformities. 2+ pulses in all extremities. NEURO: AAOx3 but slightly confused (eg denies any sx despite being found in diarrhea and vomit). PERRL. CN 2-12 intact. 5/5 strength in all extremities. Sensation to light touch intact in all extremities. No pronator drift. No dysmetria. No dysdiadochokinesia. No abnormal nystagmus. EXTREMITIES: No cyanosis. No clubbing. No edema. No calf tenderness. PSYCH: Normal mood and thought pattern. SKIN: Warm and dry. Normal capillary refill. No rashes. + slight jaundice. MDM: 84yo F hx CAD/NC (s/p stents and defibrillator placement ~11yrs ago), afib (on xarelto), CHF (severe reduced systolic function), CVA (2009, no residual deficits), HTN, and HLD BIBA from [facility] facility found unresponsive with diarrhea, emesis, fever, and hypotension 70/50, with improvement in mental status and BP to 90/70 s/p 900cc NS enroute. VS reviewed: tachycardic 110, hypotensive 94/58 (baseline low 90s-100s/70s), febrile 101.5F. Jaundice, lungs CTAB but difficult to assess 2/2 weak inspiratory effort, diffuse TTP abdomen with guarding, sleepy, slightly confused. Ddx: dehydration, metabolic derangement, GI infection (pancreatitis, cholecystitis/cholangitis, appendicitis, diverticulitis, colitis, gastroenteritis), UTI, PNA, anemia, influenza, ACS/NC, arrhythmia, ICH (low concern due to lack of focal neuro deficits and presentation more consistent with infectious pathology) -EKG: reviewed, Afib w/PVCs, 93bpm vent rate, QTc 457ms, LAD, no e/o acute ischemia -CXR reviewed: no e/o PNA, congestive changes, pulmonary edema, blunting of costophrenic angles, pleural effusion, PTX -CTAP: obtained once pt appeared stable (hypotensive 70s/50s still but unchanged mental status) -Sepsis labs including blood cultures, lact x2 -Vanc, Zosyn -Tylenol -IVF: base amount by BP and IVC on POCUS -Pain management -Dispo: likely admit pending w/u 10/27/19 17:13 3.5L NS run, still hypotensive 70s/50s but unchanged mental status Consent obtained for central line and line placed in L IJ without complications Confirmatory CXR ordered Levofed for persistent hypotension CTAP reviewed: Impression: In comparison to a 2016 CT exam interval development of acute calculus cholecystitis is seen with associated choledocholithiasis and common bile duct dilatation. A small amount of free fluid is seen within the right subhepatic space. A convoluted metallic density is seen within the mid to upper abdomen centrally suggestive of a displaced IUD. At the time of the previous exam this metallic density had been located more ventrally within the mid abdomen adjacent to the abdominal wall. Small right-sided and very small left- sided pleural effusions are noted. There is resultant bibasilar compressive atelectasis. A superimposed infiltrate would be difficult to exclude on the basis of CT only. Correlate clinically. The remainder of the exam demonstrates no definite interval change. Cardiomegaly. Transvenous cardiac pacemaker in place. Colonic diverticulosis. Mild stable chronic T12 and L1 vertebral body compression fractures. Status post left hip ORIF. GI Dr Saleh consulted for ascending cholangitis 10/27/19 17:31 CXR: confirmed new L IJ line with tip at junction of L innominate and SVC. No PTX. 10/27/19 17:[address] Levi GI - requested immediate consult of IR Dr Fatima for drainage. If unable to drain, then would need transfer. Dr Fatima called at office and cell - no answer. 10/27/19 18:30 Spoke with IR resolution specialist Dr Samuel Patel - will assemble team to place GB drain tonight. -Perc Karina ordered per IR request Dr Levi informed. Dr Levi saw pt - requested Flagyl. -Flagyl ICU consulted - will see pt. Signed out to Dr May for admission. 10/27/19 19:52 Pt in IR. Daughter taken to IR for consent. [phone] Marilin (daughter) Discharge - Discharge Information Problems reviewed: Yes Clinical Impression/Diagnosis: Ascending cholangitis, Choledocholithiasis with acute cholecystitis, Sepsis associated hypotension Condition: Critical - Admission Yes - Follow up/Referral Referrals: Alfred Duarte MD [Primary Care Provider] - - Patient Discharge Instructions - Post Discharge Activity
[2019-10-27] MEDS ORDERED: ACETAMINOPHEN 1000 MG/100 ML VIAL (NON FORMULARY) IVPB ONE (09:49)
--- NOTE | 2019-10-27 09:55 | PDOC ---
Attending Attestation - Resident Resident Name: JonimichaelAudeliaRenee - ED Attending Attestation I have performed the following: I have examined & evaluated the patient, The case was reviewed & discussed with the resident, I agree w/resident's findings & plan, Exceptions are as noted - HPI HPI: 10/27/19 09:54 84y F hx of PR (s/p stents, defibrillator placement), afib (on xarelto), CHF, CVA (2009) HTN, and HLD, presents with vomiting and diarrhea. Per the home health aide the patient atypically did not respond to opening the door when they arrived she saw the patient lying on the stretcher a bit confused and less responsive than usual, also appeared to have vomiting and diarrhea on herself. EMS was called she was noted to be hypotensive with blood sugar in the normal range she was given 900 cc of fluid by EMS with improvement of her mental status to where she is able to provide history that she had some vomiting and diarrhea since Sunday. Patient also endorses diffuse mild abdominal pain. No recent hjospital admissions, recent travel or known sick contacts. PMD: Dr. Duarte Card: Benitez Wright - Physicial Exam PE: 10/27/19 10:32 Exam: GENERAL: The patient is awake, alert, oriented x2, slow to answer questions HEAD: Normocephalic, atraumatic. EYES: extraocular movements intact, sclera icteric, conjunctiva clear. ENT: Normal voice, dry mucous membranes. NECK: Normal range of motion, supple LUNGS: Distant breath sounds scattered crackles at the bases, no acute respiratory distress HEART: Regular rate and rhythm, normal S1 and S2 without murmur, rub or gallop. ABDOMEN: Mild diffuse tenderness with voluntary guarding EXTREMITIES: Normal range of motion, no edema. NEUROLOGICAL: No facial assymetry, Normal speech, moving all 4 extremity spontaneously and symmetrically PSYCH: Normal mood, normal affect. SKIN: Warm, Dry, normal turgor, - Critical Care Time Total Critical Care Time: 110 Critical Care Statement: The care of this patient involved high complexity decision making to prevent further life threatening deterioration of the patient 's condition and/or to evaluate & treat vital organ system(s) failure or risk of failure. - Medical Decision Making 10/27/19 10:32 Differential for the patient's symptoms includes but is not limited to gastroenteritis based on the patient's abdominal exam consider colitis, possibly with complications/ischemia Upon arrival the patient was noted to be febrile, tachycardic, sepsis order set was obtained. The patient did improve with 900 cc of saline by EMS, will give the patient a 500cc. Due to the patient's prior echo revealing global hypokinesis of the ventricles concern for fluid overload will continue to monitor and gently hydrate the patient. Will obtain CT of the abdomen Will reassess 10/27/19 12:25 The patient's blood work was reviewed it is noted for a mild leukocytosis with a left shift. The patient's chemistry is significantly abnormal her creatinine and BUN are elevated consistent with prerenal azotemia. pts bedside IVC US noted for flat IVC after ~1.5L of NS- will continue to fluid resusitate and reassess her vitals. If persistently hypotensive will consider central line. as IVC was flat feel pt can receive more fluids prior to pressors as her IVC was compressivble. pt mental status was approx unchanged -able to answer qeustions. endorses abd pain but denies any lightheadedness, chest pain, sob. Her troponin is elevated 0.78 this is likely secondary to demand as the patient has no chest pain . The patient is a lactic acid elevated to 3.5 Total bilirubin also elevated to 5 with increased LFTs Consider possible ascending cholangitis. 10/27/19 18:55 pt has been reasessed multiple times mental status unchanged. As the patient is persistently hypotensive after ~3.5L we placed a central line for pressors approx 4:15pm. The central line was placed by Dr. Anderson under my direct supervision. The chest x-ray confirms placement. The case was discussed with interventional radiology who will take the patient to the IR suite for further management. We also discussed the case with Dr. Levi who was bedside evaluating the patient. Repeat PE for Septic Shock - Vital Signs Vital Signs: Vital Signs Temperature 97.4 F L 10/29/19 14:00 Pulse Rate 143 H 10/29/19 16:00 Respiratory Rate 21 H 10/29/19 16:00 Blood Pressure 82/47 L 10/29/19 16:00 O2 Sat by Pulse Oximetry (%) 93 L 10/28/19 23:59 10/30/19 07:32 This septic shock PE was documented in retroactively. reflects vitals from 10/27 at approximately 3pm. I have reviewed the most recent vital signs: Yes - PE CV for Spetic Shock: Regular Rate Lungs: Lungs Clear Vascular: Left Radial: 2+, Right Radial: 2+, Left Doralis Pedis: 1+, Right Dorsalis Pedis: 1+ Capillary Refill: >3 seconds Skin exam: Dry (pt given 3 L of NS, still hypotensive although mentating, central line will be placed)
--- NOTE | 2019-10-27 10:00 | EKG ---
Test Reason : Blood Pressure : / mmHG Vent. Rate : 093 BPM Atrial Rate : 097 BPM P-R Int : 000 ms QRS Dur : 084 ms QT Int : 368 ms P-R-T Axes : 000 -38 -25 degrees QTc Int : 457 ms ATRIAL FIBRILLATION WITH PREMATURE VENTRICULAR OR ABERRANTLY CONDUCTED COMPLEXES LEFT AXIS DEVIATION SEPTAL INFARCT (CITED ON OR BEFORE 27-MAR-2017) T WAVE ABNORMALITY, CONSIDER ANTERIOR ISCHEMIA ABNORMAL ECG WHEN COMPARED WITH ECG OF 28-DEC-2018 13:17, QUESTIONABLE CHANGE IN INITIAL FORCES OF SEPTAL LEADS T WAVE INVERSION NOW EVIDENT IN INFERIOR LEADS T WAVE INVERSION NOW EVIDENT IN ANTERIOR LEADS Confirmed by Usman Tony ([id number]) on 10/27/2019 9:59:50 AM Referred By: Confirmed By:Usman Tony
[2019-10-27] MEDS ORDERED: SODIUM CHLORIDE 0.9% 500 ML INFUS.BAG IV ONE ×3 (10:02→13:45)
[2019-10-27] MEDS ORDERED: morphine CARPU-JECT 2 MG/1 ML DISP.SYRIN IVPUSH ONE (10:15)
[2019-10-27] MEDS ORDERED: MORPHINE SULFATE 2 MG/ML VIAL ONE (10:55)
[2019-10-27 11:10] LABS: VENOUS PC02 37.6 mmHg (38-52); VENOUS PH 7.37 (7.31-7.41)
[2019-10-27 11:11] LABS: VENOUS PO2 56.2 mmHg (28-48)
[2019-10-27 11:15] LABS: HEMATOCRIT 41.7 % (32.4-45.2); HEMOGLOBIN 13.6 GM/dL (10.7-15.3); LYMPH % 8.5 % (8-40); MCH 29.2 pg (25.7-33.7); MCHC 32.6 g/dl (32.0-36.0); MEAN CELL VOLUME 89.5 fl (80-96); MEAN PLT VOLUME 10.6 fl (7.5-11.1); MONO % 4.3 % (3.8-10.2); NEUT % 85.2 % (42.8-82.8); PLATELET COUNT 92 K/MM3 (134-434); RBC 4.65 M/mm3 (3.60-5.2); RDW 16.1 % (11.6-15.6); WHITE BLOOD COUNT 11.6 K/mm3 (4.0-10.0)
[2019-10-27 11:28] LABS: INR 1.05 (0.83-1.09); PROTHROMBIN TIME (PATIENT) 12.4 SEC (9.7-13.0)
[2019-10-27 11:31] LABS: ACTIVATED PTT 24.1 SECONDS (25.2-36.5)
[2019-10-27 12:02] LABS: ALBUMIN 2.6 g/dl (3.4-5.0); BILIRUBIN,TOTAL 5.6 mg/dL (0.2-1); BLOOD UREA NITROGEN 91.9 mg/dL (7-18); CALCIUM 8.8 mg/dL (8.5-10.1); CREATININE 3.6 mg/dL (0.55-1.3); MAGNESIUM 2.8 mg/dL (1.8-2.4); PHOSPHOROUS 4.4 mg/dL (2.5-4.9); TOT PROT 5.7 g/dl (6.4-8.2)
[2019-10-27] MEDS ORDERED: VANCOMYCIN 1 GM in D5W (PRE-DOCKED) 1,000 MG/250 ML IVPB ONE (12:12)
[2019-10-27] MEDS ORDERED: PIPERACILLIN/TAZOB 3.375 GM 3.375 GM in DEXTROSE 5%-WATER - 50 ML IVPB ONE (12:12)
[2019-10-27] MEDS ORDERED: SODIUM CHLORIDE 500 ML IV STA (12:18)
[2019-10-27] MEDS ORDERED: VANCOMYCIN 1 GRAM (PRE-DOCKED) 1,000 MG/250 ML BAG IVPB ONE (12:21)
[2019-10-27] MEDS ORDERED: PIPERACILLIN/TAZOB 3.375 GM 3.375 GM/50 ML BAG IVPB ONE (12:21)
[2019-10-27 14:30] LABS: ANISOCYTOSIS 2+; MACROCYTOSIS 0; OVALOCYTE 1+; PLATELET ESTIMATE DECREASED; TEAR DROP CELLS 1+; TOXIC GRANULATION 2+
[2019-10-27] MEDS ORDERED: NOREPINEPHRINE BITARTRATE 4,000 MCG in DEXTROSE 5%-WATER - 496 ML IV SCH (17:15)
[2019-10-27 17:21] LABS: EPI CELLS 15.6 /HPF (0-5/HPF); HYALINE CASTS 101 /lpf (0-8); URINE APPEARANCE TURBID; URINE BILIRUBIN 1+ (NEGATIVE); URINE COLOR DK YELLOW; URINE GLUCOSE (UA) NEGATIVE (NEGATIVE); URINE KETONE NEGATIVE (NEGATIVE); URINE LEUK ESTERASE TRACE (NEGATIVE); URINE NITRITE NEGATIVE (NEGATIVE); URINE PROTEIN 2+ (NEGATIVE); URINE WBC 24 /hpf (0-5)
[2019-10-27] MEDS ORDERED: NOREPINEPHRINE BITARTRATE 4 MG/4 ML ML IV ONE ×2 (17:31→17:33)
[2019-10-27] MEDS: NOREPINEPHRINE BITARTRATE 8,000 MCG in DEXTROSE 5%-WATER - 492 ML IV SCH (17:37)
[2019-10-27 17:40] LABS: URINE BACTERIA 14.1 /hpf (NEGATIVE); URINE RBC 143 /hpf (0-4)
--- NOTE | 2019-10-27 19:19 | HP ---
Admitting History and Physical - Primary Care Physician PCP: Halina May - Admission History of Present Illness: 84y F hx of CT (s/p stents, defibrillator placement), afib (on xarelto), CHF, CVA (2009) HTN, and HLD, presents with vomiting and diarrhea. Per the home health aide the patient atypically did not respond to opening the door when they arrived she saw the patient lying on the stretcher a bit confused and less responsive than usual, also appeared to have vomiting and diarrhea on herself. EMS was called she was noted to be hypotensive with blood sugar in the normal range she was given 900 cc of fluid by EMS with improvement of her mental status to where she is able to provide history that she had some vomiting and diarrhea since Sunday. Patient also endorses diffuse mild abdominal pain. - Past Medical History Cardiovascular: Yes: AFIB (AICD), CAD (s/p LAD JACE stent 02/10), CHF (severe hypokinesis), HTN, Hyperlipdemia, CT (02/10), Mitral Insufficiency Hepatobiliary: Yes: Cholelithiasis Psych: Yes: Anxiety, Depression, Panic - Past Surgical History Past Surgical History: Yes: AICD, Colonoscopy, Stent, Upper Endoscopy - Smoking History Smoking history: Never smoked Have you smoked in the past 12 months: No Aproximately how many cigarettes per day: 0 - Alcohol/Substance Use Hx Alcohol Use: No - Social History ADL: Independent History of Recent Travel: No Home Medications - Allergies Allergies/Adverse Reactions: Allergies Allergy/AdvReac Type Severity Reaction Status Date / Time No Known Allergies Allergy Verified 10/27/19 09:24 - Home Medications Home Medications: Ambulatory Orders Carvedilol [Coreg -] 12.5 mg PO BID 10/27/19 Digoxin [Lanoxin -] 0.125 mg PO ASDIR 10/27/19 Furosemide 40 mg PO DAILY 10/27/19 Levothyroxine [Synthroid -] 25 mcg PO DAILY 10/27/19 Rosuvastatin [Crestor -] 10 mg PO DAILY 10/27/19 Spironolactone 25 mg PO DAILY 10/27/19 Physical Examination Vital Signs: Vital Signs Temperature 97.1 F L 10/27/19 17:50 Pulse Rate 95 H 10/27/19 18:05 Respiratory Rate 20 10/27/19 17:50 Blood Pressure 83/65 L 02/24/20 18:05 O2 Sat by Pulse Oximetry (%) 93 L 10/27/19 17:50 Constitutional: Yes: Calm HENT: Yes: Atraumatic Neck: Yes: Supple Cardiovascular: Yes: Regular Rate and Rhythm Respiratory: Yes: CTA Bilaterally Gastrointestinal: Yes: Normal Bowel Sounds, Tenderness Extremities: Yes: WNL Edema: No Neurological: Yes: Alert, Oriented Labs: CBC, BMP 10/27/19 10:00 10/27/19 10:46 Imaging - Results Cat Scan: Report Reviewed Problem List - Problems (1) Ascending cholangitis Assessment/Plan: FOR IR TO PUT DRAIN IV ABX ID CONSULT Code(s): K83.09 - OTHER CHOLANGITIS (2) Choledocholithiasis with acute cholecystitis Code(s): K80.42 - CALCULUS OF BILE DUCT W ACUTE CHOLECYSTITIS W/O OBSTRUCTION (3) Atrial fibrillation Code(s): I48.91 - UNSPECIFIED ATRIAL FIBRILLATION (4) HTN (hypertension) Assessment/Plan: MONITOR HOLD BP MEDS Code(s): I10 - ESSENTIAL (PRIMARY) HYPERTENSION (5) Hyperlipidemia Code(s): E78.5 - HYPERLIPIDEMIA, UNSPECIFIED Assessment/Plan Laboratory Tests 10/27/19 10/27/19 10/27/19 10:00 10:00 10:00 WBC 11.6 H RBC 4.65 Hgb 13.6 Hct 41.7 D MCV 89.5 MCH 29.2 D MCHC 32.6 RDW 16.1 H Plt Count 92 L D MPV 10.6 D Absolute Neuts (auto) 9.9 H Neutrophils % 85.2 H D Neutrophils % (Manual) 67.7 Band Neutrophils % 14.1 Lymphocytes % 8.5 D Lymphocytes % (Manual) 7.1 L Monocytes % 4.3 Monocytes % (Manual) 2 L Eosinophils % 2.0 Eosinophils % (Manual) 0.0 Basophils % 0.0 Basophils % (Manual) 0.0 Myelocytes % (Man) 0 Promyelocytes % (Man) 1 Blast Cells % (Manual) 0 Nucleated RBC % 0 Metamyelocytes 0 Hypochromia 0 Toxic Granulation 2+ Platelet Estimate Decreased Platelet Comment Present Polychromasia 0 Poikilocytosis 1+ Anisocytosis 2+ Microcytosis 1+ Macrocytosis 0 Spherocytes 1+ Tear Drop Cells 1+ Ovalocytes 1+ Farrukh Cells 1+ PT with INR 12.40 INR 1.05 PTT (Actin FS) 24.1 L VBG pH POC VBG pCO2 POC VBG pO2 VBG HCO3 VBG O2 Sat (Elisha) VBG Base Excess Sodium Potassium Chloride Carbon Dioxide Anion Gap BUN Creatinine Est GFR (CKD-EPI)AfAm Est GFR (CKD-EPI)NonAf Random Glucose Lactic Acid 3.1 H* Calcium Phosphorus Magnesium Total Bilirubin AST ALT Alkaline Phosphatase Creatine Kinase Creatine Kinase Index CK-MB (CK-2) Troponin I B-Natriuretic Peptide Total Protein Albumin TSH Urine Color Urine Appearance Urine pH Ur Specific [place] Urine Protein Urine Glucose (UA) Urine Ketones Urine Blood Urine Nitrite Urine Bilirubin Urine Urobilinogen Ur Leukocyte Esterase Urine WBC (Auto) Urine RBC (Auto) Urine Casts (Auto) U Pathogenic Cast Auto U Epithel Cells (Auto) Urine Bacteria (Auto) Blood Type Antibody Screen 10/27/19 10/27/19 10/27/19 10:00 10:46 11:31 WBC RBC Hgb Hct MCV MCH MCHC RDW Plt Count MPV Absolute Neuts (auto) Neutrophils % Neutrophils % (Manual) Band Neutrophils % Lymphocytes % Lymphocytes % (Manual) Monocytes % Monocytes % (Manual) Eosinophils % Eosinophils % (Manual) Basophils % Basophils % (Manual) Myelocytes % (Man) Promyelocytes % (Man) Blast Cells % (Manual) Nucleated RBC % Metamyelocytes Hypochromia Toxic Granulation Platelet Estimate Platelet Comment Polychromasia Poikilocytosis Anisocytosis Microcytosis Macrocytosis Spherocytes Tear Drop Cells Ovalocytes Farrukh Cells PT with INR INR PTT (Actin FS) VBG pH 7.37 POC VBG pCO2 37.6 L POC VBG pO2 56.2 H VBG HCO3 21.2 L VBG O2 Sat (Elisha) 85 H VBG Base Excess -3.1 L Sodium 141 Potassium 5.0 Chloride 107 Carbon Dioxide 24 Anion Gap 10 BUN 91.9 H Creatinine 3.6 H Est GFR (CKD-EPI)AfAm 12.91 Est GFR (CKD-EPI)NonAf 11.14 Random Glucose 126 H Lactic Acid Calcium 8.8 Phosphorus 4.4 Magnesium 2.8 H Total Bilirubin 5.6 H AST 117 H ALT 81 H Alkaline Phosphatase 234 H Creatine Kinase 300 H Creatine Kinase Index 1.4 CK-MB (CK-2) 4.4 H Troponin I 0.78 H* B-Natriuretic Peptide 81958.0 H Total Protein 5.7 L Albumin 2.6 L TSH 1.05 Urine Color Dk yellow Urine Appearance Turbid Urine pH 5.0 D Ur Specific [place] 1.014 Urine Protein 2+ H Urine Glucose (UA) Negative Urine Ketones Negative Urine Blood 3+ H Urine Nitrite Negative Urine Bilirubin 1+ H Urine Urobilinogen 1.0 Ur Leukocyte Esterase Trace Urine WBC (Auto) 24 Urine RBC (Auto) 143 Urine Casts (Auto) 101 U Pathogenic Cast Auto Negative U Epithel Cells (Auto) 15.6 Urine Bacteria (Auto) 14.1 Blood Type Antibody Screen 10/27/19 10/27/19 10/27/19 12:34 13:57 13:57 WBC RBC Hgb Hct MCV MCH MCHC RDW Plt Count MPV Absolute Neuts (auto) Neutrophils % Neutrophils % (Manual) Band Neutrophils % Lymphocytes % Lymphocytes % (Manual) Monocytes % Monocytes % (Manual) Eosinophils % Eosinophils % (Manual) Basophils % Basophils % (Manual) Myelocytes % (Man) Promyelocytes % (Man) Blast Cells % (Manual) Nucleated RBC % Metamyelocytes Hypochromia Toxic Granulation Platelet Estimate Platelet Comment Polychromasia Poikilocytosis Anisocytosis Microcytosis Macrocytosis Spherocytes Tear Drop Cells Ovalocytes Farrukh Cells PT with INR INR PTT (Actin FS) VBG pH POC VBG pCO2 POC VBG pO2 VBG HCO3 VBG O2 Sat (Elisha) VBG Base Excess Sodium Potassium Chloride Carbon Dioxide Anion Gap BUN Creatinine Est GFR (CKD-EPI)AfAm Est GFR (CKD-EPI)NonAf Random Glucose Lactic Acid 2.1 H Calcium Phosphorus Magnesium Total Bilirubin AST ALT Alkaline Phosphatase Creatine Kinase Creatine Kinase Index CK-MB (CK-2) Troponin I 0.49 H B-Natriuretic Peptide Total Protein Albumin TSH Urine Color Urine Appearance Urine pH Ur Specific [place] Urine Protein Urine Glucose (UA) Urine Ketones Urine Blood Urine Nitrite Urine Bilirubin Urine Urobilinogen Ur Leukocyte Esterase Urine WBC (Auto) Urine RBC (Auto) Urine Casts (Auto) U Pathogenic Cast Auto U Epithel Cells (Auto) Urine Bacteria (Auto) Blood Type O POSITIVE Antibody Screen Negative Active Medications Generic Name Dose Route Start Last Admin Trade Name Freq PRN Reason Stop Dose Admin Chlorhexidine Gluconate 1 applic 10/27/19 22:00 10/27/19 21:01 Hibiclens For Decolonization - TP 1 applic HS MARIA D Administration Norepinephrine Bitartrate 8, 500 mls @ 8.16 mls/hr 10/27/19 17:45 10/27/19 18 :05 000 mcg/ Dextrose IV 0.06 mcg/kg/min ASDIR MARIA D 18.8 mls/hr Titration Protocol 0.03 MCG/KG/MIN Sodium Chloride 1,000 mls @ 75 mls/hr 10/27/19 19:30 10/27/19 20:30 Normal Saline - IV 75 mls/hr ASDIR MARIA D Administration Piperacillin Sod/Tazobactam 50 mls @ 100 mls/hr 10/27/19 19:35 Sod 3.375 gm/ Dextrose IVPB Q8H-IV MARIA D Protocol Piperacillin Sod/Tazobactam 50 mls @ 100 mls/hr 10/27/19 19:45 10/27/19 20:53 Sod 3.375 gm/ Dextrose IVPB 10/28/19 10:29 100 mls/hr Q8H-IV MARIA D Administration Protocol Vasopressin 50 units/ Sodium 100 mls @ 4 mls/hr 10/27/19 20:45 Chloride IVPB ASDIR MARIA D Protocol 2 UNITS/HR Levothyroxine Sodium 25 mcg 10/28/19 07:00 Synthroid - PO ACBK MARIA D Morphine Sulfate 2 mg 10/27/19 19:27 Morphine Sulfate IVPUSH Q2H PRN PAIN LEVEL 6-10 Mupirocin 1 applic 10/27/19 22:00 10/27/19 21:01 Bactroban Ointment (For Decolonization) - NS 11/01/19 21:59 1 applic BID MARIA D Administration Rosuvastatin Calcium 10 mg 10/27/19 22:00 10/27/19 21:02 Crestor - PO Not Given HS MARIA D CC TIME 60 MIN
[2019-10-27] MEDS ORDERED: MORPHINE SULFATE 2 MG/ML VIAL IVPUSH PRN (19:24)
--- NOTE | 2019-10-27 19:30 | CON.GI ---
Consult Consult Specialty:: GI - History of Present Illness History of Present Illness: The patient was seen in the emergency room84 y/o f with PMH of CHF and CAD was brought in by EMS when she was found in pool of stool and lethargic. SHe was hypotensive enroute to the hospital. In the ER she received 3.5 liters of fluid. She was noted to have diffuse abdominal pain. Her WBC was 11,000.Lactic acid of 3.1,T. bili of 5. The abdominal catscan revealed thickened dilated gallbladder with pericholecystic fluid and dilated 1.7cm CBD with a 2 cm stone. - Past Medical History Cardio/Vascular: Yes: AFIB (AICD), CAD (s/p LAD JACE stent 02/10), CHF (severe hypokinesis), HTN, Hyperlipdemia, [place] (02/10), Mitral Insufficiency Hepatobiliary: Yes: Cholelithiasis Psych: Yes: Anxiety, Depression, Panic - Past Surgical History Past Surgical History: Yes: AICD, Colonoscopy, Stent, Upper Endoscopy - Alcohol/Substance Use Hx Alcohol Use: No - Smoking History Smoking history: Never smoked Have you smoked in the past 12 months: No Aproximately how many cigarettes per day: 0 - Social History Usual Living Arrangement: Alone ADL: Independent History of Recent Travel: No Home Medications - Allergies Allergies/Adverse Reactions: Allergies Allergy/AdvReac Type Severity Reaction Status Date / Time No Known Allergies Allergy Verified 10/27/19 09:24 - Home Medications Home Medications: Ambulatory Orders Carvedilol [Coreg -] 12.5 mg PO BID 10/27/19 Digoxin [Lanoxin -] 0.125 mg PO ASDIR 10/27/19 Furosemide 40 mg PO BID 10/27/19 Levothyroxine [Synthroid -] 25 mcg PO DAILY 10/27/19 Magnesium 400 mg PO DAILY 10/27/19 Rivaroxaban [Xarelto -] 20 mg PO DAILY 10/27/19 Rosuvastatin [Crestor -] 10 mg PO DAILY 10/27/19 Spironolactone 25 mg PO DAILY 10/27/19 Review of Systems - Review of Systems Constitutional: reports: Fever Eyes: reports: No Symptoms HENT: reports: No Symptoms Neck: reports: No Symptoms Cardiovascular: reports: No Symptoms Respiratory: reports: No Symptoms Gastrointestinal: reports: No Symptoms Physical Exam-GI Vital Signs: Vital Signs Temperature 97.1 F L 10/27/19 17:50 Pulse Rate 95 H 10/27/19 18:05 Respiratory Rate 20 10/27/19 17:50 Blood Pressure 83/65 L 10/27/19 18:05 O2 Sat by Pulse Oximetry (%) 93 L 10/27/19 17:50 Constitutional: Yes: No Distress Eyes: Yes: Sclera Icterus HENT: Yes: Atraumatic Neck: Yes: Supple Cardiovascular: Yes: Regular Rate and Rhythm Respiratory: Yes: CTA Bilaterally ...Palpate: Yes: Soft, Tenderness, Epigastium. No: Firm/Rigid, Guarding, Hepatomegaly, Mass, Pulsatile Mass, Splenomegaly Labs: CBC, BMP 10/27/19 10:00 10/27/19 10:46 INR, PTT INR 1.05 (0.83-1.09) 10/27/19 10:00 Hepatic Panel Total Bilirubin 5.6 mg/dL (0.2-1) H 10/27/19 10:46 AST 117 U/L (15-37) H 10/27/19 10:46 ALT 81 U/L (13-61) H 10/27/19 10:46 Alkaline Phosphatase 234 U/L (45-117) H 10/27/19 10:46 Albumin 2.6 g/dl (3.4-5.0) L 10/27/19 10:46 Problem List - Problems (1) Sepsis associated hypotension Assessment/Plan: secondary to acute cholecystits and cholagitis R> IV hydration and IV antibiotics because the patient is unstable the patient will benefit in undergoing emergent cholecystostomy Dr Guerra will resume care in am Code(s): A41.9 - SEPSIS, UNSPECIFIED ORGANISM; I95.9 - HYPOTENSION, UNSPECIFIED
[2019-10-27] MEDS ORDERED: PIPERACILLIN/TAZOB 3.375 GM 3.375 GM in DEXTROSE 5%-WATER - 50 ML IVPB SCH (19:35)
--- NOTE | 2019-10-27 20:11 | CONSULT ---
Consultation: REQUESTING PROVIDER: Dr. Trejo CONSULT REQUEST: We have been asked to medically evaluate this patient for (specify). HISTORY OF PRESENT ILLNESS: Patient is an 84 year old female with PMH of ID (s/p stents, defibrillator placement), Afib (on xarelto), CHF, CVA (2009), HTN, and HLD who presents with AMS, vomiting and diarrhea. Pt was last seen normal 2 days ago. Per MACHINE SETTER, pt did not respond to opening door this am. EMS was called and pt was found laying on ground, lethargic and confused, and covered in vomit and diarrhea. She was noted to be hypotensive and euglycemic. She received 900cc fluid in the field with slight improvement in her mental status. Pt is now able to provide some history, endorsing that she has been experiencing vomit and diarrhea for 4 days. She complains of diffuse abdominal pain, most severe in RUQ. Pt denies any recent hospitalizations, travel, or sick contacts. REVIEW OF SYSTEMS: CONSTITUTIONAL: Absent: fever, chills, diaphoresis, generalized weakness, malaise, loss of appetite, weight change HEENT: Absent: rhinorrhea, nasal congestion, throat pain, throat swelling, difficulty swallowing, mouth swelling, ear pain, eye pain, visual changes CARDIOVASCULAR: Absent: chest pain, syncope, palpitations, irregular heart rate, light headedness, peripheral edema RESPIRATORY: Absent: cough, shortness of breath, dyspnea with exertion, orthopnea, wheezing, stridor, hemoptysis GASTROINTESTINAL: abdominal pain, nausea, vomiting, diarrhea Absent: abdominal distension, constipation, melena, hematochezia GENITOURINARY: Absent: dysuria, frequency, urgency, hesitancy, hematuria, flank pain, genital pain MUSCULOSKELETAL: Absent: myalgia, arthralgia, joint swelling, back pain, neck pain SKIN: Absent: rash, itching, pallor HEMATOLOGIC/IMMUNOLOGIC: Absent: easy bleeding, easy bruising, lymphadenopathy, frequent infections ENDOCRINE: Absent: unexplained weight gain, unexplained weight loss, heat intolerance, cold intolerance NEUROLOGIC: mental status changes Absent: headache, focal weakness or paresthesias, dizziness, unsteady gait, seizure, bladder or bowel incontinence PSYCHIATRIC: Absent: anxiety, depression, suicidal or homicidal ideation, hallucinations. PHYSICAL EXAMINATION Vital Signs - 24 hr 10/27/19 10/27/19 10/27/19 09:18 12:15 12:30 Temperature 101.5 F H 99.3 F Pulse Rate 110 H Pulse Rate [ 94 H 96 H Left Apical] Respiratory 18 16 24 H Rate Blood Pressure 94/58 L Blood Pressure 67/47 L 75/50 L [Left Arm] O2 Sat by Pulse 97 96 92 L Oximetry (%) 10/27/19 10/27/19 10/27/19 12:38 13:00 13:01 Temperature Pulse Rate Pulse Rate [ 92 H 94 H 95 H Left Apical] Respiratory 16 19 16 Rate Blood Pressure Blood Pressure 75/50 L 65/49 L 65/49 L [Left Arm] O2 Sat by Pulse 96 93 L 100 Oximetry (%) 10/27/19 10/27/19 10/27/19 14:45 15:45 16:55 Temperature Pulse Rate Pulse Rate [ 89 93 H 95 H Left Apical] Respiratory 17 20 22 H Rate Blood Pressure Blood Pressure 76/48 L 71/54 L 77/51 L [Left Arm] O2 Sat by Pulse 92 L 92 L 95 Oximetry (%) 10/27/19 10/27/19 10/27/19 17:37 17:50 18:05 Temperature 97.1 F L Pulse Rate 90 95 H Pulse Rate [ 104 H Left Apical] Respiratory 20 Rate Blood Pressure 66/45 L 83/65 L Blood Pressure 69/51 L [Left Arm] O2 Sat by Pulse 93 L Oximetry (%) GENERAL: Sleepy but arousable and oriented x3. No acute distress. HEAD: Normal with no signs of trauma. EYES: Pupils equal, round and reactive to light, extraocular movements intact, sclera icterus, conjunctiva clear. EARS, NOSE, THROAT: Ears normal, nares patent, oropharynx clear without exudates. Moist mucous membranes. NECK: Normal range of motion, supple without lymphadenopathy, JVD, or masses. LIJ in place, no surrounding erythema. LUNGS: Breath sounds equal, clear to auscultation bilaterally. No wheezes, and no crackles. No accessory muscle use. HEART: Irregular rate and rhythm, normal S1 and S2 without murmur, rub or gallop. ABDOMEN: Soft, diffuse tenderness most severe in RUQ, mild guarding, normoactive bowel sounds, no rebound, no masses. No hepatomegaly or splenomegaly. MUSCULOSKELETAL: Normal range of motion at all joints. No bony deformities or tenderness. No CVA tenderness. UPPER EXTREMITIES: 2+ pulses, warm, well-perfused. No cyanosis. No clubbing. Cap refill <2 seconds. No peripheral edema. LOWER EXTREMITIES: 2+ pulses, warm, well-perfused. No calf tenderness. No peripheral edema. NEUROLOGICAL: Cranial nerves II-XII intact. Normal speech. Normal gait. PSYCHIATRIC: Cooperative. Good eye contact. Appropriate mood and affect. SKIN: Warm, dry, normal turgor, jaundice appearing. Laboratory Results - last 24 hr CBC, BMP 10/27/19 10:00 10/27/19 10:46 Active Medications Chlorhexidine Gluconate (Hibiclens For Decolonization -) 1 applic TP HS MARIA D Norepinephrine Bitartrate 8, (000 mcg/ Dextrose) 500 mls @ 8.16 mls/hr IV ASDIR MARIA D; Protocol Last Titration: 10/27/19 18:05 Dose: 0.06 mcg/kg/min, 18.8 mls/hr Sodium Chloride (Normal Saline -) 1,000 mls @ 75 mls/hr IV ASDIR MARIA D Piperacillin Sod/Tazobactam (Sod 4.5 gm/ Dextrose) 100 mls @ 200 mls/hr IVPB Q6H-IV MARIA D; Protocol Levothyroxine Sodium (Synthroid -) 25 mcg PO ACBK MARIA D Morphine Sulfate (Morphine Sulfate) 2 mg IVPUSH Q2H PRN PRN Reason: PAIN LEVEL 6-10 Mupirocin (Bactroban Ointment (For Decolonization) -) 1 applic NS BID MARIA D Stop: 11/01/19 21:59 Rosuvastatin Calcium (Crestor -) 10 mg PO HS [facility] ASSESSMENT/PLAN: Patient is an 84 year old female with PMH of ID (s/p stents, defibrillator placement), Afib (on xarelto), CHF, CVA (2009), HTN, and HLD who presents with AMS, vomiting and diarrhea. CTAP revealed acute cholangitis and pt underwent emergent percutaneous cholecystotomy per IR. Neuro -Sleepy but arousable and oriented x3 -Hx of CVA in 2009, no residual deficits Cardiovascular -Hx of ID (s/p stents, defibrillator placement), Afib (on xarelto), CHF, HTN -Echo (2018): LV fxn severely reduced, global hypokinesis, EF: 30-35% -Central line placed in lij by ED, pt on levophed and vasopressin -Holding anti-hypertensive meds in setting of hypotension -Holding xarelto in setting of surgical intervention -Closely monitor hemodynamics -Cardiology consulted (Dr. Marquis), f/u recs -Troponin: 0.78 --> 0.49, likely 2/2 demand ischemia -EKG: Afib with PVCS, no ST elevations or TWI GI -CTAP: acute calculus cholecystitis with associated choledocholithiasis and common bile duct dilatation, small amount of free fluid in R subhepatic space -GI consulted (Dr. Levi/Soniya): pt will benefit from emergent percutaneous cholecystotomy; IV hydration and abx -IR consulted (Dr. Patel) pt underwent emergent percutaneous cholecystotomy -Pain control morphine 2mg Q2H -IV abx -NPO ID -Sepsis 2/2 acute ascending cholangitis -Leukocytosis, lactic acid 3.1-->2.1, cont to trend -Received vanc, zosyn, flagyl in ED -Cont IV zosyn 3.375 Q8H >>Dosing per UpToDate is 4.5mg Q6H, but adjusted for renal function with CrCl of ~14 -Blood and urine cx sent -ID consulted (Dr. Barnard) Renal -DALE 2/2 hypoperfusion/sepsis -Holding pt's lasix until renal function improves -IV zosyn dosing adjusted for renal function (CrCl ~14) -Carter in place -Monitor I's and O's FEN -IV NS @ 75ml/hr -F/u am labs, replete lytes prn -NPO DVT ppx -SCDs as per surgery Dispo: We will continue to follow the patient. Thank you for this consultative opportunity. Visit type - Emergency Visit Emergency Visit: No - New Patient This patient is new to me today: No - Critical Care Critical Care patient: Yes Total Critical Care Time (in minutes): 45 Critical Care Statement: The care of this patient involved high complexity decision making to prevent further life threatening deterioration of the patient's condition and/or to evaluate & treat vital organ system(s) failure or risk of failure. ATTENDING PHYSICIAN STATEMENT I saw and evaluated the patient. I reviewed the resident's note and discussed the case with the resident. I agree with the resident's findings and plan as documented. SUBJECTIVE: OBJECTIVE: ASSESSMENT AND PLAN:
[2019-10-27] MEDS: SODIUM CHLORIDE 1,000 ML IV SCH (20:30)
[2019-10-27] MEDS ORDERED: DEXTROSE 5%-WATER - 100 ML IVPB ONE (20:49)
[2019-10-27] MEDS ORDERED: PIPERACILLIN/TAZOBACTAM 3.375 GM VIAL IVPB ONE (20:49)
[2019-10-27] MEDS: PIPERACILLIN/TAZOB 3.375 GM 3.375 GM in DEXTROSE 5%-WATER - 50 ML IVPB SCH (20:53)
[2019-10-27] MEDS: CHLORHEXIDINE GLUCONATE 4% CLEANSER FOR DECOLONIZATION TP SCH (21:01)
[2019-10-27] MEDS: MUPIROCIN 2% TOPICAL OINTMENT FOR DECOLONIZATION NS SCH (21:01)
[2019-10-27] MEDS: ROSUVASTATIN CA 10 MG TABLET (FP) PO SCH (21:02)
[2019-10-27] MEDS ORDERED: VASOPRESSIN 20 UNITS/ML VIAL IV ONE (21:19)
[2019-10-27] MEDS: VASOPRESSIN 50 UNITS in SODIUM CHLORIDE 97.5 ML IVPB SCH (21:21)
[2019-10-27] MEDS ORDERED: CARVEDILOL 12.5 MG TABLET (FP) PO SCH (22:00)
--- NOTE | 2019-10-27 22:02 | CON.CARD ---
Consult Consult Specialty:: Cardiology - History of Present Illness History of Present Illness: 84y F hx of NE (s/p stents, defibrillator placement), afib (on xarelto), CHF, CVA (2010) HTN, and HLD, presents with vomiting and diarrhea. Per the home health aide the patient atypically did not respond to opening the door when they arrived she saw the patient lying on the stretcher a bit confused and less responsive than usual, also appeared to have vomiting and diarrhea on herself. EMS was called she was noted to be hypotensive with blood sugar in the normal range she was given 900 cc of fluid by EMS with improvement of her mental status to where she is able to provide history that she had some vomiting and diarrhea since Sunday. Patient also endorses diffuse mild abdominal pain. - History Source History Provided By: Medical Record - Past Medical History Cardio/Vascular: Yes: AFIB (AICD), CAD (s/p LAD JACE stent 02/10), CHF (severe hypokinesis), HTN, Hyperlipdemia, NE (02/10), Mitral Insufficiency Hepatobiliary: Yes: Cholelithiasis Psych: Yes: Anxiety, Depression, Panic - Past Surgical History Past Surgical History: Yes: AICD, Colonoscopy, Stent, Upper Endoscopy - Alcohol/Substance Use Hx Alcohol Use: No - Smoking History Smoking history: Never smoked Have you smoked in the past 12 months: No Aproximately how many cigarettes per day: 0 - Social History Usual Living Arrangement: Alone ADL: Independent History of Recent Travel: No Home Medications - Allergies Allergies/Adverse Reactions: Allergies Allergy/AdvReac Type Severity Reaction Status Date / Time No Known Allergies Allergy Verified 10/27/19 09:24 - Home Medications Home Medications: Ambulatory Orders Carvedilol [Coreg -] 12.5 mg PO BID 10/27/19 Digoxin [Lanoxin -] 0.125 mg PO ASDIR 10/27/19 Furosemide 40 mg PO DAILY 10/27/19 Levothyroxine [Synthroid -] 25 mcg PO DAILY 10/27/19 Rosuvastatin [Crestor -] 10 mg PO DAILY 10/27/19 Spironolactone 25 mg PO DAILY 10/27/19 Review of Systems - Review of Systems Constitutional: reports: No Symptoms Eyes: reports: No Symptoms HENT: reports: No Symptoms Neck: reports: No Symptoms Cardiovascular: reports: No Symptoms Respiratory: reports: No Symptoms Gastrointestinal: reports: Nausea, Vomiting Genitourinary: reports: No Symptoms Breasts: reports: No Symptoms Reported Musculoskeletal: reports: No Symptoms Integumentary: reports: No Symptoms Neurological: reports: No Symptoms Endocrine: reports: No Symptoms Hematology/Lymphatic: reports: No Symptoms Psychiatric: reports: No Symptoms Vital Signs: Vital Signs Temperature 98.7 F 10/27/19 20:50 Pulse Rate 108 H 10/27/19 20:50 Respiratory Rate 20 10/27/19 20:50 Blood Pressure 86/46 L 10/27/19 20:50 O2 Sat by Pulse Oximetry (%) 94 L 10/27/19 20:50 Constitutional: Yes: Well Nourished, No Distress, Calm Eyes: Yes: WNL, Conjunctiva Clear, EOM Intact HENT: Yes: WNL, Atraumatic, Normocephalic Neck: Yes: WNL, Supple, Trachea Midline Respiratory: Yes: Diminished, Intubated, Mechanically Ventilated Gastrointestinal: Yes: Tenderness Renal/: Yes: WNL Cardiovascular: Yes: Pulse Irregular Musculoskeletal: Yes: WNL Extremities: Yes: WNL Integumentary: Yes: WNL ...Motor Strength: WNL Psychiatric: Yes: WNL, Alert, Oriented - Other Data Labs, Other Data: CBC, BMP 10/27/19 10:00 10/27/19 10:46 INR, PTT INR 1.05 (0.83-1.09) 10/27/19 10:00 Troponin, BNP 10/27/19 10/27/19 10:46 13:57 Troponin I 0.78 H* 0.49 H B-Natriuretic Peptide 74338.0 H Troponin, BNP 10/27/19 10/27/19 10:46 13:57 Troponin I 0.78 H* 0.49 H B-Natriuretic Peptide 31498.0 H Imaging - Results Chest X-ray: Image Reviewed (no i/e) EKG: Image Reviewed (af aberant complexes, rep abn) Problem List - Problems (1) Ascending cholangitis Code(s): K83.09 - OTHER CHOLANGITIS (2) Choledocholithiasis with acute cholecystitis Code(s): K80.42 - CALCULUS OF BILE DUCT W ACUTE CHOLECYSTITIS W/O OBSTRUCTION (3) Sepsis associated hypotension Code(s): A41.9 - SEPSIS, UNSPECIFIED ORGANISM; I95.9 - HYPOTENSION, UNSPECIFIED (4) Acute on chronic systolic (congestive) heart failure Code(s): I50.23 - ACUTE ON CHRONIC SYSTOLIC (CONGESTIVE) HEART FAILURE (5) Atrial fibrillation Code(s): I48.91 - UNSPECIFIED ATRIAL FIBRILLATION (6) Atrial fibrillation with RVR Code(s): I48.91 - UNSPECIFIED ATRIAL FIBRILLATION (7) CHF (congestive heart failure) Code(s): I50.9 - HEART FAILURE, UNSPECIFIED Qualifiers: Heart failure type: unspecified Heart failure chronicity: unspecified Qualified Code(s): I50.9 - Heart failure, unspecified (8) Cardiac arrhythmia Code(s): I49.9 - CARDIAC ARRHYTHMIA, UNSPECIFIED Qualifiers: Arrhythmia type: unspecified cardiac arrhythmia Qualified Code(s): I49.9 - Cardiac arrhythmia, unspecified (9) Defibrillator discharge Code(s): Z45.02 - ENCNTR FOR ADJUST AND MGMT OF AUTOMATIC IMPLNTBL CARD DEFIB (10) Dilated bile duct Code(s): K83.8 - OTHER SPECIFIED DISEASES OF BILIARY TRACT (11) Discomfort in chest Code(s): R07.89 - OTHER CHEST PAIN (12) Elevated LFTs Code(s): R79.89 - OTHER SPECIFIED ABNORMAL FINDINGS OF BLOOD CHEMISTRY (13) Elevated troponin I level Code(s): R74.8 - ABNORMAL LEVELS OF OTHER SERUM ENZYMES (14) Gallstone Code(s): K80.20 - CALCULUS OF GALLBLADDER W/O CHOLECYSTITIS W/O OBSTRUCTION Qualifiers: Cholecystitis presence: without cholecystitis (15) HTN (hypertension) Code(s): I10 - ESSENTIAL (PRIMARY) HYPERTENSION (16) Hyperlipidemia Code(s): E78.5 - HYPERLIPIDEMIA, UNSPECIFIED (17) Hyperlipidemia Code(s): E78.5 - HYPERLIPIDEMIA, UNSPECIFIED (18) Hypokalemia Code(s): E87.6 - HYPOKALEMIA (19) Hypomagnesemia Code(s): E83.42 - HYPOMAGNESEMIA (20) ICD (implantable cardioverter-defibrillator) in place Code(s): Z95.810 - PRESENCE OF AUTOMATIC (IMPLANTABLE) CARDIAC DEFIBRILLATOR (21) Intertrochanteric fracture of left hip Code(s): S72.142A - DISPLACED INTERTROCHANTERIC FRACTURE OF LEFT FEMUR, INIT Qualifiers: Encounter type: initial encounter Fracture type: closed Qualified Code(s) : S72.142A - Displaced intertrochanteric fracture of left femur, initial encounter for closed fracture (22) On amiodarone therapy Code(s): Z79.899 - OTHER SKILLED NURSING (CURRENT) DRUG THERAPY (23) Palpitations Code(s): R00.2 - PALPITATIONS (24) Pneumonia Code(s): J18.9 - PNEUMONIA, UNSPECIFIED ORGANISM Qualifiers: Pneumonia type: due to unspecified organism Laterality: unspecified laterality Lung location: unspecified part of lung Qualified Code(s): J18.9 - Pneumonia, unspecified organism (25) Shortness of breath Code(s): R06.02 - SHORTNESS OF BREATH Assessment/Plan Patient is an 84 year old female with PMH of NE (s/p stents, defibrillator placement), Afib (on xarelto), CHF, CVA (2009), HTN, and HLD who presents with AMS, vomiting and diarrhea. CTAP revealed acute cholangitis and pt underwent emergent percutaneous cholecystotomy per IR. - Problems (1) AICD (automatic cardioverter/defibrillator) present Code(s): Z95.810 - PRESENCE OF AUTOMATIC (IMPLANTABLE) CARDIAC DEFIBRILLATOR (2) Ascending cholangitis Code(s): K83.09 - OTHER CHOLANGITIS (3) Septic shock Assessment/Plan: On IV fluids, pressor (norepinephrine). Code(s): A41.9 - SEPSIS, UNSPECIFIED ORGANISM; R65.21 - SEVERE SEPSIS WITH SEPTIC SHOCK (4) Acute on chronic systolic (congestive) heart failure Code(s): I50.23 - ACUTE ON CHRONIC SYSTOLIC (CONGESTIVE) HEART FAILURE (5) Atrial fibrillation with RVR Code(s): I48.91 - UNSPECIFIED ATRIAL FIBRILLATION (6) Shortness of breath Assessment/Plan: Bronchodilators, steroids, and antibiotics per pulmonary, ID. Code(s): R06.02 - SHORTNESS OF BREATH (7) Elevated troponin Assessment/Plan: ELevated TNI; CKMB relative index low. EKG: AF with RVR; nonspecific T wave changes. Mutlipe factors leading to demand ischemia, including septic shock, AF with RVR , CHF. Code(s): R79.89 - OTHER SPECIFIED ABNORMAL FINDINGS OF BLOOD CHEMISTRY CC time spent: 70minutes.
[2019-10-27] MEDS: MORPHINE SULFATE 2 MG/ML VIAL IVPUSH PRN (22:51)
[2019-10-28] MEDS ORDERED: DEXTROSE 5%-WATER - 50 ML IVPB ONE ×3 (00:39→17:16)
[2019-10-28] MEDS ORDERED: PIPERACILLIN/TAZOBACTAM 3.375 GM VIAL IVPB ONE ×2 (00:39→08:50)
[2019-10-28] MEDS: PIPERACILLIN/TAZOB 3.375 GM 3.375 GM in DEXTROSE 5%-WATER - 50 ML IVPB SCH ×2 (01:01→09:40)
[2019-10-28] MEDS ORDERED: NOREPINEPHRINE BITARTRATE 4 MG/4 ML ML IV ONE (04:12)
[2019-10-28] MEDS: LEVOTHYROXINE NA 25 MCG TABLET (FP) PO SCH (06:18)
[2019-10-28] MEDS: MORPHINE SULFATE 2 MG/ML VIAL IVPUSH PRN (06:18)
[2019-10-28 06:38] LABS: EOS % 1.4 % (0-4.5); HEMATOCRIT 41.5 % (32.4-45.2); HEMOGLOBIN 13.6 GM/dL (10.7-15.3); LYMPH % 5.3 % (8-40); MCH 29.8 pg (25.7-33.7); MCHC 32.8 g/dl (32.0-36.0); MEAN CELL VOLUME 90.9 fl (80-96); MEAN PLT VOLUME 10.6 fl (7.5-11.1); NEUT % 90.3 % (42.8-82.8); PLATELET COUNT 87 K/MM3 (134-434); RBC 4.57 M/mm3 (3.60-5.2); RDW 16.9 % (11.6-15.6); WHITE BLOOD COUNT 10.1 K/mm3 (4.0-10.0)
[2019-10-28 06:51] LABS: ALBUMIN 2.3 g/dl (3.4-5.0); BLOOD UREA NITROGEN 101.6 mg/dL (7-18); CALCIUM 8.3 mg/dL (8.5-10.1); CREATININE 3.8 mg/dL (0.55-1.3); MAGNESIUM 2.8 mg/dL (1.8-2.4); POTASSIUM 4.4 mmol/L (3.5-5.1); TOT PROT 5.4 g/dl (6.4-8.2)
--- NOTE | 2019-10-28 08:13 | PN ---
Progress Note, Physician Chief Complaint: Pt tries to respond, but is weak. History of Present Illness: 84y woman (faisal Miller) with PM hx of PA (s/p stents, defibrillator placement), afib (on xarelto), systolic CHF, CVA (2010), HTN, and HLD, presents with vomiting and diarrhea. Per the home health aide, the patient atypically did not respond to opening the door; when they arrived she saw the patient lying down, a bit confused and less responsive than usual, also appeared to have vomiting and diarrhea on herself. EMS was called she was noted to be hypotensive with blood sugar in the normal range she was given 900 cc of fluid by EMS with improvement of her mental status to where she is able to provide history that she had some vomiting and diarrhea since Sunday. Patient also endorses diffuse mild abdominal pain. No recent hospital admissions, recent travel or known sick contacts. PMD: Dr. Duarte Card: Benitez Wright - Current Medication List Current Medications: Active Medications Chlorhexidine Gluconate (Hibiclens For Decolonization -) 1 applic TP HS MARIA D Last Admin: 10/27/19 21:01 Dose: 1 applic Hydrocortisone Sodium Succinate (Solu-Cortef -) 50 mg IVPB Q6H-IV MARIA D Norepinephrine Bitartrate 8, (000 mcg/ Dextrose) 500 mls @ 8.16 mls/hr IV ASDIR MARIA D; Protocol Last Titration: 10/27/19 18:05 Dose: 0.06 mcg/kg/min, 18.8 mls/hr Sodium Chloride (Normal Saline -) 1,000 mls @ 75 mls/hr IV ASDIR MARIA D Last Admin: 10/27/19 20:30 Dose: 75 mls/hr Piperacillin Sod/Tazobactam (Sod 3.375 gm/ Dextrose) 50 mls @ 100 mls/hr IVPB Q8H-IV MARIA D; Protocol Piperacillin Sod/Tazobactam (Sod 3.375 gm/ Dextrose) 50 mls @ 100 mls/hr IVPB Q8H-IV MARIA D; Protocol Stop: 10/28/19 10:29 Last Admin: 10/28/19 01:01 Dose: 100 mls/hr Vasopressin 50 units/ Sodium (Chloride) 100 mls @ 4 mls/hr IVPB ASDIR MARIA D; Protocol Last Admin: 10/27/19 21:21 Dose: 2 units/hr, 4 mls/hr Levothyroxine Sodium (Synthroid -) 25 mcg PO ACBK MARIA D Last Admin: 10/28/19 06:18 Dose: Not Given Morphine Sulfate (Morphine Sulfate) 2 mg IVPUSH Q2H PRN PRN Reason: PAIN LEVEL 6-10 Last Admin: 10/28/19 06:18 Dose: 2 mg Mupirocin (Bactroban Ointment (For Decolonization) -) 1 applic NS BID [facility] Stop: 11/01/19 21:59 Last Admin: 10/27/19 21:01 Dose: 1 applic Rosuvastatin Calcium (Crestor -) 10 mg PO HS [facility] Last Admin: 10/27/19 21:02 Dose: Not Given - Objective Vital Signs: Vital Signs Temperature 98.8 F 10/28/19 06:00 Pulse Rate 114 H 10/28/19 06:00 Respiratory Rate 18 10/28/19 06:00 Blood Pressure 111/76 10/28/19 06:00 O2 Sat by Pulse Oximetry (%) 94 L 10/27/19 20:50 Constitutional: Yes: Anxious Eyes: Yes: WNL HENT: Yes: WNL Neck: Yes: Decreased ROM Cardiovascular: Yes: Tachycardia, Pulse Irregular, S1 (varies in intensity), S2 (split) Respiratory: Yes: Tachypnea ...Rectal Exam: Yes: Deferred Genitourinary: No: Anuria Breast(s): Yes: WNL Musculoskeletal: Yes: Muscle Weakness Extremities: Yes: Cool Edema: Yes Edema: LLE: Trace, RLE: Trace Peripheral Pulses WNL: No Peripheral Pulses: Left Doralis Pedis: 1+, Right Dorsalis Pedis: 1+ Integumentary: Yes: Venous Stasis Changes Neurological: Yes: Confusion, Weakness Psychiatric: Yes: Other Labs: CBC, BMP 10/28/19 05:35 10/28/19 05:35 INR, PTT INR 1.05 (0.83-1.09) 10/27/19 10:00 Abnormal Lab Results 10/29/19 10/29/19 10/29/19 12:40 12:40 13:50 PT with INR 15.80 H INR 1.34 H ABG pH ABG pO2 at Pt Temp ABG HCO3 ABG O2 Sat (Measured) ABG Base Excess Lactic Acid 6.5 H* Troponin I 0.67 H* 10/29/19 16:42 PT with INR INR ABG pH 6.90 L* ABG pO2 at Pt Temp 52 L ABG HCO3 7.8 L ABG O2 Sat (Measured) 73 L ABG Base Excess -24.5 L Lactic Acid Troponin I - ....Imaging Chest X-ray: Image Reviewed EKG: Image Reviewed Problem List - Problems (1) AICD (automatic cardioverter/defibrillator) present Code(s): Z95.810 - PRESENCE OF AUTOMATIC (IMPLANTABLE) CARDIAC DEFIBRILLATOR (2) Ascending cholangitis Code(s): K83.09 - OTHER CHOLANGITIS (3) Septic shock Assessment/Plan: On IV fluids, pressor (norepinephrine). Code(s): A41.9 - SEPSIS, UNSPECIFIED ORGANISM; R65.21 - SEVERE SEPSIS WITH SEPTIC SHOCK (4) Acute on chronic systolic (congestive) heart failure Code(s): I50.23 - ACUTE ON CHRONIC SYSTOLIC (CONGESTIVE) HEART FAILURE (5) Atrial fibrillation with RVR Code(s): I48.91 - UNSPECIFIED ATRIAL FIBRILLATION (6) Shortness of breath Assessment/Plan: Bronchodilators, steroids, and antibiotics per pulmonary, ID. Code(s): R06.02 - SHORTNESS OF BREATH (7) Elevated troponin Assessment/Plan: ELevated TNI; CKMB relative index low. EKG: AF with RVR; nonspecific T wave changes. Mutlipe factors leading to demand ischemia, including septic shock, AF with RVR , CHF. Code(s): R79.89 - OTHER SPECIFIED ABNORMAL FINDINGS OF BLOOD CHEMISTRY Assessment/Plan CCU time spent: 40 minutes.
[2019-10-28] MEDS: HYDROCORTISONE SOD SUCCINATE 100 MG/2 ML VIAL IVPB SCH ×3 (08:59→21:30)
[2019-10-28] MEDS: MUPIROCIN 2% TOPICAL OINTMENT FOR DECOLONIZATION NS SCH ×2 (09:40→22:48)
[2019-10-28] MEDS ORDERED: RIVAROXABAN 20 MG TABLET PO SCH (10:00)
[2019-10-28] MEDS ORDERED: DIGOXIN 0.125 MG TABLET (FP) PO SCH (10:00)
[2019-10-28] MEDS ORDERED: FUROSEMIDE 40 MG TABLET (FP) PO SCH (10:00)
[2019-10-28] MEDS ORDERED: LEVOTHYROXINE NA 25 MCG TABLET (FP) PO SCH (10:00)
[2019-10-28 10:22] LABS: ANISOCYTOSIS 1+; MACROCYTOSIS 0; OVALOCYTE 1+; TEAR DROP CELLS 1+
[2019-10-28 10:35] LABS: PLATELET ESTIMATE DECREASED
--- NOTE | 2019-10-28 10:35 | ECHO ---
Name: SHAUN ADAMSON Exam:Adult Echocardiogram Study Date: 10/28/2019 09:24 AM Age: 84 yrs Reason For Study: SYST CHF; ICD Height: 62 in Weight: 120 lb BSA: 1.5 m2 MMode/2D Measurements & Calculations IVSd: 1.1 cm Ao root diam: 3.1 cm LVIDd: 4.0 cm LA dimension: 5.3 cm LVIDs: 3.4 cm ACS: 1.8 cm LVPWd: 0.83 cm EDV(Teich): 71.8 ml LVOT diam: 2.0 cm ESV(Teich): 46.7 ml LVLd ap4: 8.2 cm SV(MOD-sp4): 51.0 ml EDV(MOD-sp4): 139.0 ml LVLs ap4: 7.3 cm ESV(MOD-sp4): 88.0 ml LAV (MOD-bp): 81.0 ml TAPSE: 1.6 cm RV S Nikolai: 10.7 cm/sec Doppler Measurements & Calculations MV E max nikolai: 84.7 cm/sec Ao V2 max: 101.0 cm/sec MV dec time: 0.15 sec Ao max P.1 mmHg Ao V2 mean: 69.3 cm/sec Ao mean P.2 mmHg Ao V2 VTI: 16.1 cm SABA(I,D): 1.6 cm2 AI P1/2t: 519.3 msec SABA(V,D): 2.0 cm2 AI max nikolai: 354.4 cm/sec LV V1 max P.8 mmHg AI max P.2 mmHg LV V1 mean P.86 mmHg AI dec slope: 199.9 cm/sec2 LV V1 max: 66.6 cm/sec LV V1 mean: 43.1 cm/sec LV V1 VTI: 8.6 cm MR max nikolai: 468.7 cm/sec SV(LVOT): 26.1 ml MR max P.1 mmHg TR max nikolai: 277.0 cm/sec PA V2 max: 90.9 cm/sec TR max P.2 mmHg PA max P.3 mmHg PA acc slope: 603.9 cm/sec2 PA acc time: 0.09 sec PI end-d nikolai: 52.9 cm/sec Med Peak E' Nikolai: 5.2 cm/sec Med E/e': 16.4 Lat Peak E' Nikolai: 12.0 cm/sec Lat E/e': 7.1 PA pr(Accel): 37.8 mmHg Tech Comments TDS. Scan done in supine position. Procedure A complete two-dimensional transthoracic echocardiogram was performed (2D, M-mode, Doppler and color flow Doppler). Left Ventricle The left ventricle is normal in size. Ejection Fraction = 30%. The transmitral spectral Doppler flow pattern is suggestive of impaired LV relaxation. There is septal akinesis. There is apical akinesis. There is apical anterior wall akinesis. There is moderate global hypokinesis of the left ventricle. Right Ventricle The right ventricle is normal in size and function. There is a pacemaker lead in the right ventricle. Atria The left atrium is severely dilated. The right atrium is mild to moderately dilated. Mitral Valve There is mild mitral valve thickening. There is moderate mitral regurgitation. Tricuspid Valve The tricuspid valve is normal in structure and function. There is mild to moderate tricuspid regurgit ation. Right ventricular systolic pressure is elevated at 36 mmhg. Assuming the RA pressure is 5 mmHg. Aortic Valve There is mild to moderate aortic valve thickening. Mild to moderate aortic regurgitation. Pulmonic Valve The pulmonic valve is not well visualized. Great Vessels The aortic root is normal size. Pericardium/Pleura There is no pericardial effusion. There is no pleural effusion. Interpretation Summary The left ventricle is normal in size. There is septal akinesis. There is apical akinesis. There is apical anterior wall akinesis. There is moderate global hypokinesis of the left ventricle. Ejection Fraction = 30%. The left atrium is severely dilated. The right atrium is mild to moderately dilated. There is mild mitral valve thickening. There is moderate mitral regurgitation. There is mild to moderate tricuspid regurgitation. Right ventricular systolic pressure is elevated at 36 mmhg. There is mild to moderate aortic valve thickening. Mild to moderate aortic regurgitation. MD Massimo Richardson 10/28/2019 10:34 AM
[2019-10-28] MEDS ORDERED: LACTATED RINGERS SOLUTION 1000 ML INFUS.BAG IV ONE (11:09)
--- NOTE | 2019-10-28 11:19 | PN ---
Physical Exam: SUBJECTIVE: Patient seen and examined O/N: admitted for shock 2/2 biliary obstruction. S/p cholecystostomy tube placement Endorses diffuse abd pain. OBJECTIVE: Vital Signs Period Temp Pulse Resp BP Sys/Aranda Pulse Ox Last 24 Hr 97.1 F-99.3 F 89-118 16-26 65-114/45-81 92-100 GENERAL: The patient is awake, alert, and oriented to name. Mild distress HEAD: Normal with no signs of trauma. EYES:scleral icterus, conjunctiva clear. No ptosis. ENT: Ears normal, nares patent, oropharynx clear without exudates, moist mucous membranes. NECK: Trachea midline, full range of motion, supple. LIJ in place LUNGS: Breath sounds equal, clear to auscultation bilaterally, no wheezes, no crackles, no accessory muscle use. HEART: Irregular rate and rhythm, S1, S2 without murmur, rub or gallop. Left upper chest w/ palpable subcutaneous device, no overlying erythema or pain. ABDOMEN: Soft, nondistended. Diffusely tender w/ positive rebound tenderness. RUQ with cholecystomy tube draining brown liquid. EXTREMITIES: 2+ pulses, warm, well-perfused, no edema. NEUROLOGICAL: Normal speech, gait not observed. SKIN: Warm, dry, normal turgor, no rashes or lesions noted Laboratory Results - last 24 hr 10/27/19 10/27/19 10/27/19 10:00 10:00 10:00 WBC RBC Hgb Hct MCV MCH MCHC RDW Plt Count MPV Absolute Neuts (auto) Neutrophils % Neutrophils % (Manual) 67.7 Band Neutrophils % 14.1 Lymphocytes % Lymphocytes % (Manual) 7.1 L Monocytes % Monocytes % (Manual) 2 L Eosinophils % Eosinophils % (Manual) 0.0 Basophils % Basophils % (Manual) 0.0 Myelocytes % (Man) 0 Promyelocytes % (Man) 1 Blast Cells % (Manual) 0 Nucleated RBC % 0 Metamyelocytes 0 Hypochromia 0 Toxic Granulation 2+ Platelet Estimate Decreased Platelet Comment Present Polychromasia 0 Poikilocytosis 1+ Anisocytosis 2+ Microcytosis 1+ Macrocytosis 0 Spherocytes 1+ Tear Drop Cells 1+ Ovalocytes 1+ [place] Cells 1+ PT with INR 12.40 INR 1.05 PTT (Actin FS) 24.1 L Sodium Potassium Chloride Carbon Dioxide Anion Gap BUN Creatinine Est GFR (CKD-EPI)AfAm Est GFR (CKD-EPI)NonAf Random Glucose Lactic Acid 3.1 H* Calcium Phosphorus Magnesium Total Bilirubin AST ALT Alkaline Phosphatase Creatine Kinase Creatine Kinase Index CK-MB (CK-2) Troponin I B-Natriuretic Peptide Total Protein Albumin TSH Urine Color Urine Appearance Urine pH Ur Specific [employer] Urine Protein Urine Glucose (UA) Urine Ketones Urine Blood Urine Nitrite Urine Bilirubin Urine Urobilinogen Ur Leukocyte Esterase Urine WBC (Auto) Urine RBC (Auto) Urine Casts (Auto) U Pathogenic Cast Auto U Epithel Cells (Auto) Urine Bacteria (Auto) Blood Type Antibody Screen 10/27/19 10/27/19 10/27/19 10:46 11:31 12:34 WBC RBC Hgb Hct MCV MCH MCHC RDW Plt Count MPV Absolute Neuts (auto) Neutrophils % Neutrophils % (Manual) Band Neutrophils % Lymphocytes % Lymphocytes % (Manual) Monocytes % Monocytes % (Manual) Eosinophils % Eosinophils % (Manual) Basophils % Basophils % (Manual) Myelocytes % (Man) Promyelocytes % (Man) Blast Cells % (Manual) Nucleated RBC % Metamyelocytes Hypochromia Toxic Granulation Platelet Estimate Platelet Comment Polychromasia Poikilocytosis Anisocytosis Microcytosis Macrocytosis Spherocytes Tear Drop Cells Ovalocytes Far[place]kh Cells PT with INR INR PTT (Actin FS) Sodium 141 Potassium 5.0 Chloride 107 Carbon Dioxide 24 Anion Gap 10 BUN 91.9 H Creatinine 3.6 H Est GFR (CKD-EPI)AfAm 12.91 Est GFR (CKD-EPI)NonAf 11.14 Random Glucose 126 H Lactic Acid Calcium 8.8 Phosphorus 4.4 Magnesium 2.8 H Total Bilirubin 5.6 H AST 117 H ALT 81 H Alkaline Phosphatase 234 H Creatine Kinase 300 H Creatine Kinase Index 1.4 CK-MB (CK-2) 4.4 H Troponin I 0.78 H* B-Natriuretic Peptide 98330.0 H Total Protein 5.7 L Albumin 2.6 L TSH 1.05 Urine Color Dk yellow Urine Appearance Turbid Urine pH 5.0 D Ur Specific [employer] 1.014 Urine Protein 2+ H Urine Glucose (UA) Negative Urine Ketones Negative Urine Blood 3+ H Urine Nitrite Negative Urine Bilirubin 1+ H Urine Urobilinogen 1.0 Ur Leukocyte Esterase Trace Urine WBC (Auto) 24 Urine RBC (Auto) 143 Urine Casts (Auto) 101 U Pathogenic Cast Auto Negative U Epithel Cells (Auto) 15.6 Urine Bacteria (Auto) 14.1 Blood Type O POSITIVE Antibody Screen Negative 10/27/19 10/27/19 10/27/19 13:57 13:57 21:15 WBC RBC Hgb Hct MCV MCH MCHC RDW Plt Count MPV Absolute Neuts (auto) Neutrophils % Neutrophils % (Manual) Band Neutrophils % Lymphocytes % Lymphocytes % (Manual) Monocytes % Monocytes % (Manual) Eosinophils % Eosinophils % (Manual) Basophils % Basophils % (Manual) Myelocytes % (Man) Promyelocytes % (Man) Blast Cells % (Manual) Nucleated RBC % Metamyelocytes Hypochromia Toxic Granulation Platelet Estimate Platelet Comment Polychromasia Poikilocytosis Anisocytosis Microcytosis Macrocytosis Spherocytes Tear Drop Cells Ovalocytes Farrukh Cells PT with INR INR PTT (Actin FS) Sodium Potassium Chloride Carbon Dioxide Anion Gap BUN Creatinine Est GFR (CKD-EPI)AfAm Est GFR (CKD-EPI)NonAf Random Glucose Lactic Acid 2.1 H 1.7 Calcium Phosphorus Magnesium Total Bilirubin AST ALT Alkaline Phosphatase Creatine Kinase Creatine Kinase Index CK-MB (CK-2) Troponin I 0.49 H B-Natriuretic Peptide Total Protein Albumin TSH Urine Color Urine Appearance Urine pH Ur Specific [employer] Urine Protein Urine Glucose (UA) Urine Ketones Urine Blood Urine Nitrite Urine Bilirubin Urine Urobilinogen Ur Leukocyte Esterase Urine WBC (Auto) Urine RBC (Auto) Urine Casts (Auto) U Pathogenic Cast Auto U Epithel Cells (Auto) Urine Bacteria (Auto) Blood Type Antibody Screen 10/27/19 10/28/19 10/28/19 21:15 05:35 05:35 WBC 10.1 H RBC 4.57 Hgb 13.6 Hct 41.5 MCV 90.9 MCH 29.8 MCHC 32.8 RDW 16.9 H Plt Count 87 L MPV 10.6 Absolute Neuts (auto) 9.1 H Neutrophils % 90.3 H Neutrophils % (Manual) 90.0 H Band Neutrophils % 3.0 Lymphocytes % 5.3 L D Lymphocytes % (Manual) 3.0 L D Monocytes % 3.0 L Monocytes % (Manual) 3 L Eosinophils % 1.4 Eosinophils % (Manual) 0.0 Basophils % 0.0 Basophils % (Manual) 0.0 Myelocytes % (Man) 0 Promyelocytes % (Man) 0 D Blast Cells % (Manual) 0 Nucleated RBC % 0 Metamyelocytes 0 Hypochromia 1+ Toxic Granulation Platelet Estimate Decreased Platelet Comment Large platelets Polychromasia 0 Poikilocytosis 0 Anisocytosis 1+ Microcytosis 1+ Macrocytosis 0 Spherocytes Tear Drop Cells 1+ Ovalocytes 1+ [place] Cells PT with INR INR PTT (Actin FS) Sodium 143 Potassium 4.4 Chloride 111 H Carbon Dioxide 17 L Anion Gap 15 BUN 101.6 H Creatinine 3.8 H Est GFR (CKD-EPI)AfAm 12.10 Est GFR (CKD-EPI)NonAf 10.44 Random Glucose 157 H Lactic Acid Calcium 8.3 L Phosphorus 6.0 H Magnesium 2.8 H Total Bilirubin 5.0 H AST 139 H ALT 71 H Alkaline Phosphatase 231 H Creatine Kinase Creatine Kinase Index CK-MB (CK-2) Troponin I 0.47 H B-Natriuretic Peptide Total Protein 5.4 L Albumin 2.3 L TSH Urine Color Urine Appearance Urine pH Ur Specific [employer] Urine Protein Urine Glucose (UA) Urine Ketones Urine Blood Urine Nitrite Urine Bilirubin Urine Urobilinogen Ur Leukocyte Esterase Urine WBC (Auto) Urine RBC (Auto) Urine Casts (Auto) U Pathogenic Cast Auto U Epithel Cells (Auto) Urine Bacteria (Auto) Blood Type Antibody Screen 10/28/19 08:45 WBC RBC Hgb Hct MCV MCH MCHC RDW Plt Count MPV Absolute Neuts (auto) Neutrophils % Neutrophils % (Manual) Band Neutrophils % Lymphocytes % Lymphocytes % (Manual) Monocytes % Monocytes % (Manual) Eosinophils % Eosinophils % (Manual) Basophils % Basophils % (Manual) Myelocytes % (Man) Promyelocytes % (Man) Blast Cells % (Manual) Nucleated RBC % Metamyelocytes Hypochromia Toxic Granulation Platelet Estimate Platelet Comment Polychromasia Poikilocytosis Anisocytosis Microcytosis Macrocytosis Spherocytes Tear Drop Cells Ovalocytes [place] Cells PT with INR INR PTT (Actin FS) Sodium Potassium Chloride Carbon Dioxide Anion Gap BUN Creatinine Est GFR (CKD-EPI)AfAm Est GFR (CKD-EPI)NonAf Random Glucose Lactic Acid 2.4 H* Calcium Phosphorus Magnesium Total Bilirubin AST ALT Alkaline Phosphatase Creatine Kinase Creatine Kinase Index CK-MB (CK-2) Troponin I B-Natriuretic Peptide Total Protein Albumin TSH Urine Color Urine Appearance Urine pH Ur Specific [employer] Urine Protein Urine Glucose (UA) Urine Ketones Urine Blood Urine Nitrite Urine Bilirubin Urine Urobilinogen Ur Leukocyte Esterase Urine WBC (Auto) Urine RBC (Auto) Urine Casts (Auto) U Pathogenic Cast Auto U Epithel Cells (Auto) Urine Bacteria (Auto) Blood Type Antibody Screen Active Medications Generic Name Dose Route Start Last Admin Trade Name Freq PRN Reason Stop Dose Admin Chlorhexidine Gluconate 1 applic 10/27/19 22:00 10/27/19 21:01 Hibiclens For Decolonization - TP 1 applic HS MARIA D Administration Hydrocortisone Sodium Succinate 50 mg 10/28/19 09:00 10/28/19 08:59 Solu-Cortef - IVPB 50 mg Q6H-IV MARIA D Administration Norepinephrine Bitartrate 8, 500 mls @ 8.16 mls/hr 10/27/19 17:45 10/28/19 09 :03 000 mcg/ Dextrose IV 0.13 mcg/kg/min ASDIR MARIA D 37.5 mls/hr Titration Protocol 0.03 MCG/KG/MIN Sodium Chloride 1,000 mls @ 75 mls/hr 10/27/19 19:30 10/27/19 20:30 Normal Saline - IV 75 mls/hr ASDIR MARIA D Administration Piperacillin Sod/Tazobactam 50 mls @ 100 mls/hr 10/27/19 19:35 Sod 3.375 gm/ Dextrose IVPB Q8H-IV MARIA D Protocol Vasopressin 50 units/ Sodium 100 mls @ 4 mls/hr 10/27/19 20:45 10/28/19 07:35 Chloride IVPB 5 units/hr ASDIR MARIA D 10 mls/hr Titration Protocol 2 UNITS/HR Lactated Ringer's 5,100 ml 10/28/19 11:09 Lactated Ringers Solution IV 10/28/19 11:10 ONCE ONE Levothyroxine Sodium 25 mcg 10/28/19 07:00 10/28/19 06:18 Synthroid - PO Not Given ACBK MARIA D Morphine Sulfate 2 mg 10/27/19 19:27 10/28/19 06:18 Morphine Sulfate IVPUSH 2 mg Q2H PRN Administration PAIN LEVEL 6-10 Mupirocin 1 applic 10/27/19 22:00 10/28/19 09:40 Bactroban Ointment (For Decolonization) - NS 11/01/19 21:59 1 applic BID MARIA D Administration Rosuvastatin Calcium 10 mg 10/27/19 22:00 10/27/19 21:02 Crestor - PO Not Given HS [facility] ASSESSMENT/PLAN: 84 year old female with PMH of MD (s/p stents, defibrillator placement), Afib ( on xarelto), CHF, CVA (2009), HTN, and HLD who presents with AMS, vomiting and diarrhea. CTAP revealed acute cholangitis and pt underwent emergent percutaneous cholecystotomy per IR. Evaluated by GI(Amita) for emergent ERCP Neuro # h/o CVA in 2009, no residual deficits - at risk of ICU-acquired delirium - bundled care Cardiovascular # h/o of MD (s/p stents, defibrillator placement) # h/o Afib (on xarelto), Afib w/ RVR # HFrEF --possibly decompensated CHF 10/05 septic shock > BNP(10/27/19): 36,628 > Troponin: 0.78, 0.49, 0.47 > EKG(10/28/19): Afib w/ RVR(HR 120), old anteroseptal infarct > Echo(10/28/19): LVEF 30%, mod glob hypokinesis; mild-mod dilated RA, mod MR, mild-mod TR, RVSP 36mmHg, mild-mod AR - pressor support: --levophed + vasopressin --solucortef 50q6h -Holding anti-hypertensive meds in setting of hypotension -Holding xarelto in setting of surgical intervention -Closely monitor hemodynamics -Cardiology consulted (Dr. Marquis) --recs pending PULM - no active issues - maintain O2 >92% GI # ascending cholangitis > AST/ALT: 117/81 , 139/71 > Tbil: 5.6, 5.0 > CTAP: acute calculus cholecystitis with associated choledocholithiasis(2 x1.3cm) and common bile duct dilatation(1.7cm), small amount of free fluid in R subhepatic space. Metallic density in upper abd suggestive of displaced IUD - GI consulted (Dr. Levi/Soniya): pt will benefit from emergent percutaneous cholecystotomy; IV hydration and abx - IR consulted (Dr. Patel) --sp percutaneous cholecystotomy(Amanda, 10/27/19) - Pain control morphine 2mg Q2H - IV abx - NPO ID # Septic shock 2/2 acute ascending cholangitis > Leukocytosis, lactic acidosis > BCX(10/27/19) --pending > Cholecystestomy fluid(10/27/19) --pending -Received vanc, zosyn, flagyl in ED -intially IV zosyn 3.375 Q8H >>Dosing per UpToDate is 4.5mg Q6H, but adjusted for renal function with CrCl of ~14 -ID consulted (Dr. Barnard) -- zosyn 2.25 q8h Renal # DALE 2/2 hypoperfusion/sepsis > Cr(baseline ~ 1.0): 3.6, 3.8 -Holding pt's lasix until renal function improves -IV zosyn dosing adjusted for renal function (CrCl ~14) -Carter in place -Monitor I's and O's - gentle IVF FEN -IV NS @ 75ml/hr -F/u am labs, replete lytes prn -NPO DVT ppx -SCDs as per surgery Visit type - Emergency Visit Emergency Visit: No - New Patient This patient is new to me today: No - Critical Care Critical Care patient: Yes Total Critical Care Time (in minutes): 35 Critical Care Statement: The care of this patient involved high complexity decision making to prevent further life threatening deterioration of the patient 's condition and/or to evaluate & treat vital organ system(s) failure or risk of failure. ATTENDING PHYSICIAN STATEMENT I saw and evaluated the patient. I reviewed the resident's note and discussed the case with the resident. I agree with the resident's findings and plan as documented. SUBJECTIVE: OBJECTIVE: ASSESSMENT AND PLAN:
[2019-10-28] MEDS ORDERED: SODIUM CHLORIDE 500 ML IV STA (11:26)
--- NOTE | 2019-10-28 11:45 | PN ---
Teaching Attending Note Name of Resident: Abiel Haq ATTENDING PHYSICIAN STATEMENT I saw and evaluated the patient. I reviewed the resident's note and discussed the case with the resident. I agree with the resident's findings and plan as documented. SUBJECTIVE: Patient seen and examined in the ICU. Awake but confused. Not able to answer questions appropriately. NE @ 12 mcq and Vasopressin @ 4 units for hemodynamic support. ECHO being performed at bedside. Intake & Output 10/25/19 10/26/19 10/27/19 10/28/19 23:59 23:59 23:59 23:59 Intake Total 2550 1844 Output Total 600 900 Balance 1950 944 Weight 120 lb 12.8 oz Last Vital Signs Temp Pulse Resp BP Pulse Ox 97.2 F L 118 H 22 H 93/60 94 L 10/28/19 10:00 10/28/19 10:00 10/28/19 10:00 10/28/19 10:00 10/27/19 20:50 Active Medications Chlorhexidine Gluconate (Hibiclens For Decolonization -) 1 applic TP HS MARIA D Last Admin: 10/27/19 21:01 Dose: 1 applic Hydrocortisone Sodium Succinate (Solu-Cortef -) 50 mg IVPB Q6H-IV MARIA D Last Admin: 10/28/19 08:59 Dose: 50 mg Norepinephrine Bitartrate 8, (000 mcg/ Dextrose) 500 mls @ 8.16 mls/hr IV ASDIR MARIA D; Protocol Last Titration: 10/28/19 09:03 Dose: 0.13 mcg/kg/min, 37.5 mls/hr Sodium Chloride (Normal Saline -) 1,000 mls @ 75 mls/hr IV ASDIR MARIA D Last Admin: 10/27/19 20:30 Dose: 75 mls/hr Piperacillin Sod/Tazobactam (Sod 3.375 gm/ Dextrose) 50 mls @ 100 mls/hr IVPB Q8H-IV MARIA D; Protocol Vasopressin 50 units/ Sodium (Chloride) 100 mls @ 4 mls/hr IVPB ASDIR MARIA D; Protocol Last Titration: 10/28/19 07:35 Dose: 5 units/hr, 10 mls/hr Sodium Chloride (Normal Saline -) 500 mls @ 500 mls/hr IV ASDIR STA Stop: 10/28/19 12:25 Levothyroxine Sodium (Synthroid -) 25 mcg PO ACBK [facility] Last Admin: 10/28/19 06:18 Dose: Not Given Morphine Sulfate (Morphine Sulfate) 2 mg IVPUSH Q2H PRN PRN Reason: PAIN LEVEL 6-10 Last Admin: 10/28/19 06:18 Dose: 2 mg Mupirocin (Bactroban Ointment (For Decolonization) -) 1 applic NS BID [facility] Stop: 11/01/19 21:59 Last Admin: 10/28/19 09:40 Dose: 1 applic Rosuvastatin Calcium (Crestor -) 10 mg PO HS [facility] Last Admin: 10/27/19 21:02 Dose: Not Given GENERAL: Sleepy but arousable. No acute distress. HEAD: Normal with no signs of trauma. EYES: sclera icterus, conjunctiva clear. EARS, NOSE, THROAT: Ears normal, nares patent, oropharynx clear without exudates. Moist mucous membranes. NECK: Normal range of motion, supple without lymphadenopathy, JVD, or masses. LIJ in place, no surrounding erythema. LUNGS: Breath sounds equal, clear to auscultation bilaterally. No wheezes, and no crackles. No accessory muscle use. HEART: Irregular rate and rhythm, normal S1 and S2 without murmur, rub or gallop. ABDOMEN: Soft, diffuse tenderness most severe in RUQ, mild guarding, normoactive bowel sounds, no rebound, no masses. No hepatomegaly or splenomegaly , (+) Choelcystostomy tube. MUSCULOSKELETAL: Normal range of motion at all joints. No bony deformities or tenderness. No CVA tenderness. UPPER EXTREMITIES: 2+ pulses, warm, well-perfused. No cyanosis. No clubbing. Cap refill <2 seconds. No peripheral edema. LOWER EXTREMITIES: 2+ pulses, warm, well-perfused. No calf tenderness. No peripheral edema. NEUROLOGICAL: Non-focal SKIN: Warm, dry, normal turgor, jaundice appearing. Laboratory Results - last 24 hr 10/27/19 10/27/19 10/27/19 10:00 10:46 11:31 WBC RBC Hgb Hct MCV MCH MCHC RDW Plt Count MPV Absolute Neuts (auto) Neutrophils % Neutrophils % (Manual) 67.7 Band Neutrophils % 14.1 Lymphocytes % Lymphocytes % (Manual) 7.1 L Monocytes % Monocytes % (Manual) 2 L Eosinophils % Eosinophils % (Manual) 0.0 Basophils % Basophils % (Manual) 0.0 Myelocytes % (Man) 0 Promyelocytes % (Man) 1 Blast Cells % (Manual) 0 Nucleated RBC % 0 Metamyelocytes 0 Hypochromia 0 Toxic Granulation 2+ Platelet Estimate Decreased Platelet Comment Present Polychromasia 0 Poikilocytosis 1+ Anisocytosis 2+ Microcytosis 1+ Macrocytosis 0 Spherocytes 1+ Tear Drop Cells 1+ Ovalocytes 1+ [place]kh Cells 1+ Sodium 141 Potassium 5.0 Chloride 107 Carbon Dioxide 24 Anion Gap 10 BUN 91.9 H Creatinine 3.6 H Est GFR (CKD-EPI)AfAm 12.91 Est GFR (CKD-EPI)NonAf 11.14 Random Glucose 126 H Lactic Acid Calcium 8.8 Phosphorus 4.4 Magnesium 2.8 H Total Bilirubin 5.6 H AST 117 H ALT 81 H Alkaline Phosphatase 234 H Creatine Kinase 300 H Creatine Kinase Index 1.4 CK-MB (CK-2) 4.4 H Troponin I 0.78 H* B-Natriuretic Peptide 96316.0 H Total Protein 5.7 L Albumin 2.6 L TSH 1.05 Urine Color Dk yellow Urine Appearance Turbid Urine pH 5.0 D Ur Specific [place] 1.014 Urine Protein 2+ H Urine Glucose (UA) Negative Urine Ketones Negative Urine Blood 3+ H Urine Nitrite Negative Urine Bilirubin 1+ H Urine Urobilinogen 1.0 Ur Leukocyte Esterase Trace Urine WBC (Auto) 24 Urine RBC (Auto) 143 Urine Casts (Auto) 101 U Pathogenic Cast Auto Negative U Epithel Cells (Auto) 15.6 Urine Bacteria (Auto) 14.1 Blood Type Antibody Screen 10/27/19 10/27/19 10/27/19 12:34 13:57 13:57 WBC RBC Hgb Hct MCV MCH MCHC RDW Plt Count MPV Absolute Neuts (auto) Neutrophils % Neutrophils % (Manual) Band Neutrophils % Lymphocytes % Lymphocytes % (Manual) Monocytes % Monocytes % (Manual) Eosinophils % Eosinophils % (Manual) Basophils % Basophils % (Manual) Myelocytes % (Man) Promyelocytes % (Man) Blast Cells % (Manual) Nucleated RBC % Metamyelocytes Hypochromia Toxic Granulation Platelet Estimate Platelet Comment Polychromasia Poikilocytosis Anisocytosis Microcytosis Macrocytosis Spherocytes Tear Drop Cells Ovalocytes [place] Cells Sodium Potassium Chloride Carbon Dioxide Anion Gap BUN Creatinine Est GFR (CKD-EPI)AfAm Est GFR (CKD-EPI)NonAf Random Glucose Lactic Acid 2.1 H Calcium Phosphorus Magnesium Total Bilirubin AST ALT Alkaline Phosphatase Creatine Kinase Creatine Kinase Index CK-MB (CK-2) Troponin I 0.49 H B-Natriuretic Peptide Total Protein Albumin TSH Urine Color Urine Appearance Urine pH Ur Specific [place] Urine Protein Urine Glucose (UA) Urine Ketones Urine Blood Urine Nitrite Urine Bilirubin Urine Urobilinogen Ur Leukocyte Esterase Urine WBC (Auto) Urine RBC (Auto) Urine Casts (Auto) U Pathogenic Cast Auto U Epithel Cells (Auto) Urine Bacteria (Auto) Blood Type O POSITIVE Antibody Screen Negative 10/27/19 10/27/19 10/28/19 21:15 21:15 05:35 WBC 10.1 H RBC 4.57 Hgb 13.6 Hct 41.5 MCV 90.9 MCH 29.8 MCHC 32.8 RDW 16.9 H Plt Count 87 L MPV 10.6 Absolute Neuts (auto) 9.1 H Neutrophils % 90.3 H Neutrophils % (Manual) 90.0 H Band Neutrophils % 3.0 Lymphocytes % 5.3 L D Lymphocytes % (Manual) 3.0 L D Monocytes % 3.0 L Monocytes % (Manual) 3 L Eosinophils % 1.4 Eosinophils % (Manual) 0.0 Basophils % 0.0 Basophils % (Manual) 0.0 Myelocytes % (Man) 0 Promyelocytes % (Man) 0 D Blast Cells % (Manual) 0 Nucleated RBC % 0 Metamyelocytes 0 Hypochromia 1+ Toxic Granulation Platelet Estimate Decreased Platelet Comment Large platelets Polychromasia 0 Poikilocytosis 0 Anisocytosis 1+ Microcytosis 1+ Macrocytosis 0 Spherocytes Tear Drop Cells 1+ Ovalocytes 1+ [place]kh Cells Sodium Potassium Chloride Carbon Dioxide Anion Gap BUN Creatinine Est GFR (CKD-EPI)AfAm Est GFR (CKD-EPI)NonAf Random Glucose Lactic Acid 1.7 Calcium Phosphorus Magnesium Total Bilirubin AST ALT Alkaline Phosphatase Creatine Kinase Creatine Kinase Index CK-MB (CK-2) Troponin I 0.47 H B-Natriuretic Peptide Total Protein Albumin TSH Urine Color Urine Appearance Urine pH Ur Specific [place] Urine Protein Urine Glucose (UA) Urine Ketones Urine Blood Urine Nitrite Urine Bilirubin Urine Urobilinogen Ur Leukocyte Esterase Urine WBC (Auto) Urine RBC (Auto) Urine Casts (Auto) U Pathogenic Cast Auto U Epithel Cells (Auto) Urine Bacteria (Auto) Blood Type Antibody Screen 10/28/19 10/28/19 05:35 08:45 WBC RBC Hgb Hct MCV MCH MCHC RDW Plt Count MPV Absolute Neuts (auto) Neutrophils % Neutrophils % (Manual) Band Neutrophils % Lymphocytes % Lymphocytes % (Manual) Monocytes % Monocytes % (Manual) Eosinophils % Eosinophils % (Manual) Basophils % Basophils % (Manual) Myelocytes % (Man) Promyelocytes % (Man) Blast Cells % (Manual) Nucleated RBC % Metamyelocytes Hypochromia Toxic Granulation Platelet Estimate Platelet Comment Polychromasia Poikilocytosis Anisocytosis Microcytosis Macrocytosis Spherocytes Tear Drop Cells Ovalocytes [place]kh Cells Sodium 143 Potassium 4.4 Chloride 111 H Carbon Dioxide 17 L Anion Gap 15 BUN 101.6 H Creatinine 3.8 H Est GFR (CKD-EPI)AfAm 12.10 Est GFR (CKD-EPI)NonAf 10.44 Random Glucose 157 H Lactic Acid 2.4 H* Calcium 8.3 L Phosphorus 6.0 H Magnesium 2.8 H Total Bilirubin 5.0 H AST 139 H ALT 71 H Alkaline Phosphatase 231 H Creatine Kinase Creatine Kinase Index CK-MB (CK-2) Troponin I B-Natriuretic Peptide Total Protein 5.4 L Albumin 2.3 L TSH Urine Color Urine Appearance Urine pH Ur Specific [place] Urine Protein Urine Glucose (UA) Urine Ketones Urine Blood Urine Nitrite Urine Bilirubin Urine Urobilinogen Ur Leukocyte Esterase Urine WBC (Auto) Urine RBC (Auto) Urine Casts (Auto) U Pathogenic Cast Auto U Epithel Cells (Auto) Urine Bacteria (Auto) Blood Type Antibody Screen ASSESSMENT/PLAN: Septic Shock due to Acute Cholangitis CAD (s/p stents, defibrillator placement) Afib (on xarelto) CHF CVA (2009) HTN HLD AMS / Toxic Metabolic Encephalopathy DALE Pressors for MAP > 65 IVF Follow CVP Strict I & O O2 as needed Follow ECHO Aspiration precautions Hold AC for now (for possible intervention Requires continued ICU monitoring Dr Leonard Critical care time spent in reviewing chart, evaluating patient and formulating plan - 36 minutes.
--- NOTE | 2019-10-28 13:32 | CON.ID ---
Consult Consult Specialty:: infectious diseases - Past Medical History Cardio/Vascular: Yes: AFIB (AICD), CAD (s/p LAD JACE stent 02/10), CHF (severe hypokinesis), HTN, Hyperlipdemia, NE (02/10), Mitral Insufficiency Hepatobiliary: Yes: Cholelithiasis Psych: Yes: Anxiety, Depression, Panic - Past Surgical History Past Surgical History: Yes: AICD, Colonoscopy, Stent, Upper Endoscopy - Alcohol/Substance Use Hx Alcohol Use: No - Smoking History Smoking history: Never smoked Have you smoked in the past 12 months: No Aproximately how many cigarettes per day: 0 - Social History Usual Living Arrangement: Alone ADL: Independent History of Recent Travel: No Home Medications - Allergies Allergies/Adverse Reactions: Allergies Allergy/AdvReac Type Severity Reaction Status Date / Time No Known Allergies Allergy Verified 10/27/19 09:24 - Home Medications Home Medications: Ambulatory Orders Carvedilol [Coreg -] 12.5 mg PO BID 10/27/19 Digoxin [Lanoxin -] 0.125 mg PO ASDIR 10/27/19 Furosemide 40 mg PO DAILY 10/27/19 Levothyroxine [Synthroid -] 25 mcg PO DAILY 10/27/19 Rosuvastatin [Crestor -] 10 mg PO DAILY 10/27/19 Spironolactone 25 mg PO DAILY 10/27/19 Physical Exam Vital Signs: Vital Signs Temperature 99.4 F 10/28/19 12:00 Pulse Rate 122 H 10/28/19 12:00 Respiratory Rate 25 H 10/28/19 12:00 Blood Pressure 90/77 10/28/19 12:00 O2 Sat by Pulse Oximetry (%) 94 L 10/28/19 09:00 Labs: CBC, BMP 10/28/19 05:35 10/28/19 05:35
--- NOTE | 2019-10-28 13:32 | CONS ---
GASTROINTESTINAL CONSULTATION DATE OF CONSULTATION: DATE OF DICTATION: 10/28/2019 HISTORY: Patient is an 84-year-old female past medical history of NC, stents, ICD, atrial fibrillation on Xarelto, CHF, CVA in 2009, hypertension, hyperlipidemia who was admitted to the hospital with complaints of vomiting and diarrhea. While she was home, she was found to be less responsive, and therefore, EMS was called for further evaluation. Patient is currently lethargic and does not provide much more history. PAST MEDICAL HISTORY: As listed in the HPI. ALLERGIES: No known drug allergies. SOCIAL HISTORY: Does not drink or smoke. FAMILY HISTORY: No history of GI or gynecological malignancy. HOME MEDICATIONS: Reviewed include Coreg, digoxin, furosemide, levothyroxine, magnesium, Xarelto, Crestor, and spironolactone. PHYSICAL EXAMINATION: Vital Signs: Temperature 99, pulse 122, blood pressure 90/77, respiratory rate 25, oxygen saturation 94% on 3 L. General: Lethargic. In no acute distress. HEENT: Anicteric sclerae. Cardiovascular: S1, S2. Regular rate and rhythm. Lungs: Bilaterally clear to auscultation. Abdomen: Tender in the right upper quadrant. Tube is in place draining purulent fluid. Extremities: No edema. LABORATORIES: White blood cell count 10, hemoglobin 13, hematocrit 41, MCV 90, platelet count 87, INR 1. Sodium 143, potassium 4.4, BUN 101, creatinine 3.8, glucose 157, lactic acid 2.4. AST 139, ALT 71, total bilirubin 5. Troponin 0.47. Urine; 3+ blood, 1+ bilirubin. Influenza is pending. Cultures are pending. She had an abdomen and pelvic CT scan, which revealed acute calculous cholecystitis with associated choledocholithiasis and CBD dilation. IMPRESSION: Acute cholecystitis, cholangitis now status post emergent cholecystostomy tube. RECOMMENDATION: MICU care. Antibiotics. Follow up cultures. N.p.o. IV fluids. Trend LFTs daily while hospitalized. DO RAJESH VALLE/[id number]
[2019-10-28] MEDS: ACETAMINOPHEN 1000 MG/100 ML VIAL (NON FORMULARY) IVPB PRN ×2 (13:53→21:42)
--- NOTE | 2019-10-28 14:05 | PN ---
Progress Note (short form) - Note Progress Note: spoke to the patient and family, she is in septic shock despite choelcystostomy. Emergent ERCP is to be done. Risk but not limited to pancreatitis, bleeding, perforation and risk of anesthesia was discussed. They were agreeable to undergo the procedure. Problem List - Problems (1) Sepsis associated hypotension Code(s): A41.9 - SEPSIS, UNSPECIFIED ORGANISM; I95.9 - HYPOTENSION, UNSPECIFIED
[2019-10-28] MEDS ORDERED: ETOMIDATE 20 MG/10 ML AMPUL IVPUSH ONE (14:12)
--- NOTE | 2019-10-28 14:55 | EKG ---
Test Reason : Blood Pressure : / mmHG Vent. Rate : 120 BPM Atrial Rate : 101 BPM P-R Int : 000 ms QRS Dur : 080 ms QT Int : 296 ms P-R-T Axes : 000 -46 036 degrees QTc Int : 418 ms ATRIAL FIBRILLATION WITH RAPID VENTRICULAR RESPONSE LEFT AXIS DEVIATION ANTEROSEPTAL INFARCT (CITED ON OR BEFORE 27-MAR-2017) ABNORMAL ECG WHEN COMPARED WITH ECG OF 27-OCT-2019 09:27, NONSPECIFIC T WAVE ABNORMALITY HAS REPLACED INVERTED T WAVES IN INFERIOR LEADS NONSPECIFIC T WAVE ABNORMALITY HAS REPLACED INVERTED T WAVES IN ANTERIOR LEADS Confirmed by Massimo Richardson MD ([id number]) on 10/28/2019 2:54:53 PM Referred By: Arely BHATTI Confirmed By:Massimo Richardson MD
[2019-10-28] MEDS ORDERED: HYDROCORTISONE SOD SUCCINATE 100 MG/2 ML VIAL IVPUSH ONE (15:39)
[2019-10-28] MEDS ORDERED: SODIUM CHLORIDE 1,000 ML IV STA (15:39)
[2019-10-28] MEDS ORDERED: PHENYLEPHRINE HCL 10 MG/1 ML SINGLE DOSE VIAL ONE (15:53)
[2019-10-28] MEDS ORDERED: PHENYLEPHRINE HCL 10,000 MCG in DEXTROSE 5%-WATER - 499 ML IV SCH (16:00)
[2019-10-28 16:26] LABS: ARTERIAL BLD GAS O2 SATURATION 45.1 % (95-98); ARTERIAL BLOOD GAS BASE EXCESS -15.1 meq/l (-2-2); ARTERIAL BLOOD GAS PCO2 49.5 mmHg (35-45)
[2019-10-28 16:30] LABS: ARTERIAL BLOOD GAS PO2 < 49 mmHg (80-100)
[2019-10-28] MEDS ORDERED: SODIUM BICARBONATE 8.4% 50 MEQ/50 ML VIAL IVPUSH ONE (16:31)
[2019-10-28] MEDS ORDERED: SODIUM BICARBONATE 8.4% 50 MEQ/50 ML VIAL ONE (16:32)
--- NOTE | 2019-10-28 16:40 | PN ---
Progress Note, Physician History of Present Illness: on pressors s/p ercp, intubated - Current Medication List Current Medications: Active Medications Acetaminophen (Ofirmev Injection -) 1,000 mg IVPB Q6H PRN PRN Reason: FEVER Stop: 10/29/19 13:41 Last Admin: 10/28/19 13:53 Dose: 1,000 mg Chlorhexidine Gluconate (Hibiclens For Decolonization -) 1 applic TP HS MARIA D Last Admin: 10/27/19 21:01 Dose: 1 applic Hydrocortisone Sodium Succinate (Solu-Cortef -) 50 mg IVPB Q6H-IV MARIA D Last Admin: 10/28/19 16:04 Dose: Not Given Norepinephrine Bitartrate 8, (000 mcg/ Dextrose) 500 mls @ 8.16 mls/hr IV ASDIR MARIA D; Protocol Last Titration: 10/28/19 16:08 Dose: 0.41 mcg/kg/min, 113 mls/hr Sodium Chloride (Normal Saline -) 1,000 mls @ 75 mls/hr IV ASDIR MARIA D Last Admin: 10/27/19 20:30 Dose: 75 mls/hr Vasopressin 50 units/ Sodium (Chloride) 100 mls @ 4 mls/hr IVPB ASDIR MARIA D; Protocol Last Titration: 10/28/19 07:35 Dose: 5 units/hr, 10 mls/hr Piperacillin Sod/Tazobactam (Sod 2.25 gm/ Dextrose) 50 mls @ 100 mls/hr IVPB Q8H-IV MARIA D; Protocol Phenylephrine HCl 10,000 mcg/ (Dextrose) 500 mls @ 300 mls/hr IV TITR MARIA D; Protocol Last Admin: 10/28/19 16:07 Dose: 100 mcg/min, 300 mls/hr Levothyroxine Sodium (Synthroid -) 25 mcg PO ACBK MARIA D Last Admin: 10/28/19 06:18 Dose: Not Given Morphine Sulfate (Morphine Sulfate) 2 mg IVPUSH Q2H PRN PRN Reason: PAIN LEVEL 6-10 Last Admin: 10/28/19 06:18 Dose: 2 mg Mupirocin (Bactroban Ointment (For Decolonization) -) 1 applic NS BID MARIA D Stop: 11/01/19 21:59 Last Admin: 10/28/19 09:40 Dose: 1 applic Rosuvastatin Calcium (Crestor -) 10 mg PO HS [facility] Last Admin: 10/27/19 21:02 Dose: Not Given Sodium Bicarbonate (Sodium Bicarbonate 8.4% -) 50 meq IVPUSH ONCE ONE Stop: 10/28/19 16:32 - Objective Vital Signs: Vital Signs Temperature 99.4 F 10/28/19 12:00 Pulse Rate 156 H 10/28/19 16:08 Respiratory Rate 25 H 10/28/19 12:00 Blood Pressure 87/44 L 10/28/19 16:08 O2 Sat by Pulse Oximetry (%) 94 L 10/28/19 09:00 HENT: Yes: Atraumatic Neck: Yes: Supple Cardiovascular: Yes: Regular Rate and Rhythm Respiratory: Yes: Other (intubated) Gastrointestinal: Yes: Normal Bowel Sounds Extremities: Yes: WNL Neurological: Yes: Other (sedated) Labs: CBC, BMP 10/28/19 05:35 10/28/19 05:35 INR, PTT INR 1.05 (0.83-1.09) 10/27/19 10:00 Problem List - Problems (1) Ascending cholangitis Assessment/Plan: s/p ercp and stone extraction Code(s): K83.09 - OTHER CHOLANGITIS (2) Choledocholithiasis with acute cholecystitis Code(s): K80.42 - CALCULUS OF BILE DUCT W ACUTE CHOLECYSTITIS W/O OBSTRUCTION (3) Atrial fibrillation Code(s): I48.91 - UNSPECIFIED ATRIAL FIBRILLATION (4) HTN (hypertension) Assessment/Plan: hold Code(s): I10 - ESSENTIAL (PRIMARY) HYPERTENSION (5) Hyperlipidemia Code(s): E78.5 - HYPERLIPIDEMIA, UNSPECIFIED (6) Septic shock Assessment/Plan: on pressors iv abx fluids Code(s): A41.9 - SEPSIS, UNSPECIFIED ORGANISM; R65.21 - SEVERE SEPSIS WITH SEPTIC SHOCK
[2019-10-28 16:47] LABS: ARTERIAL BLD GAS O2 SATURATION 97.9 % (95-98); ARTERIAL BLOOD GAS BASE EXCESS -17.2 meq/l (-2-2); ARTERIAL BLOOD GAS PCO2 36.7 mmHg (35-45); ARTERIAL BLOOD GAS PO2 157 mmHg (80-100)
[2019-10-28 16:53] LABS: ARTERIAL BLOOD GAS pH 7.12 (7.35-7.45)
[2019-10-28] MEDS ORDERED: PIPERACILLIN/TAZOBACTAM 2.25 GM VIAL IVPB ONE (17:16)
[2019-10-28] MEDS: PIPERACILLIN/TAZOB 2.25 GM 2.25 GM in DEXTROSE 5%-WATER - 50 ML IVPB SCH (17:17)
[2019-10-28 18:32] LABS: BASO % 0.2 % (0-2.0); EOS % 1.6 % (0-4.5); HEMATOCRIT 41.3 % (32.4-45.2); HEMOGLOBIN 13.1 GM/dL (10.7-15.3); LYMPH % 5.6 % (8-40); MCH 29.4 pg (25.7-33.7); MCHC 31.8 g/dl (32.0-36.0); MEAN CELL VOLUME 92.6 fl (80-96); MEAN PLT VOLUME 10.7 fl (7.5-11.1); MONO % 3.3 % (3.8-10.2); NEUT % 89.3 % (42.8-82.8); PLATELET COUNT 91 K/MM3 (134-434); RBC 4.46 M/mm3 (3.60-5.2); RDW 17.3 % (11.6-15.6); WHITE BLOOD COUNT 13.5 K/mm3 (4.0-10.0)
[2019-10-28] MEDS: NOREPINEPHRINE BITARTRATE 8,000 MCG in DEXTROSE 5%-WATER - 492 ML IV SCH ×2 (18:35→20:45)
[2019-10-28 18:43] LABS: INR 1.08 (0.83-1.09); PROTHROMBIN TIME (PATIENT) 12.8 SEC (9.7-13.0)
[2019-10-28 19:00] LABS: ALBUMIN 1.9 g/dl (3.4-5.0); BILIRUBIN,TOTAL 3.4 mg/dL (0.2-1); BLOOD UREA NITROGEN 90.6 mg/dL (7-18); CALCIUM 7.2 mg/dL (8.5-10.1); CREATININE 3.8 mg/dL (0.55-1.3); POTASSIUM 4.7 mmol/L (3.5-5.1); TOT PROT 4.9 g/dl (6.4-8.2)
[2019-10-28 20:01] LABS: ANISOCYTOSIS 0; HELMET CELLS 0; HOWELL-JOLLY BODIES 0; MACROCYTOSIS 0; OVALOCYTE 0; PLATELET ESTIMATE DECREASED; ROULEAU 0; SICKELED CELLS 0; TARGET CELLS 0; TEAR DROP CELLS 0; TOXIC GRANULATION 0
--- NOTE | 2019-10-28 20:07 | PROC ---
Procedure Note Procedure: Femoral Arterial Line placement Indication: For accurate BP monitoring and frequent ABG draws The line was placed without informed consent as it was required emergently. The right femoral area was cleaned and dressed in a sterile fashion. A 20g Arrow was introduced in to the femoral artery with ulttrasound guidance. The catheter was threaded over the guide wire and the needle was removed with appropriate pulsile blood return. Perfusion to the extremity distal to the point of the catheter insertion was checked and found to be adequate. The catheter was then sutured in place to the skin and a sterile dressing applied. The patient tolerated the procedure well and there were no complications.
[2019-10-28] MEDS ORDERED: PT OWN MED DRAWER 7, Y5N ONE (21:28)
[2019-10-28] MEDS: SODIUM CHLORIDE 1,000 ML IV SCH (21:29)
[2019-10-28] MEDS: VASOPRESSIN 50 UNITS in SODIUM CHLORIDE 97.5 ML IVPB SCH ×2 (21:29→22:31)
[2019-10-28] MEDS: ROSUVASTATIN CA 10 MG TABLET (FP) PO SCH (21:31)
[2019-10-28] MEDS: CHLORHEXIDINE GLUCONATE 4% CLEANSER FOR DECOLONIZATION TP SCH (21:32)
[2019-10-29] MEDS ORDERED: SODIUM CHLORIDE 1,000 ML IV SCH ×2 (00:32→07:17)
[2019-10-29] MEDS ORDERED: fentaNYL CITRATE 250 MCG/5 ML VIAL ONE ×2 (01:26→13:05)
[2019-10-29] MEDS ORDERED: FENTANYL INJECTION 500 MCG in DEXTROSE 5%-WATER - 90 ML IVPB SCH (01:30)
[2019-10-29] MEDS: PIPERACILLIN/TAZOB 2.25 GM 2.25 GM in DEXTROSE 5%-WATER - 50 ML IVPB SCH ×2 (01:48→09:46)
[2019-10-29] MEDS ORDERED: DEXTROSE 5%-WATER - 50 ML IVPB ONE ×3 (01:48→16:18)
[2019-10-29] MEDS ORDERED: PIPERACILLIN/TAZOBACTAM 2.25 GM VIAL IVPB ONE ×3 (01:48→16:18)
[2019-10-29] MEDS: HYDROCORTISONE SOD SUCCINATE 100 MG/2 ML VIAL IVPB SCH ×3 (03:35→16:14)
[2019-10-29 05:51] LABS: HEMOGLOBIN 13.1 GM/dL (10.7-15.3); MCH 29.6 pg (25.7-33.7); MCHC 32.7 g/dl (32.0-36.0); MEAN CELL VOLUME 90.7 fl (80-96); MEAN PLT VOLUME 9.8 fl (7.5-11.1); PLATELET COUNT 83 K/MM3 (134-434); RBC 4.41 M/mm3 (3.60-5.2); RDW 17.7 % (11.6-15.6)
[2019-10-29] MEDS: LEVOTHYROXINE NA 25 MCG TABLET (FP) PO SCH (06:08)
[2019-10-29 06:43] LABS: ALBUMIN 1.9 g/dl (3.4-5.0); BILIRUBIN,TOTAL 4.3 mg/dL (0.2-1); BLOOD UREA NITROGEN 87.4 mg/dL (7-18); CREATININE 4.2 mg/dL (0.55-1.3); MAGNESIUM 2.3 mg/dL (1.8-2.4); PHOSPHOROUS 6.9 mg/dL (2.5-4.9); POTASSIUM 4.3 mmol/L (3.5-5.1); TOT PROT 4.9 g/dl (6.4-8.2)
[2019-10-29 06:47] LABS: CALCIUM 6.6 mg/dL (8.5-10.1)
[2019-10-29] MEDS ORDERED: NOREPINEPHRINE BITARTRATE 4 MG/4 ML ML IV ONE ×2 (08:11→12:59)
[2019-10-29 09:00] LABS: ARTERIAL BLD GAS O2 SATURATION 94.7 % (95-98); ARTERIAL BLOOD GAS BASE EXCESS -14.3 meq/l (-2-2); ARTERIAL BLOOD GAS PCO2 33.8 mmHg (35-45); ARTERIAL BLOOD GAS PO2 89.8 mmHg (80-100); ARTERIAL BLOOD GAS pH 7.21 (7.35-7.45)
--- NOTE | 2019-10-29 09:04 | PN ---
Progress Note, Physician History of Present Illness: GI FOLLOW UP NOTE Patient examined and case discussed with Dr Levi Patient underwent emergent ERCP yesterday with Dr Levi and 2.5cm stone removed. Labs this morning showing uptrend in LFTs with AST 210, ALT, 74, Alk Phos 207. Patient is mechanically ventilated and intubated, unable to perform ROS. Hypotensive with BP 84/66 with Levophed and Vasopressin infusing. - Current Medication List Current Medications: Active Medications Acetaminophen (Ofirmev Injection -) 1,000 mg IVPB Q6H PRN PRN Reason: FEVER Stop: 10/29/19 13:41 Last Admin: 10/28/19 21:42 Dose: 1,000 mg Chlorhexidine Gluconate (Hibiclens For Decolonization -) 1 applic TP HS MARIA D Last Admin: 10/28/19 21:32 Dose: 1 applic Hydrocortisone Sodium Succinate (Solu-Cortef -) 50 mg IVPB Q6H-IV MARIA D Last Admin: 10/29/19 03:35 Dose: 50 mg Norepinephrine Bitartrate 8, (000 mcg/ Dextrose) 500 mls @ 8.16 mls/hr IV ASDIR MARIA D; Protocol Last Titration: 10/29/19 07:00 Dose: 0.41 mcg/kg/min, 111.58 mls/hr Vasopressin 50 units/ Sodium (Chloride) 100 mls @ 4 mls/hr IVPB ASDIR MARIA D; Protocol Last Admin: 10/28/19 22:31 Dose: 6 units/hr, 12 mls/hr Piperacillin Sod/Tazobactam (Sod 2.25 gm/ Dextrose) 50 mls @ 100 mls/hr IVPB Q8H-IV MARIA D; Protocol Last Admin: 10/29/19 01:48 Dose: 100 mls/hr Phenylephrine HCl 10,000 mcg/ (Dextrose) 500 mls @ 300 mls/hr IV TITR MARIA D; Protocol Last Infusion: 10/29/19 00:33 Dose: 0 mcg/min, 0 mls/hr Fentanyl 500 mcg/ Dextrose 100 mls @ 5 mls/hr IVPB TITR MARIA D; Protocol Last Admin: 10/29/19 01:42 Dose: 25 mcg/hr, 5 mls/hr Sodium Chloride (Normal Saline -) 1,000 mls @ 75 mls/hr IV ASDIR MARIA D Last Admin: 10/29/19 08:02 Dose: 75 mls/hr Levothyroxine Sodium (Synthroid -) 25 mcg PO ACBK [facility] Last Admin: 10/29/19 06:08 Dose: Not Given Mupirocin (Bactroban Ointment (For Decolonization) -) 1 applic NS BID [facility] Stop: 11/01/19 21:59 Last Admin: 10/28/19 22:48 Dose: 1 applic Rosuvastatin Calcium (Crestor -) 10 mg PO HS [facility] Last Admin: 10/28/19 21:31 Dose: Not Given - Objective Vital Signs: Vital Signs Temperature 98.3 F 10/29/19 06:00 Pulse Rate 110 H 10/29/19 07:00 Respiratory Rate 19 10/29/19 06:00 Blood Pressure 94/48 L 10/29/19 07:00 O2 Sat by Pulse Oximetry (%) 93 L 10/28/19 23:59 Constitutional: Yes: Calm HENT: Yes: Atraumatic Cardiovascular: Yes: Regular Rate and Rhythm Respiratory: Yes: Regular, Diminished, Mechanically Ventilated Gastrointestinal: Yes: Normal Bowel Sounds, Soft Genitourinary: Yes: Carter Present Neurological: Yes: Other (sedated but responsive to tactile stimuli) Labs: CBC, BMP 10/29/19 05:00 10/29/19 05:00 INR, PTT INR 1.08 (0.83-1.09) 10/28/19 16:15 Fibrinogen > 500.0 mg/dL (238-498) H 10/28/19 16:15 Problem List - Problems (1) Choledocholithiasis with acute cholecystitis Assessment/Plan: emergent ERCP yesterday with Dr Levi AST 210, ALT 74, Alk Phos 210 monitor LFTs daily Total bili 4.3, monitor T bili daily Code(s): K80.42 - CALCULUS OF BILE DUCT W ACUTE CHOLECYSTITIS W/O OBSTRUCTION
[2019-10-29] MEDS ORDERED: PHENYLEPHRINE HCL 20,000 MCG in SODIUM CHLORIDE 248 ML IVPB SCH (09:30)
[2019-10-29] MEDS ORDERED: PHENYLEPHRINE HCL 10 MG/1 ML SINGLE DOSE VIAL ONE ×3 (09:34→16:59)
--- NOTE | 2019-10-29 09:50 | PN ---
Progress Note (short form) - Note Progress Note: Anesthesiology Post-op 84 y.o. woman POD#1 s/p ERCP under GA. She remains intubated with minimal sedation but unable to extubate due increased vasopressor requirement. She is full code. 84 y.o. woman in septic shock in critical condition. Continue management as directed by primary team and family.
[2019-10-29] MEDS ORDERED: DOPAMINE HCL 400,000 MCG in SODIUM CHLORIDE 240 ML IV SCH (11:00)
[2019-10-29] MEDS ORDERED: DOPAMINE 400 MG/D5W - 400,000 MCG/250 ML INFUS.BAG IVPB ONE (11:03)
[2019-10-29] MEDS: MUPIROCIN 2% TOPICAL OINTMENT FOR DECOLONIZATION NS SCH (11:25)
--- NOTE | 2019-10-29 12:00 | PN ---
Physical Exam: SUBJECTIVE: Patient seen and examined OBJECTIVE: Vital Signs Period Temp Pulse Resp BP Sys/Aranda Pulse Ox Last 24 Hr 97.8 F-98.3 F 90-159 12-19 77-119/44-84 93-93 GENERAL: The patient is sedated and intubated. HEAD: Normal with no signs of trauma. EYES: PERRL, extraocular movements intact, sclera anicteric, conjunctiva clear. No ptosis. ENT: Ears normal, nares patent, oropharynx clear without exudates, moist mucous membranes. NECK: Trachea midline, full range of motion, supple. LUNGS: Breath sounds equal, clear to auscultation bilaterally, no wheezes, no crackles, no accessory muscle use. HEART: Tachycardic, irregular. S1, S2 without murmur, rub or gallop. ABDOMEN: Soft, tender in RUQ, drain with bilious fluid. EXTREMITIES: 2+ pulses, warm, well-perfused, edema. NEUROLOGICAL: Sedated SKIN: Cold and mottled. Laboratory Results - last 24 hr CBC, BMP 10/29/19 05:00 10/29/19 05:00 Active Medications Acetaminophen (Ofirmev Injection -) 1,000 mg IVPB Q6H PRN PRN Reason: FEVER Stop: 10/29/19 13:41 Last Admin: 10/28/19 21:42 Dose: 1,000 mg Chlorhexidine Gluconate (Hibiclens For Decolonization -) 1 applic TP HS MARIA D Last Admin: 10/28/19 21:32 Dose: 1 applic Heparin Sodium (Porcine) (Heparin -) 1,000 unit SQ TID MARIA D Hydrocortisone Sodium Succinate (Solu-Cortef -) 50 mg IVPB Q6H-IV MARIA D Last Admin: 10/29/19 10:21 Dose: 50 mg Norepinephrine Bitartrate 8, (000 mcg/ Dextrose) 500 mls @ 8.16 mls/hr IV ASDIR MARIA D; Protocol Last Titration: 10/29/19 07:00 Dose: 0.41 mcg/kg/min, 111.58 mls/hr Vasopressin 50 units/ Sodium (Chloride) 100 mls @ 4 mls/hr IVPB ASDIR MARIA D; Protocol Last Admin: 10/28/19 22:31 Dose: 6 units/hr, 12 mls/hr Piperacillin Sod/Tazobactam (Sod 2.25 gm/ Dextrose) 50 mls @ 100 mls/hr IVPB Q8H-IV MARIA D; Protocol Last Admin: 10/29/19 09:46 Dose: 100 mls/hr Fentanyl 500 mcg/ Dextrose 100 mls @ 5 mls/hr IVPB TITR MARIA D; Protocol Last Admin: 10/29/19 01:42 Dose: 25 mcg/hr, 5 mls/hr Sodium Chloride (Normal Saline -) 1,000 mls @ 75 mls/hr IV ASDIR MARIA D Last Admin: 10/29/19 08:02 Dose: 75 mls/hr Phenylephrine HCl 20,000 mcg/ (Sodium Chloride) 250 mls @ 75 mls/hr IVPB ASDIR MARIA D; Protocol Last Admin: 10/29/19 09:38 Dose: 100 mcg/min, 75 mls/hr Dopamine HCl 400,000 mcg/ (Sodium Chloride) 250 mls @ 4.1 mls/hr IV TITR MARIA D; Protocol Last Titration: 10/29/19 11:26 Dose: 5 mcg/kg/min, 10.27 mls/hr Levothyroxine Sodium (Synthroid -) 25 mcg PO ACBK MARIA D Last Admin: 10/29/19 06:08 Dose: Not Given Mupirocin (Bactroban Ointment (For Decolonization) -) 1 applic NS BID MARIA D Stop: 11/01/19 21:59 Last Admin: 10/29/19 11:25 Dose: 1 applic Rosuvastatin Calcium (Crestor -) [address] [facility] Last Admin: 10/28/19 21:31 Dose: Not Given ASSESSMENT/PLAN: Patient is an 84 year old female with PMH of ME (s/p stents, defibrillator placement), Afib (on xarelto), CHF, CVA (2009), HTN, and HLD who presents with AMS, vomiting and diarrhea. CTAP revealed acute cholangitis and pt underwent emergent percutaneous cholecystotomy per IR. Neuro -Intubated and sedated -Hx of CVA in 2009, no residual deficits Cardiovascular -Hx of ME (s/p stents, defibrillator placement), Afib (on xarelto), CHF, HTN -EKG(10/28/19): Afib w/ RVR(HR 120), old anteroseptal infarct -Echo (10/28/19): LVEF 30%, mod glob hypokinesis; mild-mod dilated RA, mod MR, mild-mod TR, RVSP 36mmHg, mild-mod AR -Central line placed in [facility] by ED, pt maxed on levophed, vasopressin, and stress steroids with MAP still in 40s. Adding dopamine gtt -Holding anti-hypertensive meds in setting of hypotension -Holding xarelto in setting of surgical intervention -Cardiology consulted (Dr. Marquis), f/u recs -Troponin: 0.78 --> 0.49, likely 2/2 demand ischemia GI -CTAP: acute calculus cholecystitis with associated choledocholithiasis and common bile duct dilatation, small amount of free fluid in R subhepatic space -IR consulted (Dr. Patel) pt underwent emergent percutaneous cholecystotomy on arrival -GI consulted (Dr. Levi/Soniya): pt underwent emergent ERCP yesterday with removal of 2.5cm stone -Pain control morphine 2mg Q2H -IV abx -NPO ID -Sepsis 2/2 acute ascending cholangitis -Leukocytosis, lactic acid 3.1-->2.1, cont to trend -Received vanc, zosyn, flagyl in ED -Cont IV zosyn 2.25mg Q8H -Blood cx: NGTD -Cholecystotomy fluid cx: lactose fermenting neg bacilli, group D strep -ID following (Dr. Barnard) Renal -DALE 2/2 hypoperfusion/sepsis -Holding pt's lasix until renal function improves -IV zosyn dosing adjusted for renal function (CrCl ~14) -Carter in place -Monitor I's and O's FEN -IV NS @ 75ml/hr -F/u am labs, replete lytes prn -NPO DVT ppx -Heparin sq Dispo: We will continue to follow the patient. Thank you for this consultative opportunity. Visit type - Emergency Visit Emergency Visit: No - New Patient This patient is new to me today: No - Critical Care Critical Care patient: Yes Total Critical Care Time (in minutes): 45 Critical Care Statement: The care of this patient involved high complexity decision making to prevent further life threatening deterioration of the patient's condition and/or to evaluate & treat vital organ system(s) failure or risk of failure. ATTENDING PHYSICIAN STATEMENT I saw and evaluated the patient. I reviewed the resident's note and discussed the case with the resident. I agree with the resident's findings and plan as documented. SUBJECTIVE: OBJECTIVE: ASSESSMENT AND PLAN:
--- NOTE | 2019-10-29 12:17 | PN ---
Teaching Attending Note Name of Resident: Shonda Elias ATTENDING PHYSICIAN STATEMENT I saw and evaluated the patient. I reviewed the resident's note and discussed the case with the resident. I agree with the resident's findings and plan as documented. SUBJECTIVE: Pt seen and examined in the ICU. Remains intubated, sedated. Hypotensive on levophed, vasopressin, phenylephrine gtts. Extremities, mottled and cyanotic. Agonal breathing. OBJECTIVE: Vital Signs Period Temp Pulse Resp BP Sys/Aranda Pulse Ox Last 24 Hr 97.8 F-98.3 F 90-159 12-19 77-119/44-84 93-93 Intake & Output 10/26/19 10/27/19 10/28/19 10/29/19 23:59 23:59 23:59 23:59 Intake Total 2550 6518 2865 Output Total 600 1200 64 Balance 1950 5318 2801 Weight 54.794 kg Gen: intubated, sedated Heart: tachycardic, irregular Lung: bilateral rhonchi Abd: soft, TTP RUQ, drain with bilious fluid Ext: edema, mottled CBC, BMP 10/29/19 05:00 10/29/19 05:00 Hepatic Panel Total Bilirubin 4.3 mg/dL (0.2-1) H 10/29/19 05:00 AST 210 U/L (15-37) H 10/29/19 05:00 ALT 74 U/L (13-61) H 10/29/19 05:00 Alkaline Phosphatase 207 U/L (45-117) H 10/29/19 05:00 Albumin 1.9 g/dl (3.4-5.0) L 10/29/19 05:00 Active Medications Acetaminophen (Ofirmev Injection -) 1,000 mg IVPB Q6H PRN PRN Reason: FEVER Stop: 10/29/19 13:41 Last Admin: 10/28/19 21:42 Dose: 1,000 mg Chlorhexidine Gluconate (Hibiclens For Decolonization -) 1 applic TP HS MARIA D Last Admin: 10/28/19 21:32 Dose: 1 applic Heparin Sodium (Porcine) (Heparin -) 1,000 unit SQ TID MARIA D Hydrocortisone Sodium Succinate (Solu-Cortef -) 50 mg IVPB Q6H-IV MARIA D Last Admin: 10/29/19 10:21 Dose: 50 mg Norepinephrine Bitartrate 8, (000 mcg/ Dextrose) 500 mls @ 8.16 mls/hr IV ASDIR MARIA D; Protocol Last Titration: 10/29/19 07:00 Dose: 0.41 mcg/kg/min, 111.58 mls/hr Vasopressin 50 units/ Sodium (Chloride) 100 mls @ 4 mls/hr IVPB ASDIR MARIA D; Protocol Last Admin: 10/28/19 22:31 Dose: 6 units/hr, 12 mls/hr Piperacillin Sod/Tazobactam (Sod 2.25 gm/ Dextrose) 50 mls @ 100 mls/hr IVPB Q8H-IV MARIA D; Protocol Last Admin: 10/29/19 09:46 Dose: 100 mls/hr Fentanyl 500 mcg/ Dextrose 100 mls @ 5 mls/hr IVPB TITR MARIA D; Protocol Last Admin: 10/29/19 01:42 Dose: 25 mcg/hr, 5 mls/hr Sodium Chloride (Normal Saline -) 1,000 mls @ 75 mls/hr IV ASDIR MARIA D Last Admin: 10/29/19 08:02 Dose: 75 mls/hr Phenylephrine HCl 20,000 mcg/ (Sodium Chloride) 250 mls @ 75 mls/hr IVPB ASDIR MARIA D; Protocol Last Admin: 10/29/19 09:38 Dose: 100 mcg/min, 75 mls/hr Dopamine HCl 400,000 mcg/ (Sodium Chloride) 250 mls @ 4.1 mls/hr IV TITR MARIA D; Protocol Last Titration: 10/29/19 11:26 Dose: 5 mcg/kg/min, 10.27 mls/hr Levothyroxine Sodium (Synthroid -) 25 mcg PO ACBK MARIA D Last Admin: 10/29/19 06:08 Dose: Not Given Mupirocin (Bactroban Ointment (For Decolonization) -) 1 applic NS BID MARIA D Stop: 11/01/19 21:59 Last Admin: 10/29/19 11:25 Dose: 1 applic Rosuvastatin Calcium (Crestor -) 10 mg PO HS MARIA D Last Admin: 10/28/19 21:31 Dose: Not Given ASSESSMENT AND PLAN: Acute Hypoxic Respiratory Failure Acute Cholecystitis/Cholangitis Choledocholithiasis Septic Shock Acute Kidney Injury Lactic Acidosis Thrombocytopenia +Troponins likely Demand Ischemia LV Systolic Dysfunction Atrial Fibrillation h/o CVA h/o HTN Hyperlipidemia Hypothyroidism - continue antibiotics - f/u cultures - start dopamine gtt - titrate pressors to maintain MAP >65 - IVF to keep CVP 8-12 - monitor urine output, creatinine - trend cardiac enzymes, lactate, LFTs - continue stress dose steroids - sedate for vent synchrony - continue assist control - monitor peak/plateau pressors - titrate Fio2 to keep SpO2 >90% - DVT/GI prophylaxis - prognosis guarded - continue ICU monitoring critical care time spent in reviewing chart, evaluating patient and formulating plan 35 min
--- NOTE | 2019-10-29 14:08 | PN ---
Progress Note, Physician History of Present Illness: 84y F hx of [place] (s/p stents, defibrillator placement), afib (on xarelto), CHF, CVA (2010) HTN, and HLD, presents with vomiting and diarrhea. Per the home health aide the patient atypically did not respond to opening the door when they arrived she saw the patient lying on the stretcher a bit confused and less responsive than usual, also appeared to have vomiting and diarrhea on herself. EMS was called she was noted to be hypotensive with blood sugar in the normal range she was given 900 cc of fluid by EMS with improvement of her mental status to where she is able to provide history that she had some vomiting and diarrhea since Sunday. Patient also endorses diffuse mild abdominal pain. - Current Medication List Current Medications: Active Medications Chlorhexidine Gluconate (Hibiclens For Decolonization -) 1 applic TP HS MARIA D Last Admin: 10/28/19 21:32 Dose: 1 applic Heparin Sodium (Porcine) (Heparin -) 1,000 unit SQ TID MARIA D Hydrocortisone Sodium Succinate (Solu-Cortef -) 50 mg IVPB Q6H-IV MARIA D Last Admin: 10/29/19 10:21 Dose: 50 mg Norepinephrine Bitartrate 8, (000 mcg/ Dextrose) 500 mls @ 8.16 mls/hr IV ASDIR MARIA D; Protocol Last Titration: 10/29/19 07:00 Dose: 0.41 mcg/kg/min, 111.58 mls/hr Vasopressin 50 units/ Sodium (Chloride) 100 mls @ 4 mls/hr IVPB ASDIR MARIA D; Protocol Last Admin: 10/28/19 22:31 Dose: 6 units/hr, 12 mls/hr Piperacillin Sod/Tazobactam (Sod 2.25 gm/ Dextrose) 50 mls @ 100 mls/hr IVPB Q8H-IV MARIA D; Protocol Last Admin: 10/29/19 09:46 Dose: 100 mls/hr Fentanyl 500 mcg/ Dextrose 100 mls @ 5 mls/hr IVPB TITR MARIA D; Protocol Last Admin: 10/29/19 01:42 Dose: 25 mcg/hr, 5 mls/hr Sodium Chloride (Normal Saline -) 1,000 mls @ 75 mls/hr IV ASDIR MARIA D Last Admin: 10/29/19 08:02 Dose: 75 mls/hr Phenylephrine HCl 20,000 mcg/ (Sodium Chloride) 250 mls @ 75 mls/hr IVPB ASDIR MARIA D; Protocol Last Admin: 10/29/19 09:38 Dose: 100 mcg/min, 75 mls/hr Dopamine HCl 400,000 mcg/ (Sodium Chloride) 250 mls @ 4.1 mls/hr IV TITR MARIA D; Protocol Last Titration: 10/29/19 11:26 Dose: 5 mcg/kg/min, 10.27 mls/hr Levothyroxine Sodium (Synthroid -) 25 mcg PO ACBK MARIA D Last Admin: 10/29/19 06:08 Dose: Not Given Mupirocin (Bactroban Ointment (For Decolonization) -) 1 applic NS BID MARIA D Stop: 11/01/19 21:59 Last Admin: 10/29/19 11:25 Dose: 1 applic Rosuvastatin Calcium (Crestor -) 10 mg PO HS [facility] Last Admin: 10/28/19 21:31 Dose: Not Given - Objective Vital Signs: Vital Signs Temperature 97.9 F 10/29/19 12:00 Pulse Rate 143 H 10/29/19 13:46 Respiratory Rate 19 10/29/19 13:46 Blood Pressure 117/60 10/29/19 13:46 O2 Sat by Pulse Oximetry (%) 93 L 10/28/19 23:59 Constitutional: Yes: Moderate Distress, Pallor Eyes: Yes: WNL, Conjunctiva Clear, EOM Intact HENT: Yes: WNL, Atraumatic, Normocephalic Neck: Yes: WNL, Supple, Trachea Midline Cardiovascular: Yes: Pulse Irregular, S1, S2 Respiratory: Yes: Diminished, Intubated, Mechanically Ventilated, Rhonchi Gastrointestinal: Yes: WNL, Normal Bowel Sounds Genitourinary: Yes: WNL Musculoskeletal: Yes: WNL Extremities: Yes: WNL Edema: Yes Integumentary: Yes: WNL, Other (mottled skin) Neurological: Yes: WNL, Alert, Oriented ...Motor Strength: WNL Psychiatric: Yes: WNL Labs: CBC, BMP 10/29/19 05:00 10/29/19 05:00 INR, PTT INR 1.08 (0.83-1.09) 10/28/19 16:15 Fibrinogen > 500.0 mg/dL (238-498) H 10/28/19 16:15 Problem List - Problems (1) Ascending cholangitis Code(s): K83.09 - OTHER CHOLANGITIS (2) Choledocholithiasis with acute cholecystitis Code(s): K80.42 - CALCULUS OF BILE DUCT W ACUTE CHOLECYSTITIS W/O OBSTRUCTION (3) Sepsis associated hypotension Code(s): A41.9 - SEPSIS, UNSPECIFIED ORGANISM; I95.9 - HYPOTENSION, UNSPECIFIED (4) Acute on chronic systolic (congestive) heart failure Code(s): I50.23 - ACUTE ON CHRONIC SYSTOLIC (CONGESTIVE) HEART FAILURE (5) Atrial fibrillation Code(s): I48.91 - UNSPECIFIED ATRIAL FIBRILLATION (6) Atrial fibrillation with RVR Code(s): I48.91 - UNSPECIFIED ATRIAL FIBRILLATION (7) CHF (congestive heart failure) Code(s): I50.9 - HEART FAILURE, UNSPECIFIED Qualifiers: Heart failure type: unspecified Heart failure chronicity: unspecified Qualified Code(s): I50.9 - Heart failure, unspecified (8) Cardiac arrhythmia Code(s): I49.9 - CARDIAC ARRHYTHMIA, UNSPECIFIED Qualifiers: Arrhythmia type: unspecified cardiac arrhythmia Qualified Code(s): I49.9 - Cardiac arrhythmia, unspecified (9) Defibrillator discharge Code(s): Z45.02 - ENCNTR FOR ADJUST AND MGMT OF AUTOMATIC IMPLNTBL CARD DEFIB (10) Dilated bile duct Code(s): K83.8 - OTHER SPECIFIED DISEASES OF BILIARY TRACT (11) Discomfort in chest Code(s): R07.89 - OTHER CHEST PAIN (12) Elevated LFTs Code(s): R79.89 - OTHER SPECIFIED ABNORMAL FINDINGS OF BLOOD CHEMISTRY (13) Elevated troponin I level Code(s): R74.8 - ABNORMAL LEVELS OF OTHER SERUM ENZYMES (14) Gallstone Code(s): K80.20 - CALCULUS OF GALLBLADDER W/O CHOLECYSTITIS W/O OBSTRUCTION Qualifiers: Cholecystitis presence: without cholecystitis (15) HTN (hypertension) Code(s): I10 - ESSENTIAL (PRIMARY) HYPERTENSION (16) Hyperlipidemia Code(s): E78.5 - HYPERLIPIDEMIA, UNSPECIFIED (17) Hyperlipidemia Code(s): E78.5 - HYPERLIPIDEMIA, UNSPECIFIED (18) Hypokalemia Code(s): E87.6 - HYPOKALEMIA (19) Hypomagnesemia Code(s): E83.42 - HYPOMAGNESEMIA (20) ICD (implantable cardioverter-defibrillator) in place Code(s): Z95.810 - PRESENCE OF AUTOMATIC (IMPLANTABLE) CARDIAC DEFIBRILLATOR (21) Intertrochanteric fracture of left hip Code(s): S72.142A - DISPLACED INTERTROCHANTERIC FRACTURE OF LEFT FEMUR, INIT Qualifiers: Encounter type: initial encounter Fracture type: closed Qualified Code(s) : S72.142A - Displaced intertrochanteric fracture of left femur, initial encounter for closed fracture (22) On amiodarone therapy Code(s): Z79.899 - OTHER RETIREMENT (CURRENT) DRUG THERAPY (23) Palpitations Code(s): R00.2 - PALPITATIONS (24) Pneumonia Code(s): J18.9 - PNEUMONIA, UNSPECIFIED ORGANISM Qualifiers: Pneumonia type: due to unspecified organism Laterality: unspecified laterality Lung location: unspecified part of lung Qualified Code(s): J18.9 - Pneumonia, unspecified organism (25) Shortness of breath Code(s): R06.02 - SHORTNESS OF BREATH Assessment/Plan Patient is an 84 year old female with PMH of [place] (s/p stents, defibrillator placement), Afib (on xarelto), CHF, CVA (2010), HTN, and HLD who presents with AMS, vomiting and diarrhea. CTAP revealed acute cholangitis and pt underwent emergent percutaneous cholecystotomy per IR. - Problems (1) AICD (automatic cardioverter/defibrillator) present Code(s): Z95.810 - PRESENCE OF AUTOMATIC (IMPLANTABLE) CARDIAC DEFIBRILLATOR (2) Ascending cholangitis Code(s): K83.09 - OTHER CHOLANGITIS (3) Septic shock Assessment/Plan: On IV fluids, on multiple pressor . ABX Code(s): A41.9 - SEPSIS, UNSPECIFIED ORGANISM; R65.21 - SEVERE SEPSIS WITH SEPTIC SHOCK (4) Acute on chronic systolic (congestive) heart failure Code(s): I50.23 - ACUTE ON CHRONIC SYSTOLIC (CONGESTIVE) HEART FAILURE (5) Atrial fibrillation with RVR Code(s): I48.91 - UNSPECIFIED ATRIAL FIBRILLATION (6) Shortness of breath Assessment/Plan: Respiratory failure on ventilator Bronchodilators, steroids, and antibiotics per pulmonary, ID. Code(s): R06.02 - SHORTNESS OF BREATH (7) Elevated troponin Assessment/Plan: ELevated TNI; CKMB relative index low. EKG: AF with RVR; nonspecific T wave changes. Mutlipe factors leading to demand ischemia, including septic shock, AF with RVR , systolic ischemic CMP /CHF. ECHO showed severereduced EF 30% wall motion abnormalities. Code(s): R79.89 - OTHER SPECIFIED ABNORMAL FINDINGS OF BLOOD CHEMISTRY Prognosis is guarded Critical care time time spent: 37minutes.
[2019-10-29 14:19] LABS: INR 1.34 (0.83-1.09); PROTHROMBIN TIME (PATIENT) 15.8 SEC (9.7-13.0)
[2019-10-29 14:22] LABS: ACTIVATED PTT 27.1 SECONDS (25.2-36.5)
[2019-10-29 14:23] VITALS: TEMP 97.4
--- NOTE | 2019-10-29 14:27 | PN ---
Progress Note, Physician History of Present Illness: patient has detoriated events noted patient got intubated now prognosis looking grim mottled appearance ercp was done yesterday - Current Medication List Current Medications: Active Medications Chlorhexidine Gluconate (Hibiclens For Decolonization -) 1 applic TP HS MARIA D Last Admin: 10/28/19 21:32 Dose: 1 applic Hydrocortisone Sodium Succinate (Solu-Cortef -) 50 mg IVPB Q6H-IV MARIA D Last Admin: 10/29/19 10:21 Dose: 50 mg Norepinephrine Bitartrate 8, (000 mcg/ Dextrose) 500 mls @ 8.16 mls/hr IV ASDIR MARIA D; Protocol Last Titration: 10/29/19 07:00 Dose: 0.41 mcg/kg/min, 111.58 mls/hr Vasopressin 50 units/ Sodium (Chloride) 100 mls @ 4 mls/hr IVPB ASDIR MARIA D; Protocol Last Admin: 10/28/19 22:31 Dose: 6 units/hr, 12 mls/hr Piperacillin Sod/Tazobactam (Sod 2.25 gm/ Dextrose) 50 mls @ 100 mls/hr IVPB Q8H-IV MARIA D; Protocol Last Admin: 10/29/19 09:46 Dose: 100 mls/hr Fentanyl 500 mcg/ Dextrose 100 mls @ 5 mls/hr IVPB TITR MARIA D; Protocol Last Admin: 10/29/19 01:42 Dose: 25 mcg/hr, 5 mls/hr Sodium Chloride (Normal Saline -) 1,000 mls @ 75 mls/hr IV ASDIR MARIA D Last Admin: 10/29/19 08:02 Dose: 75 mls/hr Phenylephrine HCl 20,000 mcg/ (Sodium Chloride) 250 mls @ 75 mls/hr IVPB ASDIR MARIA D; Protocol Last Admin: 10/29/19 09:38 Dose: 100 mcg/min, 75 mls/hr Dopamine HCl 400,000 mcg/ (Sodium Chloride) 250 mls @ 4.1 mls/hr IV TITR MARIA D; Protocol Last Titration: 10/29/19 11:26 Dose: 5 mcg/kg/min, 10.27 mls/hr Levothyroxine Sodium (Synthroid -) 25 mcg PO ACBK MARIA D Last Admin: 10/29/19 06:08 Dose: Not Given Mupirocin (Bactroban Ointment (For Decolonization) -) 1 applic NS BID MARIA D Stop: 11/01/19 21:59 Last Admin: 10/29/19 11:25 Dose: 1 applic Rosuvastatin Calcium (Crestor -) 10 mg PO HS [facility] Last Admin: 10/28/19 21:31 Dose: Not Given - Objective Vital Signs: Vital Signs Temperature 97.4 F L 10/29/19 14:00 Pulse Rate 117 H 10/29/19 14:00 Respiratory Rate 19 10/29/19 14:00 Blood Pressure 85/68 L 10/29/19 14:00 O2 Sat by Pulse Oximetry (%) 93 L 10/28/19 23:59 Constitutional: Yes: Other Cardiovascular: Yes: S1, S2, Other (on 4 pressors now) Respiratory: Yes: Intubated, Mechanically Ventilated Gastrointestinal: Yes: Other (cholangitis tube in place) Musculoskeletal: Yes: WNL Extremities: Yes: WNL Neurological: Yes: Other Labs: CBC, BMP 10/29/19 05:00 10/29/19 05:00 INR, PTT INR 1.34 (0.83-1.09) H 10/29/19 12:40 Fibrinogen > 500.0 mg/dL (238-498) H 10/28/19 16:15 Assessment/Plan Acute Hypoxic Respiratory Failure Acute Cholecystitis/Cholangitis Choledocholithiasis Septic Shock Acute Kidney Injury Lactic Acidosis Thrombocytopenia +Troponins likely Demand Ischemia LV Systolic Dysfunction Atrial Fibrillation h/o CVA h/o HTN Hyperlipidemia Hypothyroidism plan resp support management of vent iv abx await for cx reports
[2019-10-29] MEDS ORDERED: PIPERACILLIN/TAZOB 2.25 GM 2.25 GM in DEXTROSE 5%-WATER - 50 ML IVPB SCH (15:00)
[2019-10-29] MEDS ORDERED: SODIUM CHLORIDE 500 ML IV STA (15:36)
--- NOTE | 2019-10-29 16:03 | PN ---
Progress Note, Physician History of Present Illness: intubated on pressors - Current Medication List Current Medications: Active Medications Chlorhexidine Gluconate (Hibiclens For Decolonization -) 1 applic TP HS MARIA D Last Admin: 10/28/19 21:32 Dose: 1 applic Hydrocortisone Sodium Succinate (Solu-Cortef -) 50 mg IVPB Q6H-IV MARIA D Last Admin: 10/29/19 10:21 Dose: 50 mg Norepinephrine Bitartrate 8, (000 mcg/ Dextrose) 500 mls @ 8.16 mls/hr IV ASDIR MARIA D; Protocol Last Titration: 10/29/19 07:00 Dose: 0.41 mcg/kg/min, 111.58 mls/hr Vasopressin 50 units/ Sodium (Chloride) 100 mls @ 4 mls/hr IVPB ASDIR MARIA D; Protocol Last Admin: 10/28/19 22:31 Dose: 6 units/hr, 12 mls/hr Fentanyl 500 mcg/ Dextrose 100 mls @ 5 mls/hr IVPB TITR MARIA D; Protocol Last Admin: 10/29/19 01:42 Dose: 25 mcg/hr, 5 mls/hr Sodium Chloride (Normal Saline -) 1,000 mls @ 75 mls/hr IV ASDIR MARIA D Last Admin: 10/29/19 08:02 Dose: 75 mls/hr Phenylephrine HCl 20,000 mcg/ (Sodium Chloride) 250 mls @ 75 mls/hr IVPB ASDIR MARIA D; Protocol Last Admin: 10/29/19 09:38 Dose: 100 mcg/min, 75 mls/hr Dopamine HCl 400,000 mcg/ (Sodium Chloride) 250 mls @ 4.1 mls/hr IV TITR MARIA D; Protocol Last Titration: 10/29/19 11:26 Dose: 5 mcg/kg/min, 10.27 mls/hr Piperacillin Sod/Tazobactam (Sod 2.25 gm/ Dextrose) 50 mls @ 100 mls/hr IVPB Q6H-IV MARIA D; Protocol Sodium Chloride (Normal Saline -) 500 mls @ 500 mls/hr IV ASDIR STA Stop: 10/29/19 16:35 Levothyroxine Sodium (Synthroid -) 25 mcg PO ACBK MARIA D Last Admin: 10/29/19 06:08 Dose: Not Given Mupirocin (Bactroban Ointment (For Decolonization) -) 1 applic NS BID MARIA D Stop: 11/01/19 21:59 Last Admin: 10/29/19 11:25 Dose: 1 applic Rosuvastatin Calcium (Crestor -) 10 mg PO HS [facility] Last Admin: 10/28/19 21:31 Dose: Not Given - Objective Vital Signs: Vital Signs Temperature 97.4 F L 10/29/19 14:00 Pulse Rate 117 H 10/29/19 14:00 Respiratory Rate 19 10/29/19 14:00 Blood Pressure 85/68 L 10/29/19 14:00 O2 Sat by Pulse Oximetry (%) 93 L 10/28/19 23:59 HENT: Yes: Atraumatic Neck: Yes: Supple Cardiovascular: Yes: Regular Rate and Rhythm Respiratory: Yes: Rhonchi Gastrointestinal: Yes: Normal Bowel Sounds Extremities: Yes: WNL Neurological: Yes: Other (intubated and sedated) Labs: CBC, BMP 10/29/19 05:00 10/29/19 05:00 INR, PTT INR 1.34 (0.83-1.09) H 10/29/19 12:40 Fibrinogen > 500.0 mg/dL (238-498) H 10/28/19 16:15 Problem List - Problems (1) Ascending cholangitis Assessment/Plan: s/p ercp and stone extraction Code(s): K83.09 - OTHER CHOLANGITIS (2) Choledocholithiasis with acute cholecystitis Code(s): K80.42 - CALCULUS OF BILE DUCT W ACUTE CHOLECYSTITIS W/O OBSTRUCTION (3) Atrial fibrillation Code(s): I48.91 - UNSPECIFIED ATRIAL FIBRILLATION (4) HTN (hypertension) Assessment/Plan: hold meds Code(s): I10 - ESSENTIAL (PRIMARY) HYPERTENSION (5) Hyperlipidemia Assessment/Plan: hold meds Code(s): E78.5 - HYPERLIPIDEMIA, UNSPECIFIED (6) Sepsis associated hypotension Code(s): A41.9 - SEPSIS, UNSPECIFIED ORGANISM; I95.9 - HYPOTENSION, UNSPECIFIED (7) Septic shock Assessment/Plan: on pressors iv abx fluids Code(s): A41.9 - SEPSIS, UNSPECIFIED ORGANISM; R65.21 - SEVERE SEPSIS WITH SEPTIC SHOCK Assessment/Plan PT IS DNR NOW D/W DAUGHTER
[2019-10-29 16:51] VITALS: BP 82/47; PULSE 143
[2019-10-29 16:56] VITALS: BMI 21.9
--- NOTE | 2019-10-29 17:17 | PN ---
Progress Note (short form) - Note Progress Note: notified by RN at 5:09pm patient did not have a pulse PE: no breath sounds B/L no heart sounds no carotid/femoral/radial pulses pupils fixed; non-reactive patient pronounced at 5:11 pm family was at bedside ; primary team notified
[2019-10-29 17:20] LABS: ARTERIAL BLD GAS O2 SATURATION 73 % (95-98); ARTERIAL BLOOD GAS BASE EXCESS -24.5 meq/l (-2-2); ARTERIAL BLOOD GAS PCO2 39.2 mmHg (35-45); ARTERIAL BLOOD GAS PO2 52 mmHg (80-100)
--- NOTE | 2019-10-29 18:52 | DS ---
Physical Examination Vital Signs: Vital Signs Temperature 97.4 F L 10/29/19 14:00 Pulse Rate 143 H 10/29/19 16:00 Respiratory Rate 21 H 10/29/19 16:00 Blood Pressure 82/47 L 10/29/19 16:00 O2 Sat by Pulse Oximetry (%) 93 L 10/28/19 23:59 Labs: CBC, BMP 10/29/19 05:00 10/29/19 05:00 Discharge Summary Problems reviewed: Yes Reason For Visit: SEPSIS ASSOCIATED HYPOTENSION Current Active Problems AICD (automatic cardioverter/defibrillator) present (Acute) Ascending cholangitis (Acute) Choledocholithiasis with acute cholecystitis (Acute) Elevated troponin (Acute) Sepsis associated hypotension (Acute) Septic shock (Acute) Condition: Critical - Instructions Referrals: Alfred Duarte MD [Primary Care Provider] - - Home Medications Comprehensive Discharge Medication List: Ambulatory Orders Carvedilol [Coreg -] 12.5 mg PO BID 10/27/19 Digoxin [Lanoxin -] 0.125 mg PO ASDIR 10/27/19 Furosemide 40 mg PO DAILY 10/27/19 Levothyroxine [Synthroid -] 25 mcg PO DAILY 10/27/19 Rosuvastatin [Crestor -] 10 mg PO DAILY 10/27/19 Spironolactone 25 mg PO DAILY 10/27/19 at 5.11 pm certificate filled out online
== END 2019-10-29 17:11 | disposition expired | DRG 871 ==
LOC: JER 09:14 → JERBED 18:28 → JICU 20:15
PROVIDERS: ADMIT Internal Medicine; ATTEND Internal Medicine
PROC: 5A1945Z Respiratory Ventilation, 24-96 Consecutive Hours (ICD-10-PCS; 2019-10-27)
PROC: 0BH17EZ Insertion of Endotracheal Airway into Trachea, Via Natural or Artificial Opening (ICD-10-PCS; 2019-10-27)
PROC: 0F9430Z Drainage of Gallbladder with Drainage Device, Percutaneous Approach (ICD-10-PCS; 2019-10-27)
PROC: 0FC98ZZ Extirpation of Matter from Common Bile Duct, Via Natural or Artificial Opening Endoscopic (ICD-10-PCS; 2019-10-28)
PROC: 02HV33Z Insertion of Infusion Device into Superior Vena Cava, Percutaneous Approach (ICD-10-PCS; 2019-10-28)
PROC: 0F798DZ Dilation of Common Bile Duct with Intraluminal Device, Via Natural or Artificial Opening Endoscopic (ICD-10-PCS; principal; 2019-10-28 13:00)
DX: A41.9 Sepsis, unspecified organism (principal); R65.21 Severe sepsis with septic shock; G93.41 Metabolic encephalopathy; J96.01 Acute respiratory failure with hypoxia; K80.42 Calculus of bile duct with acute cholecystitis without obstruction; N17.9 Acute kidney failure, unspecified; I24.8 Other forms of acute ischemic heart disease; K80.62 Calculus of gallbladder and bile duct with acute cholecystitis without obstruction; E87.2 Acidosis; I95.9 Hypotension, unspecified; I48.91 Unspecified atrial fibrillation; I10 Essential (primary) hypertension; E78.5 Hyperlipidemia, unspecified; D69.6 Thrombocytopenia, unspecified; E03.9 Hypothyroidism, unspecified; Z95.5 Presence of coronary angioplasty implant and graft; D72.829 Elevated white blood cell count, unspecified; E86.0 Dehydration; I25.10 Atherosclerotic heart disease of native coronary artery without angina pectoris
CPT/HCPCS: 31500; 36415; 36600; 47490; 71045-TC-FY; 74176-TC; 76000-TC-FY; 80053; 81003; 82550; 82553; 82803; 82962; 83605; 83735; 83880; 84100; 84443; 84484; 85025; 85027; 85384; 85610; 85730; 86850; 86900; 86901; 87040; 87070; 87075; 87186; 87205; 93005; 93010; 93306-TC; 94002; 99291; 99292; A4358; C1729; J0131; J7030